=== PATIENT | male | born 1940 | race African-American/Black ===

== ENCOUNTER 2019-04-04 04:13 | Inpatient (IN) | payer MEDICARE ==
[~2019-04-04] VITALS: Ht 185.4 cm; Wt 90.1 kg
--- NOTE | ~2019-04-04 | HEMODYNAMI ---
PATIENT:LINDA OCHOA MEDICAL RECORD: [id number] : 42 [facility] [id number] ADMISSION DATE: 04/04/19 Generatedon:04/05/201910:25 Patient name: LINDA OCHOA Patient #: [id number] SSN: [id number] : 1940 Date of study: 04/05/2019 Page: Of Hemodynamic Procedure Report Patient Data Patient Demographics Procedure consent was obtained First Name: LINDA Gender: Male Last Name: GABRIELA : 1940 Patient #: [id number] Age: 78 year(s) Race: Black SSN: [id number] Additional ID: [id number] Contact details Address: [address] [place] [address] [place] Zip code: [address] Admission Admission Data Admission Date: 04/04/2019 Admission Time: 5:41 Arrival Date: 04/05/2019 Arrival Time: 5:41 Admit Source: Emergency Insurance Payor: Private department health insurance Room #: D.[id number] Height (in.): 185 BSA: 2.95 (m2) Height (cm.): 469.9 BMI: 1.77 (kg/m2) Weight (lbs.): 86 Weight (kg.): 39.01 Lab Results Lab Result Date: 04/05/2019 Lab Result Time: 0:00 Biochemistry Name Units Result Min Max BUN mg/dl 29 --(----)-* 7 18 Creatinine mg/dl 1.1 --(--*-)-- 0.6 1.3 CBC Name Units Result Min Max Hemoglobin g/dl 9.2 *-(----)-- 13.5 17.5 Procedure Procedure Types Cath Procedure Diagnostic Procedure [facility] w/Coronaries Sedation Charges Moderate Sedation up to 30 minutes PCI Procedure Coronary Stent Coronary Stent Initial x2 Coronary Stent Additional Procedure Description Procedure Date Procedure Date: 04/05/2019 Procedure Start Time: 9:58 Procedure End Time: 10:20 Procedure Staff Name Function Ferdinand Matthews MD Performing Physician Liss Chavez RT Monitor Neema Real RT Monitor Veronika Kirk RT Scrub Tejinder Greenwood RN Nurse Procedure Data Cath Procedure Fluoroscopy Diagnostic fluoroscopy Total fluoroscopy Time: 5.5 time: 5.5 min min Diagnostic fluoroscopy Total fluoroscopy dose: dose: 1748 mGy 1748 mGy Contrast Material Contrast Material Type Amount (ml) Isovue 300 164 Entry Location Entry Primary Successful Side Size Upsize Upsize Entry Closure Talley ccessful Closure Location (Fr) 1 (Fr) 2 (Fr) Remarks Device Remarks Radial Right 6 Fr Mechanical artery Short Compression Estimated blood loss: 5 ml Diagnostic catheters Device Type Used For End Catheter Placement DIAGNOSTIC Hen[place] 110cm 5 Multi-vessel Fr catheter ([id number]) Angiography Procedure Complications No complications Procedure Medications Medication Administration Route Dosage 0.9% NaCl I.V. 100 ml/hr Oxygen etCO2 Nasal cannula 2 l/min Heparin Flush Bag added to field 2 bags (1000units/500ml NS) Lidocaine 2% added to field 20 Radial Cocktail added to field 1 syringe (Verapamil 2mg/Nitro 400mcg/Heparin 1500units) Versed I.V. 1 mg Fentanyl I.V. 50 mcg Radial Cocktail added to field 1 syringe (Verapamil 2mg/Nitro 400mcg/Heparin 1500units) Heparin Bolus I.V. 4000 units Hemodynamics Rest BSA: 2.95 (m2) HGB: 9.2 (g/dl) O2 Consumption: Estimated: 353.02 (ml/min) O2 Con sumption indexed: Estimated:119.67 (ml/min/m) Heart Rate: 83 (bpm) Pressure Samples Time Site Value (mmHg) Purpose Heart Use Rate(bpm) 10:01 LV 110/87,101 Snapshot 91 Snapshots Pre Cath Intra NCS Post Cath Vital Signs Time Heart Resp SPO2 etCO2 NIBP (mmHg) Rhythm Pain Sedation Rate (ipm) (%) (mmHg) Status Level (bpm) 9:43:16 84 12 94 38.3 134/75(101) NSR 0 (11) 10(A) , No pain 9:47:24 82 12 96 33.9 116/82(107) NSR 0 (11) 10(A) , No pain 9:51:28 83 11 96 38.3 114/75(94) NSR 0 (11) 10(A) , No pain 9:55:31 81 10 96 40.6 114/71(91) NSR 0 (11) 10(A) , No pain 9:59:35 82 19 96 41.4 114/71(90) NSR 0 (11) 10(A) , No pain 10:03:41 85 16 93 38.3 102/67(92) NSR 0 (11) 10(A) , No pain 10:07:40 85 16 93 39.9 114/72(91) NSR 0 (11) 10(A) , No pain 10:11:44 83 15 94 37.6 110/74(84) NSR 0 (11) 10(A) , No pain 10:15:44 81 19 94 42.1 118/79(95) NSR 0 (11) 10(A) , No pain 10:19:50 80 8 96 33.8 107/73(88) NSR 0 (11) 10(A) , No pain Medications Time Medication Route Dose Verified Delivered Reason Not es Effectiveness by by 9:42:27 0.9% NaCl I.V. 100 Tejinder Tejinder Per physician ml/hr Krystyna Greenwood RN RN 9:42:36 Oxygen etCO2 2 l/min Tejinder Tejinder for low 02 sats Nasal Lorigan Krystyna cannula RN RN 9:42:46 Heparin Flush added 2 bags Tejinder Tejinder used for Bag to Krystyna Greenwood procedure (1000units/500ml RN RN NS) 9:42:56 Lidocaine 2% added 20ml Tejinder Tejinder for local to vial Lorigan Krystyna anesthetic field RN RN 9:43:08 Radial Cocktail added 1 Tejinder Tejinder used for (Verapamil to syringe Keyigan Krystyna procedure 2mg/Nitro field RN RN 400mcg/Heparin 1500units) 9:57:32 Versed I.V. 1 mg Tejinder Tejinder for sedation Krystyna Greenwood RN RN 9:57:43 Fentanyl I.V. 50 mcg Tejinder Tejinder for sedation Krystyna Greenwood RN RN 10:01:14 Radial Cocktail added 1 Tejinder Ferdinand for (Verapamil to syringe Krystyna Taulianet MD vasodilation 2mg/Nitro field RN 400mcg/Heparin 1500units) 10:06:30 Heparin Bolus I.V. 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 Start room use. 9:04:38 Plan of Care:Hemodynamics will remain stable., Cardiac rhythm will remain stable., Comfort level will be maintained., Respiratory function will remain adequate., Patient/ family verbilizes understanding of procedure., Procedure tolerated without complication., Recovers from procedure without complications.. 9:05:45 2) 60-89 Mildly reduced kidney function, and other findings (as for stage 1) point to kidney disease. 9:09:44 Maximum allowable contrast dose (3.7 X eGFR X 0.75)233.1 ml. 9:35:11 Patient received from Med II to CCL 2 Alert and oriented. Tansferred to table in Supine position. 9:35:15 Warm blankets applied, and mera hugger turned on for patient comfort. 9:35:16 Correct patient and procedure confirmed by team. 9:35:17 ECG and BP/O2 sat monitors applied to patient. 9:42:12 Vital chart was started 9:42:27 0.9% NaCl 100 ml/hr I.V. was administered by Tejinder Greenwood RN; Per physician; Verbal order read back and verified. 9:42:36 Oxygen 2 l/min etCO2 Nasal cannula was administered by Tejinder Greenwood RN; for low 02 sats; Verbal order read back and verified. 9:42:45 Baseline sample Acquired. 9:42:46 Heparin Flush Bag (1000units/500ml NS) 2 bags added to field was administered by Tejinder Greenwood RN; used for procedure; Verbal order read back and verified. 9:42:53 Full Disclosure recording started 9:42:56 Lidocaine 2% 20ml vial added to field was administered by Tejinder Greenwood RN; for local anesthetic; Verbal order read back and verified. 9:43:01 H&P Date Dictated: 04/05/2019 New H&P dictated by physician.. 9:43:08 Radial Cocktail (Verapamil 2mg/Nitro 400mcg/Heparin 1500units) 1 syringe added to field was administered by Tejinder Greenwood RN; used for procedure; Verbal order read back and verified. 9:43:13 Pre-procedure instructions explained to patient. 9:43:14 Pre-op teaching completed and patient verbalized understanding. 9:43:21 Family in patients room. 9:43:25 Patient NPO since Midnight. 9:43:37 Is the patient allergic to Iodine/contrast media? No. 9:43:40 Was the patient premedicated? No 9:43:50 Is patient on blood thinner?No 9:43:55 Patient diabetic? No. 9:44:06 ----Pre-sedation anethsthesia assessment.---- 9:44:11 Previous problem with sedation/anesthesia? No ? 9:44:14 Snore? No 9:44:16 Sleep apnea? No 9:44:19 Deviated septum? No 9:44:21 Opens mouth fully? Yes 9:44:23 Sticks out tongue? Yes 9:44:32 Dentures? No ? 9:44:40 Airway obstruction? No ? 9:46:11 Pre procedure: right posterior tibial pulse Doppler 9:46:21 Pre procedure: left dorsailis pedis pulse Doppler 9:46:32 Patient pain scale 0/10 ?. 9:46:41 Modified Chucho's test Radial < 7 seconds 9:46:54 IV patent on arrival in left forearm with 0.9% NaCl at [facility]. 9:47:03 Lab results completed and on chart. 9:47:12 Right Radial & Right Groin area was prepped with chlora-prep and draped in sterile fashion 9:47:15 Alarms reviewed by R. N. 9:47:16 Sharps counted by scrub and verified by R.N. 9:47:22 Physician arrived 9:47:22 --------ALL STOP TIME OUT------ 9:47:24 Final Timeout: patient, procedure, and site verified with staff and physician. All members of the team are in agreement. 9:47:30 Right Radial & Right Groin site verified by team. 9:47:39 Fire Safety Assessment: A--An alcohol-based skin anteseptic being used preoperatively., C--Open oxygen or nitrous oxide is being used., D--An ESU, laser, or fiber-optic light is being used. 9:47:48 Physical assessment completed. ASA score P 2 - A patient with mild systemic disease as per Ferdinand Matthews MD. 9:47:59 Sedation plan: IV Moderate Sedation Medication:Versed, Fentanyl 9:48:11 Use device set Radial Dx or PCI 9:48:18 ACIST Syringe (79195) opened to sterile field. 9:48:19 Medline Cath Pack ([id number]) opened to sterile field. 9:48:20 Bag Decanter (2002S) opened to sterile field. 9:48:21 ACIST Hand Control (94873) opened to sterile field. 9:48:22 ACIST Manifold () opened to sterile field. 9:48:24 Tegaderm 4 x 4 (1626W) opened to sterile field. 9:48:26 MBrace Wrist Support ([id number]) opened to sterile field. 9:48:31 SHEATH 6FR RAIN (1745507) opened to sterile field. 9:48:33 EMERALD Guide Wire (026-043) opened to sterile field. 9:56:51 Zero performed for pressure channel P1 9:57:32 Versed 1 mg I.V. was administered by Tejinder Greenwood RN; for sedation; Verbal order read back and verified. 9:57:43 Fentanyl 50 mcg I.V. was administered by Tejinder Greenwood RN; for sedation; Verbal order read back and verified. 9:58:43 Procedure started. 9:58:54 Local anesthetic to right radial artery with Lidocaine 2% by Ferdinand Matthews MD.INITIAL ACCESS ONLY 9:59:23 A 6 Fr Short sheath was inserted into the Right Radial artery 9:59:38 A DIAGNOSTIC Henning 110cm 5 Fr catheter (480902) was advanced over the wire and used for Multi-vessel Angiography. 10:01:14 Radial Cocktail (Verapamil 2mg/Nitro 400mcg/Heparin 1500units) 1 syringe added to field was administered by Ferdinand Matthews MD; for vasodilation; Verbal order read back and verified. 10:01:47 LV hemodynamics recorded. 10:01:52 LV gram done using PINK 10::59 Injector settings: Ml/sec: 5, Volume: 15, 10:02:09 EF : 45 % 10:02:22 LCA angiography performed. 10:03:47 RCA angiography performed. 10:04:06 Catheter removed. 10:04:46 INFLATOR Merit BasixCompak (ZD7823) opened to sterile field. 10:04:56 CHOICE PT Extra Support 182cm wire ([id number]) opened to sterile field. 10:05:14 GUIDE 6FR XBLAD 3.5 catheter ([id number]) opened to sterile field. 10:05:17 ACC Pre-intervention DAVID Flow is 3. 10:05:42 Pre PCI Site: [place] pLAD has 95% stenosis. 10:05:42 6 Fr xblad3.5 guide catheter was inserted over the wire 10:05:54 choice pt wire advanced. 10:06:28 Wire advanced across lesion. 10:06:30 Heparin Bolus 4000 units I.V. was administered by Tejinder Greenwood RN; for anticoagulation; Verbal order read back and verified. 10:08:37 Place stent Inflation Number: 1 A NITIN RX 3.5 x 12 stent ([id number]) was prepped and advanced across the Prox LAD 95. The stent was deployed at 17 JEANINE for 0:10 (min:sec) . 10:09:00 Stent catheter was removed intact over wire. 10:09:22 Wire redirected to lcx. 10:09:28 Wire advanced across lesion. 10:11:55 Place stent Inflation Number: 1 A NITIN RX 2.5 x 18 stent ([id number]) was prepped and advanced across the 1st Ob Iman 95. The stent was deployed at 15 JEANINE for 0:10 (min:sec) -1. 10:12:09 Stent catheter was removed intact over wire. 10:14:02 Place stent Inflation Number: 1 A NITIN RX 3.0 x 12 stent ([id number]) was prepped and advanced across the Mid CX 95. The stent was deployed at 13 JEANINE for 0:10 (min:sec) . 10:14:25 Stent catheter was removed intact over wire. 10:14:28 Wire removed. 10:14:30 ACT drawn and resulted at 187 seconds. (normal therapeutic range 180-240 seconds). 10:14:30 Guide catheter removed. 10:14:37 ZEPHYR REGULAR TR BAND (302576) opened to sterile field. 10:15:01 Sheath removed intact; hemostasis achieved with Mechanical Compression to the Right Radial artery. 10:15:07 Procedure ended.(Physican Out) 10:16:15 Fluoroscopy time 05.50 minutes. 10:16:21 Flurop Dose total: 1748 10:16:21 Fluoroscopy dose: 1748 mGy 10:16:28 Dose Area Product 67958 mGy/cm. 10:16:52 Contrast amount:Isovue 300 164ml. 10:16:58 Sharps counted by scrub and verified by R.N. 10:17:06 [place] band inflated with 10cc of air. 10:17:11 Insertion/operative site no bleeding no hematoma. 10:17:20 Post right radial artery:stable 10:17:25 Post Procedure Pulses reassessed and unchanged 10:17:32 Post procedure rhythm: unchanged. 10:17:40 Estimated blood loss: 5 ml 10:17:44 Post procedure instruction explained to patient.Patient verbalizes understanding. 10:17:46 Patient needs reinforcement of post procedure teaching. 10:19:04 Procedure type changed to Cath procedure, Diagnostic procedure, LHC, LHC w/Coronaries, Sedation Charges, Moderate Sedation up to 30 minutes, PCI procedure, Coronary Stent, Coronary Stent Initial x2, Coronary Stent Additional 10:19:50 Procedure and supply charges have been captured, reviewed, submitted and are correct. 10:20:06 Procedure Complication : No complications 10:20:11 Vital chart was stopped 10:20:12 See physician's report for complete and final results. 10:20:16 Report given to Med II. 10:20:28 Patient transfered to Med II with Bed. 10:20:35 Procedure ended. 10:20:35 Full Disclosure recording stopped 10:20:48 ACC-PCI Only Patient was given prescriptions, or instructed by Ferdinand Matthews MD to start/continue the following medications upon discharge: Plavix 10:20:50 End room use (Document Last) Intervention Summary Intervention Notes Time ActionType Lesion and Equipment Used Action# Pressure Duration Attributes 10:08:[address] Place stent Prox LAD NITIN RX 3.5 x 1 17 00:10 12 stent ([id number]) 10:11:55 Place stent 1st Ob Iman NITIN RX 2.5 x 1 15 00:10 18 stent ([id number]) 10:14:02 Place stent Mid CX NITIN RX 3.0 x 1 13 00:10 12 stent ([id number]) Device Usage Item Name Manufacture Quantity Catalog Number Hospital Part Current M inimal Lot# / Charge Number Stock Stock Serial# Code ACIST Syringe Acist 1 02149 961977 817289 783637 2 0 (79634) Medical Systems Inc Medline Cath Medline 1 [id number] 250429 23357 139036 5 Pack ([id number]) Bag Decanter Microtek 1 2001S 365261 87336 043682 5 (2001S) Medical Inc. ACIST Hand Acist 1 89888 356906 124736 267248 5 Control Medical (57269) Systems Inc ACIST Manifold Acist 1 73102 047693 378373 465953 5 (27867) Medical Systems Inc Tegaderm 4 x 4 3M 1 1626W 203743 004876 661344 5 (1626W) MBrace Wrist Advanced 1 140-0250-00 128382 57040 525053 5 Support Vascular ([id number]) Dynamics SHEATH 6FR Cardinal 1 0849492 392932 7641019 813752 5 RAIN (1083984) [facility] Guide Cardinal 1 502-455 260607 051631 367365 5 Wire (502-539) Health DIAGNOSTIC Terumo 1 40-0221 606187 154851 396615 5 Henning 110cm 5 Fr catheter (405863) INFLATOR Merit Merit 1 NU2500 855024 763333 275527 1 5 Biovest International Medical (TH2081) CHOICE PT [place] 1 [id number] 097978 248008 578452 5 Extra Support Scientific 182cm wire ([id number]) GUIDE 6FR Cardinal 1 [id number] 066670 485768 385380 1 0 XBLAD 3.5 Health catheter (86662937) NITIN RX 3.5 x Medtronic 1 [id number] 060055 8853440 952374 5 [id number] 12 stent ([id number]) NITIN RX 2.5 x Medtronic 1 [id number] 920927 0161456 576887 5 [id number] 18 stent ([id number]) NITIN RX 3.0 x Medtronic 1 [id number] 413456 9584505 181766 5 [id number] 12 stent ([id number]) ZEPHYR REGULAR Cardinal 1 404813 456587 1456133 491861 5 [facility] (873710) Signature Audit Hansen Stage Time Signature Unsigned Intra-Procedure 04/05/2019 Neema 10:23:13 AM Farhan RT(R) (CV) Intra-Procedure 04/05/2019 Tejinder 10:24:01 AM Krystyna KENYON Intra-Procedure 04/05/2019 Ferdinand Matthews 10:25:11 AM [place] [address] [place] [address]
--- NOTE | ~2019-04-04 | HEMODYNAMI ---
PATIENT:LINDA OCHOA MEDICAL RECORD: [id number] : 42 [facility] D.2127 [id number] ADMISSION DATE: 04/04/19 Generatedon:04/07/201910:35 Patient name: LINDA OCHOA Patient #: [id number] SSN: [id number] : 1940 Date of study: 04/07/2019 Page: Of Hemodynamic Procedure Report Patient Data Patient Demographics Procedure consent was obtained First Name: LINDA Gender: Male Last Name: GABRIELA : 1940 Patient #: [id number] Age: 78 year(s) Race: Black SSN: [id number] Additional ID: [id number] Contact details Address: [address] [place] [address] State: [facility] Zip code: [address] Past Medical History Allergies: No known allergies Admission Admission Data Admission Date: 04/04/2019 Admission Time: 5:41 Arrival Date: 04/05/2019 Arrival Time: 5:41 Admit Source: Emergency Insurance Payor: Private department health insurance Room #: D.2127 Height (in.): 185 BSA: 2.95 (m2) Height (cm.): 469.9 BMI: 1.77 (kg/m2) Weight (lbs.): 86 Weight (kg.): 39.01 Lab Results Lab Result Date: 04/07/2019 Lab Result Time: 0:00 Biochemistry Name Units Result Min Max BUN mg/dl 22 --(----)-* 7 18 Creatinine mg/dl 1.3 --(---*)-- 0.6 1.3 eGFR ml/min 69 *-(----)-- 90 120 AM CBC Name Units Result Min Max Hematocrit % 32.3 *-(----)-- 42 54 Hemoglobin g/dl 10.4 *-(----)-- 13.5 17.5 Procedure Procedure Types Cath Procedure PCI Procedure Coronary Stent Coronary Stent Initial Procedure Description Procedure Date Procedure Date: 04/07/2019 Procedure Start Time: 10:06 Procedure End Time: 10:31 Procedure Staff Name Function Ferdinand Matthews MD Performing Physician Mignon Lewis RT Monitor Brenda Hopkins RT Scrub Tejinder Greenwood RN Nurse Procedure Data Cath Procedure Fluoroscopy Diagnostic fluoroscopy Total fluoroscopy Time: 9 time: 9 min min Diagnostic fluoroscopy Total fluoroscopy dose: 632 dose: 632 mGy mGy Contrast Material Contrast Material Type Amount (ml) Isovue 300 111 Entry Location Entry Primary Successful Side Size Upsize Upsize Entry Closure Succes sful Closure Location (Fr) 1 (Fr) 2 (Fr) Remarks Device Remarks Femoral Right 7 Fr 7 Fr Exoseal artery Short Long Estimated blood loss: 10 ml Procedure Complications No complications Procedure Medications Medication Administration Route Dosage 0.9% NaCl I.V. 100 ml/hr Oxygen etCO2 Nasal cannula 2 l/min Heparin Flush Bag added to field 2 bags (1000units/500ml NS) Lidocaine 2% added to field 20 Versed I.V. 0.5 mg Fentanyl I.V. 25 mcg Heparin Bolus I.V. 5000 units Hemodynamics Rest BSA: 2.95 (m2) HGB: 10.4 (g/dl) O2 Consumption: Estimated: 370.6 (ml/min) O2 Con sumption indexed: Estimated:125.63 (ml/min/m) Heart Rate: 99 (bpm) Snapshots Pre Cath Intra NCS Post Cath Vital Signs Time Heart Resp SPO2 etCO2 NIBP (mmHg) Rhythm Pain Sedation Rate (ipm) (%) (mmHg) Status Level (bpm) 9:55:08 100 22 100 30 138/88(117) NSR 0 (11) 10(A) , No pain 9:59:22 101 18 100 33.7 131/85(115) NSR 0 (11) 10(A) , No pain 10:03:30 93 15 100 39.7 124/77(98) NSR 0 (11) 10(A) , No pain 10:07:42 103 15 100 37.5 122/74(95) NSR 0 (11) 10(A) , No pain 10:11:52 100 15 100 36 128/78(100) NSR 0 (11) 10(A) , No pain 10:16:08 99 14 100 36.7 126/73(103) NSR 0 (11) 9(A) , No pain 10:20:18 97 17 100 35.2 127/80(103) NSR 0 (11) 9(A) , No pain 10:24:30 94 17 100 33.7 132/80(103) NSR 0 (11) 9(A) , No pain 10:28:40 93 17 100 33 135/87(108) NSR 0 (11) 9(A) , No pain Medications Time Medication Route Dose Verified Delivered Reason Notes Effectiveness by by 9:57:31 0.9% NaCl I.V. 100 Tejinder Tejinder Per physician ml/hr Krystyna Greenwood RN RN 9:57:42 Oxygen etCO2 2 Tejinder Tejinder for low 02 sats Nasal l/min Krystyna Greenwood cannula RN RN 9:57:54 Heparin Flush added 2 Tejinder Tejinder used for Bag to bags Krystyna Greenwood procedure (1000units/500ml RN RN NS) 9:58:06 Lidocaine 2% added 20ml Tejinder Tejinder for local to vial Krystyna Greenwood anesthetic field RN RN 10:06:13 Versed I.V. 0.5 Tejinder Tejinder for sedation mg Krystyna Greenwood RN RN 10:06:22 Fentanyl I.V. 25 Tejinder Tejinder for sedation mcg Krystyna Greenwood RN RN 10:10:38 Heparin Bolus I.V. 5000 Tejinder Tejinder for units Krystyna Greenwood anticoagulation RN oxyacetylene torch operator Log Time Note 9:35:10 Tejinder Greenwood RN sent for patient. Start room use. 9:43:07 Procedure Status Urgent Heart Cath (IP). 9:43:12 Patient Weight : 86 lbs 9:43:12 Patient Height : 185 inches 9:43:17 Time tracking: Regular hours (M-F 7:00 - 5:00) 9:43:20 Plan of Care:Hemodynamics will remain stable., Cardiac rhythm will remain stable., Comfort level will be maintained., Respiratory function will remain adequate., Patient/ family verbilizes understanding of procedure., Procedure tolerated without complication., Recovers from procedure without complications.. 9:43:22 Signed procedure consent form obtained from patient. 9:45:48 Patient received from Med II to CCL 1 Alert and oriented. Tansferred to table in Supine position. 9:45:49 Warm blankets applied, and mera hugger turned on for patient comfort. 9:45:49 Correct patient and procedure confirmed by team. 9:45:50 ECG and BP/O2 sat monitors applied to patient. 9:53:07 Vital chart was started 9:53:09 Baseline sample Acquired. 9:53:12 Rhythm: sinus rhythm 9:53:13 Full Disclosure recording started 9:53:38 Pre-procedure instructions explained to patient. 9:53:38 Pre-op teaching completed and patient verbalized understanding. 9:53:40 Family in patients room. 9:54:48 Patient allergic to No known allergies 9:54:50 Patient NPO since Midnight. 9:54:52 Is patient on blood thinner?Yes 9:54:55 ACC The patient was administered the following blood thiners within the last 24 hours: ACCPlavix 9:54:56 Patient diabetic? No. 9:55:01 Previous problem with sedation/anesthesia? No ? 9:55:02 Snore? No 9:55:03 Sleep apnea? No 9:55:04 Deviated septum? No 9:55:10 Opens mouth fully? Yes 9:55:11 Sticks out tongue? Yes 9:55:13 Airway obstruction? No ? 9:55:14 Dentures? No ? 9:55:16 Pre procedure: right dorsailis pedis pulse 1+ Palpable, but thready & weak; easily obliterated 9:55:19 Patient pain scale 0/10 ?. 9:55:25 IV patent on arrival in left forearm with 0.9% NaCl at O. 9:55:59 Lab Result : BUN 22 mg/dl 9::59 Lab Result : Creatinine 1.3 mg/dl 9:55:59 Lab Result : eGFR AM 69 ml/min 9:55:59 Lab Result : Hemoglobin 10.4 g/dl 9:55:59 Lab Result : Hematocrit 32.3 % 9:56:02 Lab results completed and on chart. 9:56:06 Right groin area was prepped with chlora-prep and draped in sterile fashion 9:56:07 Alarms reviewed by R. N. 9:56:07 Sharps counted by scrub and verified by R.N. 9:57:31 0.9% NaCl 100 ml/hr I.V. was administered by Tejinder Lorigan RN; Per physician; Verbal order read back and verified. 9:57:42 Oxygen 2 l/min etCO2 Nasal cannula was administered by Tejinder Greenwood RN; for low 02 sats; Verbal order read back and verified. 9:57:54 Heparin Flush Bag (1000units/500ml NS) 2 bags added to field was administered by Tejinder Greenwood RN; used for procedure; Verbal order read back and verified. 9:58:06 Lidocaine 2% 20ml vial added to field was administered by Tejinder Greenwood RN; for local anesthetic; Verbal order read back and verified. 9:59:17 Use device set CATH PACK 9:59:18 ACIST Syringe (48944) opened to sterile field. 9:59:19 ACIST Hand Control (59058) opened to sterile field. 9:59:19 ACIST Manifold (77189) opened to sterile field. 9:59:19 Medline Cath Pack ([id number]) opened to sterile field. 9:59:20 Bag Decanter (2002S) opened to sterile field. 9:59:20 EMERALD Guide Wire (502-432) opened to sterile field. 9:59:25 SHEATH 7FR [place] ([id number]) opened to sterile field. 9:59:33 INFLATOR Merit BasixCompak (FI5729) opened to sterile field. 9:59:33 CHOICE PT Extra Support 182cm wire ([id number]) opened to sterile field. 10:02:07 --------ALL STOP TIME OUT------ 10:02:07 Final Timeout: patient, procedure, and site verified with staff and physician. All members of the team are in agreement. 10:02:08 Right groin site verified by team. 10:02:11 Fire Safety Assessment: A--An alcohol-based skin anteseptic being used preoperatively., C--Open oxygen or nitrous oxide is being used., D--An ESU, laser, or fiber-optic light is being used. 10:02:14 Physical assessment completed. ASA score P 2 - A patient with mild systemic disease as per Ferdinand Matthews MD. 10:02:18 3a) 45-59 Moderately reduced kidney function. 10:02:21 Maximum allowable contrast dose (3.7 X eGFR X 0.75)191 ml. 10:02:25 Sedation plan: IV Moderate Sedation Medication:Versed, Fentanyl 10:03:19 Zero performed for pressure channel P1 10:04:39 Procedure started. 10:06:05 Local anesthetic to right femoral artery with Lidocaine 2% by Ferdinand Matthews MD.INITIAL ACCESS ONLY 10:06:13 Versed 0.5 mg I.V. was administered by Tejinder Greenwood RN; for sedation; Verbal order read back and verified. 10:06:13 A 7 Fr Short sheath was inserted into the Right Femoral artery 10:06:22 Fentanyl 25 mcg I.V. was administered by Tejinder Greenwood RN; for sedation; Verbal order read back and verified. 10:06:50 7 Fr AR 2 SH guide catheter was inserted over the wire 10::13 Guide Catheter removed. unable to get back-up support 10:08:23 SHEATH 7FR ARROW 45cm ([id number]) opened to sterile field. 10:08:49 Sheath upsized to a 7 Fr Long. 10:10:00 7 Fr AR 2 SH guide catheter was inserted over the wire 10:10:16 Pre PCI Site: [place] mRCA has MULTIPLE 95% stenosis. 10:10:38 Heparin Bolus 5000 units I.V. was administered by Tejinder Greenwood RN; for anticoagulation; Verbal order read back and verified. 10:11:13 CHOICE ES 182 wire advanced. 10:13:23 Wire advanced across lesion. 10:15:55 Inflate balloon Inflation number: 1 A EUPHORA 2.0 x 20 Balloon ([id number]) was prepped and advanced across the Mid RCA , then inflated to 17 JEANINE for 0:00 (min:sec) . 10:16:17 MULTIPLE INFLATIONS AT 17ATMS 10:17:12 Inflation number: 2 The EUPHORA 2.0 x 20 Balloon ([id number]) was reinflated across the Mid RCA , to 21 JEANINE for 0:00 (min:sec) . 10:17:27 MULTIPLE INFLATIONS AT 21 ATMS 10:17:48 Balloon removed over the wire. 10:19:22 The NITIN RX 2.0 x 30 stent ([id number]) was advanced then removed because of failure to cross lesion 10:21:08 Inflate balloon Inflation number: 3 A EUPHORA 2.5 x 20 Balloon ([id number]) was prepped and advanced across the Mid RCA , then inflated to 13 JEANINE for 0:00 (min:sec) . 10:21:19 Inflation number: 4 The EUPHORA 2.5 x 20 Balloon ([id number]) was reinflated across the Mid RCA , to 17 JEANINE for 0:00 (min:sec) . 10:21:31 Inflation number: 5 The EUPHORA 2.5 x 20 Balloon ([id number]) was reinflated across the Mid RCA , to 17 JEANINE for 0:00 (min:sec) . 10:21:45 Inflation number: 6 The EUPHORA 2.5 x 20 Balloon ([id number]) was reinflated across the Mid RCA , to 17 JEANINE for 0:00 (min:sec) . 10:22:09 Inflation number: 7 The EUPHORA 2.5 x 20 Balloon ([id number]) was reinflated across the Mid RCA , to 19 JEANINE for 0:00 (min:sec) . 10:22:18 Balloon removed over the wire. 10:23:28 Place stent Inflation Number: 8 A NITIN RX 2.0 x 30 stent ([id number]) was prepped and advanced across the Mid RCA . The stent was deployed at 21 JEANINE for 0:00 (min:sec) . 10:23:52 Stent catheter was removed intact over wire. 10:23:53 Guide catheter removed. 10:23:54 Wire removed. 10:24:07 EXOSEAL 7Fr (EX700) opened to sterile field. 10:24:19 LONG SHEATH EXCHANGED FOR THE SHORT SHEATH 10:26:13 Sheath removed intact; hemostasis achieved with Exoseal to the Right Femoral artery. 10:26:15 Procedure ended.(Physican Out) 10::56 Fluoroscopy time 09.00 minutes. 10:29:00 Fluoroscopy dose: 632 mGy 10:29:00 Flurop Dose total: 632 10:29:07 Dose Area Product 40842 mGy/cm. 10:29:12 Contrast amount:Isovue 300 111ml. 10:29:36 Maximum allowable dose exceeded? No. 10::37 Sharps counted by scrub and verified by R.N. 10:29:40 Post-op/insertion site Right Femoral artery dressed using a 4 x 4 and Tegaderm. 10:29:43 Post-procedure physical assessment completed. ASA score P 2 - A patient with mild systemic disease as per Ferdinand Matthews MD. 10:29:45 Post procedure rhythm: sinus rhythm 10::48 Estimated blood loss: 10 ml 10::50 Post procedure instruction explained to patient.Patient verbalizes understanding. 10:29:51 Patient needs reinforcement of post procedure teaching. 10:30:08 Procedure type changed to Cath procedure, PCI procedure, Coronary Stent, Coronary Stent Initial 10:30:26 Procedure and supply charges have been captured, reviewed, submitted and are correct. 10:30:30 Procedure Complication : No complications 10::29 ACT drawn and resulted at 163 seconds. (normal therapeutic range 180-240 seconds). 10::35 Vital chart was stopped 10::35 See physician's report for complete and final results. 10::37 Report given to [facility]. 10:31:40 Patient transfered to [facility] with Bed. 10:31:41 Procedure ended. 10::41 Full Disclosure recording stopped 10::46 End room use (Document Last) 10:34:33 End room use (Document Last) Intervention Summary Intervention Notes Time ActionType Lesion and Equipment Used Action# Pressure Duration Attributes 10:15:55 Inflate Mid RCA EUPHORA 2.0 x 1 17 00:00 balloon 20 Balloon ([id number]) 10:17:12 Reinflate Mid RCA EUPHORA 2.0 x 2 21 00:00 balloon 20 Balloon ([id number]) 10:19:22 Discard NITIN RX 2.0 x Stent 30 stent ([id number]) 10:21:08 Inflate Mid RCA EUPHORA 2.5 x 3 13 00:00 balloon 20 Balloon ([id number]) 10:21:19 Reinflate Mid RCA EUPHORA 2.5 x 4 17 00:00 balloon 20 Balloon ([id number]) 10:21:31 Reinflate Mid RCA EUPHORA 2.5 x 5 17 00:00 balloon 20 Balloon ([id number]) 10:21:45 Reinflate Mid RCA EUPHORA 2.5 x 6 17 00:00 balloon 20 Balloon ([id number]) 10:22:09 Reinflate Mid RCA EUPHORA 2.5 x 7 19 00:00 balloon 20 Balloon ([id number]) 10:23:28 Place stent Mid RCA NITIN RX 2.0 x 8 21 00:00 30 stent ([id number]) Device Usage Item Name Manufacture Quantity Catalog Number Hospital Part Current M inimal Lot# / Charge Number Stock Stock Serial# Code ACIST Syringe Acist 1 20886 985066 844864 772413 2 0 (43255) Medical Systems Inc ACIST Hand Acist 1 40452 723806 342403 381783 5 Control Medical (20962) Systems Inc ACIST Manifold Acist 1 63048 580393 474784 210634 5 (88822) Medical Systems Inc Medline Cath Medline 1 [id number] 641888 24000 423798 5 Pack ([id number]) Bag Decanter Microtek 1 2001S 824296 81131 868221 5 () Medical Inc. EMERALD Guide Cardinal 1 502-455 728061 197010 532299 5 Wire (502455) Health SHEATH 7FR Terumo 1 AAN488 458897 818659 071300 5 [place] (QOD279) INFLATOR Merit Merit 1 BP7464 167250 421381 568401 1 5 Thermal Nomad (TJ1532) CHOICE PT [place] 1 [id number] 988204 450888 545400 5 Extra Support Scientific 182cm wire ([id number]) SHEATH 7FR Teleflex 1 CL-55015 705486 100129 789982 1 ARROW 45cm ([id number]) EUPHORA 2.0 x Medtronic 1 [id number] 217929 221408 816320 5 [id number] 20 Balloon ([id number]) NITIN RX 2.0 x Medtronic 1 [id number] 625691 5315109 495639 5 [id number] 30 stent ([id number]) EUPHORA 2.5 x Medtronic 1 [id number] 509982 184861 319645 5 [id number] 20 Balloon ([id number]) EXOSEAL 7Fr Cardinal 1 EX700 882834 480499 291804 5 (EX700) Health Signature Audit [place] Stage Time Signature Unsigned Intra-Procedure 04/07/2019 Mignon Lewis 10:34:33 AM RT(R) Intra-Procedure 04/07/2019 Tejinder 10:35:07 AM Krystyna KENYON Intra-Procedure 04/07/2019 Ferdinand Matthews 10:35:25 AM [place] [address] [place] [address]
[2019-04-04] MEDS ORDERED: IBUPROFEN400 MG PO (04:20)
[2019-04-04] MEDS ORDERED: NEURONTIN600 MG PO (04:20)
[2019-04-04] MEDS ORDERED: ASPIRIN325 MG PO (04:20)
[2019-04-04] MEDS ORDERED: NORVASC5 MG PO (04:20)
[2019-04-04 05:15] LABS: BASOPHILS 0 % (0-2); EOSINOPHILS 0 % (0-7); HEMATOCRIT 30.9 % (42.0-54.0); HEMOGLOBIN 10.1 g/dL (13.5-17.5); IMMATURE GRANULOCYTES 0.3 % (0-5); LYMPHOCYTES 1.9 % (15-50); MCH 29.5 pg (26.0-34.0); MCHC 32.7 g/dL (31.0-37.0); MCV 90.4 fL (80.0-100.0); MEAN PLATELET VOLUME 8.5 fL (7.4-10.4); MONOCYTES 1.6 % (2-11); NEUTROPHILS 96.2 % (40-80); PLATELET COUNT 364 10x3/uL (130-400); RBC 3.42 10x6/uL (4.20-6.10); RDW 15.5 % (11.5-14.5); WBC 15.9 10x3/uL (4.8-10.8)
[2019-04-04 05:30] LABS: ALBUMIN 2.8 g/dL (3.4-5.0); ALKALINE PHOSPHATASE 73 U/L (46-116); ALT (SGPT) 19 U/L (10-68); BILIRUBIN - TOTAL 0.81 mg/dL (0.2-1.3); CALC OSMOLALITY 290 mosm/kg (275-300); CALCIUM 8.1 mg/dL (8.5-10.1); CARBON DIOXIDE 28.3 mmol/L (21.0-32.0); CHLORIDE - SERUM 104 mmol/L (98-107); CREATININE - SERUM 1.7 mg/dL (0.6-1.3); GLUCOSE 169 mg/dL (74-106); POTASSIUM - SERUM 3.7 mmol/L (3.5-5.1); PROTEIN - SERUM 7.2 g/dL (6.4-8.2); SODIUM 141 mmol/L (136-145); UREA NITROGEN 28 mg/dL (7-18); eGFR NON AFRICAN AMERICAN 42 mL/min (90-120)
--- NOTE | 2019-04-04 05:50 | NUR ---
PT RESTING COMFORTABLY WITH EYES CLOSED. OXYGEN CHANGED TO 2L SCALDER.
[2019-04-04 06:00] LABS: CREATINE KINASE 602 UL (21-232); PRO BNP 2203 pg/mL (0-450)
[2019-04-04 06:10] LABS: TROPONIN-I 19.513 ng/mL (0.000-0.060)
[2019-04-04 06:13] LABS: CKMB 36.8 U/L (0.0-3.6)
[2019-04-04] MEDS ORDERED: TRUSOPT 2 % OPT10 ML EACH EYE (06:25)
[2019-04-04] MEDS ORDERED: LUMIGAN 0.01%2.5 ML EACH EYE (06:26)
[2019-04-04] MEDS ORDERED: REVATIO20 MG PO (06:27)
--- NOTE | 2019-04-04 07:08 | NUR ---
RECIVED TO ROOM 2127 PER W/C. ADMIT ASSESSMENT PER RN
--- NOTE | 2019-04-04 07:59 | NUR ---
ASSESSMENT DONE. DENIES NEEDS
[2019-04-04 08:33] LABS: INR 1.3 (0.85-1.17); PROTIME 15.6 SECONDS (11.6-15.0)
[2019-04-04 08:34] LABS: APTT 37.9 SECONDS (22.8-39.4)
[2019-04-04 08:37] LABS: D-DIMER-QUANTITATIVE 2.41 ug/mLFEU (0.20-0.54)
[2019-04-04 09:01] VITALS: BP 126/74; BMI 25.5
--- NOTE | 2019-04-04 11:02 | NUR ---
DR GROVER QUESTIONED WHY NM V/Q SCAN WAS ORDERED BECAUSE PER DR GROVER, THE PATIENT HAD AN M.I. AND WAS TO UNDERGO A HEART CATH TOMORROW. WHEN ASKED NERY CHANG FOR DR ODEN, IF SHE STILL WANTED V/Q SCAN, SHE SAID IF DR GROVER SAID IT WAS UNNECESSARY, TO CANCEL IT. THEREFORE, V/Q SCAN WAS CANCELLED.
[2019-04-04 12:41] VITALS: BP 124/80
[2019-04-04 14:14] LABS: APPEARANCE CLEAR (CLEAR); BILIRUBIN NEGATIVE (NEGATIVE); COLOR YELLOW (YELLOW); GLUCOSE NEGATIVE (NEGATIVE); KETONE NEGATIVE (NEGATIVE); NITRITE NEGATIVE (NEGATIVE); PROTEIN NEGATIVE (NEGATIVE); SPECIFIC GRAVITY 1.015 (1.005-1.020); UROBILINOGEN NORMAL (NORMAL)
[2019-04-04 14:15] LABS: BACTERIA MODERATE /hpf (NEGATIVE); MUCUS >1+ /lpf (NONE SEEN); RED CELLS - URINE 0-5 /hpf (0-5)
[2019-04-04 15:13] VITALS: BP 117/64
--- NOTE | 2019-04-04 17:22 | NUR ---
WITHOUT CHANGES OR DISTRESS NOTED AT THIS TIME. DENIES NEEDS
[2019-04-04 17:37] LABS: CKMB 42.1 U/L (0.0-3.6); CREATINE KINASE 658 UL (21-232)
[2019-04-04 17:39] LABS: TROPONIN-I 22.143 ng/mL (0.000-0.060)
--- NOTE | 2019-04-04 19:40 | NUR ---
PT IN BED. BEDSIDE SHIFT REPORT COMPLETED. RR EVEN AND UNLABORED. PT DENIES NEEDS AT THIS TIME. NO S/S OF DISTRESS NOTED AT THIS TIME. CALL LIGHT IN REACH. WILL CTM.
[2019-04-04 20:00] VITALS: BP 125/82
--- NOTE | 2019-04-04 20:38 | NUR ---
IV D/C TO LEFT AC. CATHETER TIP INTACT.
[2019-04-05] VITALS: BP 130/82
[2019-04-05 04:00] VITALS: BP 137/74
--- NOTE | 2019-04-05 04:49 | NUR ---
20G RESITED TO LEFT WRIST. PT TOLERATED WELL.
[2019-04-05 06:51] LABS: BASOPHILS 0 % (0-2); EOSINOPHILS 0.1 % (0-7); HEMATOCRIT 28.3 % (42.0-54.0); HEMOGLOBIN 9.2 g/dL (13.5-17.5); IMMATURE GRANULOCYTES 0.2 % (0-5); LYMPHOCYTES 6.7 % (15-50); MCH 29.2 pg (26.0-34.0); MCHC 32.5 g/dL (31.0-37.0); MCV 89.8 fL (80.0-100.0); MEAN PLATELET VOLUME 8.6 fL (7.4-10.4); MONOCYTES 5.2 % (2-11); NEUTROPHILS 87.8 % (40-80); PLATELET COUNT 379 10x3/uL (130-400); RBC 3.15 10x6/uL (4.20-6.10); RDW 15.4 % (11.5-14.5)
--- NOTE | 2019-04-05 07:00 | NUR ---
PT RESTING IN BED, SHIFT ASSESSMENT PERFORMED. DENIES ANY NEEDS AT THIS TIME, WILL CONT TO FOLLOW POC
[2019-04-05 07:06] LABS: ANION GAP 11.3 mmol/L (8-16); CALCIUM 8.3 mg/dL (8.5-10.1); CARBON DIOXIDE 28.3 mmol/L (21.0-32.0); POTASSIUM - SERUM 3.6 mmol/L (3.5-5.1)
[2019-04-05 07:08] LABS: CREATININE - SERUM 1.1 mg/dL (0.6-1.3)
[2019-04-05 08:02] VITALS: BP 130/77
--- NOTE | 2019-04-05 08:59 | NUR ---
SERVICE MECHANIC CALLED TO PREOP PT. PT PREOP ORDERED
--- NOTE | 2019-04-05 09:27 | NUR ---
PT TAKEN TO DIPLOMATIC INTERPRETER/TRANSLATOR
--- NOTE | 2019-04-05 10:47 | NUR ---
RECEIVED PT TO ROOM 2126, PT ALERT. VITAL SIGNS STABLE, PLACED PT ON FREQUENT VITAL SIGNS. TR BAND NOTED TO RT WRIST, NO BLEEDING OR HEMATOMA NOTED. INSTRUCTED PT TO KEEP HAND STILL FOR 2HRS, PT DENIES ANY NEEDS AT THIS TIME. CALL LIGHT IN REACH, NAD NOTED.
--- NOTE | 2019-04-05 11:00 | NUR ---
PT RESTING IN BED, VSS AND WNL. ZEPHYR BAND IN PLACE TO RIGHT RADIAL. NO SIGNS OF HEMATOMA FORMATION NOTED AT THIS TIME, WILL CONT TO FOLLOW POC
--- NOTE | 2019-04-05 12:00 | NUR ---
PT RESTING IN BED EATING LUNCH, VSS AND WNL. ZEPHYR BAND IN PLACE TO RIGHT RADIAL. NO SIGNS OF HEMATOMA FORMATION NOTED AT THIS TIME, WILL CONT TO FOLLOW POC
[2019-04-05 13:09] VITALS: BP 109/74
--- NOTE | 2019-04-05 13:45 | NUR ---
PT RESTING IN BED, VSS AND WNL. 6CC OF AIR REMOVED FROM ZEPHYR BAND. NO BLEEDING NOTED AT THIS TIME. WILL CONT TO FOLLOW POC
--- NOTE | 2019-04-05 14:34 | OP ---
PATIENT NAME: LINDA OCHOA MEDICAL RECORD: [id number] :42 LOCATION:D.M2 D.2127 ADMISSION DATE:04/04/19 SURGEON: DYLAN GROVER MD DATE OF OPERATION: 04/05/2019 PROCEDURES: 1. PTCA stent left circumflex. 2. PTCA stent first obtuse marginal. 3. PTCA stent LAD. 4. Left heart catheterization. 5. Selective coronary angiography. 6. Left ventriculogram. INDICATION: Non-Q-wave myocardial infarction. PROCEDURE IN DETAIL: After informed consent was obtained and after a detailed description of risks, benefits as well as alternative therapies, the patient elected to proceed with angiogram and angioplasty. The right radial area was prepped and draped in normal sterile fashion. Right radial artery was cannulated via modified Seldinger technique with placement of 6-Maori sheath. All catheters exchanged through this sheath. FINDINGS: Left ventriculogram was performed in standard 30-degree PINK view reveals mildly depressed ejection fraction at 40% to 45%. SELECTIVE CORONARY ANGIOGRAPHY: 1. Left main is with no significant angiographic disease. 2. Left anterior descending has a 95% stenosis in the proximal mid vessel. 3. Left circumflex has 90% stenosis in the mid vessel followed by 90+ percent stenosis of the first obtuse marginal, followed by 95% stenosis of the second obtuse marginal. The area of the second obtuse marginal is extremely tortuous and not ideal for transcatheter revascularization. 4. The right coronary artery has multiple areas of 95% to 99% stenosis. PTCA STENT OF THE LAD: The stent used was a 3.5 x 12 mm Juliano. Result was 0% residual stenosis. PTCA STENT OF THE LEFT CIRCUMFLEX AND FIRST OBTUSE MARGINAL: The first obtuse marginal was addressed with a 2.5 x 15 mm Melcroft, the circumflex itself with a 3.0 x 12 mm Melcroft. Result was 0% residual. OVERALL IMPRESSION: Successful PTCA stent of the LAD and circumflex, both going from 90% initial stenosis to 0% residual. PLAN: For PTCA stent of the RCA in the near future. TRANSINT:[id number] Voice Confirmation ID: [id number] DOCUMENT ID: [id number] OPERATIVE REPORT [id number] GABRIELALINDA MELENDEZ DYLAN GROVER MD at 8662 CC: [id number] DICTATION DATE: 04/05/19 1028 AVIATION OPERATIONS SPECIALIST: 04/05/19 1211 ADM IN [facility] [address] [place] [address]
--- NOTE | 2019-04-05 14:34 | CN ---
PATIENT NAME:LINDA JOHN MEDICAL RECORD: [id number] : 42 LOCATION:. D.2127 ADMIT DATE: 04/04/19 ACCOUNT: [id number] CONSULTING PHYSICIAN: DYLAN GROVER MD REFERRING PHYSICIAN: DOMINIQUE ODEN MD DATE OF CONSULTATION: 04/04/2019 DIAGNOSES: 1. Non-Q-wave myocardial infarction. 2. Shortness of breath, dyspnea on exertion. 3. Pulmonary edema. 4. Hypertension. 5. Abnormal ECG. HISTORY OF PRESENT ILLNESS: Mr. John presents with shortness of breath and chest pain. He was watching football yesterday, all of a sudden he became very short of breath, diaphoretic, and developed chest pressure. His troponin is 19. He has significant T-wave inversions laterally on his EKG. He has not had a history of ischemic heart disease or any cardiac history. His chest x-ray is compatible with pulmonary edema. He only has a history of hypertension. PHYSICAL EXAMINATION: CONSTITUTIONAL/GENERAL APPEARANCE: Well nourished, well developed, appears stated age. EYES: Lids and conjunctivae noninjected. No discharge. No pallor. ENT: Lips within normal limit. No cyanosis. No pallor. NECK: Carotid arteries, bilateral normal upstroke. No bruits. No thrills. No jugular venous pressure or distention. CERVICAL LYMPH NODES: Nontender. Nonenlarged. THYROID: Not enlarged. No nodules. CARDIOVASCULAR: Precordial exam, nondisplaced. No heaves or pericardial thrills. Rate and rhythm, regular. Heart sounds, normal S1, normal S2. No S3, no gallop, no rub. Systolic murmur, not heard. Diastolic murmur, not heard. RESPIRATORY: Respiratory effort, unlabored. Normal curvature. No thoracic deformity. No chest wall tenderness. Percussion, resonant. Auscultation, clear. No wheezes, no rales, no rhonchi. LUNGS: Have bibasilar crackles. ABDOMEN: Soft, nondistended, nontender. No abdominal pain, no vomiting and normal appetite. MUSCULOSKELETAL: No joint tenderness, normal gait, normal tone. SKIN: Warm and dry. OVERALL IMPRESSION: Non-Q-wave myocardial infarction with abnormal ECG. At this time, we will start him on aspirin and Plavix. Discontinue his amlodipine that he is on, start him on Coreg, get an echocardiogram today. Proceed with coronary angiography tomorrow. We will give him Lasix to clear the pulmonary edema. Further care depends upon the above-mentioned treatment, the results of the echocardiogram, and results of the cardiac catheterization. TRANSINT:[id number] Voice Confirmation ID: [id number] DOCUMENT ID: [id number] CONSULT REPORT [id number] LINDA JOHN JEFFREY MD at 1434 CC: [id number] DICTATION DATE: 04/04/19904 COAT REPAIR INSPECTOR: 04/04/1932 ADM IN [facility] [address] [place] [address]
--- NOTE | 2019-04-05 14:34 | EC ---
PATIENT:LINDA OCHOA DATE OF SERVICE: 04/04/19 SEX: M MEDICAL RECORD: [id number] DATE OF : 42 LOCATION:D. D.212 AGE OF PATIENT: 78 ADMISSION DATE: 04/04/19 REFERRING PHYSICIAN: INTERPRETING PHYSICIAN: DYLAN MATTHEWS MD ECHOCARDIOGRAM REPORT ECHO CHARGES 4 ECHO COMPLETE Date: 04/04/19 CLINICAL DIAGNOSIS: [place] ECHOCARDIOGRAPHIC MEASUREMENTS (adult normal given) AC root (d.<3.7cm) 2.1 cm LV Septum d (<1.2 cm> 1.0 cm Valve Excursion 1.2 cm LV Septum (systole) 1.9 cm Left Atria (s.<4.0cm> 4.6 cm LVPW d(<1.2cm) 1.6 cm RV (d.<2.3cm) 3.8 cm LVPW (sytole) 1.8 cm LV diastole(<5.6CM) 5.1 cm MV E-F(>70mm/sec) cm LV systole 4.1 cm LVOT Diameter 2.3 cm MV exc.(>10mm) cm Est.ejection fraction (50-75%) % DOPPLER: LVIT cm/sec A 142 cm/sec E 92 cm/sec LA cm/sec RVSP 27.6 mmHg LVOT 93 cm/sec AOP1/2T m/s Asc. Ao 247 cm/sec RVOT 57 cm/sec RA cm/sec PA 69 cm/sec AV Gradient Peak 24.5 mmHg AV Mean 15.0 mmHg AV Area 1.6 cm MV Gradient Peak 8.9 mmHg MV Mean 3.1 mmHg MV Area cm COMMENTS: Design Assistant: Luis [facility] Malt Roaster: 1 Dr. Matthews TAPE# PACS Pericardial Effusion N DATE OF SERVICE: PROCEDURE: Echocardiogram. FINDINGS: 1. Left ventricular chamber size is within normal limits. Left ventricular systolic function is mildly depressed at 45% to 50%. 2. Left atrium is enlarged at 4.6 cm. Right atrium and right ventricular chamber sizes are within normal limits. 3. 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 The remaining valvular structures have normal structure and motion. 4. Doppler interrogation elsewise reveals mild aortic insufficiency, mild mitral regurgitation, mild tricuspid regurgitation, no other valvular insufficiency or stenosis and pulmonary systolic pressure is estimated 28 mmHg. 5. No evidence of pericardial effusion or left ventricular thrombus. TRANSINT:[id number] Voice Confirmation ID: [id number] DOCUMENT ID: [id number] DYLAN MATTHEWS MD at 1434 CC: [id number] DICTATION DATE: 04/05/19 0955 DIRECTOR PRINT: 04/05/19 1132 ADM IN [place] [address] [place] [address]
--- NOTE | 2019-04-05 14:45 | NUR ---
PT RESTING IN BED, VSS AND WNL. REMAINING 6CC OF AIR REMOVED FROM ZEPHYR BAND. NO SIGNS OF BLEEDING NOTED AT THIS TIME. PT ASKS TO KEEP BAND IN PLACE TO ASSIST HIM IN NOT BENDING HIS WRIST. WILL CONT TO FOLLOW POC
[2019-04-05 16:00] VITALS: BP 128/77
[2019-04-05 21:08] VITALS: BP 134/76
[2019-04-06 00:20] VITALS: BP 137/62
--- NOTE | 2019-04-06 03:59 | NUR ---
I have reviewed this patient and I concur with the Shift Assessment completed by the Licensed Practical Nurse today this shift.
[2019-04-06 04:13] VITALS: BP 134/98
--- NOTE | 2019-04-06 04:30 | NUR ---
PT RESTING IN BED WITH EYES CLOSED RR EVEN AND UNLABORED . NO S/S OF DISTRESS. PT NPOAT THIS TIME. WILL CONTINUE TO MONITOR.
[2019-04-06 09:12] VITALS: BP 141/84
[2019-04-06 09:36] LABS: ANION GAP 10.6 mmol/L (8-16); CARBON DIOXIDE 30.2 mmol/L (21.0-32.0); CREATININE - SERUM 1.3 mg/dL (0.6-1.3); POTASSIUM - SERUM 3.8 mmol/L (3.5-5.1)
[2019-04-06 09:43] LABS: BASOPHILS 0.3 % (0-2); EOSINOPHILS 1.8 % (0-7); HEMATOCRIT 28.6 % (42.0-54.0); HEMOGLOBIN 9.3 g/dL (13.5-17.5); IMMATURE GRANULOCYTES 0.3 % (0-5); LYMPHOCYTES 15.9 % (15-50); MCH 29.2 pg (26.0-34.0); MCHC 32.5 g/dL (31.0-37.0); MCV 89.9 fL (80.0-100.0); MEAN PLATELET VOLUME 8.7 fL (7.4-10.4); NEUTROPHILS 74.7 % (40-80); PLATELET COUNT 434 10x3/uL (130-400); RBC 3.18 10x6/uL (4.20-6.10); RDW 15.4 % (11.5-14.5); WBC 7.9 10x3/uL (4.8-10.8)
--- NOTE | 2019-04-06 11:36 | NUR ---
IV RESTARTED TO LEFT UPPER ARM WITH 22 GAUGE CATH X 1 STICK AND FLUSHED WITH NS. LINE IS PATENT.
[2019-04-06 12:46] VITALS: BP 154/85
--- NOTE | 2019-04-06 13:40 | NUR ---
HC CANCELLED UNTIL [place]. DIET RESUMED.
[2019-04-06 17:16] VITALS: BP 146/78
--- NOTE | 2019-04-06 19:11 | NUR ---
PATIENT IS RESTING IN BED. BREATHING IS UNLABORED AND EVEN. DENIES ANY PAIN OR CONCERNS AT THIS TIME. NO VISIBLE SIGNS OF DISTRESS NOTED. BED IS IN THE LOWEST POSITION AND CALL LIGHT IN REACH.
[2019-04-06 20:22] VITALS: BP 141/72
--- NOTE | 2019-04-06 21:05 | NUR ---
PATIENT C/O PAIN IN RIGHT FOOT. PATIENT STATES HE HAS GOUT. CALLED PLACED TO TENTER FEEDER FOR PAIN MEDICATION. ORDERS RECIEVED AND CARRIED OUT.
--- NOTE | 2019-04-06 22:34 | NUR ---
PATIENT IS RESTING IN BED. BREATHING IS EVEN AND UNLABORED. BED IN THE LOWEST POSITION AND CALL LIGHT IN REACH.
[2019-04-07] VITALS: BP 137/80
--- NOTE | 2019-04-07 00:31 | NUR ---
PATIENT TEMPERATURE 101.7. ADMINISTERED TYLENOL. ASSESSED PATIENTS PERIPEHERAL PULSES, USED DOPPLER TO LOCATE DORSAL PEDIS PULSE. BED IN LOWEST POSITION AND CALL LIGHT IN REACH. WILL CONTINUE TO MONITOR.
--- NOTE | 2019-04-07 01:22 | NUR ---
PATIENT TEMPERATURE DOWN TO 99.9 DEGREES FAHRENHEIT. PATIENT ALSO STATED PAIN IN HIS HAND AND FOOT IS AT A 4. BED IN LOWEST POSITION CALL LIGHT WITH IN REACH. WILL CONTINUE TO MONITOR.
[2019-04-07 05:24] VITALS: BP 144/83
[2019-04-07 06:21] LABS: BASOPHILS 0.1 % (0-2); HEMATOCRIT 32.3 % (42.0-54.0); HEMOGLOBIN 10.4 g/dL (13.5-17.5); IMMATURE GRANULOCYTES 0.7 % (0-5); LYMPHOCYTES 16.3 % (15-50); MCH 29.3 pg (26.0-34.0); MCHC 32.2 g/dL (31.0-37.0); MEAN PLATELET VOLUME 8.7 fL (7.4-10.4); MONOCYTES 9.2 % (2-11); NEUTROPHILS 72.7 % (40-80); PLATELET COUNT 453 10x3/uL (130-400); RBC 3.55 10x6/uL (4.20-6.10); RDW 15.6 % (11.5-14.5)
[2019-04-07 06:33] LABS: WBC 10.6 10x3/uL (4.8-10.8)
[2019-04-07 06:40] LABS: ANION GAP 12.4 mmol/L (8-16); CALCIUM 8.7 mg/dL (8.5-10.1); CARBON DIOXIDE 29.1 mmol/L (21.0-32.0); CREATININE - SERUM 1.3 mg/dL (0.6-1.3); MAGNESIUM - SERUM 1.9 mg/dL (1.8-2.4); POTASSIUM - SERUM 3.5 mmol/L (3.5-5.1); URIC ACID 9.1 mg/dL (2.6-7.2)
[2019-04-07 08:20] VITALS: BP 130/77
--- NOTE | 2019-04-07 09:40 | NUR ---
PRE-OPS GIVEN. TO ADMINISTRATIVE SUPPORT ASSOC BY BED.
--- NOTE | 2019-04-07 10:57 | NUR ---
BACK FROM STUDENT UNION CONSULTANT. VS WNL. RIGHT GROIN STABLE WITHOUT BLEEDING OR HEMATOMA NOTED. WILL MONITOR.
[2019-04-07 12:12] VITALS: BP 149/87
--- NOTE | 2019-04-07 14:44 | NUR ---
BED REST UP. GROIN STABLE.
[2019-04-07 16:15] VITALS: BP 143/75
--- NOTE | 2019-04-07 19:15 | NUR ---
PATIENT IS RESTING IN BED AND WATCHING TV. PATIENT DENIES ANY PAIN OR CONCERN AT THIS TIME. BREATHING IS EVEN AND UNLABORED. PATIENT HAS A SL UPPER LEFT ARM. BREATHING IS EVEN AND UNLABORED. BED IN THE LOWEST POSITION AND CALL LIGHT IN REACH.
[2019-04-07 20:00] VITALS: BP 143/73
--- NOTE | 2019-04-07 21:34 | NUR ---
ASSESSED PATIENTS PERIPHERAL PULSES. USED DOPPLER TO LOCATE DORSALIS PEDIS PULSE. REPOSITIONED PATIENT IN BED. RAISED HEAD OF BED TO 25 DEGRESS. BED IN LOWEST POSITION AND CALL LIGHT IN REACH.
--- NOTE | 2019-04-07 23:52 | NUR ---
ASSESSED PATIENT'S PERIPHERAL PULSES. USED DOPPLER TO FIND DORSALIS PEDIS PULSE. PATIENT C/O PAIN IN HIS RIGHT ANKLE AND LEFT HAND. PATIENT STATES IT IS FROM HIS GOUT. ADMINISTERED TYLENOL FOR PAIN. BED IS IN THE LOWEST POSITION AND CALL LIGHT IN REACH. WILL CONTINUE TO MONITOR.
[2019-04-08 00:35] VITALS: BP 149/75
--- NOTE | 2019-04-08 02:20 | NUR ---
PATIENT RESTING IN BED. NO VISIBLE SIGNS OF DISTRESS. BED IN THE LOWEST POSITION AND CALL LIGHT IN REACH. WILL CONTINUE TO MONITOR.
[2019-04-08 04:00] VITALS: BP 130/78
--- NOTE | 2019-04-08 04:20 | NUR ---
ASSESSED PATIENTS PERIPHERAL PULSES, USED DOPPLER TO FIND DORSALIS PEDIS. BED IN LOWEST POSITION AND CALL LIGHT WITH IN REACH. WILL CONTINUE TO MONITOR.
[2019-04-08 06:14] LABS: BASOPHILS 0.1 % (0-2); EOSINOPHILS 1.7 % (0-7); HEMATOCRIT 28.3 % (42.0-54.0); HEMOGLOBIN 8.9 g/dL (13.5-17.5); LYMPHOCYTES 14.3 % (15-50); MCH 28.8 pg (26.0-34.0); MCHC 31.4 g/dL (31.0-37.0); MCV 91.6 fL (80.0-100.0); MEAN PLATELET VOLUME 8.8 fL (7.4-10.4); MONOCYTES 9.9 % (2-11); PLATELET COUNT 411 10x3/uL (130-400); RBC 3.09 10x6/uL (4.20-6.10); WBC 11.5 10x3/uL (4.8-10.8)
[2019-04-08 06:28] LABS: ANION GAP 9.8 mmol/L (8-16); CALCIUM 8.1 mg/dL (8.5-10.1); CARBON DIOXIDE 30.2 mmol/L (21.0-32.0); CREATININE - SERUM 1.3 mg/dL (0.6-1.3); MAGNESIUM - SERUM 2.1 mg/dL (1.8-2.4)
--- NOTE | 2019-04-08 07:19 | NUR ---
REPORT RECEIVED. WILL CONTINUE WITH POC. PT CURRENTLY LYING SEMI FOWLERS. CALL LIGHT W/I REACH. RR EVEN AND UNLABORED ON 2L 02. R.WRIST PIV IS SALINE LOCKED. NO S/S OF DISTRESS NOTED. PT DENIES ANY NEEDS. WILL CTM.
[2019-04-08 09:22] VITALS: BP 145/70
[2019-04-08 14:23] VITALS: Ht 185.4 cm; Wt 90.1 kg
--- NOTE | 2019-04-08 14:23 | NUR ---
I have reviewed this patient and I concur with the Shift Assessment completed by the Licensed Practical Nurse today this shift.
[2019-04-08 16:03] VITALS: BP 122/60
[2019-04-08 18:13] LABS: APPEARANCE CLEAR (CLEAR); BILIRUBIN NEGATIVE (NEGATIVE); COLOR YELLOW (YELLOW); GLUCOSE NEGATIVE (NEGATIVE); KETONE NEGATIVE (NEGATIVE); NITRITE NEGATIVE (NEGATIVE); PROTEIN TRACE mg/dL (NEGATIVE); UROBILINOGEN NORMAL (NORMAL)
--- NOTE | 2019-04-08 19:32 | NUR ---
PATIENT IS AAO. BREATHING IS UNLABORED AND EVEN. PATIENT COMPLAINS OF PAIN IN HIS LEFT HAND AND RIGHT ANKLE. STATES THE PAIN IS BECAUSE OF HIS GOUT. RATES PAIN 4 OUT OF 10. PATIENT DOES NOT WANT PAIN MEDICATION AT THIS TIME. PATIENT IS ON TELEMETRY, RHYTHM IS SINUS AND RATE IS 88. BED IN THE LOWEST POSITION AND CALL LIGHT IN REACH. WILL CONTINUE TO MONITOR.
[2019-04-08 20:00] VITALS: BP 133/63
--- NOTE | 2019-04-08 21:38 | NUR ---
PATIENT COMPLAINS OF PAIN IN LEFT HAND AND RIGHT ANKLE. PATIENT STATES ITIS FROM HIS GOUT. PAIN IS AT A 6 OUT OF 10. ADMINISTERED TYLENOL FOR PAIN. REPOSITIONED PATIENT IN BED. BED IS IN THE LOWEST POSITION AND CALL LIGHT IN REACH.
--- NOTE | 2019-04-08 22:12 | NUR ---
PATIENT RESTING IN BED. NO VISIBLE SIGNS OF DISTRESS. BED IN THE LOWEST POSITION AND CALL LIGHT IN REACH. WILL CONTINUE TO MONITOR.
[2019-04-09] VITALS: BP 124/63
--- NOTE | 2019-04-09 00:13 | NUR ---
ASSESSED PATIENT PERIPHERAL PULSES, USED DOPPLER TO ASSESS DORSALIS PEDIS. BED IN LOWEST POSITION AND CALL LIGHT IN REACH. WILL CONTINUE TO MONITOR.
--- NOTE | 2019-04-09 03:07 | NUR ---
IRMA LYNCH PROVIDED TRACH CARE. SUNCTIONED PATIENT AND REPLACED TRACH. PATIENT OS2 SAT IS 96% ON ROOM AIR. BED IN THE LOWEST POSITION AND CALL LIGHT IN REACH.
[2019-04-09 04:24] VITALS: BP 142/71
[2019-04-09 06:21] LABS: ANION GAP 13.9 mmol/L (8-16); CALCIUM 8.2 mg/dL (8.5-10.1); CARBON DIOXIDE 26.3 mmol/L (21.0-32.0); CREATININE - SERUM 1.2 mg/dL (0.6-1.3); MAGNESIUM - SERUM 2.1 mg/dL (1.8-2.4); POTASSIUM - SERUM 4.2 mmol/L (3.5-5.1)
[2019-04-09 06:35] LABS: BASOPHILS 0.2 % (0-2); EOSINOPHILS 1.1 % (0-7); HEMOGLOBIN 8.5 g/dL (13.5-17.5); IMMATURE GRANULOCYTES 0.9 % (0-5); LYMPHOCYTES 8.2 % (15-50); MCH 28.9 pg (26.0-34.0); MCHC 31.5 g/dL (31.0-37.0); MCV 91.8 fL (80.0-100.0); MEAN PLATELET VOLUME 8.7 fL (7.4-10.4); MONOCYTES 11.4 % (2-11); NEUTROPHILS 78.2 % (40-80); PLATELET COUNT 421 10x3/uL (130-400); RBC 2.94 10x6/uL (4.20-6.10); RDW 15.7 % (11.5-14.5); WBC 12.9 10x3/uL (4.8-10.8)
--- NOTE | 2019-04-09 07:15 | NUR ---
PT RESTING IN BED, SHIFT ASSESSMENT PERFORMED. DOPPLER USED FOR RIGHT LOWER LEG PULSES. VSS AND WNL. DENIES ANY NEEDS AT THIS TIME. WILL CONT TO FOLLOW POC
[2019-04-09 09:12] VITALS: BP 120/66
--- NOTE | 2019-04-09 12:44 | NUR ---
PT RESTING IN BED EATING LUNCH. DENIES ANY NEEDS AT THIS TIME, WILL CONT TO FOLLOW POC
[2019-04-09 16:42] VITALS: BP 123/64
--- NOTE | 2019-04-09 17:12 | NUR ---
PT RESTING IN BED EATING SUPPER. DENIES ANY NEEDS AT THIS TIME. WILL CONT TO FOLLOW POC
--- NOTE | 2019-04-09 17:13 | MORECARE ---
CASE MANAGEMENT DISCHARGE SUMMARY PATIENT: LINDA OCHOA UNIT: [id number] ADM DATE: 04/04/19 AGE: 78 : 41 SEX: M ROOM/BED: D.2127 AUTHOR: JAME SLATER PHYSICIAN: REFERRING PHYSICIAN: DOMINIQUE ODEN MD DATE OF SERVICE: 04/09/19 Discharge Plan Patient Name: LINDA OCHOA Facility: [facility]:[place] : 1940 Planned Disposition: Home with Home Health Anticipated Discharge Date: Discharge Date: Expected LOS: Initial Reviewer: [email or web address] Initial Review Date: 04/09/2019 Generated: 04/09/19 6:12 pm Patient Name: LINDA OCHOA Page [phone] at 1713 All edits/amendments must be made on the electronic document DICTATION DATE: 04/09/191711 POLY OPERATOR: CHULA 04/09/191711 RPT#: [id number] DC DATE: STATUS: ADM IN [facility] [address] [place] [address] END OF REPORT
--- NOTE | 2019-04-09 17:21 | MORECARE ---
CASE MANAGEMENT DISCHARGE SUMMARY PATIENT: LINDA OCHOA UNIT: [id number] ADM DATE: 04/04/19 AGE: 78 : 41 SEX: M ROOM/BED: D.0383 AUTHOR: BRYONDOC PHYSICIAN: REFERRING PHYSICIAN: DOMINIQUE ODEN MD DATE OF SERVICE: 04/09/19 Discharge Plan Patient Name: LINDA OCHOA Facility: [facility]:[place] : 1940 Planned Disposition: Home with Home Health Anticipated Discharge Date: Discharge Date: Expected LOS: Initial Reviewer: [id number] Initial Review Date: 04/09/2019 Generated: 04/09/19 6:21 pm Comments DCP- Discharge Planning Updated by [id number]: Perry Gonzales on 04/09/19 4:[address] Patient Name: LINDA OCHOA Admission Status: ER Accout number: [id number] Admission Date: 04-04-2019 : 1940 Admission Diagnosis:NON-ST ELEVATION (NSTEMI) MYOCARDIAL INFARCTION Attending: DOMINIQUE ODEN Current LOS: 5 Anticipated DC Date: Planned Disposition: Home with Home Health Primary Insurance: [employer] CHOICE PPO MCR ADVANT PLANNED EXTERNAL PROVIDER: NO PROVIDER PREFERENCE Discharge Planning Comments: CM MET WITH PT IN ROOM TO DISCUSS DISCHARGE PLANNING AND NEEDS. PT REPORTS LIVING AT HOME INDEPENDENTLY AND ALONE. PT HAS NO MEDICAL EQUIPMENT AND NO OUTSIDE SERVICES ASSISTING IN THE HOME. CM DISCUSSED AVAILABILITY OF HOME HEALTH, REHAB SERVICES AND MEDICAL EQUIPMENT. PT WILL ACCEPT HOME HEALTH IF NEEDED; PROVIDED WITH PROVIDER LISTING, PT HAS NO CHOICE OF PROVIDER, CHOICE LETTER COMPLETED. PT REPORTS HIS DAUGHTER WILL PICK HIM UP FOR DISCHARGE HOME. IMPORTANT MESSAGE FROM MEDICARE PROVIDED AND EXPLAINED. PT STATES HIS DAUGHTER WILL STAY WITH HIM TO ASSIST AT HOME AFTER DISCHARGE. PT PLANS TO DISCHARGE HOME WHERE HIS DAUGHTER WILL STAY AND ASSIST IF NEEDED. DAUGHTER TO TRANSPORT HOME AT DISCHARGE. PT WOULD ACCEPT HOME HEALTH IF NEEDED; CM TO ARRANGE HOME HEALTH WITH PHYSICIAN AGREEMENT OF NEED AND ORDERS. Hair Machine Operator: Perry Gonzales DCPIA - Discharge Planning Initial Assessment Updated by [email or web address]: Perry Gonzales on 04/09/19 5:13 pm * Is the patient Alert and Oriented? Yes * How many steps to enter\exit or inside your home? NONE * PCP DR. SORTO IN [place] * Pharmacy [facility] IN [place] * Preadmission Environment Home Alone * ADLs Independent * Equipment None * Other Equipment NO MEDICAL EQUIPMENT PROVIDER PREFERENCE * List name and contact numbers for known caregivers / representatives who currently or will assist patient after discharge: RITU OCHOA, DTR, BRANDT OCHOA, MOTHER 100 YRS OLD, * Verbal permission to speak to the caregivers and representatives has been obtained from the patient. N/A * Community resources currently utilized None * Please name any agencies selected above. NONE * Additional services required to return to the preadmission environment? Yes * Can the patient safely return to the preadmission environment? Yes * Has this patient been hospitalized within the prior 30 days at any hospital? No Coverage Notice Reviewer: ANOTNI Gonzales Notice Issued Date-Time: 04/09/2019 9:20 Notice Type: IM Discharge Notice Notice Delivered To: Patient Relationship to Patient: Military Equipment Specialist Name: Delivery Method: HAND - Hand Delivered Chantel Days: Prior Verbal Notification: Recipient Understood Notice: Yes Recipient Signature: Yes Med Rec Note Co-signed by Attending: Coverage Notice Comment: Reviewer: ANTONI Gonzales Notice Issued Date-Time: 04/09/2019 9:20 Notice Type: Patient Choice Letter Notice Delivered To: Relationship to Patient: Military Equipment Specialist Name: Delivery Method: HAND - Hand Delivered Chantel Days: Prior Verbal Notification: Recipient Understood Notice: Yes Recipient Signature: Yes Med Rec Note Co-signed by Attending: Coverage Notice Comment: NO HOME HEALTH PROVIDER PREFERENCE Last DP export: 04/09/19 4:13 p Patient Name: LINDA OCHOA Page [phone] at 1721 All edits/amendments must be made on the electronic document DICTATION DATE: 04/09/191720 ASSEMBLY LINE WORKER: CHULA 04/09/191720 RPT#: [id number] DC DATE: STATUS: ADM IN [facility] [address] [place] [address] END OF REPORT
--- NOTE | 2019-04-09 19:25 | NUR ---
REPORT RECEIVED, WILL CONTINUE POC. PATIENT IS A/OX4, LYING IN BED WATCHING TV. IV TO LT WRIST, SL, PATENT, DRSG C/D/I. RR EVEN AND UNLABORED ON 2L O2 VIA NC. NO S/S OF DISTRESS OBSERVED. PATIENT DENIES NEEDS AT THIS TIME. CL IN REACH, BED LOCKED AND LOWERED. WILL CTM.
[2019-04-09 20:30] VITALS: BP 131/65
--- NOTE | 2019-04-09 20:40 | NUR ---
PATIENT TEMP 101.8, TYLENOL ADMINISTERED PER ORDERS. WILL CTM.
[2019-04-10] VITALS (7 sets, daily range): BP systolic 90–139; BP diastolic 64–72
[2019-04-10 05:21] LABS: BASOPHILS 0.1 % (0-2); EOSINOPHILS 1.4 % (0-7); HEMATOCRIT 27.4 % (42.0-54.0); HEMOGLOBIN 8.6 g/dL (13.5-17.5); IMMATURE GRANULOCYTES 0.8 % (0-5); LYMPHOCYTES 9.4 % (15-50); MCHC 31.4 g/dL (31.0-37.0); MCV 92.3 fL (80.0-100.0); MEAN PLATELET VOLUME 8.8 fL (7.4-10.4); MONOCYTES 10.5 % (2-11); NEUTROPHILS 77.8 % (40-80); PLATELET COUNT 461 10x3/uL (130-400); RBC 2.97 10x6/uL (4.20-6.10); RDW 15.9 % (11.5-14.5); WBC 10.6 10x3/uL (4.8-10.8)
[2019-04-10 05:48] LABS: ANION GAP 11.7 mmol/L (8-16); CALCIUM 8.4 mg/dL (8.5-10.1); CARBON DIOXIDE 28.5 mmol/L (21.0-32.0); CREATININE - SERUM 1.1 mg/dL (0.6-1.3); MAGNESIUM - SERUM 2.3 mg/dL (1.8-2.4); POTASSIUM - SERUM 4.2 mmol/L (3.5-5.1)
--- NOTE | 2019-04-10 06:00 | NUR ---
PATIENT STATES PHYSICAL THERAPY HAS NOT WORKED WITH HIM SINCE HE'S BEEN HERE AND THAT HE'S NOT ABLE TO GET UP AND MOVE AROUND HIMSELF. INFORMED PATIENT THAT NOTES WILL BE LEFT AND THE NEXT SHIFT WOULD BE NOTIFIED OF HIS CONCERNS. PATIENT REFUSED BEING REPOSITIONED IN BED. WILL CTM.
--- NOTE | 2019-04-10 07:15 | NUR ---
PT RESTING IN BED, SHIFT ASSESSMENT PERFORMED. PT COMPLAINING OF PAIN TO LEFT HAND AND RIGHT FOOT. PT STATES HE DOES NOT WANT MORPHINE. PT CONCERNED THAT OT/PT IS NOT GETTING HIM OOB. EXPLAINED TO PT THAT NURSING CAN ASSIST PT OOB BUT HE HAS TO BE ABLE TO BEAR WEIGHT ON HIS RIGHT FOOT. PT STATES HE CAN NOT BEAR WEIGHT ON HIS FOOT DUE TO THE PAIN. ADVISED PT THAT NURSES WILL DISCUSS URIC ACID LAB WITH MD TODAY. PT AGREES. DENIES ANY OTHER NEEDS AT THIS TIME. WILL CONT TO FOLLOW POC
--- NOTE | 2019-04-10 12:12 | NUR ---
PT RESTING IN BED EATING LUNCH. DENIES ANY NEEDS AT THIS TIME, WILL CONT TO FOLLOW POC
--- NOTE | 2019-04-10 19:20 | NUR ---
RECEIVED REPORT, WILL ASSUME CARE OF PT, SLEEPING, NO DISTRESS NOTICED AT THIS TIME, BED IS LOW, SRX2, CALL LIGHT IN REACH, WILL CONTINUE PLAN OF CARE
[2019-04-11 03:50] VITALS: BP 128/59
--- NOTE | 2019-04-11 04:56 | NUR ---
I have reviewed this patient and I concur with the Shift Assessment completed by the Licensed Practical Nurse today this shift.
[2019-04-11 06:20] LABS: BASOPHILS 0.2 % (0-2); EOSINOPHILS 0.9 % (0-7); HEMATOCRIT 25.9 % (42.0-54.0); HEMOGLOBIN 8.3 g/dL (13.5-17.5); IMMATURE GRANULOCYTES 0.9 % (0-5); MCH 28.8 pg (26.0-34.0); MEAN PLATELET VOLUME 8.7 fL (7.4-10.4); MONOCYTES 11.1 % (2-11); NEUTROPHILS 73.9 % (40-80); PLATELET COUNT 468 10x3/uL (130-400); RBC 2.88 10x6/uL (4.20-6.10); RDW 15.6 % (11.5-14.5); WBC 9.4 10x3/uL (4.8-10.8)
[2019-04-11 06:21] LABS: MCV 89.9 fL (80.0-100.0)
[2019-04-11 06:37] LABS: ANION GAP 13.5 mmol/L (8-16); CALCIUM 8.5 mg/dL (8.5-10.1); CARBON DIOXIDE 26.5 mmol/L (21.0-32.0); CREATININE - SERUM 1.2 mg/dL (0.6-1.3); MAGNESIUM - SERUM 2.2 mg/dL (1.8-2.4)
[2019-04-11 08:00] VITALS: BP 107/65
[2019-04-11 15:38] LABS: % SATURATION 8 % (15-55); IRON 13 ug/dl (35-150); TOTAL IRON BIND CAPACITY 146 ug/dl (260-445); UNSAT IRON BIND CAPACITY 133 ug/dl (150-375)
[2019-04-11 16:00] VITALS: BP 135/74
--- NOTE | 2019-04-11 17:18 | MORECARE ---
CASE MANAGEMENT DISCHARGE SUMMARY PATIENT: LINDA OCHOA UNIT: [id number] ADM DATE: 04/04/19 AGE: 78 : 41 SEX: M ROOM/BED: D.4946 AUTHOR: BRYON,DOC PHYSICIAN: REFERRING PHYSICIAN: DOMINIQUE ODEN MD DATE OF SERVICE: 04/11/19 Discharge Plan Patient Name: LINDA OCHOA Facility: [facility]:[place] : 1940 Planned Disposition: Home with Home Health Anticipated Discharge Date: Discharge Date: Expected LOS: Initial Reviewer: [email or web address] Initial Review Date: 04/09/2019 Generated: 04/11/19 6:18 pm Comments DCP- Discharge Planning Updated by [id number]: Divya Arauz on 04/11/19 4:[address] PHYSICAL THERAPY EVAL COMPLETED TODAY. PATIENT IS IN VERY WEAKEN STATE. HE COULD NOT TOLERATE SITTING ON THE SIDE OF THE BED SECONDARY TO PAIN AND STIFFNESS. REQUIRED 2 PERSON DRAW SHEET PULL TO GET TO THE HEAD OF THE BED. PLS REVIEW PHYSICAL THERAPY NOTES. PATIENT REPORTEDLY LIVED ALONE AND WAS INDEPENDENT IN CARE PRIOR TO ADMISSION. LIKELY WILL NEED TO CONSIDER ACUTE OR SKILLED REHAB. OT CONSULT ORDER OBTAINED. 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 CM TO FOLLOW TO ASSIST. . DCP- Discharge Planning Updated by [id number]: Perry Gonzales on 04/09/19 4:[address] Patient Name: LINDA OCHOA Admission Status: ER Accout number: [id number] Admission Date: 04-04-2019 : 1940 Admission Diagnosis:NON-ST ELEVATION (NSTEMI) MYOCARDIAL INFARCTION Attending: DOMINIQUE ODEN Current LOS: 5 Anticipated DC Date: Planned Disposition: Home with Home Health Primary Insurance: [employer] CHOICE PPO MCR ADVANT PLANNED EXTERNAL PROVIDER: NO PROVIDER PREFERENCE Discharge Planning Comments: CM MET WITH PT IN ROOM TO DISCUSS DISCHARGE PLANNING AND NEEDS. PT REPORTS LIVING AT HOME INDEPENDENTLY AND ALONE. PT HAS NO MEDICAL EQUIPMENT AND NO OUTSIDE SERVICES ASSISTING IN THE HOME. CM DISCUSSED AVAILABILITY OF HOME HEALTH, REHAB SERVICES AND MEDICAL EQUIPMENT. PT WILL ACCEPT HOME HEALTH IF NEEDED; PROVIDED WITH PROVIDER LISTING, PT HAS NO CHOICE OF PROVIDER, CHOICE LETTER COMPLETED. PT REPORTS HIS DAUGHTER WILL PICK HIM UP FOR DISCHARGE HOME. IMPORTANT MESSAGE FROM MEDICARE PROVIDED AND EXPLAINED. PT STATES HIS DAUGHTER WILL STAY WITH HIM TO ASSIST AT HOME AFTER DISCHARGE. PT PLANS TO DISCHARGE HOME WHERE HIS DAUGHTER WILL STAY AND ASSIST IF NEEDED. DAUGHTER TO TRANSPORT HOME AT DISCHARGE. PT WOULD ACCEPT HOME HEALTH IF NEEDED; CM TO ARRANGE HOME HEALTH WITH PHYSICIAN AGREEMENT OF NEED AND ORDERS. Crm Marketing Executive: Perry Gonzales DCPIA - Discharge Planning Initial Assessment Updated by ANTONI: Perry Gonzales on 04/09/19 5:13 pm * Is the patient Alert and Oriented? Yes * How many steps to enter\exit or inside your home? NONE * PCP DR. SORTO IN [place] * Pharmacy [facility] IN [place] * Preadmission Environment Home Alone * ADLs Independent * Equipment None * Other Equipment NO MEDICAL EQUIPMENT PROVIDER PREFERENCE * List name and contact numbers for known caregivers / representatives who currently or will assist patient after discharge: RITU OCHOA, DTR, BRANDT OCHOA, MOTHER 100 YRS OLD, * Verbal permission to speak to the caregivers and representatives has been obtained from the patient. N/A * Community resources currently utilized None * Please name any agencies selected above. NONE * Additional services required to return to the preadmission environment? Yes * Can the patient safely return to the preadmission environment? Yes * Has this patient been hospitalized within the prior 30 days at any hospital? No Coverage Notice Reviewer: [id number] Lizzie Gonzales Notice Issued Date-Time: 04/09/2019 9:20 Notice Type: IM Discharge Notice Notice Delivered To: Patient Relationship to Patient: Torpedo Worker Name: Delivery Method: HAND - Hand Delivered Chantel Days: Prior Verbal Notification: Recipient Understood Notice: Yes Recipient Signature: Yes Med Rec Note Co-signed by Attending: Coverage Notice Comment: Reviewer: [id number] Lizzie Gonzales Notice Issued Date-Time: 04/09/2019 9:20 Notice Type: Patient Choice Letter Notice Delivered To: Relationship to Patient: Torpedo Worker Name: Delivery Method: HAND - Hand Delivered Chantel Days: Prior Verbal Notification: Recipient Understood Notice: Yes Recipient Signature: Yes Med Rec Note Co-signed by Attending: Coverage Notice Comment: NO HOME HEALTH PROVIDER PREFERENCE Last DP export: 04/09/19 4:21 p Patient Name: LINDA OCHOA Page [phone] at 1718 All edits/amendments must be made on the electronic document DICTATION DATE: 04/11/191717 SWAGE TENDER: CHULA 04/11/191717 RPT#: [id number] DC DATE: STATUS: ADM IN [facility] [address] [place] [address] END OF REPORT
--- NOTE | 2019-04-11 19:05 | NUR ---
AROUSES TO VOICE ALERT AND ORIETEDBED LOW AND LOCKED SKIN WARM AND DRY CO GOUT PAIN BUT REFUSES TYLENOL CALL LIGHT IS IN REACH
[2019-04-11 20:00] VITALS: BP 151/84
[2019-04-12 00:30] VITALS: BP 127/57
[2019-04-12 00:35] VITALS: BP 119/62
--- NOTE | 2019-04-12 03:54 | NUR ---
I have reviewed this patient and I concur with the Shift Assessment completed by the Licensed Practical Nurse today this shift.
[2019-04-12 04:24] VITALS: BP 146/84
[2019-04-12 06:40] LABS: BASOPHILS 0.1 % (0-2); EOSINOPHILS 1.5 % (0-7); HEMATOCRIT 27.4 % (42.0-54.0); HEMOGLOBIN 8.6 g/dL (13.5-17.5); IMMATURE GRANULOCYTES 0.9 % (0-5); LYMPHOCYTES 12.8 % (15-50); MCH 28.7 pg (26.0-34.0); MCHC 31.4 g/dL (31.0-37.0); MCV 91.3 fL (80.0-100.0); MEAN PLATELET VOLUME 8.7 fL (7.4-10.4); MONOCYTES 6.9 % (2-11); NEUTROPHILS 77.8 % (40-80); PLATELET COUNT 481 10x3/uL (130-400); RDW 15.6 % (11.5-14.5); WBC 8.4 10x3/uL (4.8-10.8)
[2019-04-12 06:54] LABS: ALBUMIN 2.4 g/dL (3.4-5.0); ANION GAP 11.4 mmol/L (8-16); BILIRUBIN - TOTAL 0.4 mg/dL (0.2-1.3); CALCIUM 8.7 mg/dL (8.5-10.1); CARBON DIOXIDE 29.9 mmol/L (21.0-32.0); CREATININE - SERUM 1.3 mg/dL (0.6-1.3); POTASSIUM - SERUM 4.3 mmol/L (3.5-5.1); PROTEIN - SERUM 7.3 g/dL (6.4-8.2)
--- NOTE | 2019-04-12 07:11 | NUR ---
RECIEVE REPORT. RESTING IN BED WITH EYES CLOSED. SINUS RYTHM ON TELEMETRY. RESPIRATIONS EVEN AND REGULAR. NO SIGNS OF DISTRESS. CONTINUE PLAN OF CARE AND SAFETY PRECAUTIONS.
[2019-04-12 08:30] VITALS: BP 141/71
[2019-04-12] MEDS ORDERED: PRAVACHOL20 MG PO (13:28)
[2019-04-12] MEDS ORDERED: PLAVIX75 MG PO (13:28)
[2019-04-12] MEDS ORDERED: COREG12.5 MG PO (13:28)
[2019-04-12] MEDS ORDERED: Bumex PO (13:28)
[2019-04-12] MEDS ORDERED: ZYLOPRIM300 MG PO (13:29)
[2019-04-12] MEDS ORDERED: PROTONIX40 MG PO (13:29)
[2019-04-12] MEDS ORDERED: COLCRYS0.6 MG PO (13:29)
[2019-04-12] MEDS ORDERED: BUMEX2 MG PO (13:29)
--- NOTE | 2019-04-12 14:18 | NUR ---
Nutrition Follow-up: Pt reports poor/fair appetite/PO intake. C/o diarrhea x 3 days. Asks to d/c Ensure. Diet: Cardiac, Ensure with meals PO intake: 25-75% No new wt Labs reviewed Meds reviewed D/c Ensure per pt request. Encourage PO intake. [place] food preferences within diet restrictions. RD following.
--- NOTE | 2019-04-12 14:54 | NUR ---
PHYSICAL THERAPY MAX ASSIST BACK TO BED FROM CHAIR. ALERT AND ORIENTED X4. INQUIRE ABOUT REHAB PLACEMENT. PATIENT STATES, "I DON'T KNOW IF I WILL BE ABLE TO AFFORD IT OR WHAT PLACES I CAN GO." INFORM PATIENT CASE MANAGEMENT HELPS FIND PLACEMENT ACCORDING TO INSURANCE APPROVAL. PATIENT STATES, "OH OK, YES I CAN GO TO REHAB." NOTIFY CASE MANAGEMENT.
--- NOTE | 2019-04-12 16:08 | MORECARE ---
CASE MANAGEMENT DISCHARGE SUMMARY PATIENT: LINDA OCHOA UNIT: [id number] ADM DATE: 04/04/19 AGE: 78 : 41 SEX: M ROOM/BED: D.8837 AUTHOR: BRYON,DOC PHYSICIAN: REFERRING PHYSICIAN: DOMINIQUE ODEN MD DATE OF SERVICE: 04/12/19 Discharge Plan Patient Name: LINDA OCHOA Facility: [facility]:[place] : 1940 Planned Disposition: Home with Home Health Anticipated Discharge Date: Discharge Date: Expected LOS: Initial Reviewer: [email or web address] Initial Review Date: 04/09/2019 Generated: 04/12/19 5:07 pm DCP- Discharge Planning Updated by [id number]: Divya Arauz on 04/11/19 4:[address] PHYSICAL THERAPY EVAL COMPLETED TODAY. PATIENT IS IN VERY WEAKEN STATE. HE COULD NOT TOLERATE SITTING ON THE SIDE OF THE BED SECONDARY TO PAIN AND STIFFNESS. REQUIRED 2 PERSON DRAW SHEET PULL TO GET TO THE HEAD OF THE BED. PLS REVIEW PHYSICAL THERAPY NOTES. PATIENT REPORTEDLY LIVED ALONE AND WAS INDEPENDENT IN CARE PRIOR TO ADMISSION. LIKELY WILL NEED TO CONSIDER ACUTE OR SKILLED REHAB. OT CONSULT ORDER OBTAINED. 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 CM TO FOLLOW TO ASSIST. . DCP- Discharge Planning Updated by [email or web address]: Perry Gonzales on 04/09/19 4:[address] Patient Name: LINDA OCHOA Admission Status: ER Accout number: [id number] Admission Date: 04-04-2019 : 1940 Admission Diagnosis:NON-ST ELEVATION (NSTEMI) MYOCARDIAL INFARCTION Attending: DOMINIQUE ODEN Current LOS: 5 Anticipated DC Date: Planned Disposition: Home with Home Health Primary Insurance: [employer] CHOICE PPO MCR ADVANT PLANNED EXTERNAL PROVIDER: NO PROVIDER PREFERENCE Discharge Planning Comments: CM MET WITH PT IN ROOM TO DISCUSS DISCHARGE PLANNING AND NEEDS. PT REPORTS LIVING AT HOME INDEPENDENTLY AND ALONE. PT HAS NO MEDICAL EQUIPMENT AND NO OUTSIDE SERVICES ASSISTING IN THE HOME. CM DISCUSSED AVAILABILITY OF HOME HEALTH, REHAB SERVICES AND MEDICAL EQUIPMENT. PT WILL ACCEPT HOME HEALTH IF NEEDED; PROVIDED WITH PROVIDER LISTING, PT HAS NO CHOICE OF PROVIDER, CHOICE LETTER COMPLETED. PT REPORTS HIS DAUGHTER WILL PICK HIM UP FOR DISCHARGE HOME. IMPORTANT MESSAGE FROM MEDICARE PROVIDED AND EXPLAINED. PT STATES HIS DAUGHTER WILL STAY WITH HIM TO ASSIST AT HOME AFTER DISCHARGE. PT PLANS TO DISCHARGE HOME WHERE HIS DAUGHTER WILL STAY AND ASSIST IF NEEDED. DAUGHTER TO TRANSPORT HOME AT DISCHARGE. PT WOULD ACCEPT HOME HEALTH IF NEEDED; CM TO ARRANGE HOME HEALTH WITH PHYSICIAN AGREEMENT OF NEED AND ORDERS. Radio Sales Account Executive: Perry Gonzales DCPIA - Discharge Planning Initial Assessment Updated by [email or web address]: Perry Gonzales on 04/09/19 5:13 pm * Is the patient Alert and Oriented? Yes * How many steps to enter\exit or inside your home? NONE * PCP DR[facility] SORTO IN [place] * Pharmacy [facility] IN [place] * Preadmission Environment Home Alone * ADLs Independent * Equipment None * Other Equipment NO MEDICAL EQUIPMENT PROVIDER PREFERENCE * List name and contact numbers for known caregivers / representatives who currently or will assist patient after discharge: RITU OCHOA, DTR, BRANDT OCHOA, MOTHER 100 YRS OLD, * Verbal permission to speak to the caregivers and representatives has been obtained from the patient. N/A * Community resources currently utilized None * Please name any agencies selected above. NONE * Additional services required to return to the preadmission environment? Yes * Can the patient safely return to the preadmission environment? Yes * Has this patient been hospitalized within the prior 30 days at any hospital? No External Providers External Provider: [facility] Next Contact Date: 04/12/2019 Service Request Date: Service Type: Resolution: Reviewer: Comments: Coverage Notice Reviewer: [id number] Lizzie Gonzales Notice Issued Date-Time: 04/09/2019 9:20 Notice Type: IM Discharge Notice Notice Delivered To: Patient Relationship to Patient: Plug Cutter Name: Delivery Method: HAND - Hand Delivered Chantel Days: Prior Verbal Notification: Recipient Understood Notice: Yes Recipient Signature: Yes Med Rec Note Co-signed by Attending: Coverage Notice Comment: Reviewer: [id number] Lizzie Gonzales Notice Issued Date-Time: 04/09/2019 9:20 Notice Type: Patient Choice Letter Notice Delivered To: Relationship to Patient: Plug Cutter Name: Delivery Method: HAND - Hand Delivered Chantel Days: Prior Verbal Notification: Recipient Understood Notice: Yes Recipient Signature: Yes Med Rec Note Co-signed by Attending: Coverage Notice Comment: NO HOME HEALTH PROVIDER PREFERENCE Last DP export: 04/11/19 4:18 p Patient Name: LINDA OCHOA Page [phone] at 1608 All edits/amendments must be made on the electronic document DICTATION DATE: 04/12/191606 LAYER OFF: CHULA 04/12/191606 RPT#: [id number] DC DATE: STATUS: ADM IN [facility] [address] [place] [address] END OF REPORT
--- NOTE | 2019-04-12 16:37 | MORECARE ---
CASE MANAGEMENT DISCHARGE SUMMARY PATIENT: LINDA OCHOA UNIT: [id number] ADM DATE: 04/04/19 AGE: 78 : 41 SEX: M ROOM/BED: D.9997 AUTHOR: BRYONDOC PHYSICIAN: REFERRING PHYSICIAN: DOMINIQUE ODEN MD DATE OF SERVICE: 04/12/19 Discharge Plan Patient Name: LINDA OCHOA Facility: [facility] : 1940 Planned Disposition: [facility] Facility Anticipated Discharge Date: 04/13/19 Discharge Date: Expected LOS: 9 Initial Reviewer: [id number] Initial Review Date: 04/09/2019 Generated: 04/12/19 5:37 pm DCP- Discharge Planning Updated by [email or web address]: Divya Arauz on 04/11/19 4:[address] PHYSICAL THERAPY EVAL COMPLETED TODAY. PATIENT IS IN VERY WEAKEN STATE. HE COULD NOT TOLERATE SITTING ON THE SIDE OF THE BED SECONDARY TO PAIN AND STIFFNESS. REQUIRED 2 PERSON DRAW SHEET PULL TO GET TO THE HEAD OF THE BED. PLS REVIEW PHYSICAL THERAPY NOTES. PATIENT REPORTEDLY LIVED ALONE AND WAS INDEPENDENT IN CARE PRIOR TO ADMISSION. LIKELY WILL NEED TO CONSIDER ACUTE OR SKILLED REHAB. OT CONSULT ORDER OBTAINED. 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 CM TO FOLLOW TO ASSIST. . DCP- Discharge Planning Updated by [id number]: Perry Gonzales on 04/09/19 4:[address] Patient Name: LINDA OCHOA Admission Status: ER Accout number: [id number] Admission Date: 04-04-2019 : 1940 Admission Diagnosis:NON-ST ELEVATION (NSTEMI) MYOCARDIAL INFARCTION Attending: DOMINIQUE ODEN Current LOS: 5 Anticipated DC Date: Planned Disposition: Home with Home Health Primary Insurance: [employer] CHOICE PPO MCR ADVANT PLANNED EXTERNAL PROVIDER: NO PROVIDER PREFERENCE Discharge Planning Comments: CM MET WITH PT IN ROOM TO DISCUSS DISCHARGE PLANNING AND NEEDS. PT REPORTS LIVING AT HOME INDEPENDENTLY AND ALONE. PT HAS NO MEDICAL EQUIPMENT AND NO OUTSIDE SERVICES ASSISTING IN THE HOME. CM DISCUSSED AVAILABILITY OF HOME HEALTH, REHAB SERVICES AND MEDICAL EQUIPMENT. PT WILL ACCEPT HOME HEALTH IF NEEDED; PROVIDED WITH PROVIDER LISTING, PT HAS NO CHOICE OF PROVIDER, CHOICE LETTER COMPLETED. PT REPORTS HIS DAUGHTER WILL PICK HIM UP FOR DISCHARGE HOME. IMPORTANT MESSAGE FROM MEDICARE PROVIDED AND EXPLAINED. PT STATES HIS DAUGHTER WILL STAY WITH HIM TO ASSIST AT HOME AFTER DISCHARGE. PT PLANS TO DISCHARGE HOME WHERE HIS DAUGHTER WILL STAY AND ASSIST IF NEEDED. DAUGHTER TO TRANSPORT HOME AT DISCHARGE. PT WOULD ACCEPT HOME HEALTH IF NEEDED; CM TO ARRANGE HOME HEALTH WITH PHYSICIAN AGREEMENT OF NEED AND ORDERS. Associate Property Manager: Perry Gonzales DCPIA - Discharge Planning Initial Assessment Updated by [id number]: Perry Gonzales on 04/09/19 5:13 pm * Is the patient Alert and Oriented? Yes * How many steps to enter\exit or inside your home? NONE * PCP DR. SORTO IN [place] * Pharmacy [facility] [place] * Preadmission Environment Home Alone * ADLs Independent * Equipment None * Other Equipment NO MEDICAL EQUIPMENT PROVIDER PREFERENCE * List name and contact numbers for known caregivers / representatives who currently or will assist patient after discharge: RITU OCHOA, DTR, BRANDT OCHOA, MOTHER 100 YRS OLD, * Verbal permission to speak to the caregivers and representatives has been obtained from the patient. N/A * Community resources currently utilized None * Please name any agencies selected above. NONE * Additional services required to return to the preadmission environment? Yes * Can the patient safely return to the preadmission environment? Yes * Has this patient been hospitalized within the prior 30 days at any hospital? No Coverage Notice Reviewer: [id number] Gonzales Notice Issued Date-Time: 04/09/2019 9:20 Notice Type: IM Discharge Notice Notice Delivered To: Patient Relationship to Patient: Steam Generating Powerplant Mechanic Name: Delivery Method: HAND - Hand Delivered Chantel Days: Prior Verbal Notification: Recipient Understood Notice: Yes Recipient Signature: Yes Med Rec Note Co-signed by Attending: Coverage Notice Comment: Reviewer: [id number] Gonzales Notice Issued Date-Time: 04/09/2019 9:20 Notice Type: Patient Choice Letter Notice Delivered To: Relationship to Patient: Steam Generating Powerplant Mechanic Name: Delivery Method: HAND - Hand Delivered Chantel Days: Prior Verbal Notification: Recipient Understood Notice: Yes Recipient Signature: Yes Med Rec Note Co-signed by Attending: Coverage Notice Comment: NO HOME HEALTH PROVIDER PREFERENCE Reviewer: ANTONI Gonzales Notice Issued Date-Time: 04/12/2019 14:45 Notice Type: IM Discharge Notice Notice Delivered To: Patient Relationship to Patient: Steam Generating Powerplant Mechanic Name: Delivery Method: HAND - Hand Delivered Chantel Days: Prior Verbal Notification: Recipient Understood Notice: Yes Recipient Signature: Yes Med Rec Note Co-signed by Attending: Coverage Notice Comment: Reviewer: [id number] - Perry Gonzales Notice Issued Date-Time: 04/12/2019 14:45 Notice Type: Patient Choice Letter Notice Delivered To: Relationship to Patient: Steam Generating Powerplant Mechanic Name: Delivery Method: HAND - Hand Delivered Chantel Days: Prior Verbal Notification: Recipient Understood Notice: Yes Recipient Signature: Yes Med Rec Note Co-signed by Attending: Coverage Notice Comment: SNF IN [place] #1 SNF IN [place] #2 Last DP export: 04/12/19 3:08 p Patient Name: LINDA OCHOA Page [id number] at 1637 All edits/amendments must be made on the electronic document DICTATION DATE: 04/12/191636 WORK TICKET DISTRIBUTOR: CHULA 04/12/19 1637 RPT#: [id number] UT DATE: STATUS: ADM IN [facility] [address] [place] [address] END OF REPORT
--- NOTE | 2019-04-12 16:45 | MORECARE ---
CASE MANAGEMENT DISCHARGE SUMMARY PATIENT: LINDA OCHOA UNIT: [id number] ADM DATE: 04/04/19 AGE: 78 : 41 SEX: M ROOM/BED: D.4271 AUTHOR: BRYON,DOC PHYSICIAN: REFERRING PHYSICIAN: DOMINIQUE ODEN MD DATE OF SERVICE: 04/12/19 Discharge Plan Patient Name: LINDA OCHOA Facility: [facility]:[place] : 1940 [facility] Disposition: [facility] Facility Anticipated Discharge Date: 04/13/19 Discharge Date: Expected LOS: 9 Initial Reviewer: [id number] Initial Review Date: 04/09/2019 Generated: 04/12/19 5:45 pm Comments DCP- Discharge Planning Updated by [id number]: Perry Gonzales on 04/12/19 3:[address] Patient Name: LINDA OCHOA Encounter No: [id number] : 1940 Primary Insurance: [employer] CHOICE PPO MCR ADVANT Anticipated DC Date: 04-13-2019 Planned Disposition: [facility] Facility External Planned Provider[facility], MEDICARE REHAB BED DCP follow-up note: SONY SPOKE TO BEDSIDE NURSE WHO INFORMED CM THAT PT IS TOO WEAK TO DISCHARGE HOME PLANNED. CM MET WITH PT IN ROOM AND DISCUSSED THERAPY RESULTS, PT'S PLAN TO RETURN HOME AND AVAILABILITY OF REHAB SERVICES. PT INITIALLY STATED THAT HE WANTS TO GO HOME WITH HOME HEALTH. PT STATES IT IS OK TO DISCUSS HIS DISCHARGE PLAN WITH HIS DAUGHTER, RITU, SHE IS GOING TO BE TAKING CARE OF HIM AFTER HE GETS HOME, HE WILL DO WHAT SHE SAYS. CM CALLED RITU OCHOA AT [phone]; RITU STATES THAT PT NEEDS REHAB AND SHE WILL DISCUSS THIS WITH PT. SHE WOULD LIKE [facility] IN [place] AND IF NONE THERE, THEN [place]. CHOICE COMPLETED. CM SPOKE TO PT WHO IS IN AGREEMENT WITH PLAN. IMPORTANT MESSAGE FROM MEDICARE PROVIDED AND EXPLAINED. CM FAXED REFERRAL TO [facility] VIA [facility] AT [phone]. CM CALLED ZOILA AND NOTIFIED HER OF REFERRAL FOR [facility] AT [phone], CM WAITING ADMISSION DETERMINATION AND INSURANCE AUTHORIZATION FOR REHAB SERVICES AT [facility]. Perry Gonzales, CASE MANAGEMENT DCP- Discharge Planning Updated by [email or web address]: Divya Arauz on 04/11/19 4:[address] PHYSICAL THERAPY EVAL COMPLETED TODAY. PATIENT IS IN VERY WEAKEN STATE. HE COULD NOT TOLERATE SITTING ON THE SIDE OF THE BED SECONDARY TO PAIN AND STIFFNESS. REQUIRED 2 PERSON DRAW SHEET PULL TO GET TO THE HEAD OF THE BED. PLS REVIEW PHYSICAL THERAPY NOTES. PATIENT REPORTEDLY LIVED ALONE AND WAS INDEPENDENT IN CARE PRIOR TO ADMISSION. LIKELY WILL NEED TO CONSIDER ACUTE OR SKILLED REHAB. OT CONSULT ORDER OBTAINED. 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 CM TO FOLLOW TO ASSIST. . DCP- Discharge Planning Updated by [id number]: Perry Gonzales on 04/09/19 4:[address] Patient Name: LINDA OCHOA Admission Status: ER Accout number: [id number] Admission Date: 04-04-2019 : 1940 Admission Diagnosis:NON-ST ELEVATION (NSTEMI) MYOCARDIAL INFARCTION Attending: DOMINIQUE ODEN Current LOS: 5 Anticipated DC Date: Planned Disposition: Home with Home Health Primary Insurance: [employer] CHOICE PPO MCR ADVANT PLANNED EXTERNAL PROVIDER: NO PROVIDER PREFERENCE Discharge Planning Comments: CM MET WITH PT IN ROOM TO DISCUSS DISCHARGE PLANNING AND NEEDS. PT REPORTS LIVING AT HOME INDEPENDENTLY AND ALONE. PT HAS NO MEDICAL EQUIPMENT AND NO OUTSIDE SERVICES ASSISTING IN THE HOME. CM DISCUSSED AVAILABILITY OF HOME HEALTH, REHAB SERVICES AND MEDICAL EQUIPMENT. PT WILL ACCEPT HOME HEALTH IF NEEDED; PROVIDED WITH PROVIDER LISTING, PT HAS NO CHOICE OF PROVIDER, CHOICE LETTER COMPLETED. PT REPORTS HIS DAUGHTER WILL PICK HIM UP FOR DISCHARGE HOME. IMPORTANT MESSAGE FROM MEDICARE PROVIDED AND EXPLAINED. PT STATES HIS DAUGHTER WILL STAY WITH HIM TO ASSIST AT HOME AFTER DISCHARGE. PT PLANS TO DISCHARGE HOME WHERE HIS DAUGHTER WILL STAY AND ASSIST IF NEEDED. DAUGHTER TO TRANSPORT HOME AT DISCHARGE. PT WOULD ACCEPT HOME HEALTH IF NEEDED; CM TO ARRANGE HOME HEALTH WITH PHYSICIAN AGREEMENT OF NEED AND ORDERS. Loan Documentation Specialist: Perry Gonzales DCPIA - Discharge Planning Initial Assessment Updated by [id number]: Perry Gonzales on 04/09/19 5:13 pm * Is the patient Alert and Oriented? Yes * How many steps to enter\exit or inside your home? NONE * PCP DR[facility] SORTO IN [place] * Pharmacy [facility] * Preadmission Environment Home Alone * ADLs Independent * Equipment None * Other Equipment NO MEDICAL EQUIPMENT PROVIDER PREFERENCE * List name and contact numbers for known caregivers / representatives who currently or will assist patient after discharge: RITU OCHOA, DTR, BRANDT OCHOA, MOTHER 100 YRS OLD, * Verbal permission to speak to the caregivers and representatives has been obtained from the patient. N/A * Community resources currently utilized None * Please name any agencies selected above. NONE * Additional services required to return to the preadmission environment? Yes * Can the patient safely return to the preadmission environment? Yes * Has this patient been hospitalized within the prior 30 days at any hospital? No Coverage Notice Reviewer: ANTONI Gonzales Notice Issued Date-Time: 04/09/2019 9:20 Notice Type: IM Discharge Notice Notice Delivered To: Patient Relationship to Patient: Senior Energy Consultant Name: Delivery Method: HAND - Hand Delivered Chantel Days: Prior Verbal Notification: Recipient Understood Notice: Yes Recipient Signature: Yes Med Rec Note Co-signed by Attending: Coverage Notice Comment: Reviewer: ANTONI Gonzales Notice Issued Date-Time: 04/09/2019 9:20 Notice Type: Patient Choice Letter Notice Delivered To: Relationship to Patient: Senior Energy Consultant Name: Delivery Method: HAND - Hand Delivered Chantel Days: Prior Verbal Notification: Recipient Understood Notice: Yes Recipient Signature: Yes Med Rec Note Co-signed by Attending: Coverage Notice Comment: NO HOME HEALTH PROVIDER PREFERENCE Reviewer: ANTONI Gonzales Notice Issued Date-Time: 04/12/2019 14:45 Notice Type: IM Discharge Notice Notice Delivered To: Patient Relationship to Patient: Senior Energy Consultant Name: Delivery Method: HAND - Hand Delivered Chantel Days: Prior Verbal Notification: Recipient Understood Notice: Yes Recipient Signature: Yes Med Rec Note Co-signed by Attending: Coverage Notice Comment: Reviewer: ANTONI Gonzales Notice Issued Date-Time: 04/12/2019 14:45 Notice Type: Patient Choice Letter Notice Delivered To: Relationship to Patient: Senior Energy Consultant Name: Delivery Method: HAND - Hand Delivered Chantel Days: Prior Verbal Notification: Recipient Understood Notice: Yes Recipient Signature: Yes Med Rec Note Co-signed by Attending: Coverage Notice Comment: SNF IN [place] #1 SNF IN [place] #2 Last DP export: 04/12/19 3:37 p Patient Name: LINDA OCHOA Page [id number] at 1645 All edits/amendments must be made on the electronic document DICTATION DATE: 04/12/191644 CLIENT ASSOCIATE: CHULA 04/12/191644 RPT#: [id number] DC DATE: STATUS: ADM IN [facility] [address] [place] [address] END OF REPORT
--- NOTE | 2019-04-12 16:47 | NUR ---
Rehab Note- Acute Inpatient Rehab prescreen order received. The patient has [employer] and will require a PreAuth prior to an inpatient acute rehab stay. PreAuth started. Will await determination from [employer]. Will follow at this time. Thank you for this referral! Maeve Saul RN Clinical Liaison, [facility] Rehab
[2019-04-12 16:52] VITALS: BP 138/62
--- NOTE | 2019-04-12 18:16 | NUR ---
OT NOTE: PT C/O PAIN IN L KNEE AND LUE. PT COMPLETED BED MOB TASKS WITH MIN A AND EXTRA TIME. PT COMPLETED EOB SITTING WITH SPV. PT COMPLETED FACE WASH WITH SET UP . PT COMPLETED BUE AROM AXS. THANK YOU, TAMIA MARMOLEJO
[2019-04-12 20:00] VITALS: BP 113/68
--- NOTE | 2019-04-12 21:18 | NUR ---
HS MEDS GIVEN WITH FRESH ICE WATER. TYLENOL 2 TABS GIVEN FOR C/O PAIN TO FEET.
[2019-04-13] VITALS: BP 115/58
--- NOTE | 2019-04-13 01:53 | NUR ---
RESTING WITH EYES CLOSED, RESPERATIONS EVEN, NO S/S DISTRESS NOTED.
[2019-04-13 04:00] VITALS: BP 102/67
[2019-04-13 05:34] LABS: ALBUMIN 2.6 g/dL (3.4-5.0); ANION GAP 13.9 mmol/L (8-16); BILIRUBIN - TOTAL 0.38 mg/dL (0.2-1.3); CALCIUM 8.7 mg/dL (8.5-10.1); CARBON DIOXIDE 30.1 mmol/L (21.0-32.0); CREATININE - SERUM 1.5 mg/dL (0.6-1.3); PROTEIN - SERUM 7.7 g/dL (6.4-8.2)
[2019-04-13 05:51] LABS: BASOPHILS 0.1 % (0-2); EOSINOPHILS 3.1 % (0-7); HEMOGLOBIN 8.9 g/dL (13.5-17.5); IMMATURE GRANULOCYTES 1.1 % (0-5); LYMPHOCYTES 11.8 % (15-50); MCHC 31.8 g/dL (31.0-37.0); MCV 91.2 fL (80.0-100.0); MEAN PLATELET VOLUME 9.3 fL (7.4-10.4); NEUTROPHILS 77.9 % (40-80); PLATELET COUNT 459 10x3/uL (130-400); RBC 3.07 10x6/uL (4.20-6.10); RDW 15.7 % (11.5-14.5); WBC 9.3 10x3/uL (4.8-10.8)
[2019-04-13 08:45] VITALS: BP 129/71
--- NOTE | 2019-04-13 09:14 | NUR ---
AM MEDS GIVEN AT THIS TIME. PT IN BED, A/O X4, RESP EVEN AND NONLABORED ON RA. LT UPPER IV SL. MONITOR SHOWING SR WITH RATE OF 96. INFORMED PT THAT WE NEED A STOOL SAMPLE. ALSO PROVIDED PT WITH AN EXTRA BLANKET. PT DENIES ANY NEEDS AT THIS TIME. CALL LIGHT IN REACH, NAD NOTED, WILL CONTINUE TO MONITOR.
[2019-04-13 12:45] VITALS: BP 101/68
--- NOTE | 2019-04-13 13:52 | NUR ---
CLEANED PT UP FROM INCONT EPISODE, COMPLETE LINEN CHANGE DONE AT THIS TIME. PT DENIES ANY NEEDS AT THIS TIME. CALL LIGHT IN REACH, NAD NOTED,W ILL CONTINUE TO MONITOR.
--- NOTE | 2019-04-13 13:59 | NUR ---
PT PERFORMED VERY WELL TODAY. EXTENSIVE TIME SPENT WITH PT FOR MOBILITY AND ADLS. PT REPORTED FEELING BETTER WITH LESS PAIN. ABLE TO PERFORM SUPINE TO SIT WITH MOD ASSIST; STATIC AND DYNAMIC SITTING BALANCE ON EOB WAS GOOD. PT FELT THAT HE WOULD BE ABLE TO STAND TODAY. WITH ASSIST OF BOTH OT AND PT, PT WAS ABLE TO STAND WITH MOD ASSIST AND USE OF WALKER. ABLE TO REMAIN STANDING FOR APPROX 2 MIN; PT ABLE TO SIDE STEP TO THE L, R, THEN BACKWARDS. CLEANED PERINEAL AREA WHILE IN STANDING PT WITH SMALL BM. PT SAT DOWN TO REST AND THEN WANTED TO TRY TO GO TO BATHROOM. FOUND BS COMMODE. PT ABLE TO TRANSFER WITH WALKER AND MOD ASSIST. BECAME SOB WHILE ON BS COMODE.. RESPIRATORY NOTIFIED. 02 SATS IN THE 80S. INCREASED FROM 2L TO 3L. SIT TO STAND WITH MOD ASSIST. MAX ASSIST FOR TOILET HYGIENE. BACK TO BED WITH MOD ASSIST. ABLE TO WASH FACE, HANDS, UPPER BODY, AND UPPER LEGS WITH BASIC AND WASH CLOTH. MIN ASSIST TO GEM GOWN, MAX ASSIST TO GEM SOCKS. ASSISTED BACK TO BED WITH MIN ASSIST. FATUMA GARCIA, OTR/L
--- NOTE | 2019-04-13 16:11 | NUR ---
RESTING ROOM AIR SP02 95% AMBULATION ON ROOM AIR 88% SP02 @ 94% ON 2L/NC
--- NOTE | 2019-04-13 16:33 | MORECARE ---
CASE MANAGEMENT DISCHARGE SUMMARY PATIENT: LINDA OCHOA UNIT: [id number] ADM DATE: 04/04/19 AGE: 78 : 41 SEX: M ROOM/BED: D.9962 AUTHOR: BRYON,DOC PHYSICIAN: REFERRING PHYSICIAN: DOMINIQUE ODEN MD DATE OF SERVICE: 04/13/19 Discharge Plan Patient Name: LINDA OCHOA Facility: [facility]:[place] : 1940 Planned Disposition: Long Term Facility Anticipated Discharge Date: 04/14/19 Discharge Date: Expected LOS: 10 Initial Reviewer: [id number] Initial Review Date: 04/09/2019 Generated: 04/13/19 5:33 pm Comments DCP- Discharge Planning Updated by [id number]: Perry Gonzales on 04/12/19 3:[address] Patient Name: LINDA OCHOA Encounter No: [id number] : 1940 Primary Insurance: [employer] CHOICE PPO MCR ADVANT Anticipated DC Date: 04-13-2019 Planned Disposition: Long Term Facility External Planned Provider: [facility], MEDICARE REHAB BED DCP follow-up note: SONY SPOKE TO BEDSIDE NURSE WHO INFORMED CM THAT PT IS TOO WEAK TO DISCHARGE HOME PLANNED. CM MET WITH PT IN ROOM AND DISCUSSED THERAPY RESULTS, PT'S PLAN TO RETURN HOME AND AVAILABILITY OF REHAB SERVICES. PT INITIALLY STATED THAT HE WANTS TO GO HOME WITH HOME HEALTH. PT STATES IT IS OK TO DISCUSS HIS DISCHARGE PLAN WITH HIS DAUGHTER, RITU, SHE IS GOING TO BE TAKING CARE OF HIM AFTER HE GETS HOME, HE WILL DO WHAT SHE SAYS. CM CALLED RITU OCHOA AT [phone]; RITU STATES THAT PT NEEDS REHAB AND SHE WILL DISCUSS THIS WITH PT. SHE WOULD LIKE [facility]HAB IN [place] AND IF NONE THERE, THEN [place] [facility] [place]. CHOICE COMPLETED. CM SPOKE TO PT WHO IS IN AGREEMENT WITH PLAN. IMPORTANT MESSAGE FROM MEDICARE PROVIDED AND EXPLAINED. CM FAXED REFERRAL TO [facility] VIA [facility]IL[facility] AT [phone]. CM CALLED ZOILA AND NOTIFIED HER OF REFERRAL FOR [facility] AT [phone], CM WAITING ADMISSION DETERMINATION AND INSURANCE AUTHORIZATION FOR REHAB SERVICES AT [facility]. Perry Gonzales, CASE MANAGEMENT DCP- Discharge Planning Updated by [id number]: Divya Arauz on 04/11/19 4:[address] PHYSICAL THERAPY EVAL COMPLETED TODAY. PATIENT IS IN VERY WEAKEN STATE. HE COULD NOT TOLERATE SITTING ON THE SIDE OF THE BED SECONDARY TO PAIN AND STIFFNESS. REQUIRED 2 PERSON DRAW SHEET PULL TO GET TO THE HEAD OF THE BED. PLS REVIEW PHYSICAL THERAPY NOTES. PATIENT REPORTEDLY LIVED ALONE AND WAS INDEPENDENT IN CARE PRIOR TO ADMISSION. LIKELY WILL NEED TO CONSIDER ACUTE OR SKILLED REHAB. OT CONSULT ORDER OBTAINED. 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 CM TO FOLLOW TO ASSIST. . DCP- Discharge Planning Updated by [id number]: Perry Gonzales on 04/09/19 4:[address] Patient Name: LINDA OCHOA Admission Status: ER Accout number: [id number] Admission Date: 04-04-2019 : 1940 Admission Diagnosis:NON-ST ELEVATION (NSTEMI) MYOCARDIAL INFARCTION Attending: DOMINIQUE ODEN Current LOS: 5 Anticipated DC Date: Planned Disposition: Home with Home Health Primary Insurance: [employer] CHOICE PPO MCR ADVANT PLANNED EXTERNAL PROVIDER: NO PROVIDER PREFERENCE Discharge Planning Comments: CM MET WITH PT IN ROOM TO DISCUSS DISCHARGE PLANNING AND NEEDS. PT REPORTS LIVING AT HOME INDEPENDENTLY AND ALONE. PT HAS NO MEDICAL EQUIPMENT AND NO OUTSIDE SERVICES ASSISTING IN THE HOME. CM DISCUSSED AVAILABILITY OF HOME HEALTH, REHAB SERVICES AND MEDICAL EQUIPMENT. PT WILL ACCEPT HOME HEALTH IF NEEDED; PROVIDED WITH PROVIDER LISTING, PT HAS NO CHOICE OF PROVIDER, CHOICE LETTER COMPLETED. PT REPORTS HIS DAUGHTER WILL PICK HIM UP FOR DISCHARGE HOME. IMPORTANT MESSAGE FROM MEDICARE PROVIDED AND EXPLAINED. PT STATES HIS DAUGHTER WILL STAY WITH HIM TO ASSIST AT HOME AFTER DISCHARGE. PT PLANS TO DISCHARGE HOME WHERE HIS DAUGHTER WILL STAY AND ASSIST IF NEEDED. DAUGHTER TO TRANSPORT HOME AT DISCHARGE. PT WOULD ACCEPT HOME HEALTH IF NEEDED; CM TO ARRANGE HOME HEALTH WITH PHYSICIAN AGREEMENT OF NEED AND ORDERS. Medical Malpractice Paralegal: Perry Gonzales DCPIA - Discharge Planning Initial Assessment Updated by [id number]: Perry Gonzales on 04/09/19 5:13 pm * Is the patient Alert and Oriented? Yes * How many steps to enter\exit or inside your home? NONE * PCP DR. SORTO IN [place] * Pharmacy [facility] * Preadmission Environment Home Alone * ADLs Independent * Equipment None * Other Equipment NO MEDICAL EQUIPMENT PROVIDER PREFERENCE * List name and contact numbers for known caregivers / representatives who currently or will assist patient after discharge: RITU OCHOA, DTR, BRANDT OCHOA, MOTHER 100 YRS OLD, * Verbal permission to speak to the caregivers and representatives has been obtained from the patient. N/A * Community resources currently utilized None * Please name any agencies selected above. NONE * Additional services required to return to the preadmission environment? Yes * Can the patient safely return to the preadmission environment? Yes * Has this patient been hospitalized within the prior 30 days at any hospital? No External Providers External Provider: OTHER-OTHER Next Contact Date: 04/13/2019 Service Request Date: Service Type: Resolution: Reviewer: Comments: Coverage Notice Reviewer: ANTONI Gonzales Notice Issued Date-Time: 04/09/2019 9:20 Notice Type: IM Discharge Notice Notice Delivered To: Patient Relationship to Patient: [employer] Salesperson Name: Delivery Method: HAND - Hand Delivered Chantel Days: Prior Verbal Notification: Recipient Understood Notice: Yes Recipient Signature: Yes Med Rec Note Co-signed by Attending: Coverage Notice Comment: Reviewer: ANTONI Gonzales Notice Issued Date-Time: 04/09/2019 9:20 Notice Type: Patient Choice Letter Notice Delivered To: Relationship to Patient: [employer] Salesperson Name: Delivery Method: HAND - Hand Delivered Chantel Days: Prior Verbal Notification: Recipient Understood Notice: Yes Recipient Signature: Yes Med Rec Note Co-signed by Attending: Coverage Notice Comment: NO HOME HEALTH PROVIDER PREFERENCE Reviewer: ANTONI Gonzales Notice Issued Date-Time: 04/12/2019 14:45 Notice Type: IM Discharge Notice Notice Delivered To: Patient Relationship to Patient: [employer] Salesperson Name: Delivery Method: HAND - Hand Delivered Chantel Days: Prior Verbal Notification: Recipient Understood Notice: Yes Recipient Signature: Yes Med Rec Note Co-signed by Attending: Coverage Notice Comment: Reviewer: ANTONI Gonzales Notice Issued Date-Time: 04/12/2019 14:45 Notice Type: Patient Choice Letter Notice Delivered To: Relationship to Patient: [employer] Salesperson Name: Delivery Method: HAND - Hand Delivered Chantel Days: Prior Verbal Notification: Recipient Understood Notice: Yes Recipient Signature: Yes Med Rec Note Co-signed by Attending: Coverage Notice Comment: SNF IN [place] #1 SNF IN [place] #2 Last DP export: 04/12/19 3:45 p Patient Name: LINDA OCHOA Page [id number] at 1633 All edits/amendments must be made on the electronic document DICTATION DATE: 04/13/191632 RODENT CONTROL WORKER: CHULA 04/13/191632 RPT#: [id number] DC DATE: STATUS: ADM IN [address] [place] [address] END OF REPORT
--- NOTE | 2019-04-13 16:44 | MORECARE ---
CASE MANAGEMENT DISCHARGE SUMMARY PATIENT: LINDA OCHOA UNIT: [id number] ADM DATE: 04/04/19 AGE: 78 : 41 SEX: M ROOM/BED: D.9735 AUTHOR: BRYON,DOC PHYSICIAN: REFERRING PHYSICIAN: DOMINIQUE ODEN MD DATE OF SERVICE: 04/13/19 Discharge Plan Patient Name: LINDA OCHOA Facility: [facility] : 1940 Planned Disposition: [facility]fp Facility Anticipated Discharge Date: 04/14/19 Discharge Date: Expected LOS: 10 Initial Reviewer: [id number] Initial Review Date: 04/09/2019 Generated: 04/13/19 5:43 pm Comments DCP- Discharge Planning Updated by [id number]: Perry Gonzales on 04/12/19 3:[address] Patient Name: LINDA OCHOA Encounter No: [id number] : 1940 Primary Insurance: [employer] CHOICE PPO MCR ADVANT Anticipated DC Date: 04-13-2019 Planned Disposition: Mcfp Facility External Planned Provider: [facility], MEDICARE REHAB BED DCP follow-up note: SONY SPOKE TO BEDSIDE NURSE WHO INFORMED CM THAT PT IS TOO WEAK TO DISCHARGE HOME PLANNED. CM MET WITH PT IN ROOM AND DISCUSSED THERAPY RESULTS, PT'S PLAN TO RETURN HOME AND AVAILABILITY OF REHAB SERVICES. PT INITIALLY STATED THAT HE WANTS TO GO HOME WITH HOME HEALTH. PT STATES IT IS OK TO DISCUSS HIS DISCHARGE PLAN WITH HIS DAUGHTER, RITU, SHE IS GOING TO BE TAKING CARE OF HIM AFTER HE GETS HOME, HE WILL DO WHAT SHE SAYS. SONY CALLED RITU OCHOA AT [phone]; RITU STATES THAT PT NEEDS REHAB AND SHE WILL DISCUSS THIS WITH PT. SHE WOULD LIKE LONG TERM REHAB IN [place] AND IF NONE THERE, THEN [facility]. CHOICE COMPLETED. CM SPOKE TO PT WHO IS IN AGREEMENT WITH PLAN. IMPORTANT MESSAGE FROM MEDICARE PROVIDED AND EXPLAINED. CM FAXED REFERRAL TO [facility] VIA ZOILA AT [phone]. CM CALLED ZOILA AND NOTIFIED HER OF REFERRAL FOR [facility] AT [phone], CM WAITING ADMISSION DETERMINATION AND INSURANCE AUTHORIZATION FOR REHAB SERVICES AT [facility]. Perry Gonzales, CASE MANAGEMENT DCP- Discharge Planning Updated by [id number]: Divya Arauz on 04/11/19 4:[address] PHYSICAL THERAPY EVAL COMPLETED TODAY. PATIENT IS IN VERY WEAKEN STATE. HE COULD NOT TOLERATE SITTING ON THE SIDE OF THE BED SECONDARY TO PAIN AND STIFFNESS. REQUIRED 2 PERSON DRAW SHEET PULL TO GET TO THE HEAD OF THE BED. PLS REVIEW PHYSICAL THERAPY NOTES. PATIENT REPORTEDLY LIVED ALONE AND WAS INDEPENDENT IN CARE PRIOR TO ADMISSION. LIKELY WILL NEED TO CONSIDER ACUTE OR SKILLED REHAB. OT CONSULT ORDER OBTAINED. 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 CM TO FOLLOW TO ASSIST. . DCP- Discharge Planning Updated by [id number]: Perry Gonzales on 04/09/19 4:[address] Patient Name: LINDA OCHOA Admission Status: ER Accout number: [id number] Admission Date: 04-04-2019 : 1940 Admission Diagnosis:NON-ST ELEVATION (NSTEMI) MYOCARDIAL INFARCTION Attending: DOMINIQUE ODEN Current LOS: 5 Anticipated DC Date: Planned Disposition: Home with Home Health Primary Insurance: HUMANA CHOICE PPO MCR ADVANT PLANNED EXTERNAL PROVIDER: NO PROVIDER PREFERENCE Discharge Planning Comments: CM MET WITH PT IN ROOM TO DISCUSS DISCHARGE PLANNING AND NEEDS. PT REPORTS LIVING AT HOME INDEPENDENTLY AND ALONE. PT HAS NO MEDICAL EQUIPMENT AND NO OUTSIDE SERVICES ASSISTING IN THE HOME. CM DISCUSSED AVAILABILITY OF HOME HEALTH, REHAB SERVICES AND MEDICAL EQUIPMENT. PT WILL ACCEPT HOME HEALTH IF NEEDED; PROVIDED WITH PROVIDER LISTING, PT HAS NO CHOICE OF PROVIDER, CHOICE LETTER COMPLETED. PT REPORTS HIS DAUGHTER WILL PICK HIM UP FOR DISCHARGE HOME. IMPORTANT MESSAGE FROM MEDICARE PROVIDED AND EXPLAINED. PT STATES HIS DAUGHTER WILL STAY WITH HIM TO ASSIST AT HOME AFTER DISCHARGE. PT PLANS TO DISCHARGE HOME WHERE HIS DAUGHTER WILL STAY AND ASSIST IF NEEDED. DAUGHTER TO TRANSPORT HOME AT DISCHARGE. PT WOULD ACCEPT HOME HEALTH IF NEEDED; CM TO ARRANGE HOME HEALTH WITH PHYSICIAN AGREEMENT OF NEED AND ORDERS. Tax Examiner: Perry Gonzales DCPIA - Discharge Planning Initial Assessment Updated by [id number]: Perry Gonzales on 04/09/19 5:13 pm * Is the patient Alert and Oriented? Yes * How many steps to enter\exit or inside your home? NONE * PCP DR[facility] SORTO IN [place] * Pharmacy [facility] * Preadmission Environment Home Alone * ADLs Independent * Equipment None * Other Equipment NO MEDICAL EQUIPMENT PROVIDER PREFERENCE * List name and contact numbers for known caregivers / representatives who currently or will assist patient after discharge: RITU OCHOA, DTR, BRANDT OCHOA, MOTHER 100 YRS OLD, * Verbal permission to speak to the caregivers and representatives has been obtained from the patient. N/A * Community resources currently utilized None * Please name any agencies selected above. NONE * Additional services required to return to the preadmission environment? Yes * Can the patient safely return to the preadmission environment? Yes * Has this patient been hospitalized within the prior 30 days at any hospital? No External Providers External Provider: OTHER-OTHER Next Contact Date: 04/13/2019 Service Request Date: Service Type: Resolution: Reviewer: Comments: Coverage Notice Reviewer: ANTONI Gonzales Notice Issued Date-Time: 04/12/2019 14:45 Notice Type: Patient Choice Letter Notice Delivered To: Relationship to Patient: Lens Hardener Name: Delivery Method: HAND - Hand Delivered Chantel Days: Prior Verbal Notification: Recipient Understood Notice: Yes Recipient Signature: Yes Med Rec Note Co-signed by Attending: Coverage Notice Comment: SNF IN [place] #1 SNF IN [place] #2 Reviewer: ANTONI Gonzales Notice Issued Date-Time: 04/09/2019 9:20 Notice Type: Patient Choice Letter Notice Delivered To: Relationship to Patient: Lens Hardener Name: Delivery Method: HAND - Hand Delivered Chantel Days: Prior Verbal Notification: Recipient Understood Notice: Yes Recipient Signature: Yes Med Rec Note Co-signed by Attending: Coverage Notice Comment: NO HOME HEALTH PROVIDER PREFERENCE Reviewer: ANTONI Gonzales Notice Issued Date-Time: 04/12/2019 14:45 Notice Type: IM Discharge Notice Notice Delivered To: Patient Relationship to Patient: Lens Hardener Name: Delivery Method: HAND - Hand Delivered Chantel Days: Prior Verbal Notification: Recipient Understood Notice: Yes Recipient Signature: Yes Med Rec Note Co-signed by Attending: Coverage Notice Comment: Reviewer: ANTONI Gonzales Notice Issued Date-Time: 04/09/2019 9:20 Notice Type: IM Discharge Notice Notice Delivered To: Patient Relationship to Patient: Lens Hardener Name: Delivery Method: HAND - Hand Delivered Chantel Days: Prior Verbal Notification: Recipient Understood Notice: Yes Recipient Signature: Yes Med Rec Note Co-signed by Attending: Coverage Notice Comment: Last DP export: 04/13/19 3:33 p Patient Name: LINDA OCHOA Page [id number] at 1644 All edits/amendments must be made on the electronic document DICTATION DATE: 04/13/191642 HAND WOODWORKING SANDER: CHULA 04/13/191642 RPT#: [id number] DC DATE: STATUS: ADM IN [facility] [address] [place] [address] END OF REPORT
[2019-04-13 16:46] VITALS: BP 133/80
--- NOTE | 2019-04-13 16:53 | MORECARE ---
CASE MANAGEMENT DISCHARGE SUMMARY PATIENT: LINDA OCHOA UNIT: [id number] ADM DATE: 04/04/19 AGE: 78 : 41 SEX: M ROOM/BED: D.2127 AUTHOR: BRYONDOC PHYSICIAN: REFERRING PHYSICIAN: DOMINIQUE ODEN MD DATE OF SERVICE: 04/13/19 Discharge Plan Patient Name: LINDA OCHOA Facility: [facility] : 1940 Planned Disposition: Group Home Facility Anticipated Discharge Date: 04/14/19 Discharge Date: Expected LOS: 10 Initial Reviewer: [id number] Initial Review Date: 04/09/2019 Generated: 04/13/19 5:53 pm Comments DCP- Discharge Planning Updated by [id number]: Perry Gonzales on 04/13/19 3:[address] Patient Name: LINDA OCHOA Encounter No: [id number] : 1940 Primary Insurance: HUMANA CHOICE PPO MCR ADVANT Anticipated DC Date: 04-14-2019 Planned Disposition: Group Home Facility External Planned Provider: [facility] MEDIC[facility] RE[facility] BED DCP follow-up note: CM RECEIVED MESSAGE FROM [facility], THEY ARE OUT OF PT'S INSURANCE NETWORK AND REFERRED CM TO [facility] THAT IS IN NETWORK WITH PT'S INSURANCE. CM REVIEWED CONSENTS FOR PROVIDERS THAT INCLUDED SNF IN [place], [place]. CM CALLED [facility], , SPOKE TO ANNA WHO TOOK REFERRAL INFORMATION. CM INFORMED ANNA THAT PT HAS BEEN DISCHARGED AND NEEDS REHAB ONLY. CM FAXED REFERRAL TO [facility] AT [phone]. CM RECEIVED ORDERS FOR NEBULIZER AND WALK TEST RESULTS WERE 95% ON ROOM AIR, 88% ON ROOM AIR DURING EXERTION, 94% RECOVERY ON 2 LITERS OXYGEN DURING RECOVERY. ALL MEDICAL EQUIPMENT WILL BE PROVIDED BY NURSING HOME FACILITY IF ACCEPTED. CM WAITING ADMISSION DETERMINATION FROM [facility] FOR NURSING HOME REHAB. Perry Gonzales CASE MANAGEMENT DCP- Discharge Planning Updated by [id number]: Perry Gonzales on 04/12/19 3:[address] Patient Name: LINDA OCHOA Encounter No: [id number] : 1940 Primary Insurance: HUMANA CHOICE PPO MCR ADVANT Anticipated DC Date: 04-13-2019 Planned Disposition: Group Home Facility External Planned Provider: [facility], MEDICARE REHAB BED DCP follow-up note: CM SPOKE TO BEDSIDE NURSE WHO INFORMED CM THAT PT IS TOO WEAK TO DISCHARGE HOME PLANNED. CM MET WITH PT IN ROOM AND DISCUSSED THERAPY RESULTS, PT'S PLAN TO RETURN HOME AND AVAILABILITY OF REHAB SERVICES. PT INITIALLY STATED THAT HE WANTS TO GO HOME WITH HOME HEALTH. PT STATES IT IS OK TO DISCUSS HIS DISCHARGE PLAN WITH HIS DAUGHTER, RITU, SHE IS GOING TO BE TAKING CARE OF HIM AFTER HE GETS HOME, HE WILL DO WHAT SHE SAYS. CM CALLED RITU OCHOA AT [phone]; RITU STATES THAT PT NEEDS REHAB AND SHE WILL DISCUSS THIS WITH PT. SHE WOULD LIKE NURSING HOME REHAB IN [place] AND IF NONE THERE, THEN TO [facility]. CHOICE COMPLETED. CM SPOKE TO PT WHO IS IN AGREEMENT WITH PLAN. IMPORTANT MESSAGE FROM MEDICARE PROVIDED AND EXPLAINED. CM FAXED REFERRAL TO [facility] VIA ZOILA AT [phone]. CM CALLED ZOILA AND NOTIFIED HER OF REFERRAL FOR [facility] AT [phone], CM WAITING ADMISSION DETERMINATION AND INSURANCE AUTHORIZATION FOR REHAB SERVICES AT [facility]. Perry Gonzales, CASE MANAGEMENT DCP- Discharge Planning Updated by [id number]: Divya Arauz on 04/11/19 4:[address] PHYSICAL THERAPY EVAL COMPLETED TODAY. PATIENT IS IN VERY WEAKEN STATE. HE COULD NOT TOLERATE SITTING ON THE SIDE OF THE BED SECONDARY TO PAIN AND STIFFNESS. REQUIRED 2 PERSON DRAW SHEET PULL TO GET TO THE HEAD OF THE BED. PLS REVIEW PHYSICAL THERAPY NOTES. PATIENT REPORTEDLY LIVED ALONE AND WAS INDEPENDENT IN CARE PRIOR TO ADMISSION. LIKELY WILL NEED TO CONSIDER ACUTE OR SKILLED REHAB. OT CONSULT ORDER OBTAINED. 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 CM TO FOLLOW TO ASSIST. . DCP- Discharge Planning Updated by [id number]: Perry Gonzales on 04/09/19 4:[address] Patient Name: LINDA OCHOA Admission Status: ER Accout number: [id number] Admission Date: 04-04-2019 : 1940 Admission Diagnosis:NON-ST ELEVATION (NSTEMI) MYOCARDIAL INFARCTION Attending: DOMINIQUE ODEN Current LOS: 5 Anticipated DC Date: Planned Disposition: Home with Home Health Primary Insurance: HUMANA CHOICE PPO MCR ADVANT PLANNED EXTERNAL PROVIDER: NO PROVIDER PREFERENCE Discharge Planning Comments: CM MET WITH PT IN ROOM TO DISCUSS DISCHARGE PLANNING AND NEEDS. PT REPORTS LIVING AT HOME INDEPENDENTLY AND ALONE. PT HAS NO MEDICAL EQUIPMENT AND NO OUTSIDE SERVICES ASSISTING IN THE HOME. CM DISCUSSED AVAILABILITY OF HOME HEALTH, REHAB SERVICES AND MEDICAL EQUIPMENT. PT WILL ACCEPT HOME HEALTH IF NEEDED; PROVIDED WITH PROVIDER LISTING, PT HAS NO CHOICE OF PROVIDER, CHOICE LETTER COMPLETED. PT REPORTS HIS DAUGHTER WILL PICK HIM UP FOR DISCHARGE HOME. IMPORTANT MESSAGE FROM MEDICARE PROVIDED AND EXPLAINED. PT STATES HIS DAUGHTER WILL STAY WITH HIM TO ASSIST AT HOME AFTER DISCHARGE. PT PLANS TO DISCHARGE HOME WHERE HIS DAUGHTER WILL STAY AND ASSIST IF NEEDED. DAUGHTER TO TRANSPORT HOME AT DISCHARGE. PT WOULD ACCEPT HOME HEALTH IF NEEDED; CM TO ARRANGE HOME HEALTH WITH PHYSICIAN AGREEMENT OF NEED AND ORDERS. Dean For Student Affairs: Perry Gonzales DCPIA - Discharge Planning Initial Assessment Updated by [id number]: Perry Gonzales on 04/09/19 5:13 pm * Is the patient Alert and Oriented? Yes * How many steps to enter\exit or inside your home? NONE * PCP DR[facility] SORTO IN [place] * Pharmacy [facility] IN [place] * Preadmission Environment Home Alone * ADLs Independent * Equipment None * Other Equipment NO MEDICAL EQUIPMENT PROVIDER PREFERENCE * List name and contact numbers for known caregivers / representatives who currently or will assist patient after discharge: RITU OCHOA, DTR, BRANDT OCHOA, MOTHER 100 YRS OLD, * Verbal permission to speak to the caregivers and representatives has been obtained from the patient. N/A * Community resources currently utilized None * Please name any agencies selected above. NONE * Additional services required to return to the preadmission environment? Yes * Can the patient safely return to the preadmission environment? Yes * Has this patient been hospitalized within the prior 30 days at any hospital? No Coverage Notice Reviewer: [id number] - Perry Gonzales Notice Issued Date-Time: 04/12/2019 14:45 Notice Type: Patient Choice Letter Notice Delivered To: Relationship to Patient: Back Winder Name: Delivery Method: HAND - Hand Delivered Chantel Days: Prior Verbal Notification: Recipient Understood Notice: Yes Recipient Signature: Yes Med Rec Note Co-signed by Attending: Coverage Notice Comment: SNF IN [place] #1 SNF IN [place] #2 Reviewer: ANTONI Gonzales Notice Issued Date-Time: 04/09/2019 9:20 Notice Type: Patient Choice Letter Notice Delivered To: Relationship to Patient: Back Winder Name: Delivery Method: HAND - Hand Delivered Chantel Days: Prior Verbal Notification: Recipient Understood Notice: Yes Recipient Signature: Yes Med Rec Note Co-signed by Attending: Coverage Notice Comment: NO HOME HEALTH PROVIDER PREFERENCE Reviewer: ANTONI Gonzales Notice Issued Date-Time: 04/12/2019 14:45 Notice Type: IM Discharge Notice Notice Delivered To: Patient Relationship to Patient: Back Winder Name: Delivery Method: HAND - Hand Delivered Chantel Days: Prior Verbal Notification: Recipient Understood Notice: Yes Recipient Signature: Yes Med Rec Note Co-signed by Attending: Coverage Notice Comment: Reviewer: ANTONI Gonzales Notice Issued Date-Time: 04/09/2019 9:20 Notice Type: IM Discharge Notice Notice Delivered To: Patient Relationship to Patient: Back Winder Name: Delivery Method: HAND - Hand Delivered Chantel Days: Prior Verbal Notification: Recipient Understood Notice: Yes Recipient Signature: Yes Med Rec Note Co-signed by Attending: Coverage Notice Comment: Last DP export: 04/13/19 3:44 p Patient Name: LINDA OCHOA Page [id number] at 1653 All edits/amendments must be made on the electronic document DICTATION DATE: 04/13/191652 JAIL OFFICER: CHULA 04/13/191652 RPT#: [id number] [place] DATE: STATUS: ADM IN [facility] [address] [place] [address] END OF REPORT
--- NOTE | 2019-04-13 17:07 | NUR ---
OT NOTE: PT COMPLETED BED MOB TASKS WITH SBA. PT STATED PAIN HAD DECREASED. PT COMPLETED SIMPLE GROOMING TASK WITH SET UP. PT COMPLETE BUE AROM AX. THANK YOU, TAMIA MARMOLEJO
--- NOTE | 2019-04-13 17:44 | NUR ---
PT RESTING COMFORTABLY IN BED, REFUSED TO EAT ANY OF HIS DINNER AT THIS TIME. PT DENIES ANY NEEDS, CALL LIGHT IN REACH, NAD NOTED.
--- NOTE | 2019-04-13 19:27 | NUR ---
ASSESSMENT COMPLETE, PT A&O. RESPERATIONS EVEN AND NON LABORED. RT AT BED SIDE TO ADMINISTER UPDRAFT. IV TO LEFT UPPER ARM SL. SITE CLEAN AND DRY. PT CURRENTLY DENIES PAIN OR NEEDS, BED LOW, CL IN REACH.
[2019-04-13 20:00] VITALS: BP 95/63
[2019-04-14] VITALS: BP 102/62
--- NOTE | 2019-04-14 00:10 | NUR ---
PUBLIC RELATIONS SENIOR ASSOCIATE AT BED SIDE TO OBTAIN VITALS. CALLED TO PTS ROOM, PTS 02 SATS 78% ON O2 AT 2 LITERS. INCREASED O2 TO 3 LITERS, PULLED PT UP IN BED, ENCOURAGED PT TO TAKE DEEP BREATHS IN THROUGH HIS NOSE AND EXHALE THROUGH MOUTH. CALL PLACED TO RT VIKTOR. RT PLACED PT ON HIGH FLOW CANULA AT 4 LITERS, O2 SATS AT 94%. WILL LEAVE HIGH FLOW CANULA IN PLACE.
[2019-04-14 04:00] VITALS: BP 104/69
[2019-04-14 06:14] LABS: BASOPHILS 0.2 % (0-2); EOSINOPHILS 2.4 % (0-7); HEMOGLOBIN 8.9 g/dL (13.5-17.5); IMMATURE GRANULOCYTES 1.5 % (0-5); LYMPHOCYTES 13.3 % (15-50); MCH 29.1 pg (26.0-34.0); MCHC 31.8 g/dL (31.0-37.0); MCV 91.5 fL (80.0-100.0); MEAN PLATELET VOLUME 8.7 fL (7.4-10.4); MONOCYTES 5.9 % (2-11); NEUTROPHILS 76.7 % (40-80); PLATELET COUNT 535 10x3/uL (130-400); RBC 3.06 10x6/uL (4.20-6.10); RDW 15.5 % (11.5-14.5)
[2019-04-14 06:19] LABS: WBC 11.9 10x3/uL (4.8-10.8)
[2019-04-14 07:01] LABS: ALBUMIN 2.5 g/dL (3.4-5.0); ANION GAP 18.2 mmol/L (8-16); BILIRUBIN - TOTAL 0.41 mg/dL (0.2-1.3); CALCIUM 8.4 mg/dL (8.5-10.1); POTASSIUM - SERUM 4.2 mmol/L (3.5-5.1); PROTEIN - SERUM 7.4 g/dL (6.4-8.2)
[2019-04-14 08:00] VITALS: BP 112/68
--- NOTE | 2019-04-14 08:33 | NUR ---
AM MEDS GIVEN AT THIS TIME. PT DOES NOT WANT TO EAT HIS BREAKFAST, STATED THAT EVERYTIME HE EAT THEN HE HAS TO HAVE A BM AND HATES THAT THE NURSES HAVE TO CLEAN HIM UP. TOLD PT THAT HE NEEDS TO EAT THAT THE NURSE AND CNAS DONE MIND CLEANING HIM UP THAT HE CANNOT LAY THERE ALL DAY WITHOUT EATING ANYTHING. PT STILL REFUSED TO EAT BREAKFAST. DENIES ANY NEEDS AT THIS TIME. CALL LIGHT IN REACH, NAD NOTED, WILL CONTINUE TO MONITOR.
--- NOTE | 2019-04-14 09:47 | NUR ---
Rehab Note- Per CM note, the pateint has been referred to SNF placement. Thank you for this referral! Maeve Saul RN Clinical Liaison, [facility] Rehab
--- NOTE | 2019-04-14 10:17 | NUR ---
NOTIFIED BY PHYSICAL THERAPY THAT PT IS ASKING FOR A BREATHING TREATMENT. CALLED [facility] AND SPOKE JANET WAGNER AND NOTIFIED HER ABOUT PT NEEDING A BREATHIGN TREATMENT. KRISTY STATED THAT SHE WAS IN THE ER BUT WOULD BE BY SHORTLY TO GIVE PT A BREATHING TREATMENT.
--- NOTE | 2019-04-14 10:33 | NUR ---
PT UP TO CHAIRKRISTY WITH [facility] AT BEDSIDE GIVING HIM A BREATHING TREATMENT.
[2019-04-14 12:00] VITALS: BP 132/68
--- NOTE | 2019-04-14 12:46 | NUR ---
OT NOTE: EXTENDED AMOUNT OF TIME SPENT WITH PT TODAY. UPON ENTERING ROOM, HE APPEARED TO BE HAVING INCREASED DIFFICULTY WITH BREATHING AND HAD NOT BEEN DOING ANY ACT WITH EXERTION. PT ABLE TO PERFORM SUPINE TO SIT WITHOUT ASSIST. REMAINED SOB. ATTEMPTED TO CHECK O2 BUT UNABLE TO GET READING FROM [facility]. CONTACTED NURSING. SHE STATED THAT IT WOULD BE GOOD IF PT COULD SIT UP IN CHAIR FOR A LITTLE WHILE; SHE INCREASED 02 TO 5L. SEVERAL ATTEMPTS FOR PT TO PERFORM SIT TO STAND, BUT HE STATED THAT HE COULDNT CATCH HIS BREATH AND HE DIDNT THINK HE WOULD BE ABLE TO DO IT TODAY. ENCOURAGED PT TO REST FOR A BIT AND THEN TRY AGAIN. PT INSTRUCTED ON BREATHING TECH AND RESTED FOR APPROX 5 MIN. WITH THIS ATTEMPT, PT WAS ABLE TO STAND WITH MOD ASSIST AND USE OF RW; PT ABLE TO STEP TOWARDS CHAIR AND TRANSFER WITH MIN/MOD ASSIST. CONTINUED TO C/O SOB. NURSING CONTACTED [facility] WHO WERE GOING TO PROVIDE BREATHING TMT. WHILE PT WAS UP IN CHAIR, HE WAS ABLE TO WASH HANDS AND FACE WITH CLOTH; REQUIRED EXT ASSIST TO GEM SOCKS. FATUMA GARCIA, OTR/L
--- NOTE | 2019-04-14 12:58 | NUR ---
PT STILL UP TO CHAIR, DENIES ANY NEEDS AT THIS TIME. CALL LIGHT IN REACH, NAD NOTED, WILL CONTINUE TO MONITOR.
--- NOTE | 2019-04-14 14:13 | MORECARE ---
CASE MANAGEMENT DISCHARGE SUMMARY PATIENT: LINDA OCHOA UNIT: [id number] ADM DATE: 04/04/19 AGE: 78 : 41 SEX: M ROOM/BED: D.6917 AUTHOR: BRYON,DOC PHYSICIAN: REFERRING PHYSICIAN: DOMINIQUE ODEN MD DATE OF SERVICE: 04/14/19 Discharge Plan Patient Name: LINDA OCHOA Facility: [facility]:[place] : 1940 Planned Disposition: Long Term Facility Anticipated Discharge Date: 04/14/19 Discharge Date: Expected LOS: 10 Initial Reviewer: [id number] Initial Review Date: 04/09/2019 Generated: 04/14/19 3:13 pm Comments DCP- Discharge Planning Updated by [id number]: Perry Gonzales on 04/14/19 1:[address] Patient Name: LINDA OCHOA Encounter No: [id number] : 1940 Primary Insurance: HUMANA CHOICE PPO MCR ADVANT Anticipated DC Date: 04-14-2019 Planned Disposition: Long Term Facility External Planned Provider: [facility] DCP follow-up note: CM RECEIVED CALL FROM [facility], , SPOKE TO MALGORZATA WHO INFORMED CM THAT THEY HAVE SUBMITTED TO PT'S INSURANCE FOR AUTHORIZATION. MALGORZATA ASKED FOR UPDATE TO BE FAXED IN THE MORNING. CM RECEIVED CALL FROM PT'S NIECE, CHARITY RICHARDSON, , CALLED AND ASKED FOR UPDATE. CM MET WITH PT IN ROOM WHO PROVIDED PERMISSION TO PROVIDE TREATMENT AND DISCHARGE PLANNING INFORMATION TO CHARITY, UPDATE GIVEN. CM CALLED PT'S DAUGHTER, JARED OCHOA, , AND PROVIDED UPDATE. JARED IS IN AGREEMENT WITH DISCHARGE PLAN TO [facility]. PT IS IN AGREEMENT WITH DISCHARGE PLAN TO [facility]. CM WAITING INSURANCE DETERMINATION FOR [facility] FOR SNF REHAB. Perry Gonzales CASE MANAGEMENT DCP- Discharge Planning Updated by [id number]: Perry Gonzales on 04/13/19 3:[address] Patient Name: LINDA OCHOA Encounter No: [id number] : 1940 Primary Insurance: HUMANA CHOICE PPO MCR ADVANT Anticipated DC Date: 04-14-2019 Planned Disposition: Long Term Facility External Planned Provider: [facility], MEDICARE REHAB BED DCP follow-up note: CM RECEIVED MESSAGE FROM [facility], THEY ARE OUT OF PT'S INSURANCE NETWORK AND REFERRED CM TO [facility] THAT IS IN NETWORK WITH PT'S INSURANCE. CM REVIEWED CONSENTS FOR PROVIDERS THAT INCLUDED SNF IN [place], [place]. CM CALLED [facility], , SPOKE TO ANNA WHO TOOK REFERRAL INFORMATION. CM INFORMED ANNA THAT PT HAS BEEN DISCHARGED AND NEEDS REHAB ONLY. CM FAXED REFERRAL TO [facility] AT [phone]. CM RECEIVED ORDERS FOR NEBULIZER AND WALK TEST RESULTS WERE 95% ON ROOM AIR, 88% ON ROOM AIR DURING EXERTION, 94% RECOVERY ON 2 LITERS OXYGEN DURING RECOVERY. ALL MEDICAL EQUIPMENT WILL BE PROVIDED BY SNF FACILITY IF ACCEPTED. CM WAITING ADMISSION DETERMINATION FROM [facility] FOR SNF REHAB. Perry Gonzales, CASE MANAGEMENT DCP- Discharge Planning Updated by [id number]: Perry Gonzales on 04/12/19 3:[address] Patient Name: LINDA OCHOA Encounter No: [id number] : 1940 Primary Insurance: HUMANA CHOICE PPO MCR ADVANT Anticipated DC Date: 04-13-2019 Planned Disposition: Long Term Facility External Planned Provider: [facility] [place], MEDICARE REHAB BED DCP follow-up note: CM SPOKE TO BEDSIDE NURSE WHO INFORMED CM THAT PT IS TOO WEAK TO DISCHARGE HOME PLANNED. CM MET WITH PT IN ROOM AND DISCUSSED THERAPY RESULTS, PT'S PLAN TO RETURN HOME AND AVAILABILITY OF REHAB SERVICES. PT INITIALLY STATED THAT HE WANTS TO GO HOME WITH HOME HEALTH. PT STATES IT IS OK TO DISCUSS HIS DISCHARGE PLAN WITH HIS DAUGHTER, RITU, SHE IS GOING TO BE TAKING CARE OF HIM AFTER HE GETS HOME, HE WILL DO WHAT SHE SAYS. CM CALLED RITU OCHOA AT [phone]; RITU STATES THAT PT NEEDS REHAB AND SHE WILL DISCUSS THIS WITH PT. SHE WOULD LIKE SNF REHAB IN [place] AND IF NONE THERE, THEN [facility]. CHOICE COMPLETED. CM SPOKE TO PT WHO IS IN AGREEMENT WITH PLAN. IMPORTANT MESSAGE FROM MEDICARE PROVIDED AND EXPLAINED. CM FAXED REFERRAL TO [facility] [place] [facility]IA [employer] AT [phone]. CM CALLED ZOILA AND NOTIFIED HER OF REFERRAL FOR [facility] AT [phone], CM WAITING ADMISSION DETERMINATION AND INSURANCE AUTHORIZATION FOR REHAB SERVICES AT [facility] IN [place]. Perry Gonzales, CASE MANAGEMENT DCP- Discharge Planning Updated by [id number]: Divya Arauz on 04/11/19 4:[address] PHYSICAL THERAPY EVAL COMPLETED TODAY. PATIENT IS IN VERY WEAKEN STATE. HE COULD NOT TOLERATE SITTING ON THE SIDE OF THE BED SECONDARY TO PAIN AND STIFFNESS. REQUIRED 2 PERSON DRAW SHEET PULL TO GET TO THE HEAD OF THE BED. PLS REVIEW PHYSICAL THERAPY NOTES. PATIENT REPORTEDLY LIVED ALONE AND WAS INDEPENDENT IN CARE PRIOR TO ADMISSION. LIKELY WILL NEED TO CONSIDER ACUTE OR SKILLED REHAB. OT CONSULT ORDER OBTAINED. 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 CM TO FOLLOW TO ASSIST. . DCP- Discharge Planning Updated by [id number]: Perry Gonzales on 04/09/19 4:[address] Patient Name: LINDA OCHOA Admission Status: ER Accout number: [id number] Admission Date: 04-04-2019 : 1940 Admission Diagnosis:NON-ST ELEVATION (NSTEMI) MYOCARDIAL INFARCTION Attending: DOMINIQUE ODEN Current LOS: 5 Anticipated DC Date: Planned Disposition: Home with Home Health Primary Insurance: HUMANA CHOICE PPO MCR ADVANT PLANNED EXTERNAL PROVIDER: NO PROVIDER PREFERENCE Discharge Planning Comments: CM MET WITH PT IN ROOM TO DISCUSS DISCHARGE PLANNING AND NEEDS. PT REPORTS LIVING AT HOME INDEPENDENTLY AND ALONE. PT HAS NO MEDICAL EQUIPMENT AND NO OUTSIDE SERVICES ASSISTING IN THE HOME. CM DISCUSSED AVAILABILITY OF HOME HEALTH, REHAB SERVICES AND MEDICAL EQUIPMENT. PT WILL ACCEPT HOME HEALTH IF NEEDED; PROVIDED WITH PROVIDER LISTING, PT HAS NO CHOICE OF PROVIDER, CHOICE LETTER COMPLETED. PT REPORTS HIS DAUGHTER WILL PICK HIM UP FOR DISCHARGE HOME. IMPORTANT MESSAGE FROM MEDICARE PROVIDED AND EXPLAINED. PT STATES HIS DAUGHTER WILL STAY WITH HIM TO ASSIST AT HOME AFTER DISCHARGE. PT PLANS TO DISCHARGE HOME WHERE HIS DAUGHTER WILL STAY AND ASSIST IF NEEDED. DAUGHTER TO TRANSPORT HOME AT DISCHARGE. PT WOULD ACCEPT HOME HEALTH IF NEEDED; CM TO ARRANGE HOME HEALTH WITH PHYSICIAN AGREEMENT OF NEED AND ORDERS. Deburr Technician: Perry Gonzales DCPIA - Discharge Planning Initial Assessment Updated by [id number]: Perry Gonzales on 04/09/19 5:13 pm * Is the patient Alert and Oriented? Yes * How many steps to enter\exit or inside your home? NONE * PCP DR[facility] SORTO IN [place] * Pharmacy [facility] IN [place] * Preadmission Environment Home Alone * ADLs Independent * Equipment None * Other Equipment NO MEDICAL EQUIPMENT PROVIDER PREFERENCE * List name and contact numbers for known caregivers / representatives who currently or will assist patient after discharge: RITU OCHOA, DTR, BRANDT OCHOA, MOTHER 100 YRS OLD, * Verbal permission to speak to the caregivers and representatives has been obtained from the patient. N/A * Community resources currently utilized None * Please name any agencies selected above. NONE * Additional services required to return to the preadmission environment? Yes * Can the patient safely return to the preadmission environment? Yes * Has this patient been hospitalized within the prior 30 days at any hospital? No Coverage Notice Reviewer: ANTONI Gonzales Notice Issued Date-Time: 04/09/2019 9:20 Notice Type: IM Discharge Notice Notice Delivered To: Patient Relationship to Patient: Disease Case Manager Rn Name: Delivery Method: HAND - Hand Delivered Chantel Days: Prior Verbal Notification: Recipient Understood Notice: Yes Recipient Signature: Yes Med Rec Note Co-signed by Attending: Coverage Notice Comment: Reviewer: ANTONI Gonzales Notice Issued Date-Time: 04/09/2019 9:20 Notice Type: Patient Choice Letter Notice Delivered To: Relationship to Patient: Disease Case Manager Rn Name: Delivery Method: HAND - Hand Delivered Chantel Days: Prior Verbal Notification: Recipient Understood Notice: Yes Recipient Signature: Yes Med Rec Note Co-signed by Attending: Coverage Notice Comment: NO HOME HEALTH PROVIDER PREFERENCE Reviewer: ANTONI Gonzales Notice Issued Date-Time: 04/12/2019 14:45 Notice Type: IM Discharge Notice Notice Delivered To: Patient Relationship to Patient: Disease Case Manager Rn Name: Delivery Method: HAND - Hand Delivered Chantel Days: Prior Verbal Notification: Recipient Understood Notice: Yes Recipient Signature: Yes Med Rec Note Co-signed by Attending: Coverage Notice Comment: Reviewer: ANTONI Gonzales Notice Issued Date-Time: 04/12/2019 14:45 Notice Type: Patient Choice Letter Notice Delivered To: Relationship to Patient: Disease Case Manager Rn Name: Delivery Method: HAND - Hand Delivered Chantel Days: Prior Verbal Notification: Recipient Understood Notice: Yes Recipient Signature: Yes Med Rec Note Co-signed by Attending: Coverage Notice Comment: SNF IN [place] #1 SNF IN [place] #2 Last DP export: 04/13/19 3:53 p Patient Name: LINDA OCHOA Page [id number] at 1413 All edits/amendments must be made on the electronic document DICTATION DATE: 04/14/191411 DYE JIG OPERATOR: CHULA 04/14/191411 RPT#: [id number] DC DATE: STATUS: ADM IN [facility] [address] [place] [address] END OF REPORT
--- NOTE | 2019-04-14 15:34 | NUR ---
NOTIFIED BY HAND TUBE WINDER ABOUT BP BEING PT'S BP BEING HIGH. GAVE COREG EARLY TO HELP WITH BP. PT RESTING COMFORTABLY IN BED, DENIES ANY NEEDS AT THIS TIME. CALL LIGHT IN REACH, NAD NOTED.
[2019-04-14 16:00] VITALS: BP 162/95
--- NOTE | 2019-04-14 16:03 | NUR ---
AFTER GIVING COREG EARLY, RECHECKED PT'S BP AND NOW 112/74 WITH HEART RATE OF 108. PT RESTING COMFORTABLY IN BED, DENIES ANY NEEDS AT THIS TIME. CALL LIGHT IN REACH, NAD NOTED, WILL CONTINUE TO MONITOR.
--- NOTE | 2019-04-14 18:22 | NUR ---
OT NOTE: PT IS EXHIBITED DIFFICULTY BREATHING. NURSING NOTIFIED AND RESPIRATORY CALLED. PT OCMPLETED REQUIRED MAX A WITH SIT TO STAND. PT COMPLETED BED MOB TASK WITH MIN A. PT COMPLETED HYGIENE TASKS WITH MOD A. THANK YOU, TAMIA MARMOLEJO
--- NOTE | 2019-04-14 18:30 | NUR ---
PT HAD BM AND ELECTRICAL TRANSMISSION ENGINEER FORGOT TO COLLECT STOOL SAMPLE.
--- NOTE | 2019-04-14 19:13 | NUR ---
BEDSIDE REPORT RECEIVED FROM DAY SHIFT, PT CARE ASSUMED. INTRODUCED SELF AND WROTE NAME ON BOARD. PT LYING IN BED WITH EYES CLOSED, RR EVEN AND NONLABORED, NO S/S OF DISTRESS, AROUSES EASILY TO VOICE. DENIES ANY NEEDS AT THIS TIME. BED IN LOWEST POSITION, SR X2, CALL LIGHT WITHIN REACH. WILL CONTINUE TO MONITOR.
[2019-04-14 20:35] VITALS: BP 110/62
--- NOTE | 2019-04-14 21:52 | NUR ---
PT LYING IN BED WITH EYES CLOSED, RR EVEN AND NONLABORED, NO S/S DISTRESS, AROUSES EASILY TO VOICE. NIGHT TIME MEDS ADMINISTERED, PER ORDER. DENIES ANY OTHER NEEDS AT THIS TIME. BED IN LOWEST POSITION, SR X2, CALL LIGHT WITHIN REACH. WILL CONTINUE TO MONITOR.
[2019-04-15 00:45] VITALS: BP 114/76
[2019-04-15 04:30] VITALS: BP 110/62
[2019-04-15 06:25] LABS: BASOPHILS 0.2 % (0-2); HEMATOCRIT 27.3 % (42.0-54.0); HEMOGLOBIN 8.7 g/dL (13.5-17.5); IMMATURE GRANULOCYTES 0.8 % (0-5); LYMPHOCYTES 12.7 % (15-50); MCH 28.8 pg (26.0-34.0); MCHC 31.9 g/dL (31.0-37.0); MCV 90.4 fL (80.0-100.0); MEAN PLATELET VOLUME 8.7 fL (7.4-10.4); MONOCYTES 5.3 % (2-11); PLATELET COUNT 591 10x3/uL (130-400); RBC 3.02 10x6/uL (4.20-6.10); RDW 15.8 % (11.5-14.5); WBC 13.1 10x3/uL (4.8-10.8)
[2019-04-15 06:49] LABS: ALBUMIN 2.7 g/dL (3.4-5.0); ANION GAP 15.2 mmol/L (8-16); BILIRUBIN - TOTAL 0.38 mg/dL (0.2-1.3); CALCIUM 8.2 mg/dL (8.5-10.1); CARBON DIOXIDE 28.1 mmol/L (21.0-32.0); CREATININE - SERUM 2.4 mg/dL (0.6-1.3); POTASSIUM - SERUM 4.3 mmol/L (3.5-5.1); PROTEIN - SERUM 7.2 g/dL (6.4-8.2)
--- NOTE | 2019-04-15 07:46 | NUR ---
REPORT RECIEVED. PT SITTING ON BEDSIDE. HE HAS A L UPPER ARM PIV THAT IS SL AND IS WEARING 4L HIGH FLOW VIA NC. RR EVEN AND SHALLOW. BED LOCKED AND IN LOWEST POSITION. CALL LIGHT WITHIN REACH. WILL CTM
--- NOTE | 2019-04-15 08:37 | MORECARE ---
CASE MANAGEMENT DISCHARGE SUMMARY PATIENT: LINDA OCHOA UNIT: [id number] ADM DATE: 04/04/19 AGE: 78 : 41 SEX: M ROOM/BED: D.1373 AUTHOR: BRYON,DOC PHYSICIAN: REFERRING PHYSICIAN: DOMINIQUE ODEN MD DATE OF SERVICE: 04/15/19 Discharge Plan Patient Name: LINDA OCHOA Facility: [facility]:[place] : 1940 Planned Disposition: Correction Facility Anticipated Discharge Date: 04/14/19 Discharge Date: Expected LOS: 10 Initial Reviewer: [id number] Initial Review Date: 04/09/2019 Generated: 04/15/19 9:37 am Comments DCP- Discharge Planning Updated by [id number]: Perry Gonzales on 04/15/19 7:[address] Patient Name: LINDA OCHOA Encounter No: [id number] : 1940 Primary Insurance: HUMANA CHOICE PPO MCR ADVANT Anticipated DC Date: 04-14-2019 Planned Disposition: Correction Facility External Planned Provider: [facility] DCP follow-up note: CM FAXED UPDATE TO [facility], . CM SPOKE TO PT IN ROOM, PT IS IN AGREEMENT WITH DISCHARGE PLAN TO [facility]. IMPORTANT MESSAGE FROM MEDICARE PROVIDED AND EXPLAINED. CM WAITING INSURANCE DETERMINATION FOR [facility] FOR [facility]FWAY REHAB. Perry Gonzales, CASE MANAGEMENT DCP- Discharge Planning Updated by [id number]: Perry Gonzales on 04/14/19 1:[address] Patient Name: LINDA OCHOA Encounter No: [id number] : 1940 Primary Insurance: HUMANA CHOICE PPO MCR ADVANT Anticipated DC Date: 04-14-2019 Planned Disposition: Correction Facility External Planned Provider: [facility] DCP follow-up note: CM RECEIVED CALL FROM [facility], , SPOKE TO MALGORZATA WHO INFORMED CM THAT THEY HAVE SUBMITTED TO PT'S INSURANCE FOR AUTHORIZATION. MALGORZATA ASKED FOR UPDATE TO BE FAXED IN THE MORNING. CM RECEIVED CALL FROM PT'S CHARITY RODRIGUEZ, , CALLED AND ASKED FOR UPDATE. SONY MET WITH PT IN ROOM WHO PROVIDED PERMISSION TO PROVIDE TREATMENT AND DISCHARGE PLANNING INFORMATION TO CHARITY, UPDATE GIVEN. CM CALLED PT'S DAUGHTER, JARED OCHOA, , AND PROVIDED UPDATE. JARED IS IN AGREEMENT WITH DISCHARGE PLAN TO [facility]. PT IS IN AGREEMENT WITH DISCHARGE PLAN TO [facility]. CM WAITING INSURANCE DETERMINATION FOR [facility] FOR HALFWAY REHAB. GARTH [facility] DCP- Discharge Planning Updated by [id number]: Perry Gonzales on 04/13/19 3:[address] Patient Name: LINDA OCHOA Encounter No: [id number] : 1940 Primary Insurance: HUMANA CHOICE PPO [facility] ADVANT Anticipated DC Date: 04-14-2019 Planned Disposition: Correction Facility External Planned Provider: [facility], MEDICARE REHAB BED DCP follow-up note: CM RECEIVED MESSAGE FROM [facility], THEY ARE OUT OF PT'S INSURANCE NETWORK AND REFERRED CM TO [facility] THAT IS IN NETWORK WITH PT'S INSURANCE. CM REVIEWED CONSENTS FOR PROVIDERS THAT INCLUDED SNF IN [place], [place]. CM CALLED [facility], , SPOKE TO ANNA WHO TOOK REFERRAL INFORMATION. CM INFORMED ANNA THAT PT HAS BEEN DISCHARGED AND NEEDS REHAB ONLY. CM FAXED REFERRAL TO [facility] AT [phone]. CM RECEIVED ORDERS FOR NEBULIZER AND WALK TEST RESULTS WERE 95% ON ROOM AIR, 88% ON ROOM AIR DURING EXERTION, 94% RECOVERY ON 2 LITERS OXYGEN DURING RECOVERY. ALL MEDICAL EQUIPMENT WILL BE PROVIDED BY HALFWAY FACILITY IF ACCEPTED. CM WAITING ADMISSION DETERMINATION FROM [facility] FOR [facility] REHAB. [facility] DCP- Discharge Planning Updated by [id number]: Perry Gonzales on 04/12/19 3:[address] Patient Name: LINDA OCHOA Encounter No: [id number] : 1940 Primary Insurance: HUMANA CHOICE PPO [facility] ADVANT Anticipated DC Date: 04-13-2019 Planned Disposition: Correction Facility External Planned Provider: [facility], MEDICARE REHAB BED DCP follow-up note: CM SPOKE TO BEDSIDE NURSE WHO INFORMED CM THAT PT IS TOO WEAK TO DISCHARGE HOME PLANNED. CM MET WITH PT IN ROOM AND DISCUSSED THERAPY RESULTS, PT'S PLAN TO RETURN HOME AND AVAILABILITY OF REHAB SERVICES. PT INITIALLY STATED THAT HE WANTS TO GO HOME WITH HOME HEALTH. PT STATES IT IS OK TO DISCUSS HIS DISCHARGE PLAN WITH HIS DAUGHTER, RITU, SHE IS GOING TO BE TAKING CARE OF HIM AFTER HE GETS HOME, HE WILL DO WHAT SHE SAYS. CM CALLED RITU OCHOA AT [phone]; RITU STATES THAT PT NEEDS REHAB AND SHE WILL DISCUSS THIS WITH PT. SHE WOULD LIKE [facility]AY REHAB IN [place] AND IF NONE THERE, THEN TO [facility]. CHOICE COMPLETED. CM SPOKE TO PT WHO IS IN AGREEMENT WITH PLAN. IMPORTANT MESSAGE FROM MEDICARE PROVIDED AND EXPLAINED. CM FAXED REFERRAL TO [facility] IN [place] [facility]IA [facility] AT [phone]. CM CALLED ZOILA AND NOTIFIED HER OF REFERRAL FOR [facility] AT [phone], CM WAITING ADMISSION DETERMINATION AND INSURANCE AUTHORIZATION FOR REHAB SERVICES AT [facility]. Perry Gonzales, CASE MANAGEMENT DCP- Discharge Planning Updated by [id number]: Divya Arauz on 04/11/19 4:[address] PHYSICAL THERAPY EVAL COMPLETED TODAY. PATIENT IS IN VERY WEAKEN STATE. HE COULD NOT TOLERATE SITTING ON THE SIDE OF THE BED SECONDARY TO PAIN AND STIFFNESS. REQUIRED 2 PERSON DRAW SHEET PULL TO GET TO THE HEAD OF THE BED. PLS REVIEW PHYSICAL THERAPY NOTES. PATIENT REPORTEDLY LIVED ALONE AND WAS INDEPENDENT IN CARE PRIOR TO ADMISSION. LIKELY WILL NEED TO CONSIDER ACUTE OR SKILLED REHAB. OT CONSULT ORDER OBTAINED. 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 CM TO FOLLOW TO ASSIST. . DCP- Discharge Planning Updated by [id number]: Perry Gonzales on 04/09/19 4:[address] Patient Name: LINDA OCHOA Admission Status: ER Accout number: [id number] Admission Date: 04-04-2019 : 1940 Admission Diagnosis:NON-ST ELEVATION (NSTEMI) MYOCARDIAL INFARCTION Attending: DOMINIQUE ODEN Current LOS: 5 Anticipated DC Date: Planned Disposition: Home with Home Health Primary Insurance: HUMANA CHOICE PPO MCR ADVANT PLANNED EXTERNAL PROVIDER: NO PROVIDER PREFERENCE Discharge Planning Comments: CM MET WITH PT IN ROOM TO DISCUSS DISCHARGE PLANNING AND NEEDS. PT REPORTS LIVING AT HOME INDEPENDENTLY AND ALONE. PT HAS NO MEDICAL EQUIPMENT AND NO OUTSIDE SERVICES ASSISTING IN THE HOME. CM DISCUSSED AVAILABILITY OF HOME HEALTH, REHAB SERVICES AND MEDICAL EQUIPMENT. PT WILL ACCEPT HOME HEALTH IF NEEDED; PROVIDED WITH PROVIDER LISTING, PT HAS NO CHOICE OF PROVIDER, CHOICE LETTER COMPLETED. PT REPORTS HIS DAUGHTER WILL PICK HIM UP FOR DISCHARGE HOME. IMPORTANT MESSAGE FROM MEDICARE PROVIDED AND EXPLAINED. PT STATES HIS DAUGHTER WILL STAY WITH HIM TO ASSIST AT HOME AFTER DISCHARGE. PT PLANS TO DISCHARGE HOME WHERE HIS DAUGHTER WILL STAY AND ASSIST IF NEEDED. DAUGHTER TO TRANSPORT HOME AT DISCHARGE. PT WOULD ACCEPT HOME HEALTH IF NEEDED; CM TO ARRANGE HOME HEALTH WITH PHYSICIAN AGREEMENT OF NEED AND ORDERS. Applied Technologist: Perry Gonzales DCPIA - Discharge Planning Initial Assessment Updated by [id number]: Perry Gonzales on 04/09/19 5:13 pm * Is the patient Alert and Oriented? Yes * How many steps to enter\exit or inside your home? NONE * PCP DR[facility] SORTO IN [place] * Pharmacy [facility] IN [place] * Preadmission Environment Home Alone * ADLs Independent * Equipment None * Other Equipment NO MEDICAL EQUIPMENT PROVIDER PREFERENCE * List name and contact numbers for known caregivers / representatives who currently or will assist patient after discharge: RITU GABRIELA, DTR, BRANDT OCHOA, MOTHER 100 YRS OLD, * Verbal permission to speak to the caregivers and representatives has been obtained from the patient. N/A * Community resources currently utilized None * Please name any agencies selected above. NONE * Additional services required to return to the preadmission environment? Yes * Can the patient safely return to the preadmission environment? Yes * Has this patient been hospitalized within the prior 30 days at any hospital? No Coverage Notice Reviewer: [id number] Gonzales Notice Issued Date-Time: 04/09/2019 9:20 Notice Type: IM Discharge Notice Notice Delivered To: Patient Relationship to Patient: [place] Consultant Name: Delivery Method: HAND - Hand Delivered Chantel Days: Prior Verbal Notification: Recipient Understood Notice: Yes Recipient Signature: Yes Med Rec Note Co-signed by Attending: Coverage Notice Comment: Reviewer: ANTONI Gonzales Notice Issued Date-Time: 04/09/2019 9:20 Notice Type: Patient Choice Letter Notice Delivered To: Relationship to Patient: [place] Consultant Name: Delivery Method: HAND - Hand Delivered Chantel Days: Prior Verbal Notification: Recipient Understood Notice: Yes Recipient Signature: Yes Med Rec Note Co-signed by Attending: Coverage Notice Comment: NO HOME HEALTH PROVIDER PREFERENCE Reviewer: ANTONI Gonzales Notice Issued Date-Time: 04/12/2019 14:45 Notice Type: IM Discharge Notice Notice Delivered To: Patient Relationship to Patient: [place] Consultant Name: Delivery Method: HAND - Hand Delivered Chantel Days: Prior Verbal Notification: Recipient Understood Notice: Yes Recipient Signature: Yes Med Rec Note Co-signed by Attending: Coverage Notice Comment: Reviewer: ANTONI Gonzales Notice Issued Date-Time: 04/12/2019 14:45 Notice Type: Patient Choice Letter Notice Delivered To: Relationship to Patient: [place] Consultant Name: Delivery Method: HAND - Hand Delivered Chantel Days: Prior Verbal Notification: Recipient Understood Notice: Yes Recipient Signature: Yes Med Rec Note Co-signed by Attending: Coverage Notice Comment: SNF IN [place] #1 SNF IN [place] #2 Reviewer: ANTONI Gonzales Notice Issued Date-Time: 04/15/2019 7:38 Notice Type: IM Discharge Notice Notice Delivered To: Patient Relationship to Patient: [place] Consultant Name: Delivery Method: HAND - Hand Delivered Chantel Days: Prior Verbal Notification: Recipient Understood Notice: Yes Recipient Signature: Yes Med Rec Note Co-signed by Attending: Coverage Notice Comment: Last DP export: 04/14/19 1:13 p Patient Name: LINDA OCHOA Page 32165 at 0837 All edits/amendments must be made on the electronic document DICTATION DATE: 04/15/19836 SOLUTIONS SPECIALIST: CHULA 04/15/1936 RPT#: [id number] DC DATE: STATUS: ADM IN [facility] [address] [place] [address] END OF REPORT
[2019-04-15 08:55] VITALS: BP 132/71
--- NOTE | 2019-04-15 11:37 | NUR ---
OT NOTE: PT PERFORMED BED MOB WITH MIN ASSIST TODAY. SITTING BALANCE ON EOB X 5 MIN TO "CATCH HIS BREATH". STATES THAT HE FEELS STRONG ENOUGH TO STAND BUT HE FEELS LIKE HE CANT BREATH. ABLE TO WASH FACE AND HANDS AND UPPER BODY WITH SET UP. REQUIRES ASSIST FOR TOILET HYGIENE TO PERFORM THOROUGHLY. ABLE TO STAND WITH WALKER AND MIN ASSIST; ABLE TO TAKE A FEW STEPS TO CHAIR WITH MIN ASSIST, WALKER, AND 02. REQUIRED APPROX 5 MIN TO IMPROVE BATHING. PT TOLERATING SITTING UP IN CHAIR WITHOUT DIFFICULTY. WT COUGH NOTED BUT PT UNABLE TO COUGH ANYTHING UP. FATUMA GARCIA, OTR/L
--- NOTE | 2019-04-15 12:06 | NUR ---
OT NOTE: PT COMPLETED BED MOB TASKS WITH MOD A. PT COMPLETED SIT TO STAND WITH MOD A. PT COMPLETED HYGIENE TASKS WITH MIN A. THANK YOU, TAMIA MARMOLEJO
[2019-04-15 12:10] VITALS: BP 112/73
--- NOTE | 2019-04-15 13:30 | OP ---
PATIENT NAME: LINDA OCHOA MEDICAL RECORD: [id number] :[birth year] LOCATION:D.M2 D.2127 ADMISSION DATE:04/04/19 SURGEON: DYLAN GROVER MD DATE OF OPERATION: 04/07/2019 PROCEDURES: 1. PTCA stent RCA. 2. Selective coronary angiography. INDICATION: Angina, coronary artery disease, non-Q-wave myocardial infarction. PROCEDURE IN DETAIL: After informed consent was obtained and after a detailed description of the risks, benefits as well as alternative therapies, the patient elected to proceed with angiogram and angioplasty. The right femoral area was prepped and draped in normal sterile fashion. Right femoral artery was cannulated via modified Seldinger technique with placement of 7-Guamanian sheath. All catheters exchanged through this sheath. FINDINGS: The right coronary artery has multiple areas of 95% stenosis throughout. We are able to get a balloon in all areas of the stenosis, a 2.0 and 2.5 balloon; however, stent would only tract to the mid vessel secondary to heavy calcification and tortuosity in the mid distal vessel. It was a 2.0 x 30 mm [place] taken to 23 atmospheres. Result was 0% residual, no evidence of dissection or thrombus. OVERALL IMPRESSION: Successful percutaneous transluminal coronary angioplasty stent of the right coronary artery going from multiple areas of 95% initial stenosis to 0% residual. TRANSINT:[id number] Voice Confirmation ID: [id number] DOCUMENT ID: [id number] DYLAN GROVER MD at 1330 CC: [id number] DICTATION DATE: 04/07/19 1033 INTERNATIONAL RELATIONS TEACHER: 04/07/19 1155 ADM IN [place] [id number] [place] [address]
--- NOTE | 2019-04-15 14:11 | NUR ---
Nutrition Follow-up: PO intake poor. Per chart, pt refused breakfast yesterday 2/2 not wanting to have a BM. Refuses Ensure. Discussed poor intake with MD and discussed appetite stimulant. Noted stool occult blood positive. Diet: Cardiac PO intake: 0-20% since 04/13 No new wt Last BM: 04/15 per chart Labs reviewed Meds reviewed -Rec appetite stimulant. -Rec new weight; monitor trend. -Continue current diet as tolerated. -Offer nutrition supplements. -Encourage PO intake. -RD following.
[2019-04-15 15:41] VITALS: BP 100/72
--- NOTE | 2019-04-15 17:15 | MORECARE ---
CASE MANAGEMENT DISCHARGE SUMMARY PATIENT: LINDA OCHOA UNIT: [id number] ADM DATE: 04/04/19 AGE: 78 : 42 SEX: M ROOM/BED: D.7993 AUTHOR: JAME SLATER PHYSICIAN: REFERRING PHYSICIAN: DOMINIQUE ODEN MD DATE OF SERVICE: 04/15/19 Discharge Plan Patient Name: LINDA OCHOA Facility: [facility] : 1940 Planned Disposition: Senior Care Facility Anticipated Discharge Date: 04/16/19 Discharge Date: Expected LOS: 12 Initial Reviewer: [id number] Initial Review Date: 04/09/2019 Generated: 04/15/19 6:15 pm Comments DCP- Discharge Planning Updated by [id number]: Perry Gonzales on 04/15/19 4:[address] Patient Name: LINDA OCHOA Encounter No: [id number] : 1940 Primary Insurance: [employer] CHOICE PPO MCR ADVANT Anticipated DC Date: 04-16-2019 Planned Disposition: Senior Care Facility External Planned Provider: [facility] DCP follow-up note: CM RECEIVED CALL FROM MALGORZATA OF [facility], THEY WILL ACCEPT PT AND HAVE AUTHORIZATION FROM INSURANCE FOR TODAY AND TOMORROW. CM NOTIFIED NERY GUZMÁN WHO ADVISED THAT THE DOCTOR SAID NOT TODAY, MAYBE TOMORROW. CM NOTIFIED MALGORZATA AT [facility]. PT NOTIFIED AND IN AGREEEMENT WITH DISCHARGE PLAN. FOR DISCHARGE, FAX DISCHARGE INFORMATION TO [facility] AT [phone]. NURSE REPORT TO BE CALLED TO [facility] AT [phone]. [facility] TO ARRANGE TRANSPORATION. INSURANCE AUTHORIZATION EXPIRES 04-16-19 AND PT WILL REQUIRE ANOTHER AUTHORIZATION FROM INSURANCE IF NOT IN REHAB TOMORROW. [facility] DCP- Discharge Planning Updated by [id number]: Perry Gonzales on 04/15/19 7:[address] Patient Name: LINDA OCHOA Encounter No: [id number] : 1940 Primary Insurance: [employer] CHOICE PPO MCR ADVANT Anticipated DC Date: 04-14-2019 Planned Disposition: Senior Care Facility External Planned Provider: [facility] DCP follow-up note: CM FAXED UPDATE TO [facility], . CM SPOKE TO PT IN ROOM, PT IS IN AGREEMENT WITH DISCHARGE PLAN TO [facility]. IMPORTANT MESSAGE FROM MEDICARE PROVIDED AND EXPLAINED. CM WAITING INSURANCE DETERMINATION FOR [facility] FOR [facility]ED RE[facility]. Perry Gonzales CASE MANAGEMENT DCP- Discharge Planning Updated by [id number]: Perry Gonzales on 04/14/19 1:[address] Patient Name: LINDA OCHOA Encounter No: [id number] : 1940 Primary Insurance: HUMANA CHOICE PPO [facility] ADVANT Anticipated DC Date: 04-14-2019 Planned Disposition: Senior Care Facility External Planned Provider: [facility] DCP follow-up note: CM RECEIVED CALL FROM [facility], , SPOKE TO MALGORZATA WHO INFORMED CM THAT THEY HAVE SUBMITTED TO PT'S INSURANCE FOR AUTHORIZATION. MALG[facility]ZATA ASKED FOR UPDATE TO BE FAXED IN THE MORNING. CM RECEIVED CALL FROM PT'S NIECE, CHARITY RICHARDSON, , CALLED AND ASKED FOR UPDATE. CM MET WITH PT IN ROOM WHO PROVIDED PERMISSION TO PROVIDE TREATMENT AND DISCHARGE PLANNING INFORMATION TO CHARITY, DANIELE GIVEN. CM CALLED PT'S DAUGHTER, JARED OCHOA, , AND PROVIDED UPDATE. JARED IS IN AGREEMENT WITH DISCHARGE PLAN TO [facility]. PT IS IN AGREEMENT WITH DISCHARGE PLAN TO [facility]. CM WAITING INSURANCE DETERMINATION FOR [facility] FOR [facility]. [facility] MANAGEMENT DCP- Discharge Planning Updated by [id number]: Perry Gonzales on 04/13/19 3:[address] Patient Name: LINDA OCHOA Encounter No: [id number] : 1940 Primary Insurance: HUMANA CHOICE PPO [facility] ADVANT Anticipated DC Date: 04-14-2019 Planned Disposition: Senior Care Facility External Planned Provider: [facility] DCP follow-up note: CM RECEIVED MESSAGE FROM [facility], THEY ARE OUT OF PT'S INSURANCE NETWORK AND REFERRED CM TO [facility] THAT IS IN NETWORK WITH PT'S INSURANCE. CM REVIEWED CONSENTS FOR PROVIDERS THAT INCLUDED SNF IN [place], [place]. CM CALLED [facility], , SPOKE TO ANNA WHO TOOK REFERRAL INFORMATION. CM INFORMED ANNA THAT PT HAS BEEN DISCHARGED AND NEEDS REHAB ONLY. CM FAXED REFERRAL TO [facility] AT [phone]. CM RECEIVED ORDERS FOR NEBULIZER AND WALK TEST RESULTS WERE 95% ON ROOM AIR, 88% ON ROOM AIR DURING EXERTION, 94% RECOVERY ON 2 LITERS OXYGEN DURING RECOVERY. ALL MEDICAL EQUIPMENT WILL BE PROVIDED BY ASSISTED FACILITY IF ACCEPTED. CM WAITING ADMISSION DETERMINATION FROM [facility] FOR [facility]. [facility] MANAGEMENT DCP- Discharge Planning Updated by [id number]: Perry Gonzales on 04/12/19 3:[address] Patient Name: LINDA OCHOA Encounter No: [id number] : 1940 Primary Insurance: [employer] PPO MCR ADVANT Anticipated DC Date: 04-13-2019 Planned Disposition: Senior Care Facility External Planned Provider: [facility], MEDICARE REHAB BED DCP follow-up note: CM SPOKE TO BEDSIDE NURSE WHO INFORMED CM THAT PT IS TOO WEAK TO DISCHARGE HOME PLANNED. CM MET WITH PT IN ROOM AND DISCUSSED THERAPY RESULTS, PT'S PLAN TO RETURN HOME AND AVAILABILITY OF REHAB SERVICES. PT INITIALLY STATED THAT HE WANTS TO GO HOME WITH HOME HEALTH. PT STATES IT IS OK TO DISCUSS HIS DISCHARGE PLAN WITH HIS DAUGHTER, RITU, SHE IS GOING TO BE TAKING CARE OF HIM AFTER HE GETS HOME, HE WILL DO WHAT SHE SAYS. CM CALLED RITU OCHOA AT [phone]; RITU STATES THAT PT NEEDS REHAB AND SHE WILL DISCUSS THIS WITH PT. SHE WOULD LIKE ASSISTED REHAB IN [place] AND IF NONE THERE, THEN TO TRY [facility]. CHOICE COMPLETED. CM SPOKE TO PT WHO IS IN AGREEMENT WITH PLAN. IMPORTANT MESSAGE FROM MEDICARE PROVIDED AND EXPLAINED. CM FAXED REFERRAL TO [facility] IN [place] VIA [facility] AT [phone]. CM CALLED ZOILA AND NOTIFIED HER OF REFERRAL FOR [facility] AT [phone], CM WAITING ADMISSION DETERMINATION AND INSURANCE AUTHORIZATION FOR REHAB SERVICES AT [facility]. Perry Gonzales, CASE MANAGEMENT DCP- Discharge Planning Updated by [id number]: Divya Arauz on 04/11/19 4:[address] PHYSICAL THERAPY EVAL COMPLETED TODAY. PATIENT IS IN VERY WEAKEN STATE. HE COULD NOT TOLERATE SITTING ON THE SIDE OF THE BED SECONDARY TO PAIN AND STIFFNESS. REQUIRED 2 PERSON DRAW SHEET PULL TO GET TO THE HEAD OF THE BED. PLS REVIEW PHYSICAL THERAPY NOTES. PATIENT REPORTEDLY LIVED ALONE AND WAS INDEPENDENT IN CARE PRIOR TO ADMISSION. LIKELY WILL NEED TO CONSIDER ACUTE OR SKILLED REHAB. OT CONSULT ORDER OBTAINED. 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 CM TO FOLLOW TO ASSIST. . 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 PT REPORTS LIVING AT HOME INDEPENDENTLY AND ALONE. PT HAS NO MEDICAL EQUIPMENT AND NO OUTSIDE SERVICES ASSISTING IN THE HOME. CM DISCUSSED AVAILABILITY OF HOME HEALTH, REHAB SERVICES AND MEDICAL EQUIPMENT. PT WILL ACCEPT HOME HEALTH IF NEEDED; PROVIDED WITH PROVIDER LISTING, PT HAS NO CHOICE OF PROVIDER, CHOICE LETTER COMPLETED. PT REPORTS HIS DAUGHTER WILL PICK HIM UP FOR DISCHARGE HOME. IMPORTANT MESSAGE FROM MEDICARE PROVIDED AND EXPLAINED. PT STATES HIS DAUGHTER WILL STAY WITH HIM TO ASSIST AT HOME AFTER DISCHARGE. PT PLANS TO DISCHARGE HOME WHERE HIS DAUGHTER WILL STAY AND ASSIST IF NEEDED. DAUGHTER TO TRANSPORT HOME AT DISCHARGE. PT WOULD ACCEPT HOME HEALTH IF NEEDED; CM TO ARRANGE HOME HEALTH WITH PHYSICIAN AGREEMENT OF NEED AND ORDERS. Green Building Engineer: Perry Gonzales DCPIA - Discharge Planning Initial Assessment Updated by [id number]: Perry Gonzales on 04/09/19 5:13 pm * Is the patient Alert and Oriented? Yes * How many steps to enter\exit or inside your home? NONE * PCP DR. SORTO IN [place] * Pharmacy [facility] IN [place] * Preadmission Environment Home Alone * ADLs Independent * Equipment None * Other Equipment NO MEDICAL EQUIPMENT PROVIDER PREFERENCE * List name and contact numbers for known caregivers / representatives who currently or will assist patient after discharge: MEHDI GARCIAR, BRANDT OCHOA, MOTHER 100 YRS OLD, * Verbal permission to speak to the caregivers and representatives has been obtained from the patient. N/A * Community resources currently utilized None * Please name any agencies selected above. NONE * Additional services required to return to the preadmission environment? Yes * Can the patient safely return to the preadmission environment? Yes * Has this patient been hospitalized within the prior 30 days at any hospital? No Coverage Notice Reviewer: ANTONI Gonzales Notice Issued Date-Time: 04/09/2019 9:20 Notice Type: IM Discharge Notice Notice Delivered To: Patient Relationship to Patient: Hotel Staff Member Name: Delivery Method: HAND - Hand Delivered Chantel Days: Prior Verbal Notification: Recipient Understood Notice: Yes Recipient Signature: Yes Med Rec Note Co-signed by Attending: Coverage Notice Comment: Reviewer: ANTONI Gonzales Notice Issued Date-Time: 04/09/2019 9:20 Notice Type: Patient Choice Letter Notice Delivered To: Relationship to Patient: Hotel Staff Member Name: Delivery Method: HAND - Hand Delivered Chantel Days: Prior Verbal Notification: Recipient Understood Notice: Yes Recipient Signature: Yes Med Rec Note Co-signed by Attending: Coverage Notice Comment: NO HOME HEALTH PROVIDER PREFERENCE Reviewer: ANTONI Gonzales Notice Issued Date-Time: 04/12/2019 14:45 Notice Type: IM Discharge Notice Notice Delivered To: Patient Relationship to Patient: Hotel Staff Member Name: Delivery Method: HAND - Hand Delivered Chantel Days: Prior Verbal Notification: Recipient Understood Notice: Yes Recipient Signature: Yes Med Rec Note Co-signed by Attending: Coverage Notice Comment: Reviewer: ANTONI Gonzales Notice Issued Date-Time: 04/12/2019 14:45 Notice Type: Patient Choice Letter Notice Delivered To: Relationship to Patient: Hotel Staff Member Name: Delivery Method: HAND - Hand Delivered Chantel Days: Prior Verbal Notification: Recipient Understood Notice: Yes Recipient Signature: Yes Med Rec Note Co-signed by Attending: Coverage Notice Comment: SNF IN [place] #1 SNF IN [place] #2 Reviewer: ANTONI Gonzales Notice Issued Date-Time: 04/15/2019 7:38 Notice Type: IM Discharge Notice Notice Delivered To: Patient Relationship to Patient: Hotel Staff Member Name: Delivery Method: HAND - Hand Delivered Chantel Days: Prior Verbal Notification: Recipient Understood Notice: Yes Recipient Signature: Yes Med Rec Note Co-signed by Attending: Coverage Notice Comment: Last DP export: 04/15/19 7:37 Patient Name: LINDA OCHOA Page [id number] at 1715 All edits/amendments must be made on the electronic document DICTATION DATE: 04/15/191714 MANAGER INTEGRITY: CHULA 04/15/191714 RPT#: [id number] DC DATE: STATUS: ADM IN [facility] [address] [place] [address] END OF REPORT
--- NOTE | 2019-04-15 19:10 | NUR ---
BEDSIDE REPORT RECEIVED FROM DAY SHIFT, PT CARE ASSUMED. WROTE NAME ON BOARD. ASSISTED LAKHWINDER CARRILLO, WITH TAKING PT OFF BEDPAN AND CLEANING UP. LIQUID BROWN STOOL NOTED. DENIES ANY NEEDS AT THIS TIME. BED IN LOWEST POSITION, SR X2, CALL LIGHT WITHIN REACH. WILL CONTINUE TO MONITOR.
[2019-04-15 20:00] VITALS: BP 146/56
[2019-04-16] VITALS (7 sets, daily range): BP systolic 100–130; BP diastolic 69–89
--- NOTE | 2019-04-16 03:56 | NUR ---
PT LYING IN BED WITH EYES CLOSED, RR EVEN AND NONLABORED, NO S/S OF DISTRESS, AROUSES EASILY TO VOICE. DENIES ANY NEEDS AT THIS TIME. BED IN LOWEST POSITION, SR X3, CALL LIGHT AND URINAL WITHIN REACH. WILL CONTINUE TO MONITOR.
--- NOTE | 2019-04-16 04:13 | NUR ---
ASSISTED PT ONTO BED POLANCO WITH LAKHWINDER CARRILLO. INSTRUCTED PT TO PRESS CALL LIGHT WHEN FINISHED TO GET CLEANED UP, PT VERBALIZED UNDERSTANDING. CALL LIGHT WITHIN REACH.
--- NOTE | 2019-04-16 04:25 | NUR ---
ASSISTED PT OFF BED POLANCO AND CLEANED UP WITH LAKHWINDER CARRILLO. LIQUID BROWN STOOL NOTED. DENIES ANY OTHER NEEDS AT THIS TIME. BED IN LOWEST POSITION, SR X3, CALL LIGHT AND URINAL WITHIN REACH. WILL CONTINUE TO MONITOR.
[2019-04-16 06:00] LABS: ALBUMIN 2.5 g/dL (3.4-5.0); ANION GAP 17.5 mmol/L (8-16); BILIRUBIN - TOTAL 0.31 mg/dL (0.2-1.3); CALCIUM 8.1 mg/dL (8.5-10.1); CARBON DIOXIDE 25.5 mmol/L (21.0-32.0); CREATININE - SERUM 2.3 mg/dL (0.6-1.3); PROTEIN - SERUM 7.1 g/dL (6.4-8.2)
[2019-04-16 06:44] LABS: BASOPHILS 0.2 % (0-2); EOSINOPHILS 2.4 % (0-7); HEMATOCRIT 25.1 % (42.0-54.0); HEMOGLOBIN 7.9 g/dL (13.5-17.5); IMMATURE GRANULOCYTES 0.8 % (0-5); LYMPHOCYTES 14.9 % (15-50); MCH 28.6 pg (26.0-34.0); MCHC 31.5 g/dL (31.0-37.0); MCV 90.9 fL (80.0-100.0); MEAN PLATELET VOLUME 9.9 fL (7.4-10.4); MONOCYTES 6.2 % (2-11); NEUTROPHILS 75.5 % (40-80); RBC 2.76 10x6/uL (4.20-6.10); RDW 16.3 % (11.5-14.5); WBC 10.5 10x3/uL (4.8-10.8)
[2019-04-16 06:46] LABS: PLATELET COUNT 457 10x3/uL (130-400)
--- NOTE | 2019-04-16 07:07 | NUR ---
REPORT RECEIVED. WILL CONTINUE WITH POC. PT CURRENTLY LYING SEMI FOWLERS. CALL LIGHT W/I REACH. RR EVEN AND UNLABORED ON 4L HIGH FLOW NC. NO PIV NOTED. PT DENIES ANY NEEDS. NO S/S OF DISTRESS NOTED. WILL CTM.
--- NOTE | 2019-04-16 09:58 | NUR ---
OT NOTE: PT CONT TO DO WELL FUNCTIONALLY, HOWEVER, SOB WITH NO EXERTION. PERFORMED BED MOB WITHOUT ASSIST. REQUIRED APPROX 5 MIN OF EOB SITTING BEFORE ATTEMPTS TO STAND. STANDING WITH CGA. TRANSFER WITH WALKER SLOWLY WITH CGA. APPROX 5 MORE MIN TO REST BEFORE SIMPLE GROOMING TASKS. RECOMMEND IP REHAB, HOWEVER, UNSURE IF HE CAN TOLERATE DUE TO SOB. FATUMA PADILLA, OTR/L
--- NOTE | 2019-04-16 11:09 | NUR ---
I have reviewed this patient and I concur with the Shift Assessment completed by the Licensed Practical Nurse today this shift.
--- NOTE | 2019-04-16 12:35 | MORECARE ---
CASE MANAGEMENT DISCHARGE SUMMARY PATIENT: LINDA OCHOA UNIT: [id number] ADM DATE: 04/04/19 AGE: 78 : 42 SEX: M ROOM/BED: D.3072 AUTHOR: JAME SLATER PHYSICIAN: REFERRING PHYSICIAN: DOMINIQUE ODEN MD DATE OF SERVICE: 04/16/19 Discharge Plan Patient Name: LINDA OCHOA Facility: [facility]:[place] : 1940 Planned Disposition: Senior Living Facility Anticipated Discharge Date: 04/16/19 Discharge Date: Expected LOS: 12 Initial Reviewer: [id number] Initial Review Date: 04/09/2019 Generated: 04/16/19 1:35 pm Comments DCP- Discharge Planning Updated by [id number]: Perry Gonzales on 04/16/19 11:[address] Patient Name: LINDA OCHOA Encounter No: [id number] : 1940 Primary Insurance: [employer] CHOICE PPO MCR ADVANT Anticipated DC Date: 04-16-2019 Planned Disposition: Senior Living Facility External Planned Provider: [facility], MEDICARE REHAB BED DCP follow-up note: CM CALLED MALGORZATA OF [facility], NOTIFIED THAT PT WILL NOT DISCHARGE TODAY. PT WILL REQUIRE NEW AUTHORIZATION FROM INSURANCE AND INSURANCE IS NOT OPEN OVER WEEKEND TO REVIEW. MALGORZATA NOTIFIED CM THAT PT WILL NOW NEED MARLENE ASSESSMENT DUE TO ADMINISTRATION OF [place] MEDICATION. PT NOTIFIED AND IN AGREEEMENT WITH DISCHARGE PLAN. PT WILL REQUIRE NEW AUTHORIZATION FROM INSURANCE NEXT WEEK. PT WILL REQUIRE MARLENE ASSESSMENT. CM TO COMPLETE MARLENE ASSESSMENT SOON POSSIBLE. Perry Gonzales, CASE MANAGEMENT DCP- Discharge Planning Updated by [id number]: Perry Gonzales on 04/15/19 4:[address] Patient Name: LINDA OCHOA Encounter No: [id number] : 1940 Primary Insurance: HU[employer]NA CHOICE PPO MCR ADVANT Anticipated DC Date: 04-16-2019 Planned Disposition: Senior Living Facility External Planned Provider: [facility], MEDICARE REHAB BED DCP follow-up note: CM RECEIVED CALL FROM MALGORZATA OF [facility], THEY WILL ACCEPT PT AND HAVE AUTHORIZATION FROM INSURANCE FOR TODAY AND TOMORROW. CM NOTIFIED NERY GUZMÁN WHO ADVISED THAT THE DOCTOR SAID NOT TODAY, MAYBE TOMORROW. CM NOTIFIED MALGORZATA AT [facility]. PT NOTIFIED AND IN AGREEEMENT WITH DISCHARGE PLAN. FOR DISCHARGE, FAX DISCHARGE INFORMATION TO [facility] AT [phone]. NURSE REPORT TO BE CALLED TO [facility] AT [phone]. [facility] TO ARRANGE TRANSPORATION. INSURANCE AUTHORIZATION EXPIRES 04-16-19 AND PT WILL REQUIRE ANOTHER AUTHORIZATION FROM INSURANCE IF NOT IN REHAB TOMORROW. Perry Gonzales, CASE MANAGEMENT DCP- Discharge Planning Updated by [id number]: Perry Gonzales on 04/15/19 7:[address] Patient Name: LINDA OCHOA Encounter No: [id number] : 1940 Primary Insurance: HU[employer] CHOICE PPO MCR ADVANT Anticipated DC Date: 04-14-2019 Planned Disposition: Senior Living Facility External Planned Provider: [facility], MEDICARE REHAB BED DCP follow-up note: CM FAXED UPDATE TO [facility], . CM SPOKE TO PT IN ROOM, PT IS IN AGREEMENT WITH DISCHARGE PLAN TO [facility]. IMPORTANT MESSAGE FROM MEDICARE PROVIDED AND EXPLAINED. CM WAITING INSURANCE DETERMINATION FOR [facility] FOR [facility]. Perry Gonzales CASE MANAGEMENT DCP- Discharge Planning Updated by [id number]: Perry Gonzales on 04/14/19 1:[address] Patient Name: LINDA OCHOA Encounter No: [id number] : 1940 Primary Insurance: HU[employer]NA CHOICE PPO MCR ADVANT Anticipated DC Date: 04-14-2019 Planned Disposition: Senior Living Facility External Planned Provider: [facility] MEDICARE REHAB BED DCP follow-up note: CM RECEIVED CALL FROM [facility], , SPOKE TO MALGORZATA WHO INFORMED CM THAT THEY HAVE SUBMITTED TO PT'S INSURANCE FOR AUTHORIZATION. MALGORZATA ASKED FOR UPDATE TO BE FAXED IN THE MORNING. CM RECEIVED CALL FROM PT'S NIECE, CHARITY RICHARDSON, , CALLED AND ASKED FOR UPDATE. CM MET WITH PT IN ROOM WHO PROVIDED PERMISSION TO PROVIDE TREATMENT AND DISCHARGE PLANNING INFORMATION TO CHARITY, UPDATE GIVEN. CM CALLED PT'S DAUGHTER, JARED OCHOA, , AND PROVIDED UPDATE. JARED IS IN AGREEMENT WITH DISCHARGE PLAN TO [facility]. PT IS IN AGREEMENT WITH DISCHARGE PLAN TO [facility]. CM WAITING INSURANCE DETERMINATION FOR [facility] FOR [facility]. Perry Gonzales CASE MANAGEMENT DCP- Discharge Planning Updated by [id number]: Perry Gonzlaes on 04/13/19 3:[address] Patient Name: LINDA OCHOA Encounter No: [id number] : 1940 Primary Insurance: HUMANA CHOICE PPO [facility] ADVANT Anticipated DC Date: 04-14-2019 Planned Disposition: Senior Living Facility External Planned Provider: [facility], MEDICARE REHAB BED DCP follow-up note: CM RECEIVED MESSAGE FROM [facility], THEY ARE OUT OF PT'S INSURANCE NETWORK AND REFERRED CM TO [facility] THAT IS IN NETWORK WITH PT'S INSURANCE. CM REVIEWED CONSENTS FOR PROVIDERS THAT INCLUDED SNF IN [place], [place]. CM CALLED [facility], , SPOKE TO ANNA WHO TOOK REFERRAL INFORMATION. CM INFORMED ANNA THAT PT HAS BEEN DISCHARGED AND NEEDS REHAB ONLY. CM FAXED REFERRAL TO [facility] AT [phone]. CM RECEIVED ORDERS FOR NEBULIZER AND WALK TEST RESULTS WERE 95% ON ROOM AIR, 88% ON ROOM AIR DURING EXERTION, 94% RECOVERY ON 2 LITERS OXYGEN DURING RECOVERY. ALL MEDICAL EQUIPMENT WILL BE PROVIDED BY [facility] IF ACCEPTED. CM WAITING ADMISSION DETERMINATION FROM [facility] FOR [facility]. GARTH Sharp DCP- Discharge Planning Updated by [id number]: Perry Gonzales on 04/12/19 3:[address] Patient Name: LINDA OCHOA Encounter No: [id number] : 1940 Primary Insurance: HUMANA CHOICE PPO [facility] ADVANT Anticipated DC Date: 04-13-2019 Planned Disposition: Senior Living Facility External Planned Provider: [facility], MEDICARE REHAB BED DCP follow-up note: CM SPOKE TO BEDSIDE NURSE WHO INFORMED CM THAT PT IS TOO WEAK TO DISCHARGE HOME PLANNED. CM MET WITH PT IN ROOM AND DISCUSSED THERAPY RESULTS, PT'S PLAN TO RETURN HOME AND AVAILABILITY OF REHAB SERVICES. PT INITIALLY STATED THAT HE WANTS TO GO HOME WITH HOME HEALTH. PT STATES IT IS OK TO DISCUSS HIS DISCHARGE PLAN WITH HIS DAUGHTER, RITU, SHE IS GOING TO BE TAKING CARE OF HIM AFTER HE GETS HOME, HE WILL DO WHAT SHE SAYS. CM CALLED RITU OCHOA AT [phone]; RITU STATES THAT PT NEEDS REHAB AND SHE WILL DISCUSS THIS WITH PT. SHE WOULD LIKE [facility] IN [place] AND IF NONE THERE, THEN TO TRY HOPE. CHOICE COMPLETED. CM SPOKE TO PT WHO IS IN AGREEMENT WITH PLAN. IMPORTANT MESSAGE FROM MEDICARE PROVIDED AND EXPLAINED. CM FAXED REFERRAL TO [facility] IN [place] VIA [facility] AT [phone]. CM CALLED ZOILA AND NOTIFIED HER OF REFERRAL FOR [facility] AT [phone], CM WAITING ADMISSION DETERMINATION AND INSURANCE AUTHORIZATION FOR REHAB SERVICES AT [facility]. Perry Gonzales, CASE MANAGEMENT DCP- Discharge Planning Updated by [id number]: Divya Arauz on 04/11/19 4:[address] PHYSICAL THERAPY EVAL COMPLETED TODAY. PATIENT IS IN VERY WEAKEN STATE. HE COULD NOT TOLERATE SITTING ON THE SIDE OF THE BED SECONDARY TO PAIN AND STIFFNESS. REQUIRED 2 PERSON DRAW SHEET PULL TO GET TO THE HEAD OF THE BED. PLS REVIEW PHYSICAL THERAPY NOTES. PATIENT REPORTEDLY LIVED ALONE AND WAS INDEPENDENT IN CARE PRIOR TO ADMISSION. LIKELY WILL NEED TO CONSIDER ACUTE OR SKILLED REHAB. OT CONSULT ORDER OBTAINED. 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 CM TO FOLLOW TO ASSIST. . DCP- Discharge Planning Updated by [id number]: Perry Gonzales on 04/09/19 4:[address] Patient Name: LINDA OCHOA Admission Status: ER Accout number: [id number] Admission Date: 04-04-2019 : 1940 Admission Diagnosis:NON-ST ELEVATION (NSTEMI) MYOCARDIAL INFARCTION Attending: DOMINIQUE ODEN Current LOS: 5 Anticipated DC Date: Planned Disposition: Home with Home Health Primary Insurance: HUMANA CHOICE PPO MCR ADVANT PLANNED EXTERNAL PROVIDER: NO PROVIDER PREFERENCE Discharge Planning Comments: CM MET WITH PT IN ROOM TO DISCUSS DISCHARGE PLANNING AND NEEDS. PT REPORTS LIVING AT HOME INDEPENDENTLY AND ALONE. PT HAS NO MEDICAL EQUIPMENT AND NO OUTSIDE SERVICES ASSISTING IN THE HOME. CM DISCUSSED AVAILABILITY OF HOME HEALTH, REHAB SERVICES AND MEDICAL EQUIPMENT. PT WILL ACCEPT HOME HEALTH IF NEEDED; PROVIDED WITH PROVIDER LISTING, PT HAS NO CHOICE OF PROVIDER, CHOICE LETTER COMPLETED. PT REPORTS HIS DAUGHTER WILL PICK HIM UP FOR DISCHARGE HOME. IMPORTANT MESSAGE FROM MEDICARE PROVIDED AND EXPLAINED. PT STATES HIS DAUGHTER WILL STAY WITH HIM TO ASSIST AT HOME AFTER DISCHARGE. PT PLANS TO DISCHARGE HOME WHERE HIS DAUGHTER WILL STAY AND ASSIST IF NEEDED. DAUGHTER TO TRANSPORT HOME AT DISCHARGE. PT WOULD ACCEPT HOME HEALTH IF NEEDED; CM TO ARRANGE HOME HEALTH WITH PHYSICIAN AGREEMENT OF NEED AND ORDERS. Delivery Mgr: Perry Gonzales DCPIA - Discharge Planning Initial Assessment Updated by [id number]: Perry Gonzales on 04/09/19 5:13 pm * Is the patient Alert and Oriented? Yes * How many steps to enter\exit or inside your home? NONE * PCP DR. SORTO IN [place] * Pharmacy [facility] IN [place] * Preadmission Environment Home Alone * ADLs Independent * Equipment None * Other Equipment NO MEDICAL EQUIPMENT PROVIDER PREFERENCE * List name and contact numbers for known caregivers / representatives who currently or will assist patient after discharge: RITU OCHOA, DTR, BRANDT OCHOA, MOTHER 100 YRS OLD, * Verbal permission to speak to the caregivers and representatives has been obtained from the patient. N/A * Community resources currently utilized None * Please name any agencies selected above. NONE * Additional services required to return to the preadmission environment? Yes * Can the patient safely return to the preadmission environment? Yes * Has this patient been hospitalized within the prior 30 days at any hospital? No Coverage Notice Reviewer: ANTONI Gonzales Notice Issued Date-Time: 04/09/2019 9:20 Notice Type: IM Discharge Notice Notice Delivered To: Patient Relationship to Patient: Thermal Cutter Hand Name: Delivery Method: HAND - Hand Delivered Chantel Days: Prior Verbal Notification: Recipient Understood Notice: Yes Recipient Signature: Yes Med Rec Note Co-signed by Attending: Coverage Notice Comment: Reviewer: ANTONI Gonzales Notice Issued Date-Time: 04/09/2019 9:20 Notice Type: Patient Choice Letter Notice Delivered To: Relationship to Patient: Thermal Cutter Hand Name: Delivery Method: HAND - Hand Delivered Chantel Days: Prior Verbal Notification: Recipient Understood Notice: Yes Recipient Signature: Yes Med Rec Note Co-signed by Attending: Coverage Notice Comment: NO HOME HEALTH PROVIDER PREFERENCE Reviewer: ANTONI Gonzales Notice Issued Date-Time: 04/12/2019 14:45 Notice Type: IM Discharge Notice Notice Delivered To: Patient Relationship to Patient: Thermal Cutter Hand Name: Delivery Method: HAND - Hand Delivered Chantel Days: Prior Verbal Notification: Recipient Understood Notice: Yes Recipient Signature: Yes Med Rec Note Co-signed by Attending: Coverage Notice Comment: Reviewer: ANTONI Gonzales Notice Issued Date-Time: 04/12/2019 14:45 Notice Type: Patient Choice Letter Notice Delivered To: Relationship to Patient: Thermal Cutter Hand Name: Delivery Method: HAND - Hand Delivered Chantel Days: Prior Verbal Notification: Recipient Understood Notice: Yes Recipient Signature: Yes Med Rec Note Co-signed by Attending: Coverage Notice Comment: [facility] [place] [facility] Reviewer: [email or web address] Gonzales Notice Issued Date-Time: 04/15/2019 7:38 Notice Type: IM Discharge Notice Notice Delivered To: Patient Relationship to Patient: Thermal Cutter Hand Name: Delivery Method: HAND - Hand Delivered Chantel Days: Prior Verbal Notification: Recipient Understood Notice: Yes Recipient Signature: Yes Med Rec Note Co-signed by Attending: Coverage Notice Comment: Last DP export: 04/15/19 4:15 Patient Name: LINDA OCHOA Page [id number] at 1235 All edits/amendments must be made on the electronic document DICTATION DATE: 04/16/19 1235 CAPTAIN ASSISTANT: CHULA 04/16/19 1235 RPT#: [id number] DC DATE: STATUS: ADM IN [facility] [address] [place] [address] END OF REPORT
[2019-04-16 15:45] LABS: HEMATOCRIT 26.9 % (42.0-54.0); HEMOGLOBIN 8.5 g/dL (13.5-17.5); MCH 28.8 pg (26.0-34.0); MCHC 31.6 g/dL (31.0-37.0); MCV 91.2 fL (80.0-100.0); MEAN PLATELET VOLUME 8.8 fL (7.4-10.4); RBC 2.95 10x6/uL (4.20-6.10); RDW 15.9 % (11.5-14.5); WBC 11.5 10x3/uL (4.8-10.8)
[2019-04-16 15:53] LABS: INR 1.35 (0.85-1.17); PROTIME 16.1 SECONDS (11.6-15.0)
[2019-04-16 15:54] LABS: APTT 38.5 SECONDS (22.8-39.4)
--- NOTE | 2019-04-16 16:08 | NUR ---
RECEIVED APTT OF 38.5. PER HEPAR[facility] PROTOCOL, THIS RESULT CALLS FOR A 3000UNIT BOLUS. SPOKE WITH WHO VERIFIED TO JUST GIVE THE 3000UNIT BOLUS AND NOT THE 5000UNIT ONE TIME BOLUS. WILL BEGIN HEPARIN. WILL CTM.
--- NOTE | 2019-04-16 17:18 | MORECARE ---
CASE MANAGEMENT DISCHARGE SUMMARY PATIENT: LINDA OCHOA UNIT: [id number] ADM DATE: 04/04/19 AGE: 78 : 41 SEX: M ROOM/BED: D.2717 AUTHOR: JAME SLATER PHYSICIAN: REFERRING PHYSICIAN: DOMINIQUE ODEN MD DATE OF SERVICE: 04/16/19 Discharge Plan Patient Name: LINDA OCHOA Facility: [facility]:[place] : 1940 Planned Disposition: [facility] Facility Anticipated Discharge Date: 04/16/19 Discharge Date: Expected LOS: 12 Initial Reviewer: [id number] Initial Review Date: 04/09/2019 Generated: 04/16/19 6:18 pm Comments DCP- Discharge Planning Updated by [email or web address]: Perry Gonzales on 04/16/19 11:[address] Patient Name: LINDA OCHOA Encounter No: [id number] : 1940 Primary Insurance: HU[employer]NA CHOICE PPO MCR ADVANT Anticipated DC Date: 04-16-2019 Planned Disposition: [facility] Facility External Planned Provider: [facility], MEDICARE REHAB BED DCP follow-up note: CM CALLED MALGORZATA OF [facility], NOTIFIED THAT PT WILL NOT DISCHARGE TODAY. PT WILL REQUIRE NEW AUTHORIZATION FROM INSURANCE AND INSURANCE IS NOT OPEN OVER WEEKEND TO REVIEW. MALGORZATA NOTIFIED CM THAT PT WILL NOW NEED MARLENE ASSESSMENT DUE TO ADMINISTRATION OF [place] MEDICATION. PT NOTIFIED AND IN AGREEEMENT WITH DISCHARGE PLAN. PT WILL REQUIRE NEW AUTHORIZATION FROM INSURANCE NEXT WEEK. PT WILL REQUIRE MARLENE ASSESSMENT. CM TO COMPLETE MARLENE ASSESSMENT SOON POSSIBLE. Perry Gonzales, CASE MANAGEMENT DCP- Discharge Planning Updated by [id number]: Perry Gonzales on 04/15/19 4:[address] Patient Name: LINDA OCHOA Encounter No: [id number] : 1940 Primary Insurance: HUMANA CHOICE PPO MCR ADVANT Anticipated DC Date: 04-16-2019 Planned Disposition: [facility] Facility External Planned Provider: [facility], MEDICARE RE[facility] BED DCP follow-up note: CM RECEIVED CALL FROM MALGORZATA OF [facility], THEY WILL ACCEPT PT AND HAVE AUTHORIZATION FROM INSURANCE FOR TODAY AND TOMORROW. CM NOTIFIED NERY GUZMÁN WHO ADVISED THAT THE DOCTOR SAID NOT TODAY, MAYBE TOMORROW. CM NOTIFIED MALGORZATA AT [facility]. PT NOTIFIED AND IN AGREEEMENT WITH DISCHARGE PLAN. FOR DISCHARGE, FAX DISCHARGE INFORMATION TO [facility] AT [phone]. NURSE REPORT TO BE CALLED TO [facility] AT [phone]. [facility] TO ARRANGE TRANSPORATION. INSURANCE AUTHORIZATION EXPIRES 04-16-19 AND PT WILL REQUIRE ANOTHER AUTHORIZATION FROM INSURANCE IF NOT IN REHAB TOMORROW. Perry Gonzales, CASE MANAGEMENT DCP- Discharge Planning Updated by [id number]: Perry Gonzales on 04/15/19 7:[address] Patient Name: LINDA OCHOA Encounter No: [id number] : 1940 Primary Insurance: HUMANA CHOICE PPO MCR ADVANT Anticipated DC Date: 04-14-2019 Planned Disposition: [facility] Facility External Planned Provider: [facility], MEDICARE REHAB BED DCP follow-up note: CM FAXED UPDATE TO [facility], . CM SPOKE TO PT IN ROOM, PT IS IN AGREEMENT WITH [facility] PLAN TO [facility]. IMPORTANT MESSAGE FROM MEDICARE PROVIDED AND EXPLAINED. CM WAITING INSURANCE DETERMINATION FOR [facility] FOR SN[facility] REHAB. Perry Gonzales CASE MANAGEMENT DCP- Discharge Planning Updated by [id number]: Perry Gonzales on 04/14/19 1:[address] Patient Name: LINDA OCHOA Encounter No: [id number] : 1940 Primary Insurance: HUMANA CHOICE PPO MCR ADVANT Anticipated DC Date: 04-14-2019 Planned Disposition: [facility] Facility External Planned Provider: [facility] MED[facility]ARE RE[facility] BED DCP follow-up note: CM RECEIVED CALL FROM [facility], , SPOKE TO MALGORZATA WHO INFORMED CM THAT THEY HAVE SUBMITTED TO PT'S INSURANCE FOR AUTHORIZATION. MALGORZATA ASKED FOR UPDATE TO BE FAXED IN THE MORNING. CM RECEIVED CALL FROM PT'S NIECE, CHARITY RICHARDSON, , CALLED AND ASKED FOR UPDATE. CM MET WITH PT IN ROOM WHO PROVIDED PERMISSION TO PROVIDE TREATMENT AND DISCHARGE PLANNING INFORMATION TO CHARITY, UPDATE GIVEN. CM CALLED PT'S DAUGHTER, JARED OCHOA, , AND PROVIDED UPDATE. JARED IS IN AGREEMENT WITH DISCHARGE PLAN TO [facility]. PT IS IN AGREEMENT WITH DISCHARGE PLAN TO [facility]. CM WAITING INSURANCE DETERMINATION FOR [facility] FOR SNF REHAB. Perry Gonzales CASE MANAGEMENT DCP- Discharge Planning Updated by [id number]: Perry Gonzales on 04/13/19 3:[address] Patient Name: LINDA OCHOA Encounter No: [id number] : 1940 Primary Insurance: HUMANA CHOICE PPO [facility] ADVANT Anticipated DC Date: 04-14-2019 Planned Disposition: [facility]fp Facility External Planned Provider: [facility], MEDICARE REHAB BED DCP follow-up note: CM RECEIVED MESSAGE FROM [facility], THEY ARE OUT OF PT'S INSURANCE NETWORK AND REFERRED CM TO [facility] THAT IS IN NETWORK WITH PT'S INSURANCE. CM REVIEWED CONSENTS FOR PROVIDERS THAT INCLUDED SNF IN [place], [place]. CM CALLED [facility], , SPOKE TO ANNA WHO TOOK REFERRAL INFORMATION. CM INFORMED ANNA THAT PT HAS BEEN DISCHARGED AND NEEDS REHAB ONLY. CM FAXED REFERRAL TO [facility] AT [phone]. CM RECEIVED ORDERS FOR NEBULIZER AND WALK TEST RESULTS WERE 95% ON ROOM AIR, 88% ON ROOM AIR DURING EXERTION, 94% RECOVERY ON 2 LITERS OXYGEN DURING RECOVERY. ALL MEDICAL EQUIPMENT WILL BE PROVIDED BY SNF FACILITY IF ACCEPTED. CM WAITING ADMISSION DETERMINATION FROM [facility] FOR SNF REHAB. GARTH Sharp DCP- Discharge Planning Updated by [id number]: Perry Gonzales on 04/12/19 3:[address] Patient Name: LINDA OCHOA Encounter No: [id number] : 1940 Primary Insurance: HUMANA CHOICE PPO [facility] ADVANT Anticipated DC Date: 04-13-2019 Planned Disposition: Mcfp Facility External Planned Provider: [facility], MEDICARE REHAB BED DCP follow-up note: CM SPOKE TO BEDSIDE NURSE WHO INFORMED CM THAT PT IS TOO WEAK TO DISCHARGE HOME PLANNED. CM MET WITH PT IN ROOM AND DISCUSSED THERAPY RESULTS, PT'S PLAN TO RETURN HOME AND AVAILABILITY OF REHAB SERVICES. PT INITIALLY STATED THAT HE WANTS TO GO HOME WITH HOME HEALTH. PT STATES IT IS OK TO DISCUSS HIS DISCHARGE PLAN WITH HIS DAUGHTER, RITU, SHE IS GOING TO BE TAKING CARE OF HIM AFTER HE GETS HOME, HE WILL DO WHAT SHE SAYS. CM CALLED RITU OCHOA AT [phone]; RITU STATES THAT PT NEEDS REHAB AND SHE WILL DISCUSS THIS WITH PT. SHE WOULD LIKE SNF REHAB IN [place] AND IF NONE THERE, THEN TO [facility]Y [facility]. CHOICE COMPLETED. CM SPOKE TO PT WHO IS IN AGREEMENT WITH PLAN. IMPORTANT MESSAGE FROM MEDICARE PROVIDED AND EXPLAINED. CM FAXED REFERRAL TO [facility] [place] [facility]IA [facility] AT [phone]. CM CALLED ZOILA AND NOTIFIED HER OF REFERRAL FOR [facility] AT [phone], CM WAITING ADMISSION DETERMINATION AND INSURANCE AUTHORIZATION FOR REHAB SERVICES AT [facility]. Perry Gonzales, CASE MANAGEMENT DCP- Discharge Planning Updated by [id number]: Divya Arauz on 04/11/19 4:[address] PHYSICAL THERAPY EVAL COMPLETED TODAY. PATIENT IS IN VERY WEAKEN STATE. HE COULD NOT TOLERATE SITTING ON THE SIDE OF THE BED SECONDARY TO PAIN AND STIFFNESS. REQUIRED 2 PERSON DRAW SHEET PULL TO GET TO THE HEAD OF THE BED. PLS REVIEW PHYSICAL THERAPY NOTES. PATIENT REPORTEDLY LIVED ALONE AND WAS INDEPENDENT IN CARE PRIOR TO ADMISSION. LIKELY WILL NEED TO CONSIDER ACUTE OR SKILLED REHAB. OT CONSULT ORDER OBTAINED. 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 CM TO FOLLOW TO ASSIST. . DCP- Discharge Planning Updated by [id number]: Perry Gonzales on 04/09/19 4:[address] Patient Name: LINDA OCHOA Admission Status: ER Accout number: [id number] Admission Date: 04-04-2019 : 1940 Admission Diagnosis:NON-ST ELEVATION (NSTEMI) MYOCARDIAL INFARCTION Attending: DOMINIQUE ODEN Current LOS: 5 Anticipated DC Date: Planned Disposition: Home with Home Health Primary Insurance: HUMANA CHOICE PPO MCR ADVANT PLANNED EXTERNAL PROVIDER: NO PROVIDER PREFERENCE Discharge Planning Comments: CM MET WITH PT IN ROOM TO DISCUSS DISCHARGE PLANNING AND NEEDS. PT REPORTS LIVING AT HOME INDEPENDENTLY AND ALONE. PT HAS NO MEDICAL EQUIPMENT AND NO OUTSIDE SERVICES ASSISTING IN THE HOME. CM DISCUSSED AVAILABILITY OF HOME HEALTH, REHAB SERVICES AND MEDICAL EQUIPMENT. PT WILL ACCEPT HOME HEALTH IF NEEDED; PROVIDED WITH PROVIDER LISTING, PT HAS NO CHOICE OF PROVIDER, CHOICE LETTER COMPLETED. PT REPORTS HIS DAUGHTER WILL PICK HIM UP FOR DISCHARGE HOME. IMPORTANT MESSAGE FROM MEDICARE PROVIDED AND EXPLAINED. PT STATES HIS DAUGHTER WILL STAY WITH HIM TO ASSIST AT HOME AFTER DISCHARGE. PT PLANS TO DISCHARGE HOME WHERE HIS DAUGHTER WILL STAY AND ASSIST IF NEEDED. DAUGHTER TO TRANSPORT HOME AT DISCHARGE. PT WOULD ACCEPT HOME HEALTH IF NEEDED; CM TO ARRANGE HOME HEALTH WITH PHYSICIAN AGREEMENT OF NEED AND ORDERS. Pediatrician Managing Partner: Perry Gonzales DCPIA - Discharge Planning Initial Assessment Updated by [id number]: Perry Gonzales on 04/09/19 5:13 pm * Is the patient Alert and Oriented? Yes * How many steps to enter\exit or inside your home? NONE * PCP DR. SORTO IN [place] * Pharmacy [facility] IN [place] * Preadmission Environment Home Alone * ADLs Independent * Equipment None * Other Equipment NO MEDICAL EQUIPMENT PROVIDER PREFERENCE * List name and contact numbers for known caregivers / representatives who currently or will assist patient after discharge: RITU GABRIELA, DTR, BRANDT OCHOA, MOTHER 100 YRS OLD, * Verbal permission to speak to the caregivers and representatives has been obtained from the patient. N/A * Community resources currently utilized None * Please name any agencies selected above. NONE * Additional services required to return to the preadmission environment? Yes * Can the patient safely return to the preadmission environment? Yes * Has this patient been hospitalized within the prior 30 days at any hospital? No External Providers External Provider: PHILIP Maldonado Next Contact Date: 04/16/2019 Service Request Date: Service Type: Resolution: Reviewer: Comments: Coverage Notice Reviewer: [id number] Lizzie Gonzales Notice Issued Date-Time: 04/09/2019 9:20 Notice Type: IM Discharge Notice Notice Delivered To: Patient Relationship to Patient: Anger Control Counselor Name: Delivery Method: HAND - Hand Delivered Chantel Days: Prior Verbal Notification: Recipient Understood Notice: Yes Recipient Signature: Yes Med Rec Note Co-signed by Attending: Coverage Notice Comment: Reviewer: [id number] Lizzie Gonzales Notice Issued Date-Time: 04/09/2019 9:20 Notice Type: Patient Choice Letter Notice Delivered To: Relationship to Patient: Anger Control Counselor Name: Delivery Method: HAND - Hand Delivered Chantel Days: Prior Verbal Notification: Recipient Understood Notice: Yes Recipient Signature: Yes Med Rec Note Co-signed by Attending: Coverage Notice Comment: NO HOME HEALTH PROVIDER PREFERENCE Reviewer: ANTONI Gonzales Notice Issued Date-Time: 04/12/2019 14:45 Notice Type: IM Discharge Notice Notice Delivered To: Patient Relationship to Patient: Anger Control Counselor Name: Delivery Method: HAND - Hand Delivered Chantel Days: Prior Verbal Notification: Recipient Understood Notice: Yes Recipient Signature: Yes Med Rec Note Co-signed by Attending: Coverage Notice Comment: Reviewer: ANTONI Gonzales Notice Issued Date-Time: 04/12/2019 14:45 Notice Type: Patient Choice Letter Notice Delivered To: Relationship to Patient: Anger Control Counselor Name: Delivery Method: HAND - Hand Delivered Chantel Days: Prior Verbal Notification: Recipient Understood Notice: Yes Recipient Signature: Yes Med Rec Note Co-signed by Attending: Coverage Notice Comment: SNF IN [place] #1 SNF IN [place] #2 Reviewer: ANTONI Gonzales Notice Issued Date-Time: 04/15/2019 7:38 Notice Type: IM Discharge Notice Notice Delivered To: Patient Relationship to Patient: Anger Control Counselor Name: Delivery Method: HAND - Hand Delivered Chantel Days: Prior Verbal Notification: Recipient Understood Notice: Yes Recipient Signature: Yes Med Rec Note Co-signed by Attending: Coverage Notice Comment: Last DP export: 04/16/19 11:35 Patient Name: LINDA OCHOA Page [id number] at 1718 All edits/amendments must be made on the electronic document DICTATION DATE: 04/16/191717 COUNTERSINKER BALANCE SCREW HOLE: CHULA 04/16/191717 RPT#: [id number] CO DATE: STATUS: ADM IN [facility] [address] [place] [address] END OF REPORT
--- NOTE | 2019-04-16 19:39 | NUR ---
RECEIVED REPORT, WILL ASSUME CARE OF PT, PT IS RESTING, NO DISTRESS NOTICED AT THIS TIME, BED IS LOW, SRX2, CALL LIGHT IN REACH, WILL CONTINUE PLAN OF CARE
--- NOTE | 2019-04-16 23:24 | NUR ---
PLACED HEPRIN ON HOLD FOR 30 MIN. PER [id number]
--- NOTE | 2019-04-17 01:07 | NUR ---
I have reviewed this patient and I concur with the Shift Assessment completed by the Licensed Practical Nurse today this shift.
[2019-04-17 04:45] VITALS: BP 115/69
[2019-04-17 06:37] LABS: BASOPHILS 0.2 % (0-2); EOSINOPHILS 3.2 % (0-7); HEMATOCRIT 25.8 % (42.0-54.0); HEMOGLOBIN 7.9 g/dL (13.5-17.5); IMMATURE GRANULOCYTES 0.8 % (0-5); LYMPHOCYTES 13.2 % (15-50); MCH 28.5 pg (26.0-34.0); MCHC 30.6 g/dL (31.0-37.0); MCV 93.1 fL (80.0-100.0); MEAN PLATELET VOLUME 8.8 fL (7.4-10.4); MONOCYTES 6.6 % (2-11); PLATELET COUNT 537 10x3/uL (130-400); RBC 2.77 10x6/uL (4.20-6.10)
[2019-04-17 06:47] LABS: ANION GAP 15.2 mmol/L (8-16); CALCIUM 8.6 mg/dL (8.5-10.1); CARBON DIOXIDE 25.7 mmol/L (21.0-32.0); CREATININE - SERUM 1.9 mg/dL (0.6-1.3); POTASSIUM - SERUM 3.9 mmol/L (3.5-5.1)
--- NOTE | 2019-04-17 07:25 | NUR ---
PATIENT IS RESTING ON HIS BACK IN BED. FOLLOWING HEPARIN PROTOCOL I AM HOLDING HEPARIN FOR 30 MINUTES, AND THEN BUMPING IT DOWN TO 13ML/HR. WILL RECHECK APTT IN 6 HOURS. HIS LAST RESULT WAS 98.0.
[2019-04-17 08:00] VITALS: BP 119/72
[2019-04-17 12:00] VITALS: BP 122/74
--- NOTE | 2019-04-17 14:37 | NUR ---
PATIENT IS SITTING UP IN BED. FAMILY AT BEDSIDE.
--- NOTE | 2019-04-17 15:17 | NUR ---
FOLLOWING APTT, HEPARIN RATE WILL STAY THE SAME , AND BE CHECKED IN THE MORNING.
[2019-04-17 16:00] VITALS: BP 124/78
--- NOTE | 2019-04-17 19:15 | NUR ---
RECEIVED REPORT, WILL ASSUME CARE OF PT, RECEIVING BREATHING TREATMENT, ASKING FOR ANOTHER BLANKET (I PROVIDED), BED IS LOW, SRX2, CALL LIGHT REACH, WILL CONTINUE PLAN OF CARE
[2019-04-17 20:35] VITALS: BP 114/86
[2019-04-17 23:52] VITALS: BP 120/70
[2019-04-18 03:12] LABS: BASOPHILS 0.2 % (0-2); EOSINOPHILS 4.1 % (0-7); HEMATOCRIT 24.7 % (42.0-54.0); IMMATURE GRANULOCYTES 0.4 % (0-5); LYMPHOCYTES 13.1 % (15-50); MCH 28.5 pg (26.0-34.0); MCHC 30.4 g/dL (31.0-37.0); MCV 93.9 fL (80.0-100.0); MEAN PLATELET VOLUME 8.8 fL (7.4-10.4); NEUTROPHILS 76.2 % (40-80); PLATELET COUNT 530 10x3/uL (130-400); RBC 2.63 10x6/uL (4.20-6.10); RDW 16.4 % (11.5-14.5)
[2019-04-18 03:13] LABS: HEMOGLOBIN 7.5 g/dL (13.5-17.5)
[2019-04-18 03:26] LABS: ANION GAP 13.2 mmol/L (8-16); CALCIUM 8.4 mg/dL (8.5-10.1); CARBON DIOXIDE 26.7 mmol/L (21.0-32.0); CREATININE - SERUM 1.5 mg/dL (0.6-1.3); POTASSIUM - SERUM 3.9 mmol/L (3.5-5.1)
[2019-04-18 04:02] VITALS: BP 121/79
--- NOTE | 2019-04-18 04:18 | NUR ---
I have reviewed this patient and I concur with the Shift Assessment completed by the Licensed Practical Nurse today this shift.
--- NOTE | 2019-04-18 07:31 | NUR ---
PATIENT IS LAYING ON HIS BACK IN BED. HE HAS A NEW IV IN HIS RIGHT FOREARM BECAUSE THE IV IN HIS RIGHT AC BEEPS EVERYTIME HE BENDS HIS ARM. HE DENIES ANY NEEDS AT THIS TIME.
[2019-04-18 08:47] VITALS: BP 122/76
[2019-04-18 13:04] VITALS: BP 133/80
--- NOTE | 2019-04-18 13:06 | NUR ---
PREVIOUSLY PATIENT HAD REFUSED THE BLOOD CONSENT. NOW AFTER ANA , THE NATURAL GAS FIELD PROCESSING SUPERVISOR AND NURSE AT BEDSIDE, EXPLAINED THAT THE BLOOD IS SAFE, AND GOES THROUGH LOTS OF TESTING. HE AGREED TO RECIEVE BLOOD. HE IS SIGHNING CONSENT AND HE IS BEING TYPE AND CROSS MATCHED NOW.
--- NOTE | 2019-04-18 15:31 | NUR ---
ADMINISTERING ONE UNIT OF PRBC'S. PATIENT HAS TWO IV'S IN THE RIGHT AC, AND FOREARM. HEPARIN DRIP IS GOING IN. I SLOWED THE 1/2 NS TO 10ML/HOUR JUST WHILE THE BLOOD IS INFUSING, YORDY PATIENT B/P WAS CLIMBING. WILL CONTINUE THE 1/2 NS ORDERED WHEN THE BLOOD IS DONE. HEPARIN DRIP IS GOING ORDERED.
[2019-04-18 17:47] VITALS: BP 130/76
--- NOTE | 2019-04-18 19:32 | NUR ---
INITAIL ROUNDS COMPLETED. NO DISTRESS NOTED. CALL LIGHT WITHIN REACH.
[2019-04-18 20:32] VITALS: BP 122/78
--- NOTE | 2019-04-18 22:15 | NUR ---
ASSESSMENT COMPLETED AT 2000 HRS. VSS. SR PER CMHR 87. IV TO RAC SL. IV TO RFA WITH 1/2NS AT 50CC/HR AND HEPARIN DRIP AT 1300U/HR. IV PATENT. O2 4L HIGH FLOW OXYGEN. LUNGS DIMINISHED IN BASES BILAT. LOPEZ. PALPABLE PERIPHERAL PULSES. PM MEDS GIVEN. IP HAS LARGE AMOUNT OR DIARRHEA AT 2210 HRS. PT CLEANED AND BED LINENS CHANGED. PT REPOSITIONED IN BED FOR COMFORT. SR UP X2,CALL LIGHT WITHIN REACH.
[2019-04-18 23:51] VITALS: BP 123/73
--- NOTE | 2019-04-19 00:02 | NUR ---
PT RESTING WITH EYES CLOSED. RESP EVEN AND REGULAR. SR UP X2,CALL LIGHT WITHIN REACH.
--- NOTE | 2019-04-19 02:07 | NUR ---
PT RESTING WITH EYES CLOSED ON L SIDE. RESP EVEN AND REGULAR. SR UPX2, CALL LIGHT WITHIN REACH.
--- NOTE | 2019-04-19 03:38 | NUR ---
PT INCONTINENT OF WATERY DIARRHEA. BEDBATH DONE, BED LINENS CHANGED. PT DENIES ANY DISCOMFORT AT THIS TIME. SR UP X2,CALL LIGHT WITHIN REACH.
--- NOTE | 2019-04-19 04:13 | NUR ---
PT RESTING WITH EYES CLOSED. RESP EVEN AND REGULAR. SR UP X2, CALL LIGHT WITHIN REACH.
[2019-04-19 04:30] VITALS: BP 130/80
[2019-04-19 05:50] LABS: ANION GAP 14.7 mmol/L (8-16); CALCIUM 8.8 mg/dL (8.5-10.1); CARBON DIOXIDE 24.8 mmol/L (21.0-32.0); CREATININE - SERUM 1.3 mg/dL (0.6-1.3); POTASSIUM - SERUM 3.5 mmol/L (3.5-5.1)
[2019-04-19 06:04] LABS: BASOPHILS 0.1 % (0-2); EOSINOPHILS 4.7 % (0-7); HEMATOCRIT 26.9 % (42.0-54.0); HEMOGLOBIN 8.4 g/dL (13.5-17.5); IMMATURE GRANULOCYTES 0.4 % (0-5); LYMPHOCYTES 9.9 % (15-50); MCH 28.6 pg (26.0-34.0); MCHC 31.2 g/dL (31.0-37.0); MEAN PLATELET VOLUME 8.9 fL (7.4-10.4); MONOCYTES 7.5 % (2-11); NEUTROPHILS 77.4 % (40-80); PLATELET COUNT 525 10x3/uL (130-400); RBC 2.94 10x6/uL (4.20-6.10); RDW 16.8 % (11.5-14.5); WBC 7.6 10x3/uL (4.8-10.8)
[2019-04-19 06:05] LABS: MCV 91.5 fL (80.0-100.0)
--- NOTE | 2019-04-19 06:43 | NUR ---
PTT THERAPEUTIC THIS AM 67.7. AM K+ 3.5. KCL 40 MEQ PO GIVEN PER ELECTROYTE PROTOCOL. VSS STABLE THROUGHOUT NIGHT. SR PER CM. NEEDS MET; WILL CONTINUE TO MONITOR.
[2019-04-19 09:13] VITALS: BP 134/92
--- NOTE | 2019-04-19 09:44 | NUR ---
PATIENT IS SITTING UP IN BED, REPORTS FEELING BETTER. IV INFUSING ORDERED.
--- NOTE | 2019-04-19 11:30 | MORECARE ---
CASE MANAGEMENT DISCHARGE SUMMARY PATIENT: LINDA OCHOA UNIT: [id number] ADM DATE: 04/04/19 AGE: 78 : 41 SEX: M ROOM/BED: D.0616 AUTHOR: JAME SLATER PHYSICIAN: REFERRING PHYSICIAN: DOMINIQUE ODEN MD DATE OF SERVICE: 04/19/19 Discharge Plan Patient Name: LINDA OCHOA [facility] : 1940 Planned Disposition: Alf Facility Anticipated Discharge Date: 04/16/19 Discharge Date: Expected LOS: 12 Initial Reviewer: [id number] Initial Review Date: 04/09/2019 Generated: 04/19/19 12:29 pm Comments DCP- Discharge Planning Updated by [id number]: Perry Gonzales on 04/19/19 10:[address] Patient Name: LINDA OCHOA Encounter No: [id number] : 1940 Primary Insurance: [employer] CHOICE PPO MCR ADVANT Anticipated DC Date: 04-16-2019 Planned Disposition: Alf Facility External Planned Provider: [facility], MEDICARE REHAB BED DCP follow-up note: CM WAS ADVISED DURING MULTIDISCIPLINARY CARE TEAM MEETING THAT PT IS NOT READY TO DISCHARGE TODAY. MARLENE RESULT RECEIVED, PT IS NON [facility] AND MAY ENTER [facility]. CM CALLED MALGORZATA OF [facility], , NOTIFIED THAT PT WILL NOT DISCHARGE TODAY. PT WILL REQUIRE NEW AUTHORIZATION FROM INSURANCE. PT NOTIFIED AND IN AGREEEMENT WITH DISCHARGE PLAN. PT WILL REQUIRE NEW AUTHORIZATION FROM INSURANCE, CM TO FAX UPDATE AND MARLENE ASSESSMENT / DETERMINATION TO [facility] THE DAY PRIOR TO DISCHARGE AT [phone]. Perry Gonzales, CASE MANAGEMENT DCP- Discharge Planning Updated by [id number]: Perry Gonzales on 04/16/19 11:[address] Patient Name: LINDA OCHOA Encounter No: [id number] : 1940 Primary Insurance: [employer] CHOICE PPO MCR ADVANT Anticipated DC Date: 04-16-2019 Planned Disposition: Alf Facility External Planned Provider: [facility], MEDICARE REHAB BED DCP follow-up note: CM CALLED MALGORZATA OF [facility], NOTIFIED THAT PT WILL NOT DISCHARGE TODAY. PT WILL REQUIRE NEW AUTHORIZATION FROM INSURANCE AND INSURANCE IS NOT OPEN OVER WEEKEND TO REVIEW. MALGORZATA NOTIFIED CM THAT PT WILL NOW NEED MARLENE ASSESSMENT DUE TO ADMINISTRATION OF [place] MEDICATION. PT NOTIFIED AND IN AGREEEMENT WITH DISCHARGE PLAN. PT WILL REQUIRE NEW AUTHORIZATION FROM INSURANCE NEXT WEEK. PT WILL REQUIRE MARLENE ASSESSMENT. CM TO COMPLETE MARLENE ASSESSMENT SOON POSSIBLE. GARTH Sharp DCP- Discharge Planning Updated by [id number]: Perry Gonzales on 04/15/19 4:[address] Patient Name: LINDA OCHOA Encounter No: [id number] : 1940 Primary Insurance: [employer] CHOICE PPO MCR ADVANT Anticipated DC Date: 04-16-2019 Planned Disposition: Alf Facility External Planned Provider: [facility] MEDICARE [facility] DCP follow-up note: CM RECEIVED CALL FROM MALGORZATA OF [facility], THEY WILL ACCEPT PT AND HAVE AUTHORIZATION FROM INSURANCE FOR TODAY AND TOMORROW. CM NOTIFIED NERY GUZMÁN WHO ADVISED THAT THE DOCTOR SAID NOT TODAY, MAYBE TOMORROW. CM NOTIFIED MALGORZATA AT [facility]. PT NOTIFIED AND IN AGREEEMENT WITH DISCHARGE PLAN. FOR DISCHARGE, FAX DISCHARGE INFORMATION TO [facility] AT [phone]. NURSE REPORT TO BE CALLED TO [facility] AT [phone]. [facility] TO ARRANGE TRANSPORATION. INSURANCE AUTHORIZATION EXPIRES 04-16-19 AND PT WILL REQUIRE ANOTHER AUTHORIZATION FROM INSURANCE IF NOT IN REHAB TOMORROW. GARTH [facility] DCP- Discharge Planning Updated by [id number]: Perry Gonzales on 04/15/19 7:[address] Patient Name: LINDA OCHOA Encounter No: [id number] : 1940 Primary Insurance: [employer] CHOICE PPO MCR ADVANT Anticipated DC Date: 04-14-2019 Planned Disposition: Alf Facility External Planned Provider: [facility] MEDICARE [facility] DCP follow-up note: CM FAXED UPDATE TO [facility], . CM SPOKE TO PT IN ROOM, PT IS IN AGREEMENT WITH DISCHARGE PLAN TO [facility]. IMPORTANT MESSAGE FROM MEDICARE PROVIDED AND EXPLAINED. CM WAITING INSURANCE DETERMINATION FOR [facility] FOR [facility]. Perry Gonzales CASE MANAGEMENT DCP- Discharge Planning Updated by [id number]: Perry Gonzales on 04/14/19 1:[address] Patient Name: LINDA OCHOA Encounter No: [id number] : 1940 Primary Insurance: [employer] CHOICE PPO MCR ADVANT Anticipated DC Date: 04-14-2019 Planned Disposition: Alf Facility External Planned Provider: [facility]ARE [facility] DCP follow-up note: CM RECEIVED CALL FROM [facility], , SPOKE TO MALGORZATA WHO INFORMED CM THAT THEY HAVE SUBMITTED TO PT'S INSURANCE FOR AUTHORIZATION. MALGORZATA ASKED FOR UPDATE TO BE FAXED IN THE MORNING. CM RECEIVED CALL FROM PT'S NIECE, CHARITY DEBRA, , CALLED AND ASKED FOR UPDATE. CM MET WITH PT IN ROOM WHO PROVIDED PERMISSION TO PROVIDE TREATMENT AND DISCHARGE PLANNING INFORMATION TO CHARITY, UPDATE GIVEN. CM CALLED PT'S DAUGHTER, JARED OCHOA, , AND PROVIDED UPDATE. JARED IS IN AGREEMENT WITH DISCHARGE PLAN TO [facility]. PT IS IN AGREEMENT WITH DISCHARGE PLAN TO [facility]. CM WAITING INSURANCE DETERMINATION FOR [facility] FOR [facility]. Perry Gonzales CASE MANAGEMENT DCP- Discharge Planning Updated by [id number]: Perry Gonzales on 04/13/19 3:[address] Patient Name: LINDA OCHOA Encounter No: [id number] : 1940 Primary Insurance: HU[employer] CHOICE PPO MCR ADVANT Anticipated DC Date: 04-14-2019 Planned Disposition: Alf Facility External Planned Provider: [facility] DCP follow-up note: CM RECEIVED MESSAGE FROM [facility], THEY ARE OUT OF PT'S INSURANCE NETWORK AND REFERRED CM TO [facility] THAT IS IN NETWORK WITH PT'S INSURANCE. CM REVIEWED CONSENTS FOR PROVIDERS THAT INCLUDED SNF IN [place], [place]. CM CALLED [facility], , SPOKE TO ANNA WHO TOOK REFERRAL INFORMATION. CM INFORMED ANNA THAT PT HAS BEEN DISCHARGED AND NEEDS REHAB ONLY. CM FAXED REFERRAL TO [facility] AT [phone]. CM RECEIVED ORDERS FOR NEBULIZER AND WALK TEST RESULTS WERE 95% ON ROOM AIR, 88% ON ROOM AIR DURING EXERTION, 94% RECOVERY ON 2 LITERS OXYGEN DURING RECOVERY. ALL MEDICAL EQUIPMENT WILL BE PROVIDED BY [facility] IF ACCEPTED. SONY WAITING ADMISSION DETERMINATION FROM [facility] FOR [facility]. GARTH Sharp MANAGEMENT DCP- Discharge Planning Updated by [id number]: Perry Gonzales on 04/12/19 3:[address] Patient Name: LINDA OCHOA Encounter No: [id number] : 1940 Primary Insurance: [employer] CHOICE PPO MCR ADVANT Anticipated DC Date: 04-13-2019 Planned Disposition: Alf Facility External Planned Provider: [facility], MEDICARE REHAB BED DCP follow-up note: CM SPOKE TO BEDSIDE NURSE WHO INFORMED CM THAT PT IS TOO WEAK TO DISCHARGE HOME PLANNED. CM MET WITH PT IN ROOM AND DISCUSSED THERAPY RESULTS, PT'S PLAN TO RETURN HOME AND AVAILABILITY OF REHAB SERVICES. PT INITIALLY STATED THAT HE WANTS TO GO HOME WITH HOME HEALTH. PT STATES IT IS OK TO DISCUSS HIS DISCHARGE PLAN WITH HIS DAUGHTER, RITU, SHE IS GOING TO BE TAKING CARE OF HIM AFTER HE GETS HOME, HE WILL DO WHAT SHE SAYS. CM CALLED RITU OCHOA AT [phone]; RITU STATES THAT PT NEEDS REHAB AND SHE WILL DISCUSS THIS WITH PT. SHE WOULD LIKE [facility] IN [place] AND IF NONE THERE, THEN TO TRY [facility]. CHOICE COMPLETED. CM SPOKE TO PT WHO IS IN AGREEMENT WITH PLAN. IMPORTANT MESSAGE FROM MEDICARE PROVIDED AND EXPLAINED. CM FAXED REFERRAL TO [facility]IA [facility] AT [phone]. CM CALLED ZOILA AND NOTIFIED HER OF REFERRAL FOR [facility] AT [phone], CM WAITING ADMISSION DETERMINATION AND INSURANCE AUTHORIZATION FOR REHAB SERVICES AT [facility]. Perry Gonzales, GARTH MANAGEMENT DCP- Discharge Planning Updated by [id number]: Divya Arauz on 04/11/19 4:[address] PHYSICAL THERAPY EVAL COMPLETED TODAY. PATIENT IS IN VERY WEAKEN STATE. HE COULD NOT TOLERATE SITTING ON THE SIDE OF THE BED SECONDARY TO PAIN AND STIFFNESS. REQUIRED 2 PERSON DRAW SHEET PULL TO GET TO THE HEAD OF THE BED. PLS REVIEW PHYSICAL THERAPY NOTES. PATIENT REPORTEDLY LIVED ALONE AND WAS INDEPENDENT IN CARE PRIOR TO ADMISSION. LIKELY WILL NEED TO CONSIDER ACUTE OR SKILLED REHAB. OT CONSULT ORDER OBTAINED. 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 CM TO FOLLOW TO ASSIST. . 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 PT REPORTS LIVING AT HOME INDEPENDENTLY AND ALONE. PT HAS NO MEDICAL EQUIPMENT AND NO OUTSIDE SERVICES ASSISTING IN THE HOME. CM DISCUSSED AVAILABILITY OF HOME HEALTH, REHAB SERVICES AND MEDICAL EQUIPMENT. PT WILL ACCEPT HOME HEALTH IF NEEDED; PROVIDED WITH PROVIDER LISTING, PT HAS NO CHOICE OF PROVIDER, CHOICE LETTER COMPLETED. PT REPORTS HIS DAUGHTER WILL PICK HIM UP FOR DISCHARGE HOME. IMPORTANT MESSAGE FROM MEDICARE PROVIDED AND EXPLAINED. PT STATES HIS DAUGHTER WILL STAY WITH HIM TO ASSIST AT HOME AFTER DISCHARGE. PT PLANS TO DISCHARGE HOME WHERE HIS DAUGHTER WILL STAY AND ASSIST IF NEEDED. DAUGHTER TO TRANSPORT HOME AT DISCHARGE. PT WOULD ACCEPT HOME HEALTH IF NEEDED; CM TO ARRANGE HOME HEALTH WITH PHYSICIAN AGREEMENT OF NEED AND ORDERS. Electronic Equipment Trades Worker: Perry Gonzales DCPIA - Discharge Planning Initial Assessment Updated by [id number]: Perry Gonzales on 04/09/19 5:13 pm * Is the patient Alert and Oriented? Yes * How many steps to enter\exit or inside your home? NONE * PCP DR. SORTO IN [place] * Pharmacy [facility] * Preadmission Environment Home Alone * ADLs Independent * Equipment None * Other Equipment NO MEDICAL EQUIPMENT PROVIDER PREFERENCE * List name and contact numbers for known caregivers / representatives who currently or will assist patient after discharge: RITU OCHOA, DTR, BRANDT OCHOA, MOTHER 100 YRS OLD, * Verbal permission to speak to the caregivers and representatives has been obtained from the patient. N/A * Community resources currently utilized None * Please name any agencies selected above. NONE * Additional services required to return to the preadmission environment? Yes * Can the patient safely return to the preadmission environment? Yes * Has this patient been hospitalized within the prior 30 days at any hospital? No Coverage Notice Reviewer: ANTONI Gonzales Notice Issued Date-Time: 04/09/2019 9:20 Notice Type: IM Discharge Notice Notice Delivered To: Patient Relationship to Patient: Patcher Bowling Ball Name: Delivery Method: HAND - Hand Delivered Chantel Days: Prior Verbal Notification: Recipient Understood Notice: Yes Recipient Signature: Yes Med Rec Note Co-signed by Attending: Coverage Notice Comment: Reviewer: ANTONI Gonzales Notice Issued Date-Time: 04/09/2019 9:20 Notice Type: Patient Choice Letter Notice Delivered To: Relationship to Patient: Patcher Bowling Ball Name: Delivery Method: HAND - Hand Delivered Chantel Days: Prior Verbal Notification: Recipient Understood Notice: Yes Recipient Signature: Yes Med Rec Note Co-signed by Attending: Coverage Notice Comment: NO HOME HEALTH PROVIDER PREFERENCE Reviewer: ANTONI Gonzales Notice Issued Date-Time: 04/12/2019 14:45 Notice Type: IM Discharge Notice Notice Delivered To: Patient Relationship to Patient: Patcher Bowling Ball Name: Delivery Method: HAND - Hand Delivered Chantel Days: Prior Verbal Notification: Recipient Understood Notice: Yes Recipient Signature: Yes Med Rec Note Co-signed by Attending: Coverage Notice Comment: Reviewer: ANTONI Gonzales Notice Issued Date-Time: 04/12/2019 14:45 Notice Type: Patient Choice Letter Notice Delivered To: Relationship to Patient: Patcher Bowling Ball Name: Delivery Method: HAND - Hand Delivered Chantel Days: Prior Verbal Notification: Recipient Understood Notice: Yes Recipient Signature: Yes Med Rec Note Co-signed by Attending: Coverage Notice Comment: SNF IN [place] #1 SNF IN [place] #2 Reviewer: ANTONI Gonzales Notice Issued Date-Time: 04/15/2019 7:38 Notice Type: IM Discharge Notice Notice Delivered To: Patient Relationship to Patient: Patcher Bowling Ball Name: Delivery Method: HAND - Hand Delivered Chantel Days: Prior Verbal Notification: Recipient Understood Notice: Yes Recipient Signature: Yes Med Rec Note Co-signed by Attending: Coverage Notice Comment: Last DP export: 04/16/19 4:19 Patient Name: LINDA OCHOA Page [id number] at 1130 All edits/amendments must be made on the electronic document DICTATION DATE: 04/19/191128 RECREATION ACTIVITIES COORDINATOR: CHULA 04/19/191128 RPT#: [id number] DC DATE: STATUS: ADM IN [facility] [address] [place] [address] END OF REPORT
[2019-04-19 12:17] VITALS: BP 124/67
--- NOTE | 2019-04-19 14:54 | NUR ---
OT NOTE: PT DOING BETTER TODAY. LESS SOB WITH EXERTION NOTED TODAY. BED MOB WITH SPV; GROOMING WITH SET UP; LE DRESSING WITH MOD ASSIST; UE AROM EXS WITH MIN REST BREAKS. RECOMMEND IP REHAB PRIOR TO DC HOME FATUMA GARCIA OTR/L
--- NOTE | 2019-04-19 17:02 | NUR ---
OT NOTE: PT COMPLETED BED MOB WITH SBA.PT COMPLETED SIT TO STAND WITH SBA. PT COMPLETED BED TO CHAIR TRANSFER WITH CGA. PT DID VERY WELL AND NO SOB. PT COMPLETED UE AROM AXS. THANK YOU,TAMIA MARMOLEJO
[2019-04-19 17:24] VITALS: BP 168/81
[2019-04-19 20:00] VITALS: BP 136/82; BP 158/88
--- NOTE | 2019-04-19 20:11 | NUR ---
HEPARIN DC'D AT THIS TIME. ASSIST PT UP TO THE BEDSIDE COMODE. PT DENIES ANY FURTHER NEEDS AT THIS TIME. WILL CPOC.
--- NOTE | 2019-04-19 20:27 | NUR ---
PT HAD A BM. BM IS WATERY DIARRHEA. ASSIST PT BACK IN BED. PT VOICED THANKS. WILL CPOC.
[2019-04-20] VITALS: BP 126/74
[2019-04-20 04:00] VITALS: BP 124/78
[2019-04-20 05:46] LABS: BASOPHILS 0.2 % (0-2); EOSINOPHILS 5.3 % (0-7); HEMATOCRIT 28.2 % (42.0-54.0); HEMOGLOBIN 8.7 g/dL (13.5-17.5); IMMATURE GRANULOCYTES 0.5 % (0-5); LYMPHOCYTES 10.7 % (15-50); MCH 28.6 pg (26.0-34.0); MCHC 30.9 g/dL (31.0-37.0); MCV 92.8 fL (80.0-100.0); MEAN PLATELET VOLUME 8.8 fL (7.4-10.4); MONOCYTES 8.6 % (2-11); NEUTROPHILS 74.7 % (40-80); PLATELET COUNT 513 10x3/uL (130-400); RBC 3.04 10x6/uL (4.20-6.10); WBC 6.3 10x3/uL (4.8-10.8)
[2019-04-20 06:10] LABS: ANION GAP 13.2 mmol/L (8-16); CALCIUM 8.7 mg/dL (8.5-10.1); CARBON DIOXIDE 24.6 mmol/L (21.0-32.0); CREATININE - SERUM 1.2 mg/dL (0.6-1.3); POTASSIUM - SERUM 3.8 mmol/L (3.5-5.1)
--- NOTE | 2019-04-20 07:32 | NUR ---
AWAKE AND ALERT. DENIES ANY NEEDS. RIGHT AC SL. RIGHT FA IV OF 1/2NS AT 50. UP WITH ASSIST. USES BEDSIDE COMMODE. O2 AT 4 L/M PER HIGH FLOW. TELEMERTY SH0WS SR 79. SR UP WITH CALL LIGHT IN REACH
[2019-04-20 09:29] VITALS: BP 127/70
[2019-04-20 12:13] VITALS: BP 143/80
--- NOTE | 2019-04-20 13:56 | NUR ---
OT NOTE: PT PERFORMED SO WELL TODAY. BED MOB WITH MIN ASSIST; TRANSFERRED TO TOILET WITH MIN ASSIST. CONT TO REQUIRE ASSIST WITH TOILET HYGIENE. TRANSFERRED BACK TO BED WITH MIN ASSIST AND WALKER. ABLE TO SIT UP ON EOB AND PERFORM BATHING WITH MIN ASSIST. DONNED GOWN WITH MIN ASSIST. MOD ASSIST TO GEM SOCKS. ABLE TO AMB THROUGHOUT HALLWAY WITH OT AND PT X APPROX 200 FT. PT NO LONGER SOB DURING ACT. PT VERY PLEASED WITH PROGRESS TODAY. FATUMA GARCIA, Jo TR/L
--- NOTE | 2019-04-20 13:57 | NUR ---
OT NOTE: PT COMPLETED ADL MOB WITH CGA/MIN A. PT COMPLETED BATHING TASKS WITH CGA/MIN A. PT HAS INCREASED IN I WITH FUNCTIONAL TASKS. THANK YOU, TAMIA MARMOLEJO
--- NOTE | 2019-04-20 14:12 | MORECARE ---
CASE MANAGEMENT DISCHARGE SUMMARY PATIENT: LINDA OCHOA UNIT: [id number] ADM DATE: 04/04/19 AGE: 78 : 42 SEX: M ROOM/BED: D.0387 AUTHOR: JAME SLATER PHYSICIAN: REFERRING PHYSICIAN: DOMINIQUE ODEN MD DATE OF SERVICE: 04/20/19 Discharge Plan Patient Name: LINDA OCHOA Facility: [facility] : 1940 Planned Disposition: [facility] Facility Anticipated Discharge Date: 04/21/19 Discharge Date: Expected LOS: 17 Initial Reviewer: [id number] Initial Review Date: 04/09/2019 Generated: 04/20/19 3:11 pm DCP- Discharge Planning Updated by [id number]: Perry Gonzales on 04/19/19 10:[address] Patient Name: LINDA OCHOA Encounter No: [id number] : 1940 Primary Insurance: [employer] CHOICE PPO MCR ADVANT Anticipated DC Date: 04-16-2019 Planned Disposition: [facility] Facility External Planned Provider: [facility], MEDICARE REHAB BED DCP follow-up note: CM WAS ADVISED DURING MULTIDISCIPLINARY CARE TEAM MEETING THAT PT IS NOT READY TO DISCHARGE TODAY. MARLENE RESULT RECEIVED, PT IS NON PASRR AND MAY ENTER RETIREMENT FACILITY. CM CALLED MALGORZATA OF [facility], , NOTIFIED THAT PT WILL NOT DISCHARGE TODAY. PT WILL REQUIRE NEW AUTHORIZATION FROM INSURANCE. PT NOTIFIED AND IN AGREEEMENT WITH DISCHARGE PLAN. PT WILL REQUIRE NEW AUTHORIZATION FROM INSURANCE, CM TO FAX UPDATE AND MARLENE ASSESSMENT / DETERMINATION TO [facility] THE DAY PRIOR TO DISCHARGE AT [phone]. Perry Gonzales, CASE SOPHIA DCP- Discharge Planning Updated by [id number]: Perry Gonzales on 04/16/19 11:[address] Patient Name: LINDA OCHOA Encounter No: [id number] : 1940 Primary Insurance: HUMANA CHOICE PPO MCR ADVANT Anticipated DC Date: 04-16-2019 Planned Disposition: [facility] Facility External Planned Provider: [facility], MEDICARE REHAB BED DCP follow-up note: CM CALLED MALGORZATA OF [facility], NOTIFIED THAT PT WILL NOT DISCHARGE TODAY. PT WILL REQUIRE NEW AUTHORIZATION FROM INSURANCE AND INSURANCE IS NOT OPEN OVER WEEKEND TO REVIEW. MALGORZATA NOTIFIED CM THAT PT WILL NOW NEED MARLENE ASSESSMENT DUE TO ADMINISTRATION OF [place] MEDICATION. PT NOTIFIED AND IN AGREEEMENT WITH DISCHARGE PLAN. PT WILL REQUIRE NEW AUTHORIZATION FROM INSURANCE NEXT WEEK. PT WILL REQUIRE MARLENE ASSESSMENT. CM TO COMPLETE MARLENE ASSESSMENT SOON POSSIBLE. GARTH Sharp DCP- Discharge Planning Updated by [id number]: Perry Gonzales on 04/15/19 4:[address] Patient Name: LINDA OCHOA Encounter No: [id number] : 1940 Primary Insurance: HUMANA CHOICE PPO MCR ADVANT Anticipated DC Date: 04-16-2019 Planned Disposition: [facility] Facility External Planned Provider: [facility] MEDICARE RE[facility]AB BED DCP follow-up note: CM RECEIVED CALL FROM MALGORZATA OF [facility], THEY WILL ACCEPT PT AND HAVE AUTHORIZATION FROM INSURANCE FOR TODAY AND TOMORROW. CM NOTIFIED NERY GUZMÁN WHO ADVISED THAT THE DOCTOR SAID NOT TODAY, MAYBE TOMORROW. CM NOTIFIED MALGORZATA AT [facility]. PT NOTIFIED AND IN AGREEEMENT WITH DISCHARGE PLAN. FOR DISCHARGE, FAX DISCHARGE INFORMATION TO [facility] AT [phone]. NURSE REPORT TO BE CALLED TO [facility] AT [phone]. [facility] TO ARRANGE TRANSPORATION. INSURANCE AUTHORIZATION EXPIRES 04-16-19 AND PT WILL REQUIRE ANOTHER AUTHORIZATION FROM INSURANCE IF NOT IN REHAB TOMORROW. GARTH Sharp DCP- Discharge Planning Updated by [id number]: Perry Gonzales on 04/15/19 7:[address] Patient Name: LINDA OCHOA Encounter No: [id number] : 1940 Primary Insurance: HUMANA CHOICE PPO MCR ADVANT Anticipated DC Date: 04-14-2019 Planned Disposition: [facility] Facility External Planned Provider: [facility] MEDICARE RE[facility] BED DCP follow-up note: CM FAXED UPDATE TO [facility], . CM SPOKE TO PT IN ROOM, PT IS IN AGREEMENT WITH DISCHARGE PLAN TO [facility]. IMPORTANT MESSAGE FROM MEDICARE PROVIDED AND EXPLAINED. CM WAITING INSURANCE DETERMINATION FOR [facility] FOR RETIREMENT REHAB. Perry Gonzales CASE MANAGEMENT DCP- Discharge Planning Updated by [id number]: Perry Gonzales on 04/14/19 1:[address] Patient Name: LINDA OCHOA Encounter No: [id number] : 1940 Primary Insurance: HUMANA CHOICE PPO MCR ADVANT Anticipated DC Date: 04-14-2019 Planned Disposition: [facility] Facility External Planned Provider: [facility] MEDICARE RE[facility] B[facility] DCP follow-up note: CM RECEIVED CALL FROM [facility], , SPOKE TO MALGORZATA WHO INFORMED CM THAT THEY HAVE SUBMITTED TO PT'S INSURANCE FOR AUTHORIZATION. MALGORZATA ASKED FOR UPDATE TO BE FAXED IN THE MORNING. CM RECEIVED CALL FROM PT'S NIECE, CHARITY DEBRA, , CALLED AND ASKED FOR UPDATE. CM MET WITH PT IN ROOM WHO PROVIDED PERMISSION TO PROVIDE TREATMENT AND DISCHARGE PLANNING INFORMATION TO CHARITY, UPDATE GIVEN. CM CALLED PT'S DAUGHTER, JARED OCHOA, , AND PROVIDED UPDATE. JARED IS IN AGREEMENT WITH DISCHARGE PLAN TO [facility]. PT IS IN AGREEMENT WITH DISCHARGE PLAN TO [facility]. CM WAITING INSURANCE DETERMINATION FOR [facility] FOR RETIREMENT REHAB. Perry Gonzales CASE SOPHIA DCP- Discharge Planning Updated by [id number]: Perry Gonzales on 04/13/19 3:[address] Patient Name: LINDA OCHOA Encounter No: [id number] : 1940 Primary Insurance: HUMANA CHOICE PPO MCR ADVANT Anticipated DC Date: 04-14-2019 Planned Disposition: [facility] Facility External Planned Provider: [facility] MED[facility] DCP follow-up note: CM RECEIVED MESSAGE FROM [facility], THEY ARE OUT OF PT'S INSURANCE NETWORK AND REFERRED CM TO [facility] THAT IS IN NETWORK WITH PT'S INSURANCE. CM REVIEWED CONSENTS FOR PROVIDERS THAT INCLUDED SNF IN [place], [place]. CM CALLED [facility], , SPOKE TO ANNA WHO TOOK REFERRAL INFORMATION. CM INFORMED ANNA THAT PT HAS BEEN DISCHARGED AND NEEDS REHAB ONLY. CM FAXED REFERRAL TO [facility] AT [phone]. CM RECEIVED ORDERS FOR NEBULIZER AND WALK TEST RESULTS WERE 95% ON ROOM AIR, 88% ON ROOM AIR DURING EXERTION, 94% RECOVERY ON 2 LITERS OXYGEN DURING RECOVERY. ALL MEDICAL EQUIPMENT WILL BE PROVIDED BY RETIREMENT FACILITY IF ACCEPTED. SONY WAITING ADMISSION DETERMINATION FROM [facility] FOR RETIREMENT REHAB. GARTH Sharp MANAGEMENT DCP- Discharge Planning Updated by [id number]: Perry Gonzales on 04/12/19 3:[address] Patient Name: LINDA OCHOA Encounter No: [id number] : 1940 Primary Insurance: HUMANA CHOICE PPO MCR ADVANT Anticipated DC Date: 04-13-2019 Planned Disposition: [facility] Facility External Planned Provider: [facility], MEDICARE REHAB BED DCP follow-up note: CM SPOKE TO BEDSIDE NURSE WHO INFORMED CM THAT PT IS TOO WEAK TO DISCHARGE HOME PLANNED. CM MET WITH PT IN ROOM AND DISCUSSED THERAPY RESULTS, PT'S PLAN TO RETURN HOME AND AVAILABILITY OF REHAB SERVICES. PT INITIALLY STATED THAT HE WANTS TO GO HOME WITH HOME HEALTH. PT STATES IT IS OK TO DISCUSS HIS DISCHARGE PLAN WITH HIS DAUGHTER, RITU, SHE IS GOING TO BE TAKING CARE OF HIM AFTER HE GETS HOME, HE WILL DO WHAT SHE SAYS. CM CALLED RITU OCHOA AT [phone]; RITU STATES THAT PT NEEDS REHAB AND SHE WILL DISCUSS THIS WITH PT. SHE WOULD LIKE RETIREMENT REHAB IN [place] AND IF NONE THERE, THEN TO TRY HOPE. CHOICE COMPLETED. CM SPOKE TO PT WHO IS IN AGREEMENT WITH PLAN. IMPORTANT MESSAGE FROM MEDICARE PROVIDED AND EXPLAINED. CM FAXED REFERRAL TO [facility]IA [facility] AT [phone]. CM CALLED ZOILA AND NOTIFIED HER OF REFERRAL FOR [facility] AT [phone], CM WAITING ADMISSION DETERMINATION AND INSURANCE AUTHORIZATION FOR REHAB SERVICES AT [facility]. Perry Gonzales, GARTH CORTES DCP- Discharge Planning Updated by [id number]: Divya Arauz on 04/11/19 4:[address] PHYSICAL THERAPY EVAL COMPLETED TODAY. PATIENT IS IN VERY WEAKEN STATE. HE COULD NOT TOLERATE SITTING ON THE SIDE OF THE BED SECONDARY TO PAIN AND STIFFNESS. REQUIRED 2 PERSON DRAW SHEET PULL TO GET TO THE HEAD OF THE BED. PLS REVIEW PHYSICAL THERAPY NOTES. PATIENT REPORTEDLY LIVED ALONE AND WAS INDEPENDENT IN CARE PRIOR TO ADMISSION. LIKELY WILL NEED TO CONSIDER ACUTE OR SKILLED REHAB. OT CONSULT ORDER OBTAINED. 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 CM TO FOLLOW TO ASSIST. . 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 PT REPORTS LIVING AT HOME INDEPENDENTLY AND ALONE. PT HAS NO MEDICAL EQUIPMENT AND NO OUTSIDE SERVICES ASSISTING IN THE HOME. CM DISCUSSED AVAILABILITY OF HOME HEALTH, REHAB SERVICES AND MEDICAL EQUIPMENT. PT WILL ACCEPT HOME HEALTH IF NEEDED; PROVIDED WITH PROVIDER LISTING, PT HAS NO CHOICE OF PROVIDER, CHOICE LETTER COMPLETED. PT REPORTS HIS DAUGHTER WILL PICK HIM UP FOR DISCHARGE HOME. IMPORTANT MESSAGE FROM MEDICARE PROVIDED AND EXPLAINED. PT STATES HIS DAUGHTER WILL STAY WITH HIM TO ASSIST AT HOME AFTER DISCHARGE. PT PLANS TO DISCHARGE HOME WHERE HIS DAUGHTER WILL STAY AND ASSIST IF NEEDED. DAUGHTER TO TRANSPORT HOME AT DISCHARGE. PT WOULD ACCEPT HOME HEALTH IF NEEDED; CM TO ARRANGE HOME HEALTH WITH PHYSICIAN AGREEMENT OF NEED AND ORDERS. Election Watcher: Perry Gonzales DCPIA - Discharge Planning Initial Assessment Updated by [id number]: Perry Gonzales on 04/09/19 5:13 pm * Is the patient Alert and Oriented? Yes * How many steps to enter\exit or inside your home? NONE * PCP DR. SORTO IN [place] * Pharmacy [facility] * Preadmission Environment Home Alone * ADLs Independent * Equipment None * Other Equipment NO MEDICAL EQUIPMENT PROVIDER PREFERENCE * List name and contact numbers for known caregivers / representatives who currently or will assist patient after discharge: RITU OCHOA, DTR, BRANDT OCHOA, MOTHER 100 YRS OLD, * Verbal permission to speak to the caregivers and representatives has been obtained from the patient. N/A * Community resources currently utilized None * Please name any agencies selected above. NONE * Additional services required to return to the preadmission environment? Yes * Can the patient safely return to the preadmission environment? Yes * Has this patient been hospitalized within the prior 30 days at any hospital? 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 Name: Delivery Method: HAND - Hand Delivered Chantel Days: Prior Verbal Notification: Recipient Understood Notice: Yes Recipient Signature: Yes Med Rec Note Co-signed by Attending: Coverage Notice Comment: Reviewer: ANTONI Gonzales Notice Issued Date-Time: 04/09/2019 9:20 Notice Type: Patient Choice Letter Notice Delivered To: Relationship to Patient: 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 Supervisor Name: Delivery Method: HAND - Hand Delivered Chantel Days: Prior Verbal Notification: Recipient Understood Notice: Yes Recipient Signature: Yes Med Rec Note Co-signed by Attending: Coverage Notice Comment: NO HOME HEALTH PROVIDER PREFERENCE Reviewer: ANTONI Gonzales Notice Issued Date-Time: 04/12/2019 14:45 Notice Type: IM Discharge Notice Notice Delivered To: Patient Relationship to 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: 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 Supervisor Name: Delivery Method: HAND - Hand Delivered Chatnel Days: Prior Verbal Notification: Recipient Understood Notice: Yes Recipient Signature: Yes Med Rec Note Co-signed by Attending: Coverage Notice Comment: Reviewer: ANTONI Gonzales Notice Issued Date-Time: 04/12/2019 14:45 Notice Type: Patient Choice Letter Notice Delivered To: Relationship to Patient: 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 Supervisor Name: Delivery Method: HAND - Hand Delivered Chantel Days: Prior Verbal Notification: Recipient Understood Notice: Yes Recipient Signature: Yes Med Rec Note Co-signed by Attending: Coverage Notice Comment: SNF IN [place] #1 SNF IN [place]2 Reviewer: ANTONI Gonzales Notice Issued Date-Time: 04/15/2019 7:38 Notice Type: IM Discharge Notice Notice Delivered To: Patient Relationship to Patient: 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 Supervisor Name: Delivery Method: HAND - Hand Delivered Chantel Days: Prior Verbal Notification: Recipient Understood Notice: Yes Recipient Signature: Yes Med Rec Note Co-signed by Attending: Coverage Notice Comment: Last DP export: 04/19/19 10:30 Patient Name: GABRIELALINDA Page 14900 at 1412 All edits/amendments must be made on the electronic document DICTATION DATE: 04/20/191410 INSOLVENCY CONSULTANT: CHULA 04/20/191410 RPT#: [id number] DC DATE: STATUS: ADM IN [facility] [address] [place] [address] END OF REPORT
--- NOTE | 2019-04-20 14:17 | NUR ---
Nutrition Follow-up: Pt sleeping with lunch tray untouched. Chart reviewed. Noted pt with watery diarrhea yesterday. Diet: Cardiac PO intake: 10-50% Labs reviewed Meds reviewed Rec appetite stimulant. RD following.
--- NOTE | 2019-04-20 14:29 | MORECARE ---
CASE MANAGEMENT DISCHARGE SUMMARY PATIENT: LINDA OCHOA UNIT: [id number] ADM DATE: 04/04/19 AGE: 78 : 42 SEX: M ROOM/BED: D.2766 AUTHOR: BRYONDOC PHYSICIAN: REFERRING PHYSICIAN: DOMINIQUE ODEN MD DATE OF SERVICE: 04/20/19 Discharge Plan Patient Name: LINDA OCHOA Facility: [facility] : 1940 Planned Disposition: Halfway Facility Anticipated Discharge Date: 04/21/19 Discharge Date: Expected LOS: 17 Initial Reviewer: [id number] Initial Review Date: 04/09/2019 Generated: 04/20/19 3:28 pm Comments DCP- Discharge Planning Updated by [id number]: Perry Gonzales on 04/20/19 1:[address] Patient Name: LINDA OCHOA Encounter No: [id number] : 1940 Primary Insurance: HU[employer]NA CHOICE PPO MCR ADVANT Anticipated DC Date: 04-21-2019 Planned Disposition: Halfway Facility External Planned Provider:[facility] DCP follow-up note: CM SPOKE TO NERY GAYTAN WHO ADVISED PT MAY BE READY TO GO TO REHAB IN THE NEXT DAY. CM CALLED MALGORZATA OF [facility], THEY WILL ACCEPT PT AND WILL SUBMIT FOR NEW AUTHORIZATION FROM INSURANCE. CM FAXED [facility] UPDATE AT [facility] [phone] . PT NOTIFIED AND IN AGREEEMENT WITH DISCHARGE PLAN. FOR DISCHARGE, FAX DISCHARGE INFORMATION TO [facility] AT [phone]. NURSE REPORT TO BE CALLED TO [facility] AT [phone]. [facility] TO ARRANGE TRANSPORATION. Perry Gonzales CASE SOPHIA DCP- Discharge Planning Updated by [id number]: Perry Gonzales on 04/19/19 10:[address] Patient Name: LINDA OCHOA Encounter No: [id number] : 1940 Primary Insurance: HUMANA CHOICE PPO MCR ADVANT Anticipated DC Date: 04-16-2019 Planned Disposition: Halfway Facility External Planned Provider: [facility] DCP follow-up note: CM WAS ADVISED DURING MULTIDISCIPLINARY CARE TEAM MEETING THAT PT IS NOT READY TO DISCHARGE TODAY. MARLENE RESULT RECEIVED, PT IS NON [facility] AND MAY ENTER [facility]. CM CALLED MALGORZATA OF [facility], , NOTIFIED THAT PT WILL NOT DISCHARGE TODAY. PT WILL REQUIRE NEW AUTHORIZATION FROM INSURANCE. PT NOTIFIED AND IN AGREEEMENT WITH DISCHARGE PLAN. PT WILL REQUIRE NEW AUTHORIZATION FROM INSURANCE, CM TO FAX UPDATE AND MARLENE ASSESSMENT / DETERMINATION TO [facility] THE DAY PRIOR TO DISCHARGE AT [phone]. Perry Gonzales, CASE MANAGEMENT DCP- Discharge Planning Updated by [id number]: Perry Gonzales on 04/16/19 11:[address] Patient Name: LINDA OCHOA Encounter No: [id number] : 1940 Primary Insurance: HUMANA CHOICE PPO MCR ADVANT Anticipated DC Date: 04-16-2019 Planned Disposition: Halfway Facility External Planned Provider: [facility], [facility]ARE REH[facility] B[facility] DCP follow-up note: CM CALLED MALG[facility]ZATA OF [facility], NOTIFIED THAT PT WILL NOT DISCHARGE TODAY. PT WILL REQUIRE NEW AUTHORIZATION FROM INSURANCE AND INSURANCE IS NOT OPEN OVER WEEKEND TO REVIEW. MALGORZATA NOTIFIED CM THAT PT WILL NOW NEED MARLENE ASSESSMENT DUE TO ADMINISTRATION OF [place] MEDICATION. PT NOTIFIED AND IN AGREEEMENT WITH DISCHARGE PLAN. PT WILL REQUIRE NEW AUTHORIZATION FROM INSURANCE NEXT WEEK. PT WILL REQUIRE MARLENE ASSESSMENT. CM TO COMPLETE MARLENE ASSESSMENT SOON POSSIBLE. Perry Gonzales CASE MANAGEMENT DCP- Discharge Planning Updated by [id number]: Perry Gonzales on 04/15/19 4:[address] Patient Name: LINDA OCHOA Encounter No: [id number] : 1940 Primary Insurance: HUMANA CHOICE PPO MCR ADVANT Anticipated DC Date: 04-16-2019 Planned Disposition: Halfway Facility External Planned Provider: [facility], MEDICARE REHAB BED DCP follow-up note: CM RECEIVED CALL FROM MALGORZATA OF [facility], THEY WILL ACCEPT PT AND HAVE AUTHORIZATION FROM INSURANCE FOR TODAY AND TOMORROW. CM NOTIFIED NERY GUZMÁN WHO ADVISED THAT THE DOCTOR SAID NOT TODAY, MAYBE TOMORROW. CM NOTIFIED MALGORZATA AT [facility]. PT NOTIFIED AND IN AGREEEMENT WITH DISCHARGE PLAN. FOR DISCHARGE, FAX DISCHARGE INFORMATION TO [facility] AT [phone]. NURSE REPORT TO BE CALLED TO [facility] AT [phone]. [facility] TO ARRANGE TRANSPORATION. INSURANCE AUTHORIZATION EXPIRES 04-16-19 AND PT WILL REQUIRE ANOTHER AUTHORIZATION FROM INSURANCE IF NOT IN REHAB TOMORROW. Perry Gonzales CASE MANAGEMENT DCP- Discharge Planning Updated by [id number]: Perry Gonzales on 04/15/19 7:[address] Patient Name: LINDA OCHOA Encounter No: [id number] : 1940 Primary Insurance: HUMANA CHOICE PPO MCR ADVANT Anticipated DC Date: 04-14-2019 Planned Disposition: Halfway Facility External Planned Provider: [facility], [facility]IC[facility] DCP follow-up note: CM FAXED UPDATE TO [facility], . CM SPOKE TO PT IN ROOM, PT IS IN AGREEMENT WITH DISCHARGE PLAN TO [facility]. IMPORTANT MESSAGE FROM MEDICARE PROVIDED AND EXPLAINED. CM WAITING INSURANCE DETERMINATION FOR [facility]. Perry Gonzales CASE MANAGEMENT DCP- Discharge Planning Updated by [id number]: Perry Gonzales on 04/14/19 1:[address] Patient Name: LINDA OCHOA Encounter No: [id number] : 1940 Primary Insurance: HUMANA CHOICE PPO MCR ADVANT Anticipated DC Date: 04-14-2019 Planned Disposition: Halfway Facility External Planned Provider: [facility] DCP follow-up note: CM RECEIVED CALL FROM [facility], , SPOKE TO MALGORZATA WHO INFORMED CM THAT THEY HAVE SUBMITTED TO PT'S INSURANCE FOR AUTHORIZATION. [facility] ASKED FOR UPDATE TO BE FAXED IN THE MORNING. CM RECEIVED CALL FROM PT'S NIECE, CHARITY RICHARDSON, , CALLED AND ASKED FOR UPDATE. CM MET WITH PT IN ROOM WHO PROVIDED PERMISSION TO PROVIDE TREATMENT AND DISCHARGE PLANNING INFORMATION TO CHARITY, DANIELE GIVEN. CM CALLED PT'S DAUGHTER, JARED OCHOA, , AND PROVIDED UPDATE. JARED IS IN AGREEMENT WITH DISCHARGE PLAN TO [facility]. PT IS IN AGREEMENT WITH DISCHARGE PLAN TO [facility]. CM WAITING INSURANCE DETERMINATION FOR [facility]. G[facility] [employer] MANAGEMENT DCP- Discharge Planning Updated by [id number]: Perry Gonzales on 04/13/19 3:[address] Patient Name: LINDA OCHOA Encounter No: [id number] : 1940 Primary Insurance: HUMANA CHOICE PPO MCR ADVANT Anticipated DC Date: 04-14-2019 Planned Disposition: Halfway Facility External Planned Provider: [facility], [facility]IC[facility] RE[facility] B[facility] DCP follow-up note: CM RECEIVED MESSAGE FROM [facility], THEY ARE OUT OF PT'S INSURANCE NETWORK AND REFERRED CM TO [facility] THAT IS IN NETWORK WITH PT'S INSURANCE. CM REVIEWED CONSENTS FOR PROVIDERS THAT INCLUDED SNF IN [place], [place]. CM CALLED [facility], , SPOKE TO ANNA WHO TOOK REFERRAL INFORMATION. CM INFORMED ANNA THAT PT HAS BEEN DISCHARGED AND NEEDS REHAB ONLY. CM FAXED REFERRAL TO [facility] AT [phone]. CM RECEIVED ORDERS FOR NEBULIZER AND WALK TEST RESULTS WERE 95% ON ROOM AIR, 88% ON ROOM AIR DURING EXERTION, 94% RECOVERY ON 2 LITERS OXYGEN DURING RECOVERY. ALL MEDICAL EQUIPMENT WILL BE PROVIDED BY [facility] IF ACCEPTED. CM WAITING ADMISSION DETERMINATION FROM [facility] FOR [facility]. G[facility] [employer] DCP- Discharge Planning Updated by [id number]: Perry Gonzales on 04/12/19 3:[address] Patient Name: LINDA OCHOA Encounter No: [id number] : 1940 Primary Insurance: HUMANA CHOICE PPO MCR ADVANT Anticipated DC Date: 04-13-2019 Planned Disposition: Halfway Facility External Planned Provider: [facility] [place], MEDICARE REHAB BED DCP follow-up note: CM SPOKE TO BEDSIDE NURSE WHO INFORMED CM THAT PT IS TOO WEAK TO DISCHARGE HOME PLANNED. CM MET WITH PT IN ROOM AND DISCUSSED THERAPY RESULTS, PT'S PLAN TO RETURN HOME AND AVAILABILITY OF REHAB SERVICES. PT INITIALLY STATED THAT HE WANTS TO GO HOME WITH HOME HEALTH. PT STATES IT IS OK TO DISCUSS HIS DISCHARGE PLAN WITH HIS DAUGHTER, RITU, SHE IS GOING TO BE TAKING CARE OF HIM AFTER HE GETS HOME, HE WILL DO WHAT SHE SAYS. CM CALLED RITU OCHOA AT [phone]; RITU STATES THAT PT NEEDS REHAB AND SHE WILL DISCUSS THIS WITH PT. SHE WOULD LIKE [facility] IN [place] AND IF NONE THERE, THEN TO [facility]. CHOICE COMPLETED. CM SPOKE TO PT WHO IS IN AGREEMENT WITH PLAN. IMPORTANT MESSAGE FROM MEDICARE PROVIDED AND EXPLAINED. CM FAXED REFERRAL TO [facility] [place] [facility]IA [facility] AT [phone]. CM CALLED ZOILA AND NOTIFIED HER OF REFERRAL FOR [facility] AT [phone], CM WAITING ADMISSION DETERMINATION AND INSURANCE AUTHORIZATION FOR REHAB SERVICES AT [facility] IN [place]. Perry Gonzales, CASE MANAGEMENT DCP- Discharge Planning Updated by [id number]: Divyastone Arauz on 04/11/19 4:[address] PHYSICAL THERAPY EVAL COMPLETED TODAY. PATIENT IS IN VERY WEAKEN STATE. HE COULD NOT TOLERATE SITTING ON THE SIDE OF THE BED SECONDARY TO PAIN AND STIFFNESS. REQUIRED 2 PERSON DRAW SHEET PULL TO GET TO THE HEAD OF THE BED. PLS REVIEW PHYSICAL THERAPY NOTES. PATIENT REPORTEDLY LIVED ALONE AND WAS INDEPENDENT IN CARE PRIOR TO ADMISSION. LIKELY WILL NEED TO CONSIDER ACUTE OR SKILLED REHAB. OT CONSULT ORDER OBTAINED. 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 CM TO FOLLOW TO ASSIST. . 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 PT REPORTS LIVING AT HOME INDEPENDENTLY AND ALONE. PT HAS NO MEDICAL EQUIPMENT AND NO OUTSIDE SERVICES ASSISTING IN THE HOME. CM DISCUSSED AVAILABILITY OF HOME HEALTH, REHAB SERVICES AND MEDICAL EQUIPMENT. PT WILL ACCEPT HOME HEALTH IF NEEDED; PROVIDED WITH PROVIDER LISTING, PT HAS NO CHOICE OF PROVIDER, CHOICE LETTER COMPLETED. PT REPORTS HIS DAUGHTER WILL PICK HIM UP FOR DISCHARGE HOME. IMPORTANT MESSAGE FROM MEDICARE PROVIDED AND EXPLAINED. PT STATES HIS DAUGHTER WILL STAY WITH HIM TO ASSIST AT HOME AFTER DISCHARGE. PT PLANS TO DISCHARGE HOME WHERE HIS DAUGHTER WILL STAY AND ASSIST IF NEEDED. DAUGHTER TO TRANSPORT HOME AT DISCHARGE. PT WOULD ACCEPT HOME HEALTH IF NEEDED; CM TO ARRANGE HOME HEALTH WITH PHYSICIAN AGREEMENT OF NEED AND ORDERS. Supervisor Waterproofing: Perry Gonzales VAPIA - Discharge Planning Initial Assessment Updated by ANTONI: Perry Gonzales on 04/09/19 5:13 pm * Is the patient Alert and Oriented? Yes * How many steps to enter\exit or inside your home? NONE * PCP DR[facility] SORTO IN [place] * Pharmacy [facility] IN [place] * Preadmission Environment Home Alone * ADLs Independent * Equipment None * Other Equipment NO MEDICAL EQUIPMENT PROVIDER PREFERENCE * List name and contact numbers for known caregivers / representatives who currently or will assist patient after discharge: RITU GABRIELA, DTR, BRANDT OCHOA, MOTHER 100 YRS OLD, * Verbal permission to speak to the caregivers and representatives has been obtained from the patient. N/A * Community resources currently utilized None * Please name any agencies selected above. NONE * Additional services required to return to the preadmission environment? Yes * Can the patient safely return to the preadmission environment? Yes * Has this patient been hospitalized within the prior 30 days at any hospital? No Coverage Notice Reviewer: [id number] Gonzales Notice Issued Date-Time: 04/09/2019 9:20 Notice Type: IM Discharge Notice Notice Delivered To: Patient Relationship to Patient: Wet Crown Blocking Operator Name: Delivery Method: HAND - Hand Delivered Chantel Days: Prior Verbal Notification: Recipient Understood Notice: Yes Recipient Signature: Yes Med Rec Note Co-signed by Attending: Coverage Notice Comment: Reviewer: ANTONI Gonzales Notice Issued Date-Time: 04/09/2019 9:20 Notice Type: Patient Choice Letter Notice Delivered To: Relationship to Patient: Wet Crown Blocking Operator Name: Delivery Method: HAND - Hand Delivered Chantel Days: Prior Verbal Notification: Recipient Understood Notice: Yes Recipient Signature: Yes Med Rec Note Co-signed by Attending: Coverage Notice Comment: NO HOME HEALTH PROVIDER PREFERENCE Reviewer: ANTONI Gonzales Notice Issued Date-Time: 04/12/2019 14:45 Notice Type: IM Discharge Notice Notice Delivered To: Patient Relationship to Patient: Wet Crown Blocking Operator Name: Delivery Method: HAND - Hand Delivered Chantel Days: Prior Verbal Notification: Recipient Understood Notice: Yes Recipient Signature: Yes Med Rec Note Co-signed by Attending: Coverage Notice Comment: Reviewer: [id number] Gonzales Notice Issued Date-Time: 04/12/2019 14:45 Notice Type: Patient Choice Letter Notice Delivered To: Relationship to Patient: Wet Crown Blocking Operator Name: Delivery Method: HAND - Hand Delivered Chantel Days: Prior Verbal Notification: Recipient Understood Notice: Yes Recipient Signature: Yes Med Rec Note Co-signed by Attending: Coverage Notice Comment: SNF IN [place] [facility]1 SN[facility] [place] [facility] Reviewer: [id number] Gnozales Notice Issued Date-Time: 04/15/2019 7:38 Notice Type: IM Discharge Notice Notice Delivered To: Patient Relationship to Patient: Wet Crown Blocking Operator Name: Delivery Method: HAND - Hand Delivered Chantel Days: Prior Verbal Notification: Recipient Understood Notice: Yes Recipient Signature: Yes Med Rec Note Co-signed by Attending: Coverage Notice Comment: Last DP export: 04/20/19 1:12 Patient Name: LINDA OCHOA Page [id number] at 1429 All edits/amendments must be made on the electronic document DICTATION DATE: 04/20/191427 ELECTRONICS TECHNICIAN APPRENTICE: CHULA 04/20/191427 RPT#: [id number] DC DATE: STATUS: ADM IN [facility] [address] [place] [address] END OF REPORT
--- NOTE | 2019-04-20 15:50 | NUR ---
I have reviewed this patient and I concur with the Shift Assessment completed by the Licensed Practical Nurse today this shift.
[2019-04-20 16:46] VITALS: BP 125/70
--- NOTE | 2019-04-20 17:58 | NUR ---
LAYING QUIETLY. DENIES ANY NEEDS. TELEMERTY SHOWS SR 82. SR UP WITH CALL LIGHT IN REACH. WILL MONITOR
--- NOTE | 2019-04-20 19:26 | NUR ---
BEDSIDE REPORT RECEIVED FROM DAY SHIFT, PT CARE ASSUMED. PT LYING IN BED WITH EYES CLOSED, RR EVEN AND NONLABORED, NO S/S OF DISTRESS, AROUSES EASILY TO VOICE, DENIES PAIN OR ANY NEEDS AT THIS TIME. BED IN LOWEST POSITION, SR X2, CALL LIGHT AND URINAL WITHIN REACH. WILL CONTINUE TO MONITOR.
[2019-04-20 20:35] VITALS: BP 146/79
--- NOTE | 2019-04-20 21:20 | NUR ---
PT LYING IN BED WITH EYES CLOSED, RR EVEN AND NONLABORED, NO S/S OF DISTRESS, AROUSES EASILY TO VOICE. NIGHT TIME MEDS ADMINISTERED, PER ORDER. PT DENIES ANY OTHER NEEDS AT THIS TIME. BED IN LOWEST POSITION, SR X2, CALL LIGHT AND URINAL WITHIN REACH. WILL CONTINUE TO MONITOR.
[2019-04-21] VITALS: BP 168/78
[2019-04-21 04:30] VITALS: BP 126/76
[2019-04-21 06:07] LABS: BASOPHILS 0.2 % (0-2); EOSINOPHILS 5.7 % (0-7); HEMATOCRIT 30.6 % (42.0-54.0); HEMOGLOBIN 9.5 g/dL (13.5-17.5); IMMATURE GRANULOCYTES 0.4 % (0-5); LYMPHOCYTES 11.6 % (15-50); MCV 93.3 fL (80.0-100.0); MEAN PLATELET VOLUME 8.6 fL (7.4-10.4); MONOCYTES 9.6 % (2-11); NEUTROPHILS 72.5 % (40-80); PLATELET COUNT 519 10x3/uL (130-400); RBC 3.28 10x6/uL (4.20-6.10); RDW 16.8 % (11.5-14.5); WBC 5.1 10x3/uL (4.8-10.8)
[2019-04-21 06:31] LABS: ANION GAP 13.5 mmol/L (8-16); CALCIUM 9.1 mg/dL (8.5-10.1); CARBON DIOXIDE 25.1 mmol/L (21.0-32.0); CREATININE - SERUM 1.1 mg/dL (0.6-1.3); POTASSIUM - SERUM 3.6 mmol/L (3.5-5.1)
--- NOTE | 2019-04-21 06:52 | MORECARE ---
CASE MANAGEMENT DISCHARGE SUMMARY PATIENT: LINDA OCHOA UNIT: [id number] ADM DATE: 04/04/19 AGE: 78 : 41 SEX: M ROOM/BED: D.4630 AUTHOR: BRYONDOC PHYSICIAN: REFERRING PHYSICIAN: DOMINIQUE ODEN MD DATE OF SERVICE: 04/21/19 Discharge Plan Patient Name: LINAD OCHOA Facility: [facility] : 1940 Planned Disposition: Correction Facility Anticipated Discharge Date: 04/21/19 Discharge Date: Expected LOS: 17 Initial Reviewer: [id number] Initial Review Date: 04/09/2019 Generated: 04/21/19 7:52 am Comments DCP- Discharge Planning Updated by [id number]: Perry Gonzales on 04/20/19 1:[address] Patient Name: LINDA OCHOA Encounter No: [id number] : 1940 Primary Insurance: HU[employer]NA CHOICE PPO MCR ADVANT Anticipated DC Date: 04-21-2019 Planned Disposition: Correction Facility External Planned Provider:[facility] DCP follow-up note: CM SPOKE TO NERY GAYTAN WHO ADVISED PT MAY BE READY TO GO TO REHAB IN THE NEXT DAY. CM CALLED MALGORZATA OF [facility], THEY WILL ACCEPT PT AND WILL SUBMIT FOR NEW AUTHORIZATION FROM INSURANCE. CM FAXED [facility] UPDATE AT [facility] [phone] . PT NOTIFIED AND IN AGREEEMENT WITH DISCHARGE PLAN. FOR DISCHARGE, FAX DISCHARGE INFORMATION TO [facility] AT [phone]. NURSE REPORT TO BE CALLED TO [facility] AT [phone]. [facility] TO ARRANGE TRANSPORATION. Perry Gonzales CASE SOPHIA DCP- Discharge Planning Updated by [id number]: Perry Gonzales on 04/19/19 10:[address] Patient Name: LINDA OCHOA Encounter No: [id number] : 1940 Primary Insurance: HUMANA CHOICE PPO MCR ADVANT Anticipated DC Date: 04-16-2019 Planned Disposition: Correction Facility External Planned Provider: [facility] DCP follow-up note: CM WAS ADVISED DURING MULTIDISCIPLINARY CARE TEAM MEETING THAT PT IS NOT READY TO DISCHARGE TODAY. MARLENE RESULT RECEIVED, PT IS NON [facility] AND MAY ENTER [facility]. CM CALLED MALGOZRATA OF [facility], , NOTIFIED THAT PT WILL NOT DISCHARGE TODAY. PT WILL REQUIRE NEW AUTHORIZATION FROM INSURANCE. PT NOTIFIED AND IN AGREEEMENT WITH DISCHARGE PLAN. PT WILL REQUIRE NEW AUTHORIZATION FROM INSURANCE, CM TO FAX UPDATE AND MARLENE ASSESSMENT / DETERMINATION TO [facility] THE DAY PRIOR TO DISCHARGE AT [phone]. Perry Gonzales, CASE MANAGEMENT DCP- Discharge Planning Updated by [id number]: Perry Gonzales on 04/16/19 11:[address] Patient Name: LINDA OCHOA Encounter No: [id number] : 1940 Primary Insurance: HUMANA CHOICE PPO MCR ADVANT Anticipated DC Date: 04-16-2019 Planned Disposition: Correction Facility External Planned Provider: [facility], [facility] DCP follow-up note: CM CALLED MALGORZATA OF [facility], NOTIFIED THAT PT WILL NOT DISCHARGE TODAY. PT WILL REQUIRE NEW AUTHORIZATION FROM INSURANCE AND INSURANCE IS NOT OPEN OVER WEEKEND TO REVIEW. MALGORZATA NOTIFIED CM THAT PT WILL NOW NEED MARLENE ASSESSMENT DUE TO ADMINISTRATION OF [place] MEDICATION. PT NOTIFIED AND IN AGREEEMENT WITH DISCHARGE PLAN. PT WILL REQUIRE NEW AUTHORIZATION FROM INSURANCE NEXT WEEK. PT WILL REQUIRE MARLENE ASSESSMENT. CM TO COMPLETE MARLENE ASSESSMENT SOON POSSIBLE. Perry Gonzales CASE MANAGEMENT DCP- Discharge Planning Updated by [id number]: Perry Gonzales on 04/15/19 4:[address] Patient Name: LINDA OCHOA Encounter No: [id number] : 1940 Primary Insurance: HUMANA CHOICE PPO MCR ADVANT Anticipated DC Date: 04-16-2019 Planned Disposition: Correction Facility External Planned Provider: [facility], [facility]ARE RE[facility] B[facility] DCP follow-up note: CM RECEIVED CALL FROM MALGORZATA OF [facility], THEY WILL ACCEPT PT AND HAVE AUTHORIZATION FROM INSURANCE FOR TODAY AND TOMORROW. CM NOTIFIED NERY GUZMÁN WHO ADVISED THAT THE DOCTOR SAID NOT TODAY, MAYBE TOMORROW. CM NOTIFIED MALGORZATA AT [facility]. PT NOTIFIED AND IN AGREEEMENT WITH DISCHARGE PLAN. FOR DISCHARGE, FAX DISCHARGE INFORMATION TO [facility] AT [phone]. NURSE REPORT TO BE CALLED TO [facility] AT [phone]. [facility] TO ARRANGE TRANSPORATION. INSURANCE AUTHORIZATION EXPIRES 04-16-19 AND PT WILL REQUIRE ANOTHER AUTHORIZATION FROM INSURANCE IF NOT IN REHAB TOMORROW. Perry Gonzales CASE MANAGEMENT DCP- Discharge Planning Updated by [email or web address]: Perry Gonzales on 04/15/19 7:[address] Patient Name: LINDA OCHOA Encounter No: [id number] : 1940 Primary Insurance: HUMANA CHOICE PPO MCR ADVANT Anticipated DC Date: 04-14-2019 Planned Disposition: Correction Facility External Planned Provider: [facility], [facility] DCP follow-up note: CM FAXED UPDATE TO [facility], . CM SPOKE TO PT IN ROOM, PT IS IN AGREEMENT WITH DISCHARGE PLAN TO [facility]. IMPORTANT MESSAGE FROM MEDICARE PROVIDED AND EXPLAINED. CM WAITING INSURANCE DETERMINATION FOR [facility]. Perry Gonzales CASE MANAGEMENT DCP- Discharge Planning Updated by [id number]: Perry Gonzales on 04/14/19 1:[address] Patient Name: LINDA OCHOA Encounter No: [id number] : 1940 Primary Insurance: HUMANA CHOICE PPO MCR ADVANT Anticipated DC Date: 04-14-2019 Planned Disposition: Correction Facility External Planned Provider: [facility] DCP follow-up note: CM RECEIVED CALL FROM [facility], , SPOKE TO MALGORZATA WHO INFORMED CM THAT THEY HAVE SUBMITTED TO PT'S INSURANCE FOR AUTHORIZATION. [facility] ASKED FOR UPDATE TO BE FAXED IN THE MORNING. CM RECEIVED CALL FROM PT'S NIECE, CHARITY RICHARDSON, , CALLED AND ASKED FOR UPDATE. CM MET WITH PT IN ROOM WHO PROVIDED PERMISSION TO PROVIDE TREATMENT AND DISCHARGE PLANNING INFORMATION TO CHARITY, DANIELE GIVEN. CM CALLED PT'S DAUGHTER, JARED OCHOA, , AND PROVIDED UPDATE. JARED IS IN AGREEMENT WITH DISCHARGE PLAN TO [facility]. PT IS IN AGREEMENT WITH DISCHARGE PLAN TO [facility]. CM WAITING INSURANCE DETERMINATION FOR [facility]. GAR[facility] [employer] MANAGEMENT DCP- Discharge Planning Updated by [id number]: Perry Gonzales on 04/13/19 3:[address] Patient Name: LINDA OCHOA Encounter No: [id number] : 1940 Primary Insurance: HUMANA CHOICE PPO MCR ADVANT Anticipated DC Date: 04-14-2019 Planned Disposition: Correction Facility External Planned Provider: [facility], [facility] DCP follow-up note: CM RECEIVED MESSAGE FROM [facility], THEY ARE OUT OF PT'S INSURANCE NETWORK AND REFERRED CM TO [facility] THAT IS IN NETWORK WITH PT'S INSURANCE. CM REVIEWED CONSENTS FOR PROVIDERS THAT INCLUDED SNF IN [place], [place]. CM CALLED [facility], , SPOKE TO ANNA WHO TOOK REFERRAL INFORMATION. CM INFORMED ANNA THAT PT HAS BEEN DISCHARGED AND NEEDS REHAB ONLY. CM FAXED REFERRAL TO [facility] AT [phone]. CM RECEIVED ORDERS FOR NEBULIZER AND WALK TEST RESULTS WERE 95% ON ROOM AIR, 88% ON ROOM AIR DURING EXERTION, 94% RECOVERY ON 2 LITERS OXYGEN DURING RECOVERY. ALL MEDICAL EQUIPMENT WILL BE PROVIDED BY [facility] IF ACCEPTED. CM WAITING ADMISSION DETERMINATION FROM [facility]. GARTH [facility] DCP- Discharge Planning Updated by [id number]: Perry Gonzales on 04/12/19 3:[address] Patient Name: LINDA OCHOA Encounter No: [id number] : 1940 Primary Insurance: HUMANA CHOICE PPO MCR ADVANT Anticipated DC Date: 04-13-2019 Planned Disposition: Correction Facility External Planned Provider: [facility] [place], MEDICARE REHAB BED DCP follow-up note: CM SPOKE TO BEDSIDE NURSE WHO INFORMED CM THAT PT IS TOO WEAK TO DISCHARGE HOME PLANNED. CM MET WITH PT IN ROOM AND DISCUSSED THERAPY RESULTS, PT'S PLAN TO RETURN HOME AND AVAILABILITY OF REHAB SERVICES. PT INITIALLY STATED THAT HE WANTS TO GO HOME WITH HOME HEALTH. PT STATES IT IS OK TO DISCUSS HIS DISCHARGE PLAN WITH HIS DAUGHTER, RITU, SHE IS GOING TO BE TAKING CARE OF HIM AFTER HE GETS HOME, HE WILL DO WHAT SHE SAYS. CM CALLED RITU OCHOA AT [phone]; RITU STATES THAT PT NEEDS REHAB AND SHE WILL DISCUSS THIS WITH PT. SHE WOULD LIKE [facility] IN [place] AND IF NONE THERE, THEN TO [facility]. CHOICE COMPLETED. CM SPOKE TO PT WHO IS IN AGREEMENT WITH PLAN. IMPORTANT MESSAGE FROM MEDICARE PROVIDED AND EXPLAINED. CM FAXED REFERRAL TO [facility] IN [place] VIA ZOILA AT [phone]. CM CALLED ZOILA AND NOTIFIED HER OF REFERRAL FOR [facility] AT [phone], CM WAITING ADMISSION DETERMINATION AND INSURANCE AUTHORIZATION FOR REHAB SERVICES AT [facility] IN [place]. Perry Gonzales, CASE MANAGEMENT DCP- Discharge Planning Updated by [id number]: Divyastone Arauz on 04/11/19 4:[address] PHYSICAL THERAPY EVAL COMPLETED TODAY. PATIENT IS IN VERY WEAKEN STATE. HE COULD NOT TOLERATE SITTING ON THE SIDE OF THE BED SECONDARY TO PAIN AND STIFFNESS. REQUIRED 2 PERSON DRAW SHEET PULL TO GET TO THE HEAD OF THE BED. PLS REVIEW PHYSICAL THERAPY NOTES. PATIENT REPORTEDLY LIVED ALONE AND WAS INDEPENDENT IN CARE PRIOR TO ADMISSION. LIKELY WILL NEED TO CONSIDER ACUTE OR SKILLED REHAB. OT CONSULT ORDER OBTAINED. 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 CM TO FOLLOW TO ASSIST. . 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 PT REPORTS LIVING AT HOME INDEPENDENTLY AND ALONE. PT HAS NO MEDICAL EQUIPMENT AND NO OUTSIDE SERVICES ASSISTING IN THE HOME. CM DISCUSSED AVAILABILITY OF HOME HEALTH, REHAB SERVICES AND MEDICAL EQUIPMENT. PT WILL ACCEPT HOME HEALTH IF NEEDED; PROVIDED WITH PROVIDER LISTING, PT HAS NO CHOICE OF PROVIDER, CHOICE LETTER COMPLETED. PT REPORTS HIS DAUGHTER WILL PICK HIM UP FOR DISCHARGE HOME. IMPORTANT MESSAGE FROM MEDICARE PROVIDED AND EXPLAINED. PT STATES HIS DAUGHTER WILL STAY WITH HIM TO ASSIST AT HOME AFTER DISCHARGE. PT PLANS TO DISCHARGE HOME WHERE HIS DAUGHTER WILL STAY AND ASSIST IF NEEDED. DAUGHTER TO TRANSPORT HOME AT DISCHARGE. PT WOULD ACCEPT HOME HEALTH IF NEEDED; CM TO ARRANGE HOME HEALTH WITH PHYSICIAN AGREEMENT OF NEED AND ORDERS. Customer Consulting Manager: Perry Gonzales PAPIA - Discharge Planning Initial Assessment Updated by ANTONI: Perry Gonzales on 04/09/19 5:13 pm * Is the patient Alert and Oriented? Yes * How many steps to enter\exit or inside your home? NONE * PCP DR. SORTO IN [place] * Pharmacy [facility] IN [place] * Preadmission Environment Home Alone * ADLs Independent * Equipment None * Other Equipment NO MEDICAL EQUIPMENT PROVIDER PREFERENCE * List name and contact numbers for known caregivers / representatives who currently or will assist patient after discharge: RITU GABRIELA, DTR, BRANDT OCHOA, MOTHER 100 YRS OLD, * Verbal permission to speak to the caregivers and representatives has been obtained from the patient. N/A * Community resources currently utilized None * Please name any agencies selected above. NONE * Additional services required to return to the preadmission environment? Yes * Can the patient safely return to the preadmission environment? Yes * Has this patient been hospitalized within the prior 30 days at any hospital? No Coverage Notice Reviewer: [id number] Gonzales Notice Issued Date-Time: 04/09/2019 9:20 Notice Type: IM Discharge Notice Notice Delivered To: Patient Relationship to Patient: Postage Machine Operator Name: Delivery Method: HAND - Hand Delivered Chantel Days: Prior Verbal Notification: Recipient Understood Notice: Yes Recipient Signature: Yes Med Rec Note Co-signed by Attending: Coverage Notice Comment: Reviewer: ANTONI Gonzales Notice Issued Date-Time: 04/09/2019 9:20 Notice Type: Patient Choice Letter Notice Delivered To: Relationship to Patient: Postage Machine Operator Name: Delivery Method: HAND - Hand Delivered Chantel Days: Prior Verbal Notification: Recipient Understood Notice: Yes Recipient Signature: Yes Med Rec Note Co-signed by Attending: Coverage Notice Comment: NO HOME HEALTH PROVIDER PREFERENCE Reviewer: ANTONI Gonzales Notice Issued Date-Time: 04/12/2019 14:45 Notice Type: IM Discharge Notice Notice Delivered To: Patient Relationship to Patient: Postage Machine Operator Name: Delivery Method: HAND - Hand Delivered Chantel Days: Prior Verbal Notification: Recipient Understood Notice: Yes Recipient Signature: Yes Med Rec Note Co-signed by Attending: Coverage Notice Comment: Reviewer: [id number] Gonzales Notice Issued Date-Time: 04/12/2019 14:45 Notice Type: Patient Choice Letter Notice Delivered To: Relationship to Patient: Postage Machine Operator Name: Delivery Method: HAND - Hand Delivered Chantel Days: Prior Verbal Notification: Recipient Understood Notice: Yes Recipient Signature: Yes Med Rec Note Co-signed by Attending: Coverage Notice Comment: SNF IN [place] [facility]1 SN[facility] [place] [facility] Reviewer: [id number] Gonzales Notice Issued Date-Time: 04/15/2019 7:38 Notice Type: IM Discharge Notice Notice Delivered To: Patient Relationship to Patient: Postage Machine Operator Name: Delivery Method: HAND - Hand Delivered Chantel Days: Prior Verbal Notification: Recipient Understood Notice: Yes Recipient Signature: Yes Med Rec Note Co-signed by Attending: Coverage Notice Comment: Last DP export: 04/20/19 1:29 Patient Name: LINDA OCHOA Page [id number] at 0652 All edits/amendments must be made on the electronic document DICTATION DATE: 04/21/19651 LOADER: CHULA 04/21/1951 RPT#: [id number] DC DATE: STATUS: ADM IN [facility] [address] [place] [address] END OF REPORT
--- NOTE | 2019-04-21 07:22 | NUR ---
ALERT AND ORIENTED. TELEMERTY SHOWS SR 79. 02 AT 3 L/M PER NC. RIGHT FA SL AND RIGHT AC SL. DENIES ANY NEEDS. SR UP WITH CALL LIGHT IN REACH
[2019-04-21 09:06] VITALS: BP 147/88
[2019-04-21 12:04] VITALS: BP 136/73
--- NOTE | 2019-04-21 12:17 | NUR ---
OT NOTE: PT PERFORMED WELL AGAIN TODAY. NO SOB NOTED WITH 02 AT 3 L. BED MOB WITH SPV; TRANSFER FROM BED TO BS COMMODE WITH WALKER AND MIN ASSIST; MOD ASSIST WITH TOILET HYGIENE; SET UP WITH WASHING HANDS AND FACE WITH CLOTH; AMB IN ROOM AND IN HALLWAY WITH MIN ASSIST, GAIT BELT, AND WALKER. TRANSFERRED BACK TO CHAIR; ROM EXS WITHOUT SOB. FATUMA GARCIA, OTR/L
--- NOTE | 2019-04-21 13:06 | NUR ---
I have reviewed this patient and I concur with the Shift Assessment completed by the Licensed Practical Nurse today this shift.
--- NOTE | 2019-04-21 16:13 | MORECARE ---
CASE MANAGEMENT DISCHARGE SUMMARY PATIENT: LINDA OCHOA UNIT: [id number] ADM DATE: 04/04/19 AGE: 78 : 41 SEX: M ROOM/BED: D.3071 AUTHOR: BRYONDOC PHYSICIAN: REFERRING PHYSICIAN: DOMINIQUE ODEN MD DATE OF SERVICE: 04/21/19 Discharge Plan Patient Name: LINDA OCHOA Facility: [facility] : 1940 Planned Disposition: [facility] Facility Anticipated Discharge Date: 04/21/19 Discharge Date: Expected LOS: 17 Initial Reviewer: [email or web address] Initial Review Date: 04/09/2019 Generated: 04/21/19 5:12 pm Comments DCP- Discharge Planning Updated by [id number]: Perry Gonzales on 04/21/19 3:[address] Patient Name: LINDA OCHOA Encounter No: [id number] : 1940 Primary Insurance: HU[employer]NA CHOICE PPO MCR ADVANT Anticipated DC Date: 04-21-2019 Planned Disposition: [facility] Facility External Planned Provider: [facility] DCP follow-up note: CM CALLED MALGORZATA OF [facility], THEY WILL ACCEPT PT AND INSURANCE HAS ASKED FOR UPDATED NOTES FROM TODAY, [facility] WILL SUBMIT UPDATE FOR AUTHORIZATION FROM INSURANCE. CM FAXED [facility] UPDATE AT [facility] [phone] . PT NOTIFIED AND IN AGREEEMENT WITH DISCHARGE PLAN. IMPORTANT MESSAGE FROM MEDICARE PROVIDED AND EXPLAINED. CM WAITING FOR INSURANCE AUTHORIZATION FOR REHAB SERVICES; ONCE RECEIVED, FOR DISCHARGE, FAX DISCHARGE INFORMATION TO [facility] AT [phone]. NURSE REPORT TO BE CALLED TO [facility] AT [phone]. [facility] TO ARRANGE TRANSPORATION. GARTH Sharp DCP- Discharge Planning Updated by [id number]: Perry Gonzales on 04/20/19 1:[address] Patient Name: LINDA OCHOA Encounter No: [id number] : 1940 Primary Insurance: HUMANA CHOICE PPO MCR ADVANT Anticipated DC Date: 04-21-2019 Planned Disposition: [facility] Facility External Planned Provider:[facility], [facility]ICARE REHAB B[facility] DCP follow-up note: CM SPOKE TO NERY GAYTAN WHO ADVISED PT MAY BE READY TO GO TO REHAB IN THE NEXT DAY. CM CALLED MALGORZATA OF [facility], THEY WILL ACCEPT PT AND WILL SUBMIT FOR NEW AUTHORIZATION FROM INSURANCE. CM FAXED [facility] UPDATE AT [facility] [phone] . PT NOTIFIED AND IN AGREEEMENT WITH DISCHARGE PLAN. FOR DISCHARGE, FAX DISCHARGE INFORMATION TO [facility] AT [phone]. NURSE REPORT TO BE CALLED TO [facility] AT [phone]. [facility] TO ARRANGE TRANSPORATION. Perry Gonzales CASE MANAGEMENT DCP- Discharge Planning Updated by [id number]: Perry Gonzales on 04/19/19 10:[address] Patient Name: LINDA OCHOA Encounter No: [id number] : 1940 Primary Insurance: HUMANA CHOICE PPO MCR ADVANT Anticipated DC Date: 04-16-2019 Planned Disposition: [facility] Facility External Planned Provider: [facility], MEDICARE REHAB BED DCP follow-up note: CM WAS ADVISED DURING MULTIDISCIPLINARY CARE TEAM MEETING THAT PT IS NOT READY TO DISCHARGE TODAY. MARLENE RESULT RECEIVED, PT IS NON PASRR AND MAY ENTER PENITENTIARY FACILITY. CM CALLED MALGORZATA OF [facility], , NOTIFIED THAT PT WILL NOT DISCHARGE TODAY. PT WILL REQUIRE NEW AUTHORIZATION FROM INSURANCE. PT NOTIFIED AND IN AGREEEMENT WITH DISCHARGE PLAN. PT WILL REQUIRE NEW AUTHORIZATION FROM INSURANCE, CM TO FAX UPDATE AND MARLENE ASSESSMENT / DETERMINATION TO [facility] THE DAY PRIOR TO DISCHARGE AT [phone]. Prery Gonzales CASE MANAGEMENT DCP- Discharge Planning Updated by [id number]: Perry Gonzales on 04/16/19 11:[address] Patient Name: LINDA OCHOA Encounter No: [id number] : 1940 Primary Insurance: HUMANA CHOICE PPO MCR ADVANT Anticipated DC Date: 04-16-2019 Planned Disposition: [facility] Facility External Planned Provider: [facility], MEDICARE REH[facility] DCP follow-up note: CM CALLED MALGORZATA OF [facility], NOTIFIED THAT PT WILL NOT DISCHARGE TODAY. PT WILL REQUIRE NEW AUTHORIZATION FROM INSURANCE AND INSURANCE IS NOT OPEN OVER WEEKEND TO REVIEW. MALGORZATA NOTIFIED CM THAT PT WILL NOW NEED MARLENE ASSESSMENT DUE TO ADMINISTRATION OF [place] MEDICATION. PT NOTIFIED AND IN AGREEEMENT WITH DISCHARGE PLAN. PT WILL REQUIRE NEW AUTHORIZATION FROM INSURANCE NEXT WEEK. PT WILL REQUIRE MARLENE ASSESSMENT. CM TO COMPLETE MARLENE ASSESSMENT SOON POSSIBLE. Perry Gonzales CASE MANAGEMENT DCP- Discharge Planning Updated by [id number]: Perry Gonzales on 04/15/19 4:[address] Patient Name: LINDA OCHOA Encounter No: [id number] : 1940 Primary Insurance: HUMANA [employer] PPO MCR ADVANT Anticipated DC Date: 04-16-2019 Planned Disposition: [facility] Facility External Planned Provider: [facility], MEDICARE REHAB B[facility] DCP follow-up note: CM RECEIVED CALL FROM MALGORZATA OF [facility], THEY WILL ACCEPT PT AND HAVE AUTHORIZATION FROM INSURANCE FOR TODAY AND TOMORROW. CM NOTIFIED NERY GUZMÁN WHO ADVISED THAT THE DOCTOR SAID NOT TODAY, MAYBE TOMORROW. CM NOTIFIED MALG[facility]ZATA AT [facility]. PT NOTIFIED AND IN AGREEEMENT WITH DISCHARGE PLAN. FOR DISCHARGE, FAX DISCHARGE INFORMATION TO [facility] AT [phone]. NURSE REPORT TO BE CALLED TO [facility] AT [phone]. [facility] TO ARRANGE TRANSPORATION. INSURANCE AUTHORIZATION EXPIRES 04-16-19 AND PT WILL REQUIRE ANOTHER AUTHORIZATION FROM INSURANCE IF NOT IN REHAB TOMORROW. GARTH Sharp DCP- Discharge Planning Updated by [id number]: Perry Gonzales on 04/15/19 7:[address] Patient Name: LINDA OCHOA Encounter No: [id number] : 1940 Primary Insurance: [employer] PPO MCR ADVANT Anticipated DC Date: 04-14-2019 Planned Disposition: [facility] Facility External Planned Provider: [facility], MEDICARE REHAB BED DCP follow-up note: CM FAXED UPDATE TO [facility], . CM SPOKE TO PT IN ROOM, PT IS IN AGREEMENT WITH DISCHARGE PLAN TO [facility]. IMPORTANT MESSAGE FROM MEDICARE PROVIDED AND EXPLAINED. CM WAITING INSURANCE DETERMINATION FOR [facility] FOR PENITENTIARY REHAB. Perry Gonzales CASE MANAGEMENT DCP- Discharge Planning Updated by [id number]: Perry Gonzales on 04/14/19 1:[address] Patient Name: LINDA OCHOA Encounter No: [id number] : 1940 Primary Insurance: HUMANA CHOICE PPO MCR ADVANT Anticipated DC Date: 04-14-2019 Planned Disposition: [facility] Facility External Planned Provider: [facility] DCP follow-up note: CM RECEIVED CALL FROM [facility], , SPOKE TO MALGORZATA WHO INFORMED CM THAT THEY HAVE SUBMITTED TO PT'S INSURANCE FOR AUTHORIZATION. [facility] ASKED FOR UPDATE TO BE FAXED IN THE MORNING. CM RECEIVED CALL FROM PT'S NIECE, CHARITY RICHARDOSN, , CALLED AND ASKED FOR UPDATE. CM MET WITH PT IN ROOM WHO PROVIDED PERMISSION TO PROVIDE TREATMENT AND DISCHARGE PLANNING INFORMATION TO CHARITY, UPDATE GIVEN. CM CALLED PT'S DAUGHTER, JARED OCHOA, , AND PROVIDED UPDATE. JARED IS IN AGREEMENT WITH DISCHARGE PLAN TO [facility]. PT IS IN AGREEMENT WITH DISCHARGE PLAN TO [facility]. CM WAITING INSURANCE DETERMINATION FOR [facility] FOR PENITENTIARY REHAB. Perry Gonzales, CASE MANAGEMENT DCP- Discharge Planning Updated by [id number]: Perry Gonzales on 04/13/19 3:[address] Patient Name: LINDA OCHOA Encounter No: [id number] : 1940 Primary Insurance: HUMANA CHOICE PPO MCR ADVANT Anticipated DC Date: 04-14-2019 Planned Disposition: [facility] Facility External Planned Provider: [facility] DCP follow-up note: CM RECEIVED MESSAGE FROM [facility], THEY ARE OUT OF PT'S INSURANCE NETWORK AND REFERRED CM TO [facility] THAT IS IN NETWORK WITH PT'S INSURANCE. CM REVIEWED CONSENTS FOR PROVIDERS THAT INCLUDED SNF IN [place], [place]. CM CALLED [facility], , SPOKE TO ANNA WHO TOOK REFERRAL INFORMATION. CM INFORMED ANNA THAT PT HAS BEEN DISCHARGED AND NEEDS REHAB ONLY. CM FAXED REFERRAL TO [facility] AT [phone]. CM RECEIVED ORDERS FOR NEBULIZER AND WALK TEST RESULTS WERE 95% ON ROOM AIR, 88% ON ROOM AIR DURING EXERTION, 94% RECOVERY ON 2 LITERS OXYGEN DURING RECOVERY. ALL MEDICAL EQUIPMENT WILL BE PROVIDED BY PENITENTIARY FACILITY IF ACCEPTED. SONY WAITING ADMISSION DETERMINATION FROM [facility] FOR PENITENTIARY REHAB. GARTH Sharp MANAGEMENT DCP- Discharge Planning Updated by [id number]: Perry Gonzales on 04/12/19 3:[address] Patient Name: LINDA OCHOA Encounter No: [id number] : 1940 Primary Insurance: HUMANA CHOICE PPO MCR ADVANT Anticipated DC Date: 04-13-2019 Planned Disposition: [facility] Facility External Planned Provider: [facility], MEDICARE REHAB BED DCP follow-up note: CM SPOKE TO BEDSIDE NURSE WHO INFORMED CM THAT PT IS TOO WEAK TO DISCHARGE HOME PLANNED. CM MET WITH PT IN ROOM AND DISCUSSED THERAPY RESULTS, PT'S PLAN TO RETURN HOME AND AVAILABILITY OF REHAB SERVICES. PT INITIALLY STATED THAT HE WANTS TO GO HOME WITH HOME HEALTH. PT STATES IT IS OK TO DISCUSS HIS DISCHARGE PLAN WITH HIS DAUGHTER, RITU, SHE IS GOING TO BE TAKING CARE OF HIM AFTER HE GETS HOME, HE WILL DO WHAT SHE SAYS. CM CALLED RITU OCHOA AT [phone]; RITU STATES THAT PT NEEDS REHAB AND SHE WILL DISCUSS THIS WITH PT. SHE WOULD LIKE PENITENTIARY REHAB IN [place] AND IF NONE THERE, THEN TO TRY [facility]. CHOICE COMPLETED. CM SPOKE TO PT WHO IS IN AGREEMENT WITH PLAN. IMPORTANT MESSAGE FROM MEDICARE PROVIDED AND EXPLAINED. CM FAXED REFERRAL TO [facility]IA [facility]OIL[facility] AT [phone]. CM CALLED ZOILA AND NOTIFIED HER OF REFERRAL FOR [facility] AT [phone], CM WAITING ADMISSION DETERMINATION AND INSURANCE AUTHORIZATION FOR REHAB SERVICES AT [facility]. Perry Gonzales, GARTH MANAGEMENT DCP- Discharge Planning Updated by [id number]: Divya Arauz on 04/11/19 4:[address] PHYSICAL THERAPY EVAL COMPLETED TODAY. PATIENT IS IN VERY WEAKEN STATE. HE COULD NOT TOLERATE SITTING ON THE SIDE OF THE BED SECONDARY TO PAIN AND STIFFNESS. REQUIRED 2 PERSON DRAW SHEET PULL TO GET TO THE HEAD OF THE BED. PLS REVIEW PHYSICAL THERAPY NOTES. PATIENT REPORTEDLY LIVED ALONE AND WAS INDEPENDENT IN CARE PRIOR TO ADMISSION. LIKELY WILL NEED TO CONSIDER ACUTE OR SKILLED REHAB. OT CONSULT ORDER OBTAINED. 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 CM TO FOLLOW TO ASSIST. . 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 PT REPORTS LIVING AT HOME INDEPENDENTLY AND ALONE. PT HAS NO MEDICAL EQUIPMENT AND NO OUTSIDE SERVICES ASSISTING IN THE HOME. CM DISCUSSED AVAILABILITY OF HOME HEALTH, REHAB SERVICES AND MEDICAL EQUIPMENT. PT WILL ACCEPT HOME HEALTH IF NEEDED; PROVIDED WITH PROVIDER LISTING, PT HAS NO CHOICE OF PROVIDER, CHOICE LETTER COMPLETED. PT REPORTS HIS DAUGHTER WILL PICK HIM UP FOR DISCHARGE HOME. IMPORTANT MESSAGE FROM MEDICARE PROVIDED AND EXPLAINED. PT STATES HIS DAUGHTER WILL STAY WITH HIM TO ASSIST AT HOME AFTER DISCHARGE. PT PLANS TO DISCHARGE HOME WHERE HIS DAUGHTER WILL STAY AND ASSIST IF NEEDED. DAUGHTER TO TRANSPORT HOME AT DISCHARGE. PT WOULD ACCEPT HOME HEALTH IF NEEDED; CM TO ARRANGE HOME HEALTH WITH PHYSICIAN AGREEMENT OF NEED AND ORDERS. Canteen Attendant: Perry Gonzales DCPIA - Discharge Planning Initial Assessment Updated by [id number]: Perry Gonzales on 04/09/19 5:13 pm * Is the patient Alert and Oriented? Yes * How many steps to enter\exit or inside your home? NONE * PCP DR. OSRTO IN [place] * Pharmacy [facility] * Preadmission Environment Home Alone * ADLs Independent * Equipment None * Other Equipment NO MEDICAL EQUIPMENT PROVIDER PREFERENCE * List name and contact numbers for known caregivers / representatives who currently or will assist patient after discharge: RITU OCHOA, DTR, BRANDT OCHOA, MOTHER 100 YRS OLD, * Verbal permission to speak to the caregivers and representatives has been obtained from the patient. N/A * Community resources currently utilized None * Please name any agencies selected above. NONE * Additional services required to return to the preadmission environment? Yes * Can the patient safely return to the preadmission environment? Yes * Has this patient been hospitalized within the prior 30 days at any hospital? No Coverage Notice Reviewer: ANTONI Gonzales Notice Issued Date-Time: 04/09/2019 9:20 Notice Type: IM Discharge Notice Notice Delivered To: Patient Relationship to Patient: Barn Hand Name: Delivery Method: HAND - Hand Delivered Chantel Days: Prior Verbal Notification: Recipient Understood Notice: Yes Recipient Signature: Yes Med Rec Note Co-signed by Attending: Coverage Notice Comment: Reviewer: ANTONI Gonzales Notice Issued Date-Time: 04/09/2019 9:20 Notice Type: Patient Choice Letter Notice Delivered To: Relationship to Patient: Barn Hand Name: Delivery Method: HAND - Hand Delivered Chantel Days: Prior Verbal Notification: Recipient Understood Notice: Yes Recipient Signature: Yes Med Rec Note Co-signed by Attending: Coverage Notice Comment: NO HOME HEALTH PROVIDER PREFERENCE Reviewer: ANTONI Gonzales Notice Issued Date-Time: 04/12/2019 14:45 Notice Type: IM Discharge Notice Notice Delivered To: Patient Relationship to Patient: Barn Hand Name: Delivery Method: HAND - Hand Delivered Chantel Days: Prior Verbal Notification: Recipient Understood Notice: Yes Recipient Signature: Yes Med Rec Note Co-signed by Attending: Coverage Notice Comment: Reviewer: ANTONI Gonzales Notice Issued Date-Time: 04/12/2019 14:45 Notice Type: Patient Choice Letter Notice Delivered To: Relationship to Patient: Barn Hand Name: Delivery Method: HAND - Hand Delivered Chantel Days: Prior Verbal Notification: Recipient Understood Notice: Yes Recipient Signature: Yes Med Rec Note Co-signed by Attending: Coverage Notice Comment: SNF IN [place] #1 SNF IN [place] #2 Reviewer: ANTONI Gonzales Notice Issued Date-Time: 04/15/2019 7:38 Notice Type: IM Discharge Notice Notice Delivered To: Patient Relationship to Patient: Barn Hand Name: Delivery Method: HAND - Hand Delivered Chantel Days: Prior Verbal Notification: Recipient Understood Notice: Yes Recipient Signature: Yes Med Rec Note Co-signed by Attending: Coverage Notice Comment: Reviewer: ANTONI Gonzales Notice Issued Date-Time: 04/21/2019 13:15 Notice Type: IM Discharge Notice Notice Delivered To: Patient Relationship to Patient: Barn Hand Name: Delivery Method: HAND - Hand Delivered Chantel Days: Prior Verbal Notification: Recipient Understood Notice: Yes Recipient Signature: Yes Med Rec Note Co-signed by Attending: Coverage Notice Comment: Last DP export: 04/21/19 5:52 Patient Name: LINDA OCHOA Page [id number] at 1613 All edits/amendments must be made on the electronic document DICTATION DATE: 04/21/191611 DENTAL SALES REPRESENTATIVE: CHULA 04/21/191611 RPT#: [id number] DC DATE: STATUS: ADM IN [facility] [address] [place] [address] END OF REPORT
[2019-04-21 16:29] VITALS: BP 139/95
--- NOTE | 2019-04-21 17:10 | NUR ---
OT NOTE: PT COMPLETED TOILETING TASKS WITH MIN A FOR CLOTHING MANAGEMENT AND MIN/MOD A FOR HYGIENE IN STANDING. PT COMPLETED STANDING ACTIVITIES WITH SBA/CGA. PT COMPLETED ADL MOB WITH SBA/CGA. NO SOB NOTED. THANK YOU,TAMIA MARMOLEJO
--- NOTE | 2019-04-21 19:11 | NUR ---
BEDSIDE REPORT RECEIVED FROM DAY SHIFT, PT CARE ASSUMED. WROTE NAME ON BOARD, PT LYING IN BED WATCHING TV, AAOX4. DENIES ANY NEEDS AT THIS TIME. BED IN LOWEST POSITION, SR X2, CALL LIGHT AND URINAL WITHIN REACH. WILL CONTINUE TO MONITOR.
[2019-04-21 20:00] VITALS: BP 132/80
[2019-04-22] VITALS: BP 142/79
[2019-04-22 04:00] VITALS: BP 138/78
[2019-04-22 06:10] LABS: BASOPHILS 0.2 % (0-2); EOSINOPHILS 6.9 % (0-7); HEMATOCRIT 31.5 % (42.0-54.0); HEMOGLOBIN 9.6 g/dL (13.5-17.5); IMMATURE GRANULOCYTES 0.6 % (0-5); LYMPHOCYTES 12.5 % (15-50); MCH 28.6 pg (26.0-34.0); MCHC 30.5 g/dL (31.0-37.0); MCV 93.8 fL (80.0-100.0); MEAN PLATELET VOLUME 8.9 fL (7.4-10.4); MONOCYTES 7.9 % (2-11); NEUTROPHILS 71.9 % (40-80); PLATELET COUNT 513 10x3/uL (130-400); RBC 3.36 10x6/uL (4.20-6.10); RDW 16.6 % (11.5-14.5)
[2019-04-22 06:54] LABS: ANION GAP 9.7 mmol/L (8-16); CARBON DIOXIDE 27.9 mmol/L (21.0-32.0); CREATININE - SERUM 1.1 mg/dL (0.6-1.3); MAGNESIUM - SERUM 1.8 mg/dL (1.8-2.4); POTASSIUM - SERUM 3.6 mmol/L (3.5-5.1)
--- NOTE | 2019-04-22 07:40 | NUR ---
ASSESSMENT DONE. DENIES NEEDS
--- NOTE | 2019-04-22 07:41 | MORECARE ---
CASE MANAGEMENT DISCHARGE SUMMARY PATIENT: LINDA OCHOA UNIT: [id number] ADM DATE: 04/04/19 AGE: 78 : 41 SEX: M ROOM/BED: D.2590 AUTHOR: BRYONDOC PHYSICIAN: REFERRING PHYSICIAN: DOMINIQUE ODEN MD DATE OF SERVICE: 04/22/19 Discharge Plan Patient Name: LINDA OCHOA Facility: [facility] : 1940 Planned Disposition: Assisted Facility Anticipated Discharge Date: 04/21/19 Discharge Date: Expected LOS: 17 Initial Reviewer: [id number] Initial Review Date: 04/09/2019 Generated: 04/22/19 8:41 am Comments DCP- Discharge Planning Updated by [email or web address]: Perry Gonzales on 04/22/19 6:[address] Patient Name: LINDA OCHOA Encounter No: [id number] : 1940 Primary Insurance: HUMANA CHOICE PPO [facility] Anticipated DC Date: 04-21-2019 Planned Disposition: Assisted Facility External Planned Provider: [facility] DCP follow-up note: [facility] AT [facility] [phone]. CM WAITING FOR INSURANCE AUTHORIZATION FOR REHAB SERVICES; ONCE RECEIVED, FOR DISCHARGE, FAX DISCHARGE INFORMATION TO [facility] AT [phone]. NURSE REPORT TO BE CALLED TO [facility] AT [phone]. [facility] TO ARRANGE TRANSPORATION. Perry Gonzales, CASE MANAGEMENT DCP- Discharge Planning Updated by [id number]: Perry Gonzales on 04/21/19 3:[address] Patient Name: LINDA OCHOA Encounter No: [id number] : 1940 Primary Insurance: HUMANA CHOICE PPO [facility] Anticipated DC Date: 04-21-2019 Planned Disposition: Assisted Facility External Planned Provider: [facility] MED[facility] RE[facility] BED DCP follow-up note: CM CALLED MALGORZATA OF [facility], THEY WILL ACCEPT PT AND INSURANCE HAS ASKED FOR UPDATED NOTES FROM TODAY, [facility] WILL SUBMIT UPDATE FOR AUTHORIZATION FROM INSURANCE. CM FAXED [facility] UPDATE AT [facility] [phone] . PT NOTIFIED AND IN AGREEEMENT WITH DISCHARGE PLAN. IMPORTANT MESSAGE FROM MEDICARE PROVIDED AND EXPLAINED. CM WAITING FOR INSURANCE AUTHORIZATION FOR REHAB SERVICES; ONCE RECEIVED, FOR DISCHARGE, FAX DISCHARGE INFORMATION TO [facility] AT [phone]. NURSE REPORT TO BE CALLED TO [facility] AT [phone]. [facility] TO [facility]ANGE TRANSPORATION. Perry Gonzales CASE MANAGEMENT DCP- Discharge Planning Updated by [id number]: Perry Gonzales on 04/20/19 1:[address] Patient Name: LINDA OCHOA Encounter No: [id number] : 1940 Primary Insurance: HUMANA CHOICE PPO [facility] Anticipated DC Date: 04-21-2019 Planned Disposition: Assisted Facility External Planned Provider:[facility] RE[facility] BED DCP follow-up note: CM SPOKE TO NERY GAYTAN WHO ADVISED PT MAY BE READY TO GO TO REHAB IN THE NEXT DAY. CM CALLED [facility] OF [facility], THEY WILL ACCEPT PT AND WILL SUBMIT FOR NEW AUTHORIZATION FROM INSURANCE. CM FAXED [facility] UPDATE AT [facility] [phone] . PT NOTIFIED AND IN AGREEEMENT WITH DISCHARGE PLAN. FOR DISCHARGE, FAX DISCHARGE INFORMATION TO [facility] AT [phone]. NURSE REPORT TO BE CALLED TO [facility] AT [phone]. [facility] TO ARRANGE TRANSPORATION. GARTH Sharp DCP- Discharge Planning Updated by [id number]: Perry Gonzales on 04/19/19 10:[address] Patient Name: LINDA OCHOA Encounter No: [id number] : 1940 Primary Insurance: HUMANA CHOICE PPO [facility] Anticipated DC Date: 04-16-2019 Planned Disposition: Assisted Facility External Planned Provider: [facility] RE[facility] BED DCP follow-up note: CM WAS ADVISED DURING MULTIDISCIPLINARY CARE TEAM MEETING THAT PT IS NOT READY TO DISCHARGE TODAY. MARLENE RESULT RECEIVED, PT IS NON PASRR AND MAY ENTER ASSISTED FACILITY. CM CALLED [facility]ZATA OF [facility], , NOTIFIED THAT PT WILL NOT DISCHARGE TODAY. PT WILL REQUIRE NEW AUTHORIZATION FROM INSURANCE. PT NOTIFIED AND IN AGREEEMENT WITH DISCHARGE PLAN. PT WILL REQUIRE NEW AUTHORIZATION FROM INSURANCE, CM TO FAX UPDATE AND MARLENE ASSESSMENT / DETERMINATION TO [facility] THE DAY PRIOR TO DISCHARGE AT [phone]. Perry Gonzales CASE MANAGEMENT DCP- Discharge Planning Updated by [id number]: Perry Gonzales on 04/16/19 11:[address] Patient Name: LINDA OCHOA Encounter No: [id number] : 1940 Primary Insurance: HUMANA CHOICE PPO [facility] [employer] Anticipated DC Date: 04-16-2019 Planned Disposition: Assisted Facility External Planned Provider: [facility] RE[facility] BED DCP follow-up note: CM CALLED [facility], NOTIFIED THAT PT WILL NOT DISCHARGE TODAY. PT WILL REQUIRE NEW AUTHORIZATION FROM INSURANCE AND INSURANCE IS NOT OPEN OVER WEEKEND TO REVIEW. MALGORZATA NOTIFIED CM THAT PT WILL NOW NEED MARLENE ASSESSMENT DUE TO ADMINISTRATION OF [place] MEDICATION. PT NOTIFIED AND IN AGREEEMENT WITH DISCHARGE PLAN. PT WILL REQUIRE NEW AUTHORIZATION FROM INSURANCE NEXT WEEK. PT WILL REQUIRE MARLENE ASSESSMENT. CM TO COMPLETE MARLENE ASSESSMENT SOON POSSIBLE. Perry Gonzales CASE MANAGEMENT DCP- Discharge Planning Updated by [id number]: Perry Gonzales on 04/15/19 4:[address] Patient Name: LINDA OCHOA Encounter No: [id number] : 1940 Primary Insurance: HUMANA CHOICE PPO [employer] [facility] Anticipated DC Date: 04-16-2019 Planned Disposition: Assisted Facility External Planned Provider: [facility] DCP follow-up note: CM RECEIVED CALL FROM [facility], THEY WILL ACCEPT PT AND HAVE AUTHORIZATION FROM INSURANCE FOR TODAY AND TOMORROW. CM NOTIFIED NERY GUZMÁN WHO ADVISED THAT THE DOCTOR SAID NOT TODAY, MAYBE TOMORROW. CM NOTIFIED MALG[facility]ZATA AT [facility]. PT NOTIFIED AND IN AGREEEMENT WITH DISCHARGE PLAN. FOR DISCHARGE, FAX DISCHARGE INFORMATION TO [facility] AT [phone]. NURSE REPORT TO BE CALLED TO [facility] AT [phone]. [facility] TO ARRANGE TRANSPORATION. INSURANCE AUTHORIZATION EXPIRES 04-16-19 AND PT WILL REQUIRE ANOTHER AUTHORIZATION FROM INSURANCE IF NOT IN REHAB TOMORROW. GARTH Sharp DCP- Discharge Planning Updated by [id number]: Perry Gonzales on 04/15/19 7:[address] Patient Name: LINDA OCHOA Encounter No: [id number] : 1940 Primary Insurance: HUMANA CHOICE PPO [employer] Anticipated DC Date: 04-14-2019 Planned Disposition: Assisted Facility External Planned Provider: [facility], MEDICARE REHAB BED DCP follow-up note: CM FAXED UPDATE TO [facility], . CM SPOKE TO PT IN ROOM, PT IS IN AGREEMENT WITH DISCHARGE PLAN TO [facility]. IMPORTANT MESSAGE FROM MEDICARE PROVIDED AND EXPLAINED. CM WAITING INSURANCE DETERMINATION FOR [facility] FOR ASSISTED REHAB. GARTH Sharp DCP- Discharge Planning Updated by [id number]: Perry Gonzales on 04/14/19 1:[address] Patient Name: LINDA OCHOA Encounter No: [id number] : 1940 Primary Insurance: HUMANA CHOICE PPO MCR [employer] Anticipated DC Date: 04-14-2019 Planned Disposition: Assisted Facility External Planned Provider: [facility] DCP follow-up note: CM RECEIVED CALL FROM [facility], , SPOKE TO MALGORZATA WHO INFORMED CM THAT THEY HAVE SUBMITTED TO PT'S INSURANCE FOR AUTHORIZATION. MALG[facility]ZATA ASKED FOR UPDATE TO BE FAXED IN THE MORNING. CM RECEIVED CALL FROM PT'S NIECE, CHARITY RICHARDSON, , CALLED AND ASKED FOR UPDATE. CM MET WITH PT IN ROOM WHO PROVIDED PERMISSION TO PROVIDE TREATMENT AND DISCHARGE PLANNING INFORMATION TO CHARITY, UPDATE GIVEN. CM CALLED PT'S DAUGHTER, JARED OCHOA, , AND PROVIDED UPDATE. JARED IS IN AGREEMENT WITH DISCHARGE PLAN TO [facility]. PT IS IN AGREEMENT WITH DISCHARGE PLAN TO [facility]. CM WAITING INSURANCE DETERMINATION FOR [facility] FOR ASS[facility]ED RE[facility]. GARTH Sharp DCP- Discharge Planning Updated by [id number]: Perry Gonzales on 04/13/19 3:[address] Patient Name: LINDA OCHOA Encounter No: [id number] : 1940 Primary Insurance: HUMANA CHOICE PPO MCR [employer] Anticipated DC Date: 04-14-2019 Planned Disposition: Assisted Facility External Planned Provider: [facility], MEDICARE REHAB BED DCP follow-up note: CM RECEIVED MESSAGE FROM [facility], THEY ARE OUT OF PT'S INSURANCE NETWORK AND REFERRED CM TO [facility] THAT IS IN NETWORK WITH PT'S INSURANCE. CM REVIEWED CONSENTS FOR PROVIDERS THAT INCLUDED SNF IN [place], [place]. CM CALLED [facility], , SPOKE TO ANNA WHO TOOK REFERRAL INFORMATION. CM INFORMED ANNA THAT PT HAS BEEN DISCHARGED AND NEEDS REHAB ONLY. CM FAXED REFERRAL TO [facility] AT [phone]. CM RECEIVED ORDERS FOR NEBULIZER AND WALK TEST RESULTS WERE 95% ON ROOM AIR, 88% ON ROOM AIR DURING EXERTION, 94% RECOVERY ON 2 LITERS OXYGEN DURING RECOVERY. ALL MEDICAL EQUIPMENT WILL BE PROVIDED BY ASSISTED FACILITY IF ACCEPTED. CM WAITING ADMISSION DETERMINATION FROM [facility] FOR ASS[facility]ED RE[facility]. Perry Gonzales, CASE MANAGEMENT DCP- Discharge Planning Updated by [id number]: Perry Gonzales on 04/12/19 3:[address] Patient Name: LINDA OCHOA Encounter No: [id number] : 1940 Primary Insurance: HUMANA CHOICE PPO MCR [employer] Anticipated DC Date: 04-13-2019 Planned Disposition: Assisted Facility External Planned Provider: [facility] [place], MEDICARE REHAB BED DCP follow-up note: CM SPOKE TO BEDSIDE NURSE WHO INFORMED CM THAT PT IS TOO WEAK TO DISCHARGE HOME PLANNED. CM MET WITH PT IN ROOM AND DISCUSSED THERAPY RESULTS, PT'S PLAN TO RETURN HOME AND AVAILABILITY OF REHAB SERVICES. PT INITIALLY STATED THAT HE WANTS TO GO HOME WITH HOME HEALTH. PT STATES IT IS OK TO DISCUSS HIS DISCHARGE PLAN WITH HIS DAUGHTER, RITU, SHE IS GOING TO BE TAKING CARE OF HIM AFTER HE GETS HOME, HE WILL DO WHAT SHE SAYS. CM CALLED RITU OCHOA AT [phone]; RITU STATES THAT PT NEEDS REHAB AND SHE WILL DISCUSS THIS WITH PT. SHE WOULD LIKE ASSISTED REHAB IN [place] AND IF NONE THERE, THEN TO [facility]. CHOICE COMPLETED. CM SPOKE TO PT WHO IS IN AGREEMENT WITH PLAN. IMPORTANT MESSAGE FROM MEDICARE PROVIDED AND EXPLAINED. CM FAXED REFERRAL TO [facility] IN [place] [facility] AT [phone]. CM CALLED ZOILA AND NOTIFIED HER OF REFERRAL FOR [facility] AT [phone], CM WAITING ADMISSION DETERMINATION AND INSURANCE AUTHORIZATION FOR REHAB SERVICES AT [facility] IN [place]. Perry Gonzales, CASE MANAGEMENT DCP- Discharge Planning Updated by [email or web address]: Divya Arauz on 04/11/19 4:[address] PHYSICAL THERAPY EVAL COMPLETED TODAY. PATIENT IS IN VERY WEAKEN STATE. HE COULD NOT TOLERATE SITTING ON THE SIDE OF THE BED SECONDARY TO PAIN AND STIFFNESS. REQUIRED 2 PERSON DRAW SHEET PULL TO GET TO THE HEAD OF THE BED. PLS REVIEW PHYSICAL THERAPY NOTES. PATIENT REPORTEDLY LIVED ALONE AND WAS INDEPENDENT IN CARE PRIOR TO ADMISSION. LIKELY WILL NEED TO CONSIDER ACUTE OR SKILLED REHAB. OT CONSULT ORDER OBTAINED. 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 CM TO FOLLOW TO ASSIST. . 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 PT REPORTS LIVING AT HOME INDEPENDENTLY AND ALONE. PT HAS NO MEDICAL EQUIPMENT AND NO OUTSIDE SERVICES ASSISTING IN THE HOME. CM DISCUSSED AVAILABILITY OF HOME HEALTH, REHAB SERVICES AND MEDICAL EQUIPMENT. PT WILL ACCEPT HOME HEALTH IF NEEDED; PROVIDED WITH PROVIDER LISTING, PT HAS NO CHOICE OF PROVIDER, CHOICE LETTER COMPLETED. PT REPORTS HIS DAUGHTER WILL PICK HIM UP FOR DISCHARGE HOME. IMPORTANT MESSAGE FROM MEDICARE PROVIDED AND EXPLAINED. PT STATES HIS DAUGHTER WILL STAY WITH HIM TO ASSIST AT HOME AFTER DISCHARGE. PT PLANS TO DISCHARGE HOME WHERE HIS DAUGHTER WILL STAY AND ASSIST IF NEEDED. DAUGHTER TO TRANSPORT HOME AT DISCHARGE. PT WOULD ACCEPT HOME HEALTH IF NEEDED; CM TO ARRANGE HOME HEALTH WITH PHYSICIAN AGREEMENT OF NEED AND ORDERS. External Relations Director: Perry Gonzales DCPIA - Discharge Planning Initial Assessment Updated by [id number]: Perry Gonzales on 04/09/19 5:13 pm * Is the patient Alert and Oriented? Yes * How many steps to enter\exit or inside your home? NONE * PCP DR[facility] SORTO IN [place] * Pharmacy [facility] IN [place] * Preadmission Environment Home Alone * ADLs Independent * Equipment None * Other Equipment NO MEDICAL EQUIPMENT PROVIDER PREFERENCE * List name and contact numbers for known caregivers / representatives who currently or will assist patient after discharge: RITU OCHOA, DTR, BRANDT OCHOA, MOTHER 100 YRS OLD, * Verbal permission to speak to the caregivers and representatives has been obtained from the patient. N/A * Community resources currently utilized None * Please name any agencies selected above. NONE * Additional services required to return to the preadmission environment? Yes * Can the patient safely return to the preadmission environment? Yes * Has this patient been hospitalized within the prior 30 days at any hospital? No Coverage Notice Reviewer: ANTONI Gonzales Notice Issued Date-Time: 04/09/2019 9:20 Notice Type: IM Discharge Notice Notice Delivered To: Patient Relationship to Patient: Preschool Associate Teacher Name: Delivery Method: HAND - Hand Delivered Chantel Days: Prior Verbal Notification: Recipient Understood Notice: Yes Recipient Signature: Yes Med Rec Note Co-signed by Attending: Coverage Notice Comment: Reviewer: ANTONI Gonzales Notice Issued Date-Time: 04/09/2019 9:20 Notice Type: Patient Choice Letter Notice Delivered To: Relationship to Patient: Preschool Associate Teacher Name: Delivery Method: HAND - Hand Delivered Chantel Days: Prior Verbal Notification: Recipient Understood Notice: Yes Recipient Signature: Yes Med Rec Note Co-signed by Attending: Coverage Notice Comment: NO HOME HEALTH PROVIDER PREFERENCE Reviewer: ANTONI Gonzales Notice Issued Date-Time: 04/12/2019 14:45 Notice Type: IM Discharge Notice Notice Delivered To: Patient Relationship to Patient: Preschool Associate Teacher Name: Delivery Method: HAND - Hand Delivered Chantel Days: Prior Verbal Notification: Recipient Understood Notice: Yes Recipient Signature: Yes Med Rec Note Co-signed by Attending: Coverage Notice Comment: Reviewer: ANTONI Gonzales Notice Issued Date-Time: 04/12/2019 14:45 Notice Type: Patient Choice Letter Notice Delivered To: Relationship to Patient: Preschool Associate Teacher Name: Delivery Method: HAND - Hand Delivered Chantel Days: Prior Verbal Notification: Recipient Understood Notice: Yes Recipient Signature: Yes Med Rec Note Co-signed by Attending: Coverage Notice Comment: SNF IN [place]1 SNF IN [place] [facility] Reviewer: ANTONI Gonzales Notice Issued Date-Time: 04/15/2019 7:38 Notice Type: IM Discharge Notice Notice Delivered To: Patient Relationship to Patient: Preschool Associate Teacher Name: Delivery Method: HAND - Hand Delivered Chantel Days: Prior Verbal Notification: Recipient Understood Notice: Yes Recipient Signature: Yes Med Rec Note Co-signed by Attending: Coverage Notice Comment: Reviewer: ANTONI Gonzales Notice Issued Date-Time: 04/21/2019 13:15 Notice Type: IM Discharge Notice Notice Delivered To: Patient Relationship to Patient: Preschool Associate Teacher Name: Delivery Method: HAND - Hand Delivered Chantel Days: Prior Verbal Notification: Recipient Understood Notice: Yes Recipient Signature: Yes Med Rec Note Co-signed by Attending: Coverage Notice Comment: Last DP export: 04/21/19 3:13 Patient Name: LINDA OCHOA Page [id number] at 0741 All edits/amendments must be made on the electronic document DICTATION DATE: 04/22/19740 CARPENTER'S HELPER: CHULA 04/22/19740 RPT#: [id number] DC DATE: STATUS: ADM IN [facility] [address] [place] [address] END OF REPORT
--- NOTE | 2019-04-22 10:18 | NUR ---
I have reviewed this patient and I concur with the Shift Assessment completed by the Licensed Practical Nurse today this shift.
[2019-04-22 10:44] VITALS: BP 137/84
[2019-04-22 13:42] VITALS: BP 127/71
--- NOTE | 2019-04-22 14:11 | MORECARE ---
CASE MANAGEMENT DISCHARGE SUMMARY PATIENT: LINDA OCHOA UNIT: [id number] ADM DATE: 04/04/19 AGE: 78 : 41 SEX: M ROOM/BED: D.6462 AUTHOR: BRYONDOC PHYSICIAN: REFERRING PHYSICIAN: DOMINIQUE ODEN MD DATE OF SERVICE: 04/22/19 Discharge Plan Patient Name: LINDA OCHOA Facility: [facility]:[place] : 1940 Planned Disposition: [facility] Facility Anticipated Discharge Date: 04/22/19 Discharge Date: Expected LOS: 18 Initial Reviewer: [id number] Initial Review Date: 04/09/2019 Generated: 04/22/19 3:11 pm Comments DCP- Discharge Planning Updated by [email or web address]: Perry Gonzales on 04/22/19 1:[address] Patient Name: LINDA OCHOA Encounter No: [id number] : 1940 Primary Insurance: HUMANA CHOICE PPO MCR ADVANT Anticipated DC Date: 04-22-2019 Planned Disposition: [facility] Facility External Planned Provider: [facility], MEDICARE REHAB BED DCP follow-up note: CM RECEIVED CALL FROM MALGORZATA AT [facility], THEY WILL ACCEPT PT TODAY, NURSE REPORT TO BE CALLED TO STATION [facility], [facility] WILL ARRANGE QUEST TO AB INITIO ETL DEVELOPER PT TODAY. PT NOTIFIED AND IN AGREEMENT WITH DISCHARGE TODAY. NERY GAYTAN NOTIFIED. CM [facility] AT [phone]. NURSE REPORT TO BE CALLED TO [facility], [facility] AT [phone]. [facility] TO ARRANGE TRANSPORATION. Perry Gonzales, CASE MANAGEMENT DCP- Discharge Planning Updated by [id number]: Perry Gonzales on 04/22/19 6:[address] Patient Name: LINDA OCHOA Encounter No: [id number] : 1940 Primary Insurance: HUMANA CHOICE PPO MCR ADVANT Anticipated DC Date: 04-21-2019 Planned Disposition: [facility] Facility External Planned Provider: [facility], MEDICARE REHAB BED DCP follow-up note: CM FAXED [facility] UPDATE AT [facility] [phone]. CM WAITING FOR INSURANCE AUTHORIZATION FOR REHAB SERVICES; ONCE RECEIVED, FOR DISCHARGE, FAX DISCHARGE INFORMATION TO [facility] AT [phone]. NURSE REPORT TO BE CALLED TO [facility] AT [phone]. [facility] TO ARRANGE TRANSPORATION. GARTH Sharp DCP- Discharge Planning Updated by [id number]: Perry Gonzales on 04/21/19 3:[address] Patient Name: LINDA OCHOA Encounter No: [id number] : 1940 Primary Insurance: [employer] [facility] ADVANT Anticipated DC Date: 04-21-2019 Planned Disposition: [facility] Facility External Planned Provider: [facility] MEDICARE REHAB BED DCP follow-up note: CM CALLED MALGORZATA OF [facility], THEY WILL ACCEPT PT AND INSURANCE HAS ASKED FOR UPDATED NOTES FROM TODAY, MALGORZATA WILL SUBMIT UPDATE FOR AUTHORIZATION FROM INSURANCE. CM FAXED [facility] UPDATE AT [facility] [phone] . PT NOTIFIED AND IN AGREEEMENT WITH DISCHARGE PLAN. IMPORTANT MESSAGE FROM MEDICARE PROVIDED AND EXPLAINED. CM WAITING FOR INSURANCE AUTHORIZATION FOR REHAB SERVICES; ONCE RECEIVED, FOR DISCHARGE, FAX DISCHARGE INFORMATION TO [facility] AT [phone]. NURSE REPORT TO BE CALLED TO [facility] AT [phone]. [facility] TO ARRANGE TRANSPORATION. GARTH [employer] DCP- Discharge Planning Updated by [id number]: Perry Gonzales on 04/20/19 1:[address] Patient Name: LINDA OCHOA Encounter No: [id number] : 1940 Primary Insurance: HUMANA [employer] PPO [facility] ADVANT Anticipated DC Date: 04-21-2019 Planned Disposition: [facility] Facility External Planned Provider:[facility] MEDICARE REHAB BED DCP follow-up note: CM SPOKE TO NERY GAYTAN WHO ADVISED PT MAY BE READY TO GO TO REHAB IN THE NEXT DAY. CM CALLED MALGORZATA OF [facility], THEY WILL ACCEPT PT AND WILL SUBMIT FOR NEW AUTHORIZATION FROM INSURANCE. CM FAXED [facility] UPDATE AT [facility] [phone] . PT NOTIFIED AND IN AGREEEMENT WITH DISCHARGE PLAN. FOR DISCHARGE, FAX DISCHARGE INFORMATION TO [facility] AT [phone]. NURSE REPORT TO BE CALLED TO [facility] AT [phone]. [facility] TO ARRANGE TRANSPORATION. GARTH Sharp DCP- Discharge Planning Updated by [id number]: Perry Gonzales on 04/19/19 10:[address] Patient Name: LINDA OCHOA Encounter No: [id number] : 1940 Primary Insurance: HUMANA CHOICE PPO MCR ADVANT Anticipated DC Date: 04-16-2019 Planned Disposition: [facility] Facility External Planned Provider: [facility] MEDICARE REHAB BED DCP follow-up note: CM WAS ADVISED DURING MULTIDISCIPLINARY CARE TEAM MEETING THAT PT IS NOT READY TO DISCHARGE TODAY. MARLENE RESULT RECEIVED, PT IS NON PAS[facility] AND MAY ENTER [facility]. CM CALLED [facility], , NOTIFIED THAT PT WILL NOT DISCHARGE TODAY. PT WILL REQUIRE NEW AUTHORIZATION FROM INSURANCE. PT NOTIFIED AND IN AGREEEMENT WITH DISCHARGE PLAN. PT WILL REQUIRE NEW AUTHORIZATION FROM INSURANCE, CM TO FAX UPDATE AND MARLENE ASSESSMENT / DETERMINATION TO [facility] THE DAY PRIOR TO DISCHARGE AT [phone]. Perry Gonzales CASE SOPHIA DCP- Discharge Planning Updated by [id number]: Perry Gonzales on 04/16/19 11:[address] Patient Name: LINDA OCHOA Encounter No: [id number] : 1940 Primary Insurance: HUMANA CHOICE PPO MCR ADVANT Anticipated DC Date: 04-16-2019 Planned Disposition: [facility] Facility External Planned Provider: [facility] MEDICARE REHAB BED DCP follow-up note: CM CALLED MALGORZATA OF [facility], NOTIFIED THAT PT WILL NOT DISCHARGE TODAY. PT WILL REQUIRE NEW AUTHORIZATION FROM INSURANCE AND INSURANCE IS NOT OPEN OVER WEEKEND TO REVIEW. MALGORZATA NOTIFIED CM THAT PT WILL NOW NEED AMRLENE ASSESSMENT DUE TO ADMINISTRATION OF [place] MEDICATION. PT NOTIFIED AND IN AGREEEMENT WITH DISCHARGE PLAN. PT WILL REQUIRE NEW AUTHORIZATION FROM INSURANCE NEXT WEEK. PT WILL REQUIRE MARLENE ASSESSMENT. CM TO COMPLETE MARLENE ASSESSMENT SOON POSSIBLE. Perry Gonzales CASE SOPHIA DCP- Discharge Planning Updated by [id number]: Perry Gonzales on 04/15/19 4:[address] Patient Name: LINDA OCHOA Encounter No: [id number] : 1940 Primary Insurance: HUMANA CHOICE PPO MCR ADVANT Anticipated DC Date: 04-16-2019 Planned Disposition: [facility] Facility External Planned Provider: [facility], MEDICARE REHAB BED DCP follow-up note: CM RECEIVED CALL FROM MALGORZATA OF [facility], THEY WILL ACCEPT PT AND HAVE AUTHORIZATION FROM INSURANCE FOR TODAY AND TOMORROW. CM NOTIFIED NERY GUZMÁN WHO ADVISED THAT THE DOCTOR SAID NOT TODAY, MAYBE TOMORROW. CM NOTIFIED MALGORZATA AT [facility]. PT NOTIFIED AND IN AGREEEMENT WITH DISCHARGE PLAN. FOR DISCHARGE, FAX DISCHARGE INFORMATION TO [facility] AT [phone]. NURSE REPORT TO BE CALLED TO [facility] AT [phone]. [facility] TO ARRANGE TRANSPORATION. INSURANCE AUTHORIZATION EXPIRES 04-16-19 AND PT WILL REQUIRE ANOTHER AUTHORIZATION FROM INSURANCE IF NOT IN REHAB TOMORROW. Perry Gonzales CASE MANAGEMENT DCP- Discharge Planning Updated by [id number]: Perry Gonzales on 04/15/19 7:[address] Patient Name: LINDA OCHOA Encounter No: [id number] : 1940 Primary Insurance: HUMANA CHOICE PPO MCR ADVANT Anticipated DC Date: 04-14-2019 Planned Disposition: [facility] Facility External Planned Provider: [facility] MEDICARE REHAB BED DCP follow-up note: CM FAXED UPDATE TO [facility], . CM SPOKE TO PT IN ROOM, PT IS IN AGREEMENT WITH DISCHARGE PLAN TO [facility]. IMPORTANT MESSAGE FROM MEDICARE PROVIDED AND EXPLAINED. CM WAITING INSURANCE DETERMINATION FOR [facility] FOR [facility]. Perry Gonzales CASE MANAGEMENT DCP- Discharge Planning Updated by [id number]: Perry Gonzales on 04/14/19 1:[address] Patient Name: LINDA OCHOA Encounter No: [id number] : 1940 Primary Insurance: HUMANA CHOICE PPO MCR ADVANT Anticipated DC Date: 04-14-2019 Planned Disposition: [facility] Facility External Planned Provider: [facility] MEDICARE REHAB BED DCP follow-up note: CM RECEIVED CALL FROM [facility], , SPOKE TO MALGORZATA WHO INFORMED CM THAT THEY HAVE SUBMITTED TO PT'S INSURANCE FOR AUTHORIZATION. MALGORZATA ASKED FOR UPDATE TO BE FAXED IN THE MORNING. CM RECEIVED CALL FROM PT'S NIECE, CHARITY RICHARDSON, , CALLED AND ASKED FOR UPDATE. CM MET WITH PT IN ROOM WHO PROVIDED PERMISSION TO PROVIDE TREATMENT AND DISCHARGE PLANNING INFORMATION TO CHARITY, UPDATE GIVEN. CM CALLED PT'S DAUGHTER, JARED OCHOA, , AND PROVIDED UPDATE. JARED IS IN AGREEMENT WITH DISCHARGE PLAN TO [facility]. PT IS IN AGREEMENT WITH DISCHARGE PLAN TO [facility]. CM WAITING INSURANCE DETERMINATION FOR [facility] FOR [facility]. GARTH Sharp DCP- Discharge Planning Updated by [id number]: Perry Gonzales on 04/13/19 3:[address] Patient Name: LINDA OCHOA Encounter No: [id number] : 1940 Primary Insurance: HUMANA CHOICE PPO MCR ADVANT Anticipated DC Date: 04-14-2019 Planned Disposition: [facility] Facility External Planned Provider: [facility] MEDICARE REHAB BED DCP follow-up note: CM RECEIVED MESSAGE FROM [facility], THEY ARE OUT OF PT'S INSURANCE NETWORK AND REFERRED CM TO [facility] THAT IS IN NETWORK WITH PT'S INSURANCE. CM REVIEWED CONSENTS FOR PROVIDERS THAT INCLUDED SNF IN [place], [place]. CM CALLED [facility], , SPOKE TO ANNA WHO TOOK REFERRAL INFORMATION. CM INFORMED ANNA THAT PT HAS BEEN DISCHARGED AND NEEDS REHAB ONLY. CM FAXED REFERRAL TO [facility] AT [phone]. CM RECEIVED ORDERS FOR NEBULIZER AND WALK TEST RESULTS WERE 95% ON ROOM AIR, 88% ON ROOM AIR DURING EXERTION, 94% RECOVERY ON 2 LITERS OXYGEN DURING RECOVERY. ALL MEDICAL EQUIPMENT WILL BE PROVIDED BY [facility] IF ACCEPTED. CM WAITING ADMISSION DETERMINATION FROM [facility] FOR [facility]. GARTH Sharp DCP- Discharge Planning Updated by [id number]: Perry Gonzales on 04/12/19 3:[address] Patient Name: LINDA OCHOA Encounter No: [id number] : 1940 Primary Insurance: HUMANA CHOICE PPO MCR ADVANT Anticipated DC Date: 04-13-2019 Planned Disposition: [facility] Facility External Planned Provider: [facility], MEDICARE REHAB BED DCP follow-up note: CM SPOKE TO BEDSIDE NURSE WHO INFORMED CM THAT PT IS TOO WEAK TO DISCHARGE HOME PLANNED. CM MET WITH PT IN ROOM AND DISCUSSED THERAPY RESULTS, PT'S PLAN TO RETURN HOME AND AVAILABILITY OF REHAB SERVICES. PT INITIALLY STATED THAT HE WANTS TO GO HOME WITH HOME HEALTH. PT STATES IT IS OK TO DISCUSS HIS DISCHARGE PLAN WITH HIS DAUGHTER, RITU, SHE IS GOING TO BE TAKING CARE OF HIM AFTER HE GETS HOME, HE WILL DO WHAT SHE SAYS. CM CALLED RITU OCHOA AT [phone]; RITU STATES THAT PT NEEDS REHAB AND SHE WILL DISCUSS THIS WITH PT. SHE WOULD LIKE [facility] IN [place] AND IF NONE THERE, THEN TO TRY HOPE. CHOICE COMPLETED. CM SPOKE TO PT WHO IS IN AGREEMENT WITH PLAN. IMPORTANT MESSAGE FROM MEDICARE PROVIDED AND EXPLAINED. CM FAXED REFERRAL TO [facility]IA [facility] AT [phone]. CM CALLED ZOILA AND NOTIFIED HER OF REFERRAL FOR [facility] AT [phone], CM WAITING ADMISSION DETERMINATION AND INSURANCE AUTHORIZATION FOR REHAB SERVICES AT [facility]. Perry Gonzales, CASE MANAGEMENT DCP- Discharge Planning Updated by [id number]: Divya Arauz on 04/11/19 4:[address] PHYSICAL THERAPY EVAL COMPLETED TODAY. PATIENT IS IN VERY WEAKEN STATE. HE COULD NOT TOLERATE SITTING ON THE SIDE OF THE BED SECONDARY TO PAIN AND STIFFNESS. REQUIRED 2 PERSON DRAW SHEET PULL TO GET TO THE HEAD OF THE BED. PLS REVIEW PHYSICAL THERAPY NOTES. PATIENT REPORTEDLY LIVED ALONE AND WAS INDEPENDENT IN CARE PRIOR TO ADMISSION. LIKELY WILL NEED TO CONSIDER ACUTE OR SKILLED REHAB. OT CONSULT ORDER OBTAINED. 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 CM TO FOLLOW TO ASSIST. . 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 PT REPORTS LIVING AT HOME INDEPENDENTLY AND ALONE. PT HAS NO MEDICAL EQUIPMENT AND NO OUTSIDE SERVICES ASSISTING IN THE HOME. CM DISCUSSED AVAILABILITY OF HOME HEALTH, REHAB SERVICES AND MEDICAL EQUIPMENT. PT WILL ACCEPT HOME HEALTH IF NEEDED; PROVIDED WITH PROVIDER LISTING, PT HAS NO CHOICE OF PROVIDER, CHOICE LETTER COMPLETED. PT REPORTS HIS DAUGHTER WILL PICK HIM UP FOR DISCHARGE HOME. IMPORTANT MESSAGE FROM MEDICARE PROVIDED AND EXPLAINED. PT STATES HIS DAUGHTER WILL STAY WITH HIM TO ASSIST AT HOME AFTER DISCHARGE. PT PLANS TO DISCHARGE HOME WHERE HIS DAUGHTER WILL STAY AND ASSIST IF NEEDED. DAUGHTER TO TRANSPORT HOME AT DISCHARGE. PT WOULD ACCEPT HOME HEALTH IF NEEDED; CM TO ARRANGE HOME HEALTH WITH PHYSICIAN AGREEMENT OF NEED AND ORDERS. China Painter: Perry Gonzales DCPIA - Discharge Planning Initial Assessment Updated by [id number]: Perry Gonzales on 04/09/19 5:13 pm * Is the patient Alert and Oriented? Yes * How many steps to enter\exit or inside your home? NONE * PCP DR. SORTO IN [place] * Pharmacy [facility] IN [place] * Preadmission Environment Home Alone * ADLs Independent * Equipment None * Other Equipment NO MEDICAL EQUIPMENT PROVIDER PREFERENCE * List name and contact numbers for known caregivers / representatives who currently or will assist patient after discharge: RITU OCHOA, DTR, BRANDT OCHOA, MOTHER 100 YRS OLD, * Verbal permission to speak to the caregivers and representatives has been obtained from the patient. N/A * Community resources currently utilized None * Please name any agencies selected above. NONE * Additional services required to return to the preadmission environment? Yes * Can the patient safely return to the preadmission environment? Yes * Has this patient been hospitalized within the prior 30 days at any hospital? No Coverage Notice Reviewer: [id number] Gonzales Notice Issued Date-Time: 04/09/2019 9:20 Notice Type: IM Discharge Notice Notice Delivered To: Patient Relationship to Patient: [employer] Safety Program Coordinator Name: Delivery Method: HAND - Hand Delivered Chantel Days: Prior Verbal Notification: Recipient Understood Notice: Yes Recipient Signature: Yes Med Rec Note Co-signed by Attending: Coverage Notice Comment: Reviewer: ANTONI Gonzales Notice Issued Date-Time: 04/09/2019 9:20 Notice Type: Patient Choice Letter Notice Delivered To: Relationship to Patient: [employer] Safety Program Coordinator Name: Delivery Method: HAND - Hand Delivered Chantel Days: Prior Verbal Notification: Recipient Understood Notice: Yes Recipient Signature: Yes Med Rec Note Co-signed by Attending: Coverage Notice Comment: NO HOME HEALTH PROVIDER PREFERENCE Reviewer: ANTONI Gonzales Notice Issued Date-Time: 04/12/2019 14:45 Notice Type: IM Discharge Notice Notice Delivered To: Patient Relationship to Patient: [employer] Safety Program Coordinator Name: Delivery Method: HAND - Hand Delivered Chantel Days: Prior Verbal Notification: Recipient Understood Notice: Yes Recipient Signature: Yes Med Rec Note Co-signed by Attending: Coverage Notice Comment: Reviewer: ANTONI Gonzales Notice Issued Date-Time: 04/12/2019 14:45 Notice Type: Patient Choice Letter Notice Delivered To: Relationship to Patient: [employer] Safety Program Coordinator Name: Delivery Method: HAND - Hand Delivered Chantel Days: Prior Verbal Notification: Recipient Understood Notice: Yes Recipient Signature: Yes Med Rec Note Co-signed by Attending: Coverage Notice Comment: SNF IN [place]1 SNF IN [place]2 Reviewer: ANTONI Gonzales Notice Issued Date-Time: 04/15/2019 7:38 Notice Type: IM Discharge Notice Notice Delivered To: Patient Relationship to Patient: [employer] Safety Program Coordinator Name: Delivery Method: HAND - Hand Delivered Chantel Days: Prior Verbal Notification: Recipient Understood Notice: Yes Recipient Signature: Yes Med Rec Note Co-signed by Attending: Coverage Notice Comment: Reviewer: ANTONI Gonzales Notice Issued Date-Time: 04/21/2019 13:15 Notice Type: IM Discharge Notice Notice Delivered To: Patient Relationship to Patient: [employer] Safety Program Coordinator Name: Delivery Method: HAND - Hand Delivered Chantel Days: Prior Verbal Notification: Recipient Understood Notice: Yes Recipient Signature: Yes Med Rec Note Co-signed by Attending: Coverage Notice Comment: Last DP export: 04/22/19 6:41 Patient Name: LINDA OCHOA Page [id number] at 1411 All edits/amendments must be made on the electronic document DICTATION DATE: 04/22/19 1410 MEDICAL CLAIMS ANALYST: CHULA 04/22/19 1410 RPT#: [id number] DC DATE: STATUS: ADM IN [facility] [address] [place] [address] END OF REPORT
[2019-04-22] MEDS ORDERED: COREG12.5 MG PO (15:23)
[2019-04-22] MEDS ORDERED: ELIQUIS5 MG PO ×2 (15:24→15:31)
[2019-04-22] MEDS ORDERED: COREG25 MG PO (16:29)
--- NOTE | 2019-04-22 17:24 | MORECARE ---
CASE MANAGEMENT DISCHARGE SUMMARY PATIENT: LINDA OCHOA UNIT: [id number] ADM DATE: 04/04/19 AGE: 78 : 42 SEX: M ROOM/BED: D.3047 AUTHOR: BRYONDOC PHYSICIAN: REFERRING PHYSICIAN: DOMINIQUE ODEN MD DATE OF SERVICE: 04/22/19 Discharge Plan Patient Name: LINDA OCHOA Facility: [facility] : 1940 Planned Disposition: Long-Term Facility Anticipated Discharge Date: 04/22/19 Discharge Date: Expected LOS: 18 Initial Reviewer: [id number] Initial Review Date: 04/09/2019 Generated: 04/22/19 6:24 pm Comments DCP- Discharge Planning Updated by [id number]: Perry Gonzales on 04/22/19 4:[address] Patient Name: LINDA OCHOA Encounter No: [id number] : 1940 Primary Insurance: HUMANA CHOICE PPO MCR ADVANT Anticipated DC Date: 04-22-2019 Planned Disposition: Long-Term Facility External Planned Provider: [facility] CM RECEIVED CALL FROM MALGORZATA AT [facility], THEY WILL NOT BE ABLE TO SOLAR PV INSTALLER PT UNTIL TOMORROW MORNING AT 0700AM. CM NOTIFIED NERY GAYTAN. PT NOTIFIED AND IN AGREEMENT WITH DISCHARGE TODAY. CM CALLED AND NOTIFIED PT'S DAUGHTER, RITU. NERY GAYTAN NOTIFIED. [facility] [phone]. NECKTIE MAKER NURSE NOTIFIED. ON 04-23-19, AT ABOUT 6:30AM, PLEASE CALL NURSE REPORT TO BE CALLED TO [facility], ST[facility] AT [phone]. [facility] TO ARRANGE TRANSPORATION. Perry Gonzales CASE SOPHIA DCP- Discharge Planning Updated by [id number]: Perry Gonzales on 04/22/19 1:[address] Patient Name: LINDA OCHOA Encounter No: [id number] : 1940 Primary Insurance: HUMANA CHOICE PPO MCR ADVANT Anticipated DC Date: 04-22-2019 Planned Disposition: Long-Term Facility External Planned Provider: [facility] DCP follow-up note: CM RECEIVED CALL FROM MALGORZATA AT [facility], THEY WILL ACCEPT PT TODAY, NURSE REPORT TO BE CALLED TO ST[facility], [facility] WILL ARRANGE [facility] TO SOLAR PV INSTALLER PT TODAY. PT NOTIFIED AND IN AGREEMENT WITH DISCHARGE TODAY. NERY GAYTAN NOTIFIED. CM FAXED DISCHARGE INFORMATION TO [facility] AT [phone]. NURSE REPORT TO BE CALLED TO [facility], [facility] AT [phone]. [facility] TO ARRANGE TRANSPORATION. Perry Gonzales CASE MANAGEMENT DCP- Discharge Planning Updated by [id number]: Perry Gonzales on 04/22/19 6:[address] Patient Name: LINDA OCHOA Encounter No: [id number] : 1940 Primary Insurance: HUMANA CHOICE PPO [facility] ADVANT Anticipated DC Date: 04-21-2019 Planned Disposition: Long-Term Facility External Planned Provider: [facility] DCP follow-up note: CM FAXED [facility] UPDATE AT [facility] [phone]. CM WAITING FOR INSURANCE AUTHORIZATION FOR REHAB SERVICES; ONCE RECEIVED, FOR DISCHARGE, FAX DISCHARGE INFORMATION TO [facility] AT [phone]. NURSE REPORT TO BE CALLED TO [facility] AT [phone]. [facility] TO ARRANGE TRANSPORATION. Perry Gonzales CASE MANAGEMENT DCP- Discharge Planning Updated by [id number]: Perry Gonzales on 04/21/19 3:[address] Patient Name: LINDA OCHOA Encounter No: [id number] : 1940 Primary Insurance: HUMANA CHOICE PPO MCR ADVANT Anticipated DC Date: 04-21-2019 Planned Disposition: Long-Term Facility External Planned Provider: [facility] DCP follow-up note: CM CALLED MALGORZATA OF [facility], THEY WILL ACCEPT PT AND INSURANCE HAS ASKED FOR UPDATED NOTES FROM TODAY, MALGORZATA WILL SUBMIT UPDATE FOR AUTHORIZATION FROM INSURANCE. [facility] AT [facility] [phone] . PT NOTIFIED AND IN AGREEEMENT WITH DISCHARGE PLAN. IMPORTANT MESSAGE FROM MEDICARE PROVIDED AND EXPLAINED. CM WAITING FOR INSURANCE AUTHORIZATION FOR REHAB SERVICES; ONCE RECEIVED, FOR DISCHARGE, FAX DISCHARGE INFORMATION TO [facility] AT [phone]. NURSE REPORT TO BE CALLED TO [facility] AT [phone]. [facility] TO ARRANGE TRANSPORATION. Perry Gonzales CASE MANAGEMENT DCP- Discharge Planning Updated by [id number]: Perry Gonzales on 04/20/19 1:[address] Patient Name: LINDA OCHOA Encounter No: [id number] : 1940 Primary Insurance: HUMANA CHOICE PPO [facility] ADVANT Anticipated DC Date: 04-21-2019 Planned Disposition: Long-Term Facility External Planned Provider:[facility] DCP follow-up note: CM SPOKE TO NERY GAYTAN WHO ADVISED PT MAY BE READY TO GO TO REHAB IN THE NEXT DAY. CM CALLED MALGORZATA OF [facility], THEY WILL ACCEPT PT AND WILL SUBMIT FOR NEW AUTHORIZATION FROM INSURANCE. CM FAXED [facility] UPDATE AT [facility] [phone] . PT NOTIFIED AND IN AGREEEMENT WITH DISCHARGE PLAN. FOR DISCHARGE, FAX DISCHARGE INFORMATION TO [facility] AT [phone]. NURSE REPORT TO BE CALLED TO [facility] AT [phone]. [facility] TO ARRANGE TRANSPORATION. Perry Gonzales CASE MANAGEMENT DCP- Discharge Planning Updated by [id number]: Perry Gonzales on 04/19/19 10:[address] Patient Name: LINDA OCHOA Encounter No: [id number] : 1940 Primary Insurance: HUMANA CHOICE PPO [facility] Anticipated DC Date: 04-16-2019 Planned Disposition: Long-Term Facility External Planned Provider: [facility] DCP follow-up note: CM WAS ADVISED DURING MULTIDISCIPLINARY CARE TEAM MEETING THAT PT IS NOT READY TO DISCHARGE TODAY. MARLENE RESULT RECEIVED, PT IS NON PASRR AND MAY ENTER HALF-WAY FACILITY. CM CALLED MALGORZATA OF [facility], , NOTIFIED THAT PT WILL NOT DISCHARGE TODAY. PT WILL REQUIRE NEW AUTHORIZATION FROM INSURANCE. PT NOTIFIED AND IN AGREEEMENT WITH DISCHARGE PLAN. PT WILL REQUIRE NEW AUTHORIZATION FROM INSURANCE, CM TO FAX UPDATE AND MARLENE ASSESSMENT / DETERMINATION TO [facility] THE DAY PRIOR TO DISCHARGE AT [phone]. Perry Gonzales CASE MANAGEMENT DCP- Discharge Planning Updated by [id number]: Perry Gonzales on 04/16/19 11:[address] Patient Name: LINDA OCHOA Encounter No: [id number] : 1940 Primary Insurance: HUMANA CHOICE PPO MCR ADVANT Anticipated DC Date: 04-16-2019 Planned Disposition: Long-Term Facility External Planned Provider: [facility] DCP follow-up note: CM CALLED MALGORZATA OF [facility], NOTIFIED THAT PT WILL NOT DISCHARGE TODAY. PT WILL REQUIRE NEW AUTHORIZATION FROM INSURANCE AND INSURANCE IS NOT OPEN OVER WEEKEND TO REVIEW. MALGORZATA NOTIFIED CM THAT PT WILL NOW NEED MARLENE ASSESSMENT DUE TO ADMINISTRATION OF LEXAPRO MEDICATION. PT NOTIFIED AND IN AGREEEMENT WITH DISCHARGE PLAN. PT WILL REQUIRE NEW AUTHORIZATION FROM INSURANCE NEXT WEEK. PT WILL REQUIRE MARLENE ASSESSMENT. CM TO COMPLETE MARLENE ASSESSMENT SOON POSSIBLE. Perry Gonzales CASE SOPHIA DCP- Discharge Planning Updated by [id number]: Perry Gonzales on 04/15/19 4:[address] Patient Name: LINDA OCHOA Encounter No: [id number] : 1940 Primary Insurance: HUMANA CHOICE PPO MCR ADVANT Anticipated DC Date: 04-16-2019 Planned Disposition: Long-Term Facility External Planned Provider: [facility] DCP follow-up note: CM RECEIVED CALL FROM [facility], THEY WILL ACCEPT PT AND HAVE AUTHORIZATION FROM INSURANCE FOR TODAY AND TOMORROW. CM NOTIFIED NERY GUZMÁN WHO ADVISED THAT THE DOCTOR SAID NOT TODAY, MAYBE TOMORROW. CM NOTIFIED MALGORZATA AT [facility]. PT NOTIFIED AND IN AGREEEMENT WITH DISCHARGE PLAN. FOR DISCHARGE, FAX DISCHARGE INFORMATION TO [facility] AT [phone]. NURSE REPORT TO BE CALLED TO [facility] AT [phone]. [facility] TO ARRANGE TRANSPORATION. INSURANCE AUTHORIZATION EXPIRES 04-16-19 AND PT WILL REQUIRE ANOTHER AUTHORIZATION FROM INSURANCE IF NOT IN REHAB TOMORROW. GARTH Sharp MANAGEMENT DCP- Discharge Planning Updated by [id number]: Perry Gonzales on 04/15/19 7:[address] Patient Name: LINDA OCHOA Encounter No: [id number] : 1940 Primary Insurance: HUMANA CHOICE PPO MCR ADVANT Anticipated DC Date: 04-14-2019 Planned Disposition: Long-Term Facility External Planned Provider: [facility] DCP follow-up note: CM FAXED UPDATE TO [facility], . CM SPOKE TO PT IN ROOM, PT IS IN AGREEMENT WITH DISCHARGE PLAN TO [facility]. IMPORTANT MESSAGE FROM MEDICARE PROVIDED AND EXPLAINED. CM WAITING INSURANCE DETERMINATION FOR [facility] FOR [facility]-WAY REH[facility]. GARTH Sharp MANAGEMENT DCP- Discharge Planning Updated by [id number]: Perry Gonzales on 04/14/19 1:[address] Patient Name: LINDA OCHOA Encounter No: [id number] : 1940 Primary Insurance: HUMANA CHOICE PPO MCR ADVANT Anticipated DC Date: 04-14-2019 Planned Disposition: Long-Term Facility External Planned Provider: [facility] DCP follow-up note: CM RECEIVED CALL FROM [facility], , SPOKE TO MALGORZATA WHO INFORMED CM THAT THEY HAVE SUBMITTED TO PT'S INSURANCE FOR AUTHORIZATION. MALGORZATA ASKED FOR UPDATE TO BE FAXED IN THE MORNING. CM RECEIVED CALL FROM PT'S NIECE, CHARITY RICHARDSON, , CALLED AND ASKED FOR UPDATE. CM MET WITH PT IN ROOM WHO PROVIDED PERMISSION TO PROVIDE TREATMENT AND DISCHARGE PLANNING INFORMATION TO CHARITY, UPDATE GIVEN. CM CALLED PT'S DAUGHTER, JARED OCHOA, , AND PROVIDED UPDATE. JARED IS IN AGREEMENT WITH DISCHARGE PLAN TO [facility]. PT IS IN AGREEMENT WITH DISCHARGE PLAN TO [facility]. CM WAITING INSURANCE DETERMINATION FOR [facility] RE[facility]. ePrry Gonzales CASE MANAGEMENT DCP- Discharge Planning Updated by [id number]: Perry Gonzales on 04/13/19 3:[address] Patient Name: LINDA OCHOA Encounter No: [id number] : 1940 Primary Insurance: HUMANA CHOICE PPO MCR ADVANT Anticipated DC Date: 04-14-2019 Planned Disposition: Long-Term Facility External Planned Provider: [facility] DCP follow-up note: CM RECEIVED MESSAGE FROM [facility], THEY ARE OUT OF PT'S INSURANCE NETWORK AND REFERRED CM TO [facility] THAT IS IN NETWORK WITH PT'S INSURANCE. CM REVIEWED CONSENTS FOR PROVIDERS THAT INCLUDED SNF IN [place], [place]. CM CALLED [facility], , SPOKE TO ANNA WHO TOOK REFERRAL INFORMATION. CM INFORMED ANNA THAT PT HAS BEEN DISCHARGED AND NEEDS REHAB ONLY. CM FAXED REFERRAL TO [facility] AT [phone]. CM RECEIVED ORDERS FOR NEBULIZER AND WALK TEST RESULTS WERE 95% ON ROOM AIR, 88% ON ROOM AIR DURING EXERTION, 94% RECOVERY ON 2 LITERS OXYGEN DURING RECOVERY. ALL MEDICAL EQUIPMENT WILL BE PROVIDED BY HALF-WAY FACILITY IF ACCEPTED. CM WAITING ADMISSION DETERMINATION FROM [facility] FOR [facility]. Perry Gonzales, CASE MANAGEMENT DCP- Discharge Planning Updated by [id number]: Perry Gonzales on 04/12/19 3:[address] Patient Name: LINDA OCHOA Encounter No: [id number] : 1940 Primary Insurance: HUMANA CHOICE PPO MCR ADVANT Anticipated DC Date: 04-13-2019 Planned Disposition: Long-Term Facility External Planned Provider: [facility], MEDICARE REHAB BED DCP follow-up note: CM SPOKE TO BEDSIDE NURSE WHO INFORMED CM THAT PT IS TOO WEAK TO DISCHARGE HOME PLANNED. CM MET WITH PT IN ROOM AND DISCUSSED THERAPY RESULTS, PT'S PLAN TO RETURN HOME AND AVAILABILITY OF REHAB SERVICES. PT INITIALLY STATED THAT HE WANTS TO GO HOME WITH HOME HEALTH. PT STATES IT IS OK TO DISCUSS HIS DISCHARGE PLAN WITH HIS DAUGHTER, RITU, SHE IS GOING TO BE TAKING CARE OF HIM AFTER HE GETS HOME, HE WILL DO WHAT SHE SAYS. CM CALLED RITU OCHOA AT [phone]; RITU STATES THAT PT NEEDS REHAB AND SHE WILL DISCUSS THIS WITH PT. SHE WOULD LIKE HALF-WAY REHAB IN [place] AND IF NONE THERE, THEN TO TRY [facility]. CHOICE COMPLETED. CM SPOKE TO PT WHO IS IN AGREEMENT WITH PLAN. IMPORTANT MESSAGE FROM MEDICARE PROVIDED AND EXPLAINED. CM FAXED REFERRAL TO [facility] IN [place] [facility] AT [phone]. CM CALLED ZOILA AND NOTIFIED HER OF REFERRAL FOR [facility] AT [phone], CM WAITING ADMISSION DETERMINATION AND INSURANCE AUTHORIZATION FOR REHAB SERVICES AT [facility] IN [place]. Perry Gonzales, CASE MANAGEMENT DCP- Discharge Planning Updated by [id number]: Divya Arauz on 04/11/19 4:[address] PHYSICAL THERAPY EVAL COMPLETED TODAY. PATIENT IS IN VERY WEAKEN STATE. HE COULD NOT TOLERATE SITTING ON THE SIDE OF THE BED SECONDARY TO PAIN AND STIFFNESS. REQUIRED 2 PERSON DRAW SHEET PULL TO GET TO THE HEAD OF THE BED. PLS REVIEW PHYSICAL THERAPY NOTES. PATIENT REPORTEDLY LIVED ALONE AND WAS INDEPENDENT IN CARE PRIOR TO ADMISSION. LIKELY WILL NEED TO CONSIDER ACUTE OR SKILLED REHAB. OT CONSULT ORDER OBTAINED. 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 CM TO FOLLOW TO ASSIST. . 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 PT REPORTS LIVING AT HOME INDEPENDENTLY AND ALONE. PT HAS NO MEDICAL EQUIPMENT AND NO OUTSIDE SERVICES ASSISTING IN THE HOME. CM DISCUSSED AVAILABILITY OF HOME HEALTH, REHAB SERVICES AND MEDICAL EQUIPMENT. PT WILL ACCEPT HOME HEALTH IF NEEDED; PROVIDED WITH PROVIDER LISTING, PT HAS NO CHOICE OF PROVIDER, CHOICE LETTER COMPLETED. PT REPORTS HIS DAUGHTER WILL PICK HIM UP FOR DISCHARGE HOME. IMPORTANT MESSAGE FROM MEDICARE PROVIDED AND EXPLAINED. PT STATES HIS DAUGHTER WILL STAY WITH HIM TO ASSIST AT HOME AFTER DISCHARGE. PT PLANS TO DISCHARGE HOME WHERE HIS DAUGHTER WILL STAY AND ASSIST IF NEEDED. DAUGHTER TO TRANSPORT HOME AT DISCHARGE. PT WOULD ACCEPT HOME HEALTH IF NEEDED; CM TO ARRANGE HOME HEALTH WITH PHYSICIAN AGREEMENT OF NEED AND ORDERS. Bunker Worker: Perry Gonzales DCPIA - Discharge Planning Initial Assessment Updated by [id number]: Perry Gonzales on 04/09/19 5:13 pm * Is the patient Alert and Oriented? Yes * How many steps to enter\exit or inside your home? NONE * PCP DR[facility] SORTO IN [place] * Pharmacy [facility] IN [place] * Preadmission Environment Home Alone * ADLs Independent * Equipment None * Other Equipment NO MEDICAL EQUIPMENT PROVIDER PREFERENCE * List name and contact numbers for known caregivers / representatives who currently or will assist patient after discharge: RITU OCHOA, DTR, BRANDT OCHOA, MOTHER 100 YRS OLD, * Verbal permission to speak to the caregivers and representatives has been obtained from the patient. N/A * Community resources currently utilized None * Please name any agencies selected above. NONE * Additional services required to return to the preadmission environment? Yes * Can the patient safely return to the preadmission environment? Yes * Has this patient been hospitalized within the prior 30 days at any hospital? No Coverage Notice Reviewer: ANTONI Gonzales Notice Issued Date-Time: 04/09/2019 9:20 Notice Type: IM Discharge Notice Notice Delivered To: Patient Relationship to Patient: Stiff Straw Hat Washer Name: Delivery Method: HAND - Hand Delivered Chantel Days: Prior Verbal Notification: Recipient Understood Notice: Yes Recipient Signature: Yes Med Rec Note Co-signed by Attending: Coverage Notice Comment: Reviewer: ANTONI Gonzales Notice Issued Date-Time: 04/09/2019 9:20 Notice Type: Patient Choice Letter Notice Delivered To: Relationship to Patient: Stiff Straw Hat Washer Name: Delivery Method: HAND - Hand Delivered Chantel Days: Prior Verbal Notification: Recipient Understood Notice: Yes Recipient Signature: Yes Med Rec Note Co-signed by Attending: Coverage Notice Comment: NO HOME HEALTH PROVIDER PREFERENCE Reviewer: ANTONI Gonzales Notice Issued Date-Time: 04/12/2019 14:45 Notice Type: IM Discharge Notice Notice Delivered To: Patient Relationship to Patient: Stiff Straw Hat Washer Name: Delivery Method: HAND - Hand Delivered Chantel Days: Prior Verbal Notification: Recipient Understood Notice: Yes Recipient Signature: Yes Med Rec Note Co-signed by Attending: Coverage Notice Comment: Reviewer: ANTONI Gonzales Notice Issued Date-Time: 04/12/2019 14:45 Notice Type: Patient Choice Letter Notice Delivered To: Relationship to Patient: Stiff Straw Hat Washer Name: Delivery Method: HAND - Hand Delivered Chantel Days: Prior Verbal Notification: Recipient Understood Notice: Yes Recipient Signature: Yes Med Rec Note Co-signed by Attending: Coverage Notice Comment: SNF IN [place] #1 SNF IN [place] #2 Reviewer: ANTONI Gonzales Notice Issued Date-Time: 04/15/2019 7:38 Notice Type: IM Discharge Notice Notice Delivered To: Patient Relationship to Patient: Stiff Straw Hat Washer Name: Delivery Method: HAND - Hand Delivered Chantel Days: Prior Verbal Notification: Recipient Understood Notice: Yes Recipient Signature: Yes Med Rec Note Co-signed by Attending: Coverage Notice Comment: Reviewer: [id number] - Perry Gonzales Notice Issued Date-Time: 04/21/2019 13:15 Notice Type: IM Discharge Notice Notice Delivered To: Patient Relationship to Patient: Stiff Straw Hat Washer Name: Delivery Method: HAND - Hand Delivered Chantel Days: Prior Verbal Notification: Recipient Understood Notice: Yes Recipient Signature: Yes Med Rec Note Co-signed by Attending: Coverage Notice Comment: Last DP export: 04/22/19 1:11 Patient Name: LINDA OCHOA Page [id number] at 1724 All edits/amendments must be made on the electronic document DICTATION DATE: 04/22/191723 MAILROOM MESSENGER: CHULA 04/22/191723 RPT#: [id number] NC DATE: STATUS: ADM IN [facility] [place] [address] END OF REPORT
--- NOTE | 2019-04-22 17:59 | MORECARE ---
CASE MANAGEMENT DISCHARGE SUMMARY PATIENT: LINDA OCHOA UNIT: [id number] ADM DATE: 04/04/19 AGE: 78 : 41 SEX: M ROOM/BED: D.8777 AUTHOR: BRYONDOC PHYSICIAN: REFERRING PHYSICIAN: DOMINIQUE ODEN MD DATE OF SERVICE: 04/22/19 Discharge Plan Patient Name: LINDA OCHOA Facility: [facility] : 1940 Planned Disposition: Shelter Facility Anticipated Discharge Date: 04/22/19 Discharge Date: Expected LOS: 18 Initial Reviewer: [id number] Initial Review Date: 04/09/2019 Generated: 04/22/19 6:59 pm Comments DCP- Discharge Planning Updated by [email or web address]: Perry Gonzales on 04/22/19 4:[address] Patient Name: LINDA OCHOA Encounter No: [id number] : 1940 Primary Insurance: HUMANA CHOICE PPO MCR ADVANT Anticipated DC Date: 04-22-2019 Planned Disposition: Shelter Facility External Planned Provider: [facility] CM RECEIVED CALL FROM MALGORZATA AT [facility], THEY WILL NOT BE ABLE TO CALCULATING MACHINE OPERATOR PT UNTIL TOMORROW MORNING AT 0700AM. CM NOTIFIED NERY GAYTAN. PT NOTIFIED AND IN AGREEMENT WITH DISCHARGE TODAY. CM CALLED AND NOTIFIED PT'S DAUGHTER, RITU. NERY GAYTAN NOTIFIED. CM FAXED DISCHARGE INFORMATION TO [facility] AT [phone]. FACULTY RESEARCH ASSISTANT NURSE NOTIFIED. ON 04-23-19, AT ABOUT 6:30AM, PLEASE CALL NURSE REPORT TO BE CALLED TO [facility], [facility] AT [phone]. [facility] TO ARRANGE TRANSPORATION. Perry Gonzales CASE SOPHIA DCP- Discharge Planning Updated by [id number]: Perry Gonzalse on 04/22/19 1:[address] Patient Name: LINDA OCHOA Encounter No: [id number] : 1940 Primary Insurance: HUMANA CHOICE PPO MCR ADVANT Anticipated DC Date: 04-22-2019 Planned Disposition: Shelter Facility External Planned Provider: [facility] DCP follow-up note: CM RECEIVED CALL FROM MALGORZATA AT [facility], THEY WILL ACCEPT PT TODAY, NURSE REPORT TO BE CALLED TO ST[facility], [facility] WILL AR[facility]ANGE [place] TO CALCULATING MACHINE OPERATOR PT TODAY. PT NOTIFIED AND IN AGREEMENT WITH DISCHARGE TODAY. NERY GAYTAN NOTIFIED. CM FAXED DISCHARGE INFORMATION TO [facility] AT [phone]. NURSE REPORT TO BE CALLED TO [facility], [facility] AT [phone]. [facility] TO ARRANGE TRANSPORATION. Perry Gonzales CASE MANAGEMENT DCP- Discharge Planning Updated by [id number]: Perry Gonzales on 04/22/19 6:[address] Patient Name: LINDA OCHOA Encounter No: [id number] : 1940 Primary Insurance: HUMANA CHOICE PPO [facility] ADVANT Anticipated DC Date: 04-21-2019 Planned Disposition: Shelter Facility External Planned Provider: [facility] DCP follow-up note: CM FAXED [facility] UPDATE AT [facility] [phone]. CM WAITING FOR INSURANCE AUTHORIZATION FOR REHAB SERVICES; ONCE RECEIVED, FOR DISCHARGE, FAX DISCHARGE INFORMATION TO [facility] AT [phone]. NURSE REPORT TO BE CALLED TO [facility] AT [phone]. [facility] TO ARRANGE TRANSPORATION. Perry Gonzales CASE MANAGEMENT DCP- Discharge Planning Updated by [id number]: Perry Gonzales on 04/21/19 3:[address] Patient Name: LINDA OCHOA Encounter No: [id number] : 1940 Primary Insurance: HUMANA CHOICE PPO MCR ADVANT Anticipated DC Date: 04-21-2019 Planned Disposition: Shelter Facility External Planned Provider: [facility] DCP follow-up note: CM CALLED MALGORZATA OF [facility], THEY WILL ACCEPT PT AND INSURANCE HAS ASKED FOR UPDATED NOTES FROM TODAY, MALGORZATA WILL SUBMIT UPDATE FOR AUTHORIZATION FROM INSURANCE. CM FAXED [facility] UPDATE AT [facility] [phone] . PT NOTIFIED AND IN AGREEEMENT WITH DISCHARGE PLAN. IMPORTANT MESSAGE FROM MEDICARE PROVIDED AND EXPLAINED. CM WAITING FOR INSURANCE AUTHORIZATION FOR REHAB SERVICES; ONCE RECEIVED, FOR DISCHARGE, FAX DISCHARGE INFORMATION TO [facility] AT [phone]. NURSE REPORT TO BE CALLED TO [facility] AT [phone]. [facility] TO ARRANGE TRANSPORATION. Perry Gonzales CASE MANAGEMENT DCP- Discharge Planning Updated by [id number]: Perry Gonzales on 04/20/19 1:[address] Patient Name: LINDA OCHOA Encounter No: [id number] : 1940 Primary Insurance: HUMANA CHOICE PPO [facility] ADVANT Anticipated DC Date: 04-21-2019 Planned Disposition: Shelter Facility External Planned Provider:[facility] DCP follow-up note: CM SPOKE TO NERY GAYTAN WHO ADVISED PT MAY BE READY TO GO TO REHAB IN THE NEXT DAY. CM CALLED MALGORZATA OF [facility], THEY WILL ACCEPT PT AND WILL SUBMIT FOR NEW AUTHORIZATION FROM INSURANCE. CM FAXED [facility] UPDATE AT [facility] [phone] . PT NOTIFIED AND IN AGREEEMENT WITH DISCHARGE PLAN. FOR DISCHARGE, FAX DISCHARGE INFORMATION TO [facility] AT [phone]. NURSE REPORT TO BE CALLED TO [facility] AT [phone]. [facility] TO ARRANGE TRANSPORATION. Perry Gonzales CASE MANAGEMENT DCP- Discharge Planning Updated by [id number]: Perry Gonzales on 04/19/19 10:[address] Patient Name: LINDA OCHOA Encounter No: [id number] : 1940 Primary Insurance: HUMANA CHOICE PPO [facility] ADVANT Anticipated DC Date: 04-16-2019 Planned Disposition: Shelter Facility External Planned Provider: [facility] DCP follow-up note: CM WAS ADVISED DURING MULTIDISCIPLINARY CARE TEAM MEETING THAT PT IS NOT READY TO DISCHARGE TODAY. MARLENE RESULT RECEIVED, PT IS NON PASRR AND MAY ENTER NURSING HOME FACILITY. CM CALLED MALGORZATA OF [facility], , NOTIFIED THAT PT WILL NOT DISCHARGE TODAY. PT WILL REQUIRE NEW AUTHORIZATION FROM INSURANCE. PT NOTIFIED AND IN AGREEEMENT WITH DISCHARGE PLAN. PT WILL REQUIRE NEW AUTHORIZATION FROM INSURANCE, CM TO FAX UPDATE AND MARLENE ASSESSMENT / DETERMINATION TO [facility] THE DAY PRIOR TO DISCHARGE AT [phone]. Perry Gonzales CASE MANAGEMENT DCP- Discharge Planning Updated by [id number]: Perry Gonzales on 04/16/19 11:[address] Patient Name: LINDA OCHOA Encounter No: [id number] : 1940 Primary Insurance: HUMANA CHOICE PPO MCR ADVANT Anticipated DC Date: 04-16-2019 Planned Disposition: Shelter Facility External Planned Provider: [facility] DCP follow-up note: CM CALLED MALGORZATA OF [facility], NOTIFIED THAT PT WILL NOT DISCHARGE TODAY. PT WILL REQUIRE NEW AUTHORIZATION FROM INSURANCE AND INSURANCE IS NOT OPEN OVER WEEKEND TO REVIEW. MALGORZATA NOTIFIED CM THAT PT WILL NOW NEED MARLENE ASSESSMENT DUE TO ADMINISTRATION OF [place] MEDICATION. PT NOTIFIED AND IN AGREEEMENT WITH DISCHARGE PLAN. PT WILL REQUIRE NEW AUTHORIZATION FROM INSURANCE NEXT WEEK. PT WILL REQUIRE MARLENE ASSESSMENT. CM TO COMPLETE MARLENE ASSESSMENT SOON POSSIBLE. Perry Gonzales CASE SOPHIA DCP- Discharge Planning Updated by [id number]: Perry Gonzales on 04/15/19 4:[address] Patient Name: LINDA OCHOA Encounter No: [id number] : 1940 Primary Insurance: HUMANA CHOICE PPO MCR ADVANT Anticipated DC Date: 04-16-2019 Planned Disposition: Shelter Facility External Planned Provider: [facility] DCP follow-up note: CM RECEIVED CALL FROM [facility], THEY WILL ACCEPT PT AND HAVE AUTHORIZATION FROM INSURANCE FOR TODAY AND TOMORROW. CM NOTIFIED NERY GZUMÁN WHO ADVISED THAT THE DOCTOR SAID NOT TODAY, MAYBE TOMORROW. CM NOTIFIED MALGORZATA AT [facility]. PT NOTIFIED AND IN AGREEEMENT WITH DISCHARGE PLAN. FOR DISCHARGE, FAX DISCHARGE INFORMATION TO [facility] AT [phone]. NURSE REPORT TO BE CALLED TO [facility] AT [phone]. [facility] TO ARRANGE TRANSPORATION. INSURANCE AUTHORIZATION EXPIRES 04-16-19 AND PT WILL REQUIRE ANOTHER AUTHORIZATION FROM INSURANCE IF NOT IN REHAB TOMORROW. GARTH [employer] MANAGEMENT DCP- Discharge Planning Updated by [id number]: Perry Gonzales on 04/15/19 7:[address] Patient Name: LINDA OCHOA Encounter No: [id number] : 1940 Primary Insurance: HUMANA CHOICE PPO MCR ADVANT Anticipated DC Date: 04-14-2019 Planned Disposition: Shelter Facility External Planned Provider: [facility] DCP follow-up note: CM FAXED UPDATE TO [facility], . CM SPOKE TO PT IN ROOM, PT IS IN AGREEMENT WITH DISCHARGE PLAN TO [facility]. IMPORTANT MESSAGE FROM MEDICARE PROVIDED AND EXPLAINED. CM WAITING INSURANCE DETERMINATION FOR [facility] FOR [facility] RE[facility]. GARTH [employer] MANAGEMENT DCP- Discharge Planning Updated by [id number]: Perry Gonzales on 04/14/19 1:[address] Patient Name: LINDA OCHOA Encounter No: [id number] : 1940 Primary Insurance: HUMANA CHOICE PPO MCR ADVANT Anticipated DC Date: 04-14-2019 Planned Disposition: Shelter Facility External Planned Provider: [facility] DCP follow-up note: CM RECEIVED CALL FROM [facility], , SPOKE TO MALGORZATA WHO INFORMED CM THAT THEY HAVE SUBMITTED TO PT'S INSURANCE FOR AUTHORIZATION. MALGORZATA ASKED FOR UPDATE TO BE FAXED IN THE MORNING. CM RECEIVED CALL FROM PT'S NIECE, CHARITY RICHARDSON, , CALLED AND ASKED FOR UPDATE. CM MET WITH PT IN ROOM WHO PROVIDED PERMISSION TO PROVIDE TREATMENT AND DISCHARGE PLANNING INFORMATION TO CHARITY, UPDATE GIVEN. CM CALLED PT'S DAUGHTER, JARED OCHOA, , AND PROVIDED UPDATE. JARED IS IN AGREEMENT WITH DISCHARGE PLAN TO [facility]. PT IS IN AGREEMENT WITH DISCHARGE PLAN TO [facility]. CM WAITING INSURANCE DETERMINATION FOR [facility] FOR [facility]. Perry Gonzales CASE MANAGEMENT DCP- Discharge Planning Updated by [id number]: Perry Gonzales on 04/13/19 3:[address] Patient Name: LINDA OCHOA Encounter No: [id number] : 1940 Primary Insurance: HUMANA CHOICE PPO MCR ADVANT Anticipated DC Date: 04-14-2019 Planned Disposition: Shelter Facility External Planned Provider: [facility] DCP follow-up note: CM RECEIVED MESSAGE FROM [facility], THEY ARE OUT OF PT'S INSURANCE NETWORK AND REFERRED CM TO [facility] THAT IS IN NETWORK WITH PT'S INSURANCE. CM REVIEWED CONSENTS FOR PROVIDERS THAT INCLUDED SNF IN [place], [place]. CM CALLED [facility], , SPOKE TO ANNA WHO TOOK REFERRAL INFORMATION. CM INFORMED ANNA THAT PT HAS BEEN DISCHARGED AND NEEDS REHAB ONLY. CM FAXED REFERRAL TO [facility] AT [phone]. CM RECEIVED ORDERS FOR NEBULIZER AND WALK TEST RESULTS WERE 95% ON ROOM AIR, 88% ON ROOM AIR DURING EXERTION, 94% RECOVERY ON 2 LITERS OXYGEN DURING RECOVERY. ALL MEDICAL EQUIPMENT WILL BE PROVIDED BY NURSING HOME FACILITY IF ACCEPTED. CM WAITING ADMISSION DETERMINATION FROM [facility] FOR [facility]. Perry Gonzales, CASE MANAGEMENT DCP- Discharge Planning Updated by [id number]: Perry Gonzales on 04/12/19 3:[address] Patient Name: LINDA OCHOA Encounter No: [id number] : 1940 Primary Insurance: HUMANA CHOICE PPO MCR ADVANT Anticipated DC Date: 04-13-2019 Planned Disposition: Shelter Facility External Planned Provider: [facility], MEDICARE REHAB BED DCP follow-up note: CM SPOKE TO BEDSIDE NURSE WHO INFORMED CM THAT PT IS TOO WEAK TO DISCHARGE HOME PLANNED. CM MET WITH PT IN ROOM AND DISCUSSED THERAPY RESULTS, PT'S PLAN TO RETURN HOME AND AVAILABILITY OF REHAB SERVICES. PT INITIALLY STATED THAT HE WANTS TO GO HOME WITH HOME HEALTH. PT STATES IT IS OK TO DISCUSS HIS DISCHARGE PLAN WITH HIS DAUGHTER, RITU, SHE IS GOING TO BE TAKING CARE OF HIM AFTER HE GETS HOME, HE WILL DO WHAT SHE SAYS. CM CALLED RITU OCHOA AT [phone]; RITU STATES THAT PT NEEDS REHAB AND SHE WILL DISCUSS THIS WITH PT. SHE WOULD LIKE NURSING HOME REHAB IN [place] AND IF NONE THERE, THEN TO TRY [facility]. CHOICE COMPLETED. CM SPOKE TO PT WHO IS IN AGREEMENT WITH PLAN. IMPORTANT MESSAGE FROM MEDICARE PROVIDED AND EXPLAINED. CM FAXED REFERRAL TO [facility] IN [place] [facility]IA [facility] AT [phone]. CM CALLED ZOILA AND NOTIFIED HER OF REFERRAL FOR [facility] AT [phone], CM WAITING ADMISSION DETERMINATION AND INSURANCE AUTHORIZATION FOR REHAB SERVICES AT [facility] [place]. Perry Gonzales, CASE MANAGEMENT DCP- Discharge Planning Updated by [id number]: Divya Arauz on 04/11/19 4:[address] PHYSICAL THERAPY EVAL COMPLETED TODAY. PATIENT IS IN VERY WEAKEN STATE. HE COULD NOT TOLERATE SITTING ON THE SIDE OF THE BED SECONDARY TO PAIN AND STIFFNESS. REQUIRED 2 PERSON DRAW SHEET PULL TO GET TO THE HEAD OF THE BED. PLS REVIEW PHYSICAL THERAPY NOTES. PATIENT REPORTEDLY LIVED ALONE AND WAS INDEPENDENT IN CARE PRIOR TO ADMISSION. LIKELY WILL NEED TO CONSIDER ACUTE OR SKILLED REHAB. OT CONSULT ORDER OBTAINED. 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 CM TO FOLLOW TO ASSIST. . 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 PT REPORTS LIVING AT HOME INDEPENDENTLY AND ALONE. PT HAS NO MEDICAL EQUIPMENT AND NO OUTSIDE SERVICES ASSISTING IN THE HOME. CM DISCUSSED AVAILABILITY OF HOME HEALTH, REHAB SERVICES AND MEDICAL EQUIPMENT. PT WILL ACCEPT HOME HEALTH IF NEEDED; PROVIDED WITH PROVIDER LISTING, PT HAS NO CHOICE OF PROVIDER, CHOICE LETTER COMPLETED. PT REPORTS HIS DAUGHTER WILL PICK HIM UP FOR DISCHARGE HOME. IMPORTANT MESSAGE FROM MEDICARE PROVIDED AND EXPLAINED. PT STATES HIS DAUGHTER WILL STAY WITH HIM TO ASSIST AT HOME AFTER DISCHARGE. PT PLANS TO DISCHARGE HOME WHERE HIS DAUGHTER WILL STAY AND ASSIST IF NEEDED. DAUGHTER TO TRANSPORT HOME AT DISCHARGE. PT WOULD ACCEPT HOME HEALTH IF NEEDED; CM TO ARRANGE HOME HEALTH WITH PHYSICIAN AGREEMENT OF NEED AND ORDERS. Round Up Ring Hand: Perry Gonzales DCPIA - Discharge Planning Initial Assessment Updated by [id number]: Perry Gonzales on 04/09/19 5:13 pm * Is the patient Alert and Oriented? Yes * How many steps to enter\exit or inside your home? NONE * PCP DR[facility] SORTO IN [place] * Pharmacy [facility] IN [place] * Preadmission Environment Home Alone * ADLs Independent * Equipment None * Other Equipment NO MEDICAL EQUIPMENT PROVIDER PREFERENCE * List name and contact numbers for known caregivers / representatives who currently or will assist patient after discharge: RITU OCHOA, DTR, BRANDT OCHOA, MOTHER 100 YRS OLD, * Verbal permission to speak to the caregivers and representatives has been obtained from the patient. N/A * Community resources currently utilized None * Please name any agencies selected above. NONE * Additional services required to return to the preadmission environment? Yes * Can the patient safely return to the preadmission environment? Yes * Has this patient been hospitalized within the prior 30 days at any hospital? No Coverage Notice Reviewer: ANTONI Gonzales Notice Issued Date-Time: 04/09/2019 9:20 Notice Type: IM Discharge Notice Notice Delivered To: Patient Relationship to Patient: Public Health Name: Delivery Method: HAND - Hand Delivered Chantel Days: Prior Verbal Notification: Recipient Understood Notice: Yes Recipient Signature: Yes Med Rec Note Co-signed by Attending: Coverage Notice Comment: Reviewer: ANTONI Gonzales Notice Issued Date-Time: 04/09/2019 9:20 Notice Type: Patient Choice Letter Notice Delivered To: Relationship to Patient: Public Health Name: Delivery Method: HAND - Hand Delivered Chantel Days: Prior Verbal Notification: Recipient Understood Notice: Yes Recipient Signature: Yes Med Rec Note Co-signed by Attending: Coverage Notice Comment: NO HOME HEALTH PROVIDER PREFERENCE Reviewer: ANTONI Gonzales Notice Issued Date-Time: 04/12/2019 14:45 Notice Type: IM Discharge Notice Notice Delivered To: Patient Relationship to Patient: Public Health Name: Delivery Method: HAND - Hand Delivered Chantel Days: Prior Verbal Notification: Recipient Understood Notice: Yes Recipient Signature: Yes Med Rec Note Co-signed by Attending: Coverage Notice Comment: Reviewer: ANTONI Gonzales Notice Issued Date-Time: 04/12/2019 14:45 Notice Type: Patient Choice Letter Notice Delivered To: Relationship to Patient: Public Health Name: Delivery Method: HAND - Hand Delivered Chantel Days: Prior Verbal Notification: Recipient Understood Notice: Yes Recipient Signature: Yes Med Rec Note Co-signed by Attending: Coverage Notice Comment: SNF IN [place] #1 SNF IN [place]2 Reviewer: ANTONI Gonzales Notice Issued Date-Time: 04/15/2019 7:38 Notice Type: IM Discharge Notice Notice Delivered To: Patient Relationship to Patient: Public Health Name: Delivery Method: HAND - Hand Delivered Chantel Days: Prior Verbal Notification: Recipient Understood Notice: Yes Recipient Signature: Yes Med Rec Note Co-signed by Attending: Coverage Notice Comment: Reviewer: [id number] - Perry Gonzales Notice Issued Date-Time: 04/21/2019 13:15 Notice Type: IM Discharge Notice Notice Delivered To: Patient Relationship to Patient: Public Health Name: Delivery Method: HAND - Hand Delivered Chantel Days: Prior Verbal Notification: Recipient Understood Notice: Yes Recipient Signature: Yes Med Rec Note Co-signed by Attending: Coverage Notice Comment: Last DP export: 04/22/19 4:24 Patient Name: LINDA OCHOA Page [id number] at 1759 All edits/amendments must be made on the electronic document DICTATION DATE: 04/22/191757 BARKER OPERATOR: CHULA 04/22/191757 RPT#: [id number] ND DATE: STATUS: ADM IN [facility] [address] [place] [address] END OF REPORT
[2019-04-22 18:20] VITALS: BP 143/74
--- NOTE | 2019-04-22 19:10 | NUR ---
PT RESTING IN BED WITH EYES CLOSED. ALERT WITH VERBAL STIMULI. VSS. DENIES PAIN OR NEEDS. BED LOW AND CALL LIGHT IN REACH.
[2019-04-22 20:00] VITALS: BP 130/68
[2019-04-23] VITALS: BP 126/69
[2019-04-23 04:00] VITALS: BP 122/70
[2019-04-23 06:04] LABS: BASOPHILS 0.2 % (0-2); EOSINOPHILS 6.5 % (0-7); HEMATOCRIT 31.2 % (42.0-54.0); HEMOGLOBIN 9.6 g/dL (13.5-17.5); IMMATURE GRANULOCYTES 0.4 % (0-5); LYMPHOCYTES 16.3 % (15-50); MCH 28.4 pg (26.0-34.0); MCHC 30.8 g/dL (31.0-37.0); MCV 92.3 fL (80.0-100.0); MONOCYTES 9.2 % (2-11); NEUTROPHILS 67.4 % (40-80); PLATELET COUNT 473 10x3/uL (130-400); RBC 3.38 10x6/uL (4.20-6.10); RDW 16.4 % (11.5-14.5); WBC 5.4 10x3/uL (4.8-10.8)
[2019-04-23 06:31] LABS: CALC OSMOLALITY 278 mosm/kg (275-300); CALCIUM 8.7 mg/dL (8.5-10.1); CARBON DIOXIDE 27.8 mmol/L (21.0-32.0); CHLORIDE - SERUM 108 mmol/L (98-107); CREATININE - SERUM 0.9 mg/dL (0.6-1.3); GLUCOSE 99 mg/dL (74-106); MAGNESIUM - SERUM 1.6 mg/dL (1.8-2.4); POTASSIUM - SERUM 3.4 mmol/L (3.5-5.1); SODIUM 141 mmol/L (136-145); eGFR NON AFRICAN AMERICAN 87 mL/min (90-120)
[2019-04-23 06:33] LABS: UREA NITROGEN 8 mg/dL (7-18)
--- NOTE | 2019-04-23 06:50 | NUR ---
REPORT CALLED TO [facility]. SPOKE WITH CHANTALE CARMEN. PT LEFT VIA WHEELCHAIR BY TRANSPORT PERSONEL.
--- NOTE | 2019-04-23 15:41 | MORECARE ---
CASE MANAGEMENT DISCHARGE SUMMARY PATIENT: LINDA OCHOA UNIT: [id number] ADM DATE: 04/04/19 AGE: 78 : 42 SEX: M ROOM/BED: D.2497 AUTHOR: BRYONDOC PHYSICIAN: REFERRING PHYSICIAN: DOMINIQUE ODEN MD DATE OF SERVICE: 04/23/19 Discharge Plan Patient Name: LINDA OCHOA Facility: [facility]:[place] : 1940 Planned Disposition: [facility] Facility Anticipated Discharge Date: 04/22/19 Discharge Date: 04/23/2019 Expected LOS: 18 Initial Reviewer: [id number] Initial Review Date: 04/09/2019 Generated: 04/23/19 4:41 pm Comments DCP- Discharge Planning Updated by [id number]: Perry Gonzales on 04/22/19 4:[address] Patient Name: LINDA OCHOA Encounter No: [id number] : 1940 Primary Insurance: HUMANA CHOICE PPO MCR ADVANT Anticipated DC Date: 04-22-2019 Planned Disposition: [facility] Facility External Planned Provider: [facility] CM RECEIVED CALL FROM MALGORZATA AT [facility], THEY WILL NOT BE ABLE TO MANAGER HIV PT UNTIL TOMORROW MORNING AT 0700AM. CM NOTIFIED NERY GAYTAN. PT NOTIFIED AND IN AGREEMENT WITH DISCHARGE TODAY. CM CALLED AND NOTIFIED PT'S DAUGHTER, RITU. NERY GAYTAN NOTIFIED. CM [facility] AT [phone]. GRAIN ELEVATOR OPERATOR NURSE NOTIFIED. ON 04-23-19, AT ABOUT 6:30AM, PLEASE CALL NURSE REPORT TO BE CALLED TO [facility], [facility] AT [phone]. [facility] TO [facility]ANGE TRANSPORATION. Perry Gonzales CASE MANAGEMENT DCP- Discharge Planning Updated by [id number]: Perry Gonzales on 04/22/19 1:[address] Patient Name: LINDA OCHOA Encounter No: [id number] : 1940 Primary Insurance: HUMANA CHOICE PPO MCR ADVANT Anticipated DC Date: 04-22-2019 Planned Disposition: [facility] Facility External Planned Provider: [facility] DCP follow-up note: CM RECEIVED CALL FROM MALGORZATA AT [facility], THEY WILL ACCEPT PT TODAY, NURSE REPORT TO BE CALLED TO ST[facility], [facility] WILL ARRANGE QUEST TO MANAGER HIV PT TODAY. PT NOTIFIED AND IN AGREEMENT WITH DISCHARGE TODAY. NERY GAYTAN NOTIFIED. CM FAXED DISCHARGE INFORMATION TO [facility] AT [phone]. NURSE REPORT TO BE CALLED TO [facility], [facility] AT [phone]. [facility] TO ARRANGE TRANSPORATION. Perry Gonzales CASE MANAGEMENT DCP- Discharge Planning Updated by [id number]: Perry Gonzales on 04/22/19 6:[address] Patient Name: LINDA OCHOA Encounter No: [id number] : 1940 Primary Insurance: HUMANA CHOICE PPO [facility] ADVANT Anticipated DC Date: 04-21-2019 Planned Disposition: [facility] Facility External Planned Provider: [facility], MEDICARE REHAB BED DCP follow-up note: CM [facility] AT [facility] [phone]. CM WAITING FOR INSURANCE AUTHORIZATION FOR REHAB SERVICES; ONCE RECEIVED, FOR DISCHARGE, FAX DISCHARGE INFORMATION TO [facility] AT [phone]. NURSE REPORT TO BE CALLED TO [facility] AT [phone]. [facility] TO ARRANGE TRANSPORATION. Perry Gonzales CASE MANAGEMENT DCP- Discharge Planning Updated by [id number]: Perry Gonzales on 04/21/19 3:[address] Patient Name: LINDA OCHOA Encounter No: [id number] : 1940 Primary Insurance: HUMANA CHOICE PPO [facility] ADVANT Anticipated DC Date: 04-21-2019 Planned Disposition: [facility] Facility External Planned Provider: [facility], MEDICARE REHAB BED DCP follow-up note: CM CALLED MALGORZATA OF [facility], THEY WILL ACCEPT PT AND INSURANCE HAS ASKED FOR UPDATED NOTES FROM TODAY, MALGORZATA WILL SUBMIT UPDATE FOR AUTHORIZATION FROM INSURANCE. [facility] [phone] . PT NOTIFIED AND IN AGREEEMENT WITH DISCHARGE PLAN. IMPORTANT MESSAGE FROM MEDICARE PROVIDED AND EXPLAINED. CM WAITING FOR INSURANCE AUTHORIZATION FOR REHAB SERVICES; ONCE RECEIVED, FOR DISCHARGE, FAX DISCHARGE INFORMATION TO [facility] AT [phone]. NURSE REPORT TO BE CALLED TO [facility] AT [phone]. [facility] TO ARRANGE TRANSPORATION. GARTH Sharp DCP- Discharge Planning Updated by [id number]: Perry Gonzales on 04/20/19 1:[address] Patient Name: LINDA OCHOA Encounter No: [id number] : 1940 Primary Insurance: HUMANA [employer] PPO MCR ADVANT Anticipated DC Date: 04-21-2019 Planned Disposition: [facility] Facility External Planned Provider:[facility] DCP follow-up note: CM SPOKE TO NERY GAYTAN WHO ADVISED PT MAY BE READY TO GO TO REHAB IN THE NEXT DAY. CM CALLED MALGORZATA OF [facility], THEY WILL ACCEPT PT AND WILL SUBMIT FOR NEW AUTHORIZATION FROM INSURANCE. CM FAXED [facility] UPDATE AT [facility] [phone] . PT NOTIFIED AND IN AGREEEMENT WITH DISCHARGE PLAN. FOR DISCHARGE, FAX DISCHARGE INFORMATION TO [facility] AT [phone]. NURSE REPORT TO BE CALLED TO [facility] AT [phone]. [facility] TO ARRANGE TRANSPORATION. GARTH Sharp DCP- Discharge Planning Updated by [id number]: Perry Gonzales on 04/19/19 10:[address] Patient Name: LINDA OCHOA Encounter No: [id number] : 1940 Primary Insurance: HUMANA CHOICE PPO [facility] ADVANT Anticipated DC Date: 04-16-2019 Planned Disposition: [facility] Facility External Planned Provider: [facility] DCP follow-up note: CM WAS ADVISED DURING MULTIDISCIPLINARY CARE TEAM MEETING THAT PT IS NOT READY TO DISCHARGE TODAY. MARLENE RESULT RECEIVED, PT IS NON PASRR AND MAY ENTER LONG-TERM FACILITY. CM CALLED MALGORZATA OF [facility], , NOTIFIED THAT PT WILL NOT DISCHARGE TODAY. PT WILL REQUIRE NEW AUTHORIZATION FROM INSURANCE. PT NOTIFIED AND IN AGREEEMENT WITH DISCHARGE PLAN. PT WILL REQUIRE NEW AUTHORIZATION FROM INSURANCE, CM TO FAX UPDATE AND MARLENE ASSESSMENT / DETERMINATION TO [facility] THE DAY PRIOR TO DISCHARGE AT [phone]. Perry Gonzales CASE MANAGEMENT DCP- Discharge Planning Updated by [id number]: Perry Gonzales on 04/16/19 11:[address] Patient Name: LINDA OCHOA Encounter No: [id number] : 1940 Primary Insurance: HUMANA CHOICE PPO MCR ADVANT Anticipated DC Date: 04-16-2019 Planned Disposition: [facility] Facility External Planned Provider: [facility] DCP follow-up note: CM CALLED MALGORZATA OF [facility], NOTIFIED THAT PT WILL NOT DISCHARGE TODAY. PT WILL REQUIRE NEW AUTHORIZATION FROM INSURANCE AND INSURANCE IS NOT OPEN OVER WEEKEND TO REVIEW. MALGORZATA NOTIFIED CM THAT PT WILL NOW NEED MARLENE ASSESSMENT DUE TO ADMINISTRATION OF LEXAPRO MEDICATION. PT NOTIFIED AND IN AGREEEMENT WITH DISCHARGE PLAN. PT WILL REQUIRE NEW AUTHORIZATION FROM INSURANCE NEXT WEEK. PT WILL REQUIRE MARLENE ASSESSMENT. CM TO COMPLETE MARLENE ASSESSMENT SOON POSSIBLE. Perry Gonzales CASE MANAGEMENT DCP- Discharge Planning Updated by [id number]: Perry Gonzales on 04/15/19 4:[address] Patient Name: LINDA OCHOA Encounter No: [id number] : 1940 Primary Insurance: HUMANA CHOICE PPO MCR ADVANT Anticipated DC Date: 04-16-2019 Planned Disposition: [facility] Facility External Planned Provider: [facility] DCP follow-up note: CM RECEIVED CALL FROM MALGORZATA OF [facility], THEY WILL ACCEPT PT AND HAVE AUTHORIZATION FROM INSURANCE FOR TODAY AND TOMORROW. CM NOTIFIED NERY GUZMÁN WHO ADVISED THAT THE DOCTOR SAID NOT TODAY, MAYBE TOMORROW. CM NOTIFIED MALGORZATA AT [facility]. PT NOTIFIED AND IN AGREEEMENT WITH DISCHARGE PLAN. FOR DISCHARGE, FAX DISCHARGE INFORMATION TO [facility] AT [phone]. NURSE REPORT TO BE CALLED TO [facility] AT [phone]. [facility] TO ARRANGE TRANSPORATION. INSURANCE AUTHORIZATION EXPIRES 04-16-19 AND PT WILL REQUIRE ANOTHER AUTHORIZATION FROM INSURANCE IF NOT IN REHAB TOMORROW. Perry Gonzales CASE MANAGEMENT DCP- Discharge Planning Updated by [id number]: Perry Gonzales on 04/15/19 7:[address] Patient Name: LINDA OCHOA Encounter No: [id number] : 1940 Primary Insurance: HUMANA CHOICE PPO MCR ADVANT Anticipated DC Date: 04-14-2019 Planned Disposition: [facility] Facility External Planned Provider: [facility] DCP follow-up note: CM FAXED UPDATE TO [facility], . CM SPOKE TO PT IN ROOM, PT IS IN AGREEMENT WITH DISCHARGE PLAN TO [facility]. IMPORTANT MESSAGE FROM MEDICARE PROVIDED AND EXPLAINED. CM WAITING INSURANCE DETERMINATION FOR [facility] FOR LONG-[facility]M REH[facility]. GARTH Sharp MANAGEMENT DCP- Discharge Planning Updated by [id number]: Perry Gonzales on 04/14/19 1:[address] Patient Name: LINDA OCHOA Encounter No: [id number] : 1940 Primary Insurance: HUMANA CHOICE PPO MCR ADVANT Anticipated DC Date: 04-14-2019 Planned Disposition: [facility] Facility External Planned Provider: [facility] DCP follow-up note: CM RECEIVED CALL FROM [facility], , SPOKE TO MALGORZATA WHO INFORMED CM THAT THEY HAVE SUBMITTED TO PT'S INSURANCE FOR AUTHORIZATION. MALG[facility]ZATA ASKED FOR UPDATE TO BE FAXED IN THE MORNING. CM RECEIVED CALL FROM PT'S NIECE, CHARITY RICHARDSON, , CALLED AND ASKED FOR UPDATE. CM MET WITH PT IN ROOM WHO PROVIDED PERMISSION TO PROVIDE TREATMENT AND DISCHARGE PLANNING INFORMATION TO CHARITY, UPDATE GIVEN. CM CALLED PT'S DAUGHTER, JARED OCHOA, , AND PROVIDED UPDATE. JARED IS IN AGREEMENT WITH DISCHARGE PLAN TO [facility]. PT IS IN AGREEMENT WITH DISCHARGE PLAN TO [facility]. CM WAITING INSURANCE DETERMINATION FOR [facility] FOR LONG[facility] RE[facility]. Perry Gonzales CASE MANAGEMENT DCP- Discharge Planning Updated by [id number]: Perry Gonzales on 04/13/19 3:[address] Patient Name: LINDA OCHOA Encounter No: [id number] : 1940 Primary Insurance: HUMANA CHOICE PPO MCR ADVANT Anticipated DC Date: 04-14-2019 Planned Disposition: [facility] Facility External Planned Provider: [facility] DCP follow-up note: [facility], THEY ARE OUT OF PT'S INSURANCE NETWORK AND REFERRED CM TO [facility] THAT IS IN NETWORK WITH PT'S INSURANCE. CM REVIEWED CONSENTS FOR PROVIDERS THAT INCLUDED SNF IN [place], [place]. CM CALLED [facility], , SPOKE TO ANNA WHO TOOK REFERRAL INFORMATION. CM INFORMED ANNA THAT PT HAS BEEN DISCHARGED AND NEEDS REHAB ONLY. CM FAXED REFERRAL TO [facility] AT [phone]. CM RECEIVED ORDERS FOR NEBULIZER AND WALK TEST RESULTS WERE 95% ON ROOM AIR, 88% ON ROOM AIR DURING EXERTION, 94% RECOVERY ON 2 LITERS OXYGEN DURING RECOVERY. ALL MEDICAL EQUIPMENT WILL BE PROVIDED BY LONG-TERM FACILITY IF ACCEPTED. CM WAITING ADMISSION DETERMINATION FROM [facility] FOR LONG[facility] RE[facility]. Perry Gonzales, CASE MANAGEMENT DCP- Discharge Planning Updated by [id number]: Perry Gonzales on 04/12/19 3:[address] Patient Name: LINDA OCHOA Encounter No: [id number] : 1940 Primary Insurance: HUMANA CHOICE PPO MCR ADVANT Anticipated DC Date: 04-13-2019 Planned Disposition: [facility] Facility External Planned Provider: [facility], MEDICARE REHAB BED DCP follow-up note: CM SPOKE TO BEDSIDE NURSE WHO INFORMED CM THAT PT IS TOO WEAK TO DISCHARGE HOME PLANNED. CM MET WITH PT IN ROOM AND DISCUSSED THERAPY RESULTS, PT'S PLAN TO RETURN HOME AND AVAILABILITY OF REHAB SERVICES. PT INITIALLY STATED THAT HE WANTS TO GO HOME WITH HOME HEALTH. PT STATES IT IS OK TO DISCUSS HIS DISCHARGE PLAN WITH HIS DAUGHTER, RITU, SHE IS GOING TO BE TAKING CARE OF HIM AFTER HE GETS HOME, HE WILL DO WHAT SHE SAYS. CM CALLED RITU OCHOA AT [phone]; RITU STATES THAT PT NEEDS REHAB AND SHE WILL DISCUSS THIS WITH PT. SHE WOULD LIKE LONG-TERM REHAB IN [place] AND IF NONE THERE, THEN TO TRY [facility]. CHOICE COMPLETED. CM SPOKE TO PT WHO IS IN AGREEMENT WITH PLAN. IMPORTANT MESSAGE FROM MEDICARE PROVIDED AND EXPLAINED. CM FAXED REFERRAL TO [facility] IN [place] [facility]IA [facility] AT [phone]. CM CALLED ZOILA AND NOTIFIED HER OF REFERRAL FOR [facility] AT [phone], SONY WAITING ADMISSION DETERMINATION AND INSURANCE AUTHORIZATION FOR REHAB SERVICES AT [facility] IN [place]. Perry Gonzales, CASE MANAGEMENT DCP- Discharge Planning Updated by [id number]: Divya Arauz on 04/11/19 4:[address] PHYSICAL THERAPY EVAL COMPLETED TODAY. PATIENT IS IN VERY WEAKEN STATE. HE COULD NOT TOLERATE SITTING ON THE SIDE OF THE BED SECONDARY TO PAIN AND STIFFNESS. REQUIRED 2 PERSON DRAW SHEET PULL TO GET TO THE HEAD OF THE BED. PLS REVIEW PHYSICAL THERAPY NOTES. PATIENT REPORTEDLY LIVED ALONE AND WAS INDEPENDENT IN CARE PRIOR TO ADMISSION. LIKELY WILL NEED TO CONSIDER ACUTE OR SKILLED REHAB. OT CONSULT ORDER OBTAINED. 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 CM TO FOLLOW TO ASSIST. . 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 PT REPORTS LIVING AT HOME INDEPENDENTLY AND ALONE. PT HAS NO MEDICAL EQUIPMENT AND NO OUTSIDE SERVICES ASSISTING IN THE HOME. CM DISCUSSED AVAILABILITY OF HOME HEALTH, REHAB SERVICES AND MEDICAL EQUIPMENT. PT WILL ACCEPT HOME HEALTH IF NEEDED; PROVIDED WITH PROVIDER LISTING, PT HAS NO CHOICE OF PROVIDER, CHOICE LETTER COMPLETED. PT REPORTS HIS DAUGHTER WILL PICK HIM UP FOR DISCHARGE HOME. IMPORTANT MESSAGE FROM MEDICARE PROVIDED AND EXPLAINED. PT STATES HIS DAUGHTER WILL STAY WITH HIM TO ASSIST AT HOME AFTER DISCHARGE. PT PLANS TO DISCHARGE HOME WHERE HIS DAUGHTER WILL STAY AND ASSIST IF NEEDED. DAUGHTER TO TRANSPORT HOME AT DISCHARGE. PT WOULD ACCEPT HOME HEALTH IF NEEDED; CM TO ARRANGE HOME HEALTH WITH PHYSICIAN AGREEMENT OF NEED AND ORDERS. Watermelon Inspector: Perry Gonzales DCPIA - Discharge Planning Initial Assessment Updated by [id number]: Perry Gonzales on 04/09/19 5:13 pm * Is the patient Alert and Oriented? Yes * How many steps to enter\exit or inside your home? NONE * PCP DR[facility] SORTO IN [place] * Pharmacy [facility] IN [place] * Preadmission Environment Home Alone * ADLs Independent * Equipment None * Other Equipment NO MEDICAL EQUIPMENT PROVIDER PREFERENCE * List name and contact numbers for known caregivers / representatives who currently or will assist patient after discharge: RITU OCHOA, DTR, BRANDT OCHOA, MOTHER 100 YRS OLD, * Verbal permission to speak to the caregivers and representatives has been obtained from the patient. N/A * Community resources currently utilized None * Please name any agencies selected above. NONE * Additional services required to return to the preadmission environment? Yes * Can the patient safely return to the preadmission environment? Yes * Has this patient been hospitalized within the prior 30 days at any hospital? No Coverage Notice Reviewer: ANTONI Gonzales Notice Issued Date-Time: 04/09/2019 9:20 Notice Type: IM Discharge Notice Notice Delivered To: Patient Relationship to Patient: Counter Former Name: Delivery Method: HAND - Hand Delivered Chantel Days: Prior Verbal Notification: Recipient Understood Notice: Yes Recipient Signature: Yes Med Rec Note Co-signed by Attending: Coverage Notice Comment: Reviewer: ANTONI Gonzales Notice Issued Date-Time: 04/09/2019 9:20 Notice Type: Patient Choice Letter Notice Delivered To: Relationship to Patient: Counter Former Name: Delivery Method: HAND - Hand Delivered Chantel Days: Prior Verbal Notification: Recipient Understood Notice: Yes Recipient Signature: Yes Med Rec Note Co-signed by Attending: Coverage Notice Comment: NO HOME HEALTH PROVIDER PREFERENCE Reviewer: ANTONI Gonzales Notice Issued Date-Time: 04/12/2019 14:45 Notice Type: IM Discharge Notice Notice Delivered To: Patient Relationship to Patient: Counter Former Name: Delivery Method: HAND - Hand Delivered Chantel Days: Prior Verbal Notification: Recipient Understood Notice: Yes Recipient Signature: Yes Med Rec Note Co-signed by Attending: Coverage Notice Comment: Reviewer: ANTONI Gonzales Notice Issued Date-Time: 04/12/2019 14:45 Notice Type: Patient Choice Letter Notice Delivered To: Relationship to Patient: Counter Former Name: Delivery Method: HAND - Hand Delivered Hcantel Days: Prior Verbal Notification: Recipient Understood Notice: Yes Recipient Signature: Yes Med Rec Note Co-signed by Attending: Coverage Notice Comment: SNF IN [place] #1 SNF IN [place] #2 Reviewer: ANTONI Gonzales Notice Issued Date-Time: 04/15/2019 7:38 Notice Type: IM Discharge Notice Notice Delivered To: Patient Relationship to Patient: Counter Former Name: Delivery Method: HAND - Hand Delivered Chantel Days: Prior Verbal Notification: Recipient Understood Notice: Yes Recipient Signature: Yes Med Rec Note Co-signed by Attending: Coverage Notice Comment: Reviewer: [id number] Lizzie Gonzales Notice Issued Date-Time: 04/21/2019 13:15 Notice Type: IM Discharge Notice Notice Delivered To: Patient Relationship to Patient: Counter Former Name: Delivery Method: HAND - Hand Delivered Chantel Days: Prior Verbal Notification: Recipient Understood Notice: Yes Recipient Signature: Yes Med Rec Note Co-signed by Attending: Coverage Notice Comment: Last DP export: 04/22/19 4:59 Patient Name: LINDA OCHOA Page [id number] at 1541 All edits/amendments must be made on the electronic document DICTATION DATE: 04/23/19 154 MANAGER HIV: CHULA 04/23/19 154 RPT#: [id number] DC DATE:04/23/19 STATUS: DIS IN [facility] [address] [place] [address] END OF REPORT
== END 2019-04-23 06:50 | DRG 246 ==
LOC: D.ER 04:13 → D.MS 05:41 → D.M2 05:41
PROVIDERS: Emergency Medicine; Family Medicine; Internal Medicine Interventional Cardiology; Internal Medicine Pulmonary Disease; ADMIT Internal Medicine Nephrology; ATTEND Internal Medicine Nephrology
PROC: 4A023N7 Measurement of Cardiac Sampling and Pressure, Left Heart, Percutaneous Approach (ICD-10-PCS; 2019-04-05)
PROC: B2111ZZ Fluoroscopy of Multiple Coronary Arteries using Low Osmolar Contrast (ICD-10-PCS; 2019-04-05)
PROC: B2151ZZ Fluoroscopy of Left Heart using Low Osmolar Contrast (ICD-10-PCS; 2019-04-05)
PROC: 027236Z Dilation of Coronary Artery, Three Arteries with Three Drug-eluting Intraluminal Devices, Percutaneous Approach (ICD-10-PCS; principal; 2019-04-05 09:04)
PROC: 027034Z Dilation of Coronary Artery, One Artery with Drug-eluting Intraluminal Device, Percutaneous Approach (ICD-10-PCS; 2019-04-07)
DX: I21.4 Non-ST elevation (NSTEMI) myocardial infarction (principal); J18.9 Pneumonia, unspecified organism; J81.0 Acute pulmonary edema; J96.01 Acute respiratory failure with hypoxia; I50.21 Acute systolic (congestive) heart failure; I26.99 Other pulmonary embolism without acute cor pulmonale; N17.9 Acute kidney failure, unspecified; N39.0 Urinary tract infection, site not specified; I82.402 Acute embolism and thrombosis of unspecified deep veins of left lower extremity; J98.11 Atelectasis; I25.10 Atherosclerotic heart disease of native coronary artery without angina pectoris; R19.5 Other fecal abnormalities; D50.9 Iron deficiency anemia, unspecified; I11.0 Hypertensive heart disease with heart failure